=== PATIENT | female | born 1950 | race Caucasian/White ===

== ENCOUNTER 2024-06-18 12:02 | Outpatient (CLI) | payer MEDICARE, SELFPAY ==
--- NOTE | 2024-06-18 12:22 | XR_ITS ---
WS: [id number] Exam: XR chest 2V* [id number] Date/Time of Exam: 06/18/2024 12:34 PM Reason For Exam: DYSPNEA ON EXERTION No previous exams. There is cardiac enlargement with mildly increased pulmonary vascularity. There is pleural effusion v ersus pleural thickening seen along the LEFT heart border. No pneumothorax. The mediastinum is normal in contour. Osseous structures are intact. XR/XR chest 2V* [id number] IMPRESSION: 1. Cardiac enlargement with increased pulmonary vascularity. 2. Pleural thickening versus pleural effusion along the LEFT heart border.
== END 2024-06-18 12:03 | disposition home or self-care (01) ==
PROVIDERS: PCP Family Medicine; Visit Provider Family Medicine
DX: R06.09 Other forms of dyspnea (principal); I51.7 Cardiomegaly; J92.9 Pleural plaque without asbestos; R93.89 Abnormal findings on diagnostic imaging of other specified body structures
CPT/HCPCS: 71046

== ENCOUNTER 2024-06-27 12:50 | Inpatient (IN) | payer MEDICARE, SELFPAY ==
[2024-06-27] VITALS (25 sets, daily range): BP systolic 109–179; BP diastolic 65–141; PULSE 86–103; RESP 17–33; TEMP 36.4–36.9; O2SAT 83–99; BMI 30.9
--- NOTE | 2024-06-27 13:02 | ECG_ITS ---
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
--- NOTE | 2024-06-27 13:03 | XR_ITS ---
WS: [id number] Portable AP upright chest, 06/27/2024 Clinical Data: dyspnea/cough Comparison: Two-view chest, 06/18/2024 Findings: There are bibasilar pulmonary opacities unchanged. There is left pleural thickening unchanged. The heart remains enlarged. No pneumothorax is seen. There are no nodules or masses. The aortic arch and descending thoracic aorta show calcification and tortuosity. Monitor leads are on the chest wall. XR/XR chest 1V portable [id number] Impression: 1. No change in cardiomegaly and bibasilar pulmonary opacities which could repr esent pulmonary edema, atelectasis and/or pneumonia. 2. Atherosclerosis. 3. Probable left pleural thickening.
[2024-06-27 13:15] LABS: Basophils % 0.3 %; Hematocrit 32.9 % (36-47); Lymphocytes # 0.9 10^3/uL (0.8-4.8); Lymphocytes % 14.4 %; Mean Corpuscular HGB Conc 32.2 g/dL (30-55); Mean Corpuscular Volume 99.4 fl (85-98); Mean Platelet Volume 9.2 fL (7.4-10.4); Monocytes # 0.3 10^3/uL (0.2-0.9); Monocytes % 5.8 %; Neutrophils # 4.68 10^3/uL (1.8-7.7); Neutrophils % 79.2 %; Nucleated Red Blood Cells % 0 %; Platelet Count 251 10^3/cmm (157-399); Red Blood Count 3.31 10^6/uL (3.85-5.65); Red Cell Distribution Width 14.5 % (12.1-15.1); White Blood Count 5.91 10^3/uL (3.29-11.43)
--- NOTE | 2024-06-27 13:25 | ED_ITS ---
HPI - SOB/Dyspnea 2 General: Chief Complaint: Shortness of Breath/Dyspnea Stated Complaint: SOB Time Seen by Provider: 06/27/24 12:59 History of Present Illness: HPI Narrative: 73-year-old female presents emergency ro om for onset of shortness of breath of the last 3 weeks. Actually got to the point that she was borrowing her neighbors oxygen because of her shortness of breath. She was seen by her doctor couple weeks ago and given some Lasix but it continues to cause problems. She normally does not wear oxygen she is now requiring 2-1/2 L by nasal cannula. She has been mildly orthopneic and has had exertional dyspnea as well denies chest pain. Associated symptoms: Deny abdominal pain, chest pain or fever(s) Related Data Previous Rx's ?Medication ?Instructions ?Recorded aspirin 81 mg tablet,delayed 81 mg PO DAILY #30 tabs 0 07/05/24 release atorvastatin 40 mg tablet 40 mg PO BEDTIME #30 tabs carvedilol 3.125 mg tablet 3.125 mg PO BID #60 tabs clopidogrel 75 mg tablet 75 mg PO DAILY #30 tabs 06/21 10/12 furosemide 40 mg tablet (Lasix) 40 mg PO QAM #30 tabs 07/05/24 pantoprazole 40 mg tablet,delayed 40 mg PO DAILY #30 t abs 07/05/24 release potassium chloride 10 mEq 10 meq PO DAILY #30 caps capsule,extended release Allergies Allergy/AdvReac Type Severity Reaction Status Date / Time ciprofloxacin (From Cipro) Allergy ALGY-Hives Verified 06/27/24 14:20 coconut Allergy ALGY-Hives Verified 06/27/24 14:20 pregabalin (From Lyrica) Allergy ALGY-Hives Verified 06/27/24 14:20 Review of Systems 2 Const: Denies: fever(s) or chills Card: Denies: chest pain Resp: Reports: dyspnea GI: Denies: abdominal pain : Denies: dysuria, urinary frequency or urinary urgency Musc: Denies: neck pain or back pain Skin/Breast: Denies: rash PFSH ED 2 PFSH: Medical History (Updated 07/05/24 @ 10:47 by Negro Jaeger DO) CKD (chronic kidney disease) No significant past medical history Physical Exam 2 Const: GENERAL APPEARANCE: cooperative ORIENTATION/CONSCIOUSNESS: Yes awake, Yes oriented to person, Yes oriented to place and Yes oriented to time HENMT: COMMON NORMALS: normocephalic, atraumatic and hearing grossly normal bilaterally HEAD & SCALP: normocephalic and atraumatic Resp: AUSCULTATION: crackles Cardio: COMMON NORMALS: regular rate, regular rhythm and No murmurs present (Cardio) RATE: regular rate RHYTHM: regular rhythm GI: COMMON NORMALS: Soft to palpation and No hepatosplenomegaly present A USCULTATION: Yes normoactive bowel sounds PALPATION: Yes Soft to palpation, No Tenderness to palpation present (GI), No Guarding due to palpation present (GI) and Yes No hepatosplenomegaly present Extremity: COMMON NORMALS: normal to inspection, capillary refill normal, no clubbing, cyanosis or edema, no calf tenderness and no pedal edema Neuro: SENSORIUM/ORIENTATION: Yes oriented to person, Yes oriented to place and Yes oriented to time Skin: COMMON NORMALS: no rashes or lesions noted GENERAL SKIN EXAM: no rashes or lesions noted Course 2 Vital Signs: Vital signs: Vital Signs Temperature 97.8 F 07/05/24 08:00 Pulse Rate 85 07/05/24 08:00 Respiratory Rate 19 H 07/05/24 08:00 Blood Pressure 108/62 07/05/24 08:00 Pulse Oximetry 96 07/05/24 07:45 Oxygen Delivery Me thod Nasal Cannula 07/05/24 07:45 Oxygen Flow Rate 2 07/04/24 11:57 MDM - SOB/Dyspnea Medical Decision Making Patient has had several day onset of progressively worsening of shortness of breath with a activity. Clinically she appears to be in decompensated heart failure. Delta troponin of +6.5 at the 2-hour cain markedly elevated BNP. She is not having any chest discomfort at this point discussed with the hospitalist suspect this is primary heart failure CTA of the chest shows cardiomegaly no PE small bilateral pleural effusions. There is pulmonary edema as well which is also noted on the chest x-ray. Orders written for admission. Lab Data 07/05/24 02:49 07/05/24 02:49 Labs/Radiology: Radiology Impressions Chest X-Ray 06/27/24 13:03 Impression: 1. No change in cardiomegaly and bibasilar pulmonary opacities which could represent pulmonary edema, atelectasis and/or pneumonia. 2. Atherosclerosis. 3. Probable left pleural thickening. Chest CTA 06/27/24 13:55 IMPRESSION: 1. No pulmonary embolism. 2. Cardiomegaly. Enlarged LEFT heart. No definite RIGHT heart strain at this time. 3. Cirrhotic liver. 4. Small bilateral pleural effusions. 5. Atherosclerotic plaque throughout the thoracic aorta and suprarenal abdominal aorta. 6. Mild pulmonary edema and anasarca. 7. No pneumonia. 8. Mildly enlarged para-aortic lymph nodes. May be reactive. Venous Duplex 06/28/24 18:49 IMPRESSION: 1. No evidence of deep vein thrombosis. 2. 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 Laboratory Results WBC 5.91 10^3/uL (3.29-11.43) 06/27/24 13:10 RBC 3.31 10^6/uL (3.85-5.65) L 06/27/24 13:10 Hgb 10.60 g/dL (11.27-16.99) L 06/27/24 13:10 Hct 32.9 % (36-47) L 06/27/24 13:10 MCV 99.4 fl (85-98) H 06/27/24 13:10 MCH 32.0 pg (27-33) 06/27/24 13:10 MCHC 32.2 g/dL (30-55) 06/27/24 13:10 RDW 14.5 % (12.1-15.1) 06/27/24 13:10 Plt Count 251 10^3/cmm (157-399) 06/27/24 13:10 MPV 9.2 fL (7.4-10.4) 06/27/24 13:10 Neut % (Auto) 79.2 % 06/27/24 13:10 Lymph % (Auto) 14.4 % 06/27/24 13:10 [place] % (Auto) 5.8 % 06/27/24 13:10 Eos % (Auto) 0.0 % 06/27/24 13:10 Baso % (Auto) 0.3 % 06/27/24 13:10 Neut # (Auto) 4.68 10^3/uL (1.8-7.7) 06/27/24 13:10 Lymph # (Auto) 0.9 10^3/uL (0.8-4.8) 06/27/24 13:10 [place] # (Auto) 0.3 10^3/uL (0.2-0.9) 06/27/24 13:10 Eos # (Auto) 0.0 10^3/uL (0.0-0.8) 06/27/24 13:10 Baso # (Auto) 0.0 10^3/uL (0.0-0.1) 06/27/24 13:10 Nucleated RBC % (auto) 0 % 06/27/24 13:10 Nucleated RBCs # 0.0 /100WBC 06/27/24 13:10 Sodium 139 mmol/L (136-145) 06/27/24 13:10 Potassium 3.4 mmol/L (3.5-5.1) L 06/27/24 13:10 Chloride 102 mmol/L (98-107) 06/27/24 13:10 Carbon Dioxide 21 mmol/L (22-29) L 06/27/24 13:10 Anion Gap 19.4 (5-19) H 06/27/24 13:10 BUN 21 mg/dL (8-23) 06/27/24 13:10 Creatinine 1.4 mg/dL (0.5-0.9) H 06/27/24 13:10 GFR Calculation Not Reportable 06/27/24 13:10 Glucose 141 mg/dL (65-115) H 06/27/24 13:10 Estimat Average Glucose 103 06/27/24 13:10 Hemoglobin A1c 5.2 % (4.0-6.0) 06/27/24 13:10 Calculated Osmolality 293 mOsm/kg (285-295) 06/27/24 13:10 Calcium 9.4 mg/dL (8.5-10.5) 06/27/24 13:10 Total Bilirubin 0.7 mg/dL (0.15-1.2) 06/27/24 13:10 AST 16 U/L (0-32) 06/27/24 13:10 ALT 16 U/L (0-33) 06/27/24 13:10 Alkaline Phosphatase 92 U/L (35-105) 06/27/24 13:10 Troponin T Baseline 69 ng/L (0-10) H 06/27/24 17:34 NT-Pro-B Natriuret Pep 85439 pg/mL (0-125) H 06/27/24 13:10 Total Protein 7.3 g/dL (6.6-8.7) 06/27/24 13:10 Albumin 4.1 g/dL (3.5-5.2) 06/27/24 13:10 Globulin 3.2 g/dL (1.3-4.6) 06/27/24 13:10 Vitamin B12 593 pg/mL (232-1245) 06/27/24 13:10 Procalcitonin 0.08 ng/mL (0-0.5) 06/27/24 13:10 All radiology interpretation(s) finalized by discharge Discharge Plan Discharge Patient Disposition: Admitted As Inpatient Admit Provider: Kenzie Winkler Clinical Impression: Congestive heart failure, Exertional dyspnea Condition: Stable Discharge Diet: Cardiac Discharge Activity: Limit activity as instructed and Oxygen as instructed Coding Level of Care Code ED Service Delivery Supervisor for Tayler Lafleur
[2024-06-27 13:47] LABS: NT Pro B Type Natriuretic Pept 33297 pg/mL (0-125); Procalcitonin 0.08 ng/mL (0-0.5)
--- NOTE | 2024-06-27 13:55 | CT_ITS ---
WS: [id number] CT CHEST ANGIOGRAPHY WITH REFORMATS HISTORY: Pleural effusion shortness of breath hypoxia TECHNIQUE: Contiguous axial images are obtained through the chest during arterial injection of intravenous contrast. Images are reconstructed to evaluate the pulmonary arteries. MIP imaging also reviewed. All CT scans at [facility] use at least one of these dose optimization techniques: automated exposure control; mA and/or kV adjustment per patient size (includes targeted exams where dose is matched to clinical indication); or iterative reconstruction. CONTRAST: Omnipaque 350; 100 mL IV. DLP: 471.06 mGy.cm COMPARISON: None available. Good opacification of the central and proximal pulmonary arteries. No filling defects or emboli. Pulmonary artery is slightly enlarged. There is mild LEFT heart enlargement. No RV strain is evident but there is slight early flattening of the intraventricular septum. Moderate atherosclerotic plaque aorta. Calcification extends into the great vessels. Mild interstitial edema. Small bilateral pleural effusions. No dense consolidation or pneumonia. No hilar adenopathy. Periaortic lymph node measures 1.9 cm. There are a few additional smaller lymph nodes. There is diffuse soft tissue anasarca. Cirrhotic liver. Prior cholecystectomy. No adrenal mass. Mild increase in thoracic kyphosis. CT/CT angio chest PE protcl [id number] IMPRESSION: 1. No pulmonary embolism. 2. Cardiomegaly. Enlarged LEFT heart. No definite RIGHT heart strain at this t jesus. 3. Cirrhotic liver. 4. Small bilateral pleural effusions. 5. Atherosclerotic plaque throughout the thoracic aorta and suprarenal abdomin al aorta. 6. Mild pulmonary edema and anasarca. 7. No pneumonia. 8. Mildly enlarged para-aortic lymph nodes. May be reactive.
[2024-06-27 13:58] LABS: Alanine Aminotransferase 16 U/L (0-33); Albumin Level 4.1 g/dL (3.5-5.2); Alkaline Phosphatase 92 U/L (35-105); Anion Gap 19.4 (5-19); Aspartate Amino Transferase 16 U/L (0-32); Blood Urea Nitrogen 21 mg/dL (8-23); Calcium 9.4 mg/dL (8.5-10.5); Carbon Dioxide 21 mmol/L (22-29); Chloride 102 mmol/L (98-107); Creatinine Clr Calc Pharmacy 36.9942; Globulin 3.2 g/dL (1.3-4.6); Glucose 141 mg/dL (65-115); Osmolality Calculated 293 mOsm/kg (285-295); Potassium 3.4 mmol/L (3.5-5.1); Sodium 139 mmol/L (136-145); Total Bilirubin 0.7 mg/dL (0.15-1.2); Total Protein 7.3 g/dL (6.6-8.7)
[2024-06-27] MEDS: iohexol 350 mg/mL 500 mL Btl (per mL) IV (14:18)
[2024-06-27] MEDS: FUROsemide 10 mg/mL SDV 4mL 40 MG IVP (15:41)
--- NOTE | 2024-06-27 16:48 | ECG_ITS ---
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: : 1950 Requested By: Negro Griffith Order Number: [id number] Reading MD: KEESHA PALMER Measurements Intervals [place] Rate: 97 P: 39 ID: 160 QRS: -8 QRSD: 98 T: 56 QT: 300 QTc: 381 Interpretive Statements SINUS RHYTHM POSSIBLE LEFT ATRIAL ENLARGEMENT [-0.1mV P-WAVE IN V1/V2] POSSIBLE ANTERIOR MYOCARDIAL INFARCTION , PROBABLY OLD [30 ms Q WAVE IN V3/V4, OR R < 0.2 mV IN V4] Compared to ECG 06/27/2024 13:02:22 Myocardial infarct finding now present T-wave abnormality no longer present Electronically Signed On 06-29-2024 21:04:06 MIXED LIVESTOCK FARMER by KEESHA PALMER [email or web address]
--- NOTE | 2024-06-27 16:54 | P.HP_ITS ---
Providers/Chief Complaint 2 Primary Care Provider: Param Dobson MD Chief Complaint: SOB History of Present Illness Kaylee Kay is a 73 year old female with no significant past medical history presents to the ER today because of difficulty in breathing which has been getting worse over last 3 to 4 weeks. Currently patient is feeling short of breath on 5-10 steps. Complains of worsening difficulty in breathing on laying down flat. Denies of having any PND. Denies of having any chest pain, nausea, vomiting, flulike symptoms or sick contacts. Review of Systems 2 General: Reports: 10 or more systems reviewed and unremarkable except in HPI and below Const: Denies: fever(s), chills or body aches Eyes: Denies: change in vision, blurry vision or photophobia ENMT: Reports: hoarseness; Denies: throat pain, enlarged tonsils, odynophagia or nasal congestion Card: Denies: chest pain, palpitations, irregular heart rhythm, edema, swelling of feet/ankles, lightheadedness, pre-syncope, dyspnea on exertion or orthopnea Resp: Denies: dyspnea, productive cough, non-productive cough, wheezing, stridor, pain on inspiration, change in phlegm color, hemoptysis or chest congestion GI: Denies: abdominal pain, nausea, vomiting, hematemesis, coffee ground emesis, dysphagia, heartburn, diarrhea, constipation, GI cramping, change in stool character, hematochezia or melena : Denies: flank pain, difficulty voiding, dysuria, urinary frequency, urinary urgency, urinary hesitancy or hematuria Musc: Denies: neck pain, back pain, extremity pain, joint swelling, joint warmth or deformity Neuro: Denies: headache(s), numbness in extremities, weakness in extremities, sensory changes, difficulty walking, frequent falls, dizziness, vertigo, behavioral changes, Slurred speech present or seizure-like activity Psych: Denies: anxiety, depression, suicidal ideation or homicidal ideation Endo: Denies: polyuria, polydipsia, tired all the time, cold intolerance or hot flashes Kevin/Lymph: Denies: easy bruising or easy bleeding Medications/Allergies Home Medications ?Medication ?Instructions ?Recorded ?Confirmed ?Last Taken ?Type No Known Home Medications 06/27/2412/12 Unknown History Allergies Allergy/AdvReac Type Severity Reaction Status Date / Time ciprofloxacin (From Cipro) Allergy ALGY-Hives Verified 06/27/24 14:20 coconut Allergy ALGY-Hives Verified 06/27/24 14:20 pregabalin (From Lyrica) Allergy ALGY-Hives Verified 06/27/24 14:20 PFSH Acute 2 PFSH: Medical History (Updated 06/27/24 @ 18:44 by Kenzie Winkler MD) No significant past medical history Vitals/I&O/Wt Last Vital Signs Temp 97.6 F 06/27/24 12:54 Pulse 94 06/27/24 16:30 Resp 23 H 06/27/24 16:30 BP 179/141 06/27/24 16:30 Pulse Ox 97 06/27/24 16:30 O2 Del Method Room Air 06/27/24 12:54 Weight last 48 hrs Weight 81.647 kg Physical Exam 2 Narrative: General: No acute distress, AO x 3 on nasal cannula HEENT: PERRLA, pupils bilaterally equal and reactive, pallors not present Chest: Normal vesicular breath sounds, fine crackles present bilaterally in lower zone up to mid chest, equal good air entry bilaterally CVS: S1-S2 regular, no murmurs, no tachycardia, no gallops, no rubs Abdomen: Soft, nontender, no organomegaly, bowel sounds present Neuro: No focal deficits, no facial deformity, AO x3, power 5/5 in all limbs Data 06/27/24 13:10 06/27/24 13:10 A&P Assessment and plan (1) Dyspnea on exertion: (2) Orthopnea: (3) Congestive heart failure: (4) Hypertension: Plan 73-year-old female with no segment past medical history presents with dyspnea on exertion worsening over last 3 weeks found to have elevated proBNP of more than 33,000 with a creatinine of 1.4. Shortness of breath: Most likely in setting of congestive heart failure. No formal past diagnosis. Does have elevated proBNP. CTA negative for pulmonary embolism but consistent with cardiomegaly. IV Lasix 40 mg daily. Strict input output charting, daily weights. Fluid restriction to less than 1500 cc. Check echocardiogram. Depending on echocardiogram results we will plan for further evaluation. Oxygen supplementation keeping saturation over 90%. Check A1c, lipid panel. Check TSH. High blood pressure: No formal history of hypertension. Goal blood pressure less than 140/90 mmHg. Will monitor and start on antihypertensive accordingly. Right lower limb swelling: Will check lower limb DVT. CODE STATUS: Full code. Cardiac diet Protonix for PUD prophylaxis Heparin 5000 Q12 hourly for DVT prophylaxis PDMP PDMP Reviewed: Not Reviewed Attestations 2 Medical Necessity Statement*: Admission for more than 2 midnights for management of shortness of breath in setting of new diagnosis of congestive heart failure. Diagnoses Dyspnea on exertion R06.09 Orthopnea R06.01 Congestive heart failure I50.9 Hypertension I10
[2024-06-27] MEDS: enoxaparin 40 mg/0.4 mL Syringe SUBCUT (17:30)
[2024-06-27 18:04] LABS: Troponin(5th) Baseline 69 ng/L (0-10)
[2024-06-27 20:57] LABS: Vitamin B12 593 pg/mL (232-1245)
[2024-06-27 21:02] LABS: Estmated Average Glucose 103; Hemoglobin A1C 5.2 % (4.0-6.0)
[2024-06-27 21:27] LABS: Bilirubin Urine Negative (Negative); Blood Urine Negative (Negative); Glucose Urine UA Negative (Normal); Ketones Urine Negative (Negative); Leukocyte Esterase Urine Negative (Negative); Nitrate Urine Negative (Negative); Protein Urine Negative (Negative); Specific Gravity, Urine 1.015 (1.005-1.030); Urine Appearance Clear (CLEAR); Urine Color Yellow (Yellow); Urobilinogen Urine 0.2 mg/dL (Negative)
[2024-06-27 21:31] LABS: Add Urine Microscopic? YES; Bacteria Urine None Seen /hpf; RBC Urine 0-2 /hpf (0-2); Squamous Epithelial Cell Urine 0-5 /hpf (0-5); WBC Urine 0-5 /hpf (0-5)
[2024-06-27 21:34] LABS: Amphetamines Screen Urine Negative (Negative); Barbiturates Screen Urine Negative (Negative); Benzodiazepines Screen Urine Negative (Negative); Cocaine Screen Urine Negative (Negative); Opiate Screen Urine Negative (Negative); PCP Screen Urine Negative (Negative); THC Screen Urine Negative (Negative)
[2024-06-27 21:36] LABS: Troponin 5 2HR 75.55 ng/L (0-10); Troponin 5 2HR Delta 6.55 ABS# (0-10)
--- NOTE | 2024-06-27 22:48 | ECG_ITS ---
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: : 1950 Requested By: Negro Griffith Order Number: [id number] Reading MD: KEESHA PALMER Measurements Intervals [place] Rate: 97 P: 75 RI: 174 QRS: -16 QRSD: 98 T: 43 QT: 307 QTc: 391 Interpretive Statements SINUS RHYTHM WITH OCCASIONAL VENTRICULAR PREMATURE COMPLEXES POSSIBLE LEFT ATRIAL ENLARGEMENT [-0.1mV P-WAVE IN V1/V2] POSSIBLE ANTERIOR MYOCARDIAL INFARCTION , OF INDETERMINATE AGE [30 ms Q WAVE IN V3/V4, OR R < 0.2 mV IN V4] Compared to ECG 06/27/2024 16:52:56 Ventricular premature complex(es) now present Myocardial infarct finding still present Electronically Signed On 06-29-2024 21:10:28 BIZTALK ADMINISTRATOR by KEESHA PALMER [id number]
[2024-06-28] VITALS (8 sets, daily range): BP systolic 99–151; BP diastolic 62–83; PULSE 86–101; RESP 14–18; TEMP 36.4–37.2; O2SAT 92–96; BMI 37.5
[2024-06-28 00:15] LABS: Troponin 5 6HR 85.48 ng/L (0-10)
[2024-06-28 00:25] LABS: Troponin 5 6HR Delta 16.48 ng/L (0-12)
[2024-06-28] MEDS: FUROsemide 10 mg/mL SDV 4mL 40 MG IVP (03:14)
[2024-06-28 05:08] LABS: Chol HDL Ratio 2.91 mg/dL (0.0-4.40); Cholesterol 137 mg/dL (0-200); HDL Cholesterol 47 mg/dL (60-100); LDL Cholesterol Calculated 76 mg/dL (50-129); LDL HDL Ratio 1.62 RATIO (0.00-3.22); Triglycerides 70 mg/dL (0-150)
[2024-06-28 05:12] LABS: Alanine Aminotransferase 14 U/L (0-33); Albumin Level 3.9 g/dL (3.5-5.2); Alkaline Phosphatase 84 U/L (35-105); Anion Gap 18.5 (5-19); Aspartate Amino Transferase 14 U/L (0-32); Blood Urea Nitrogen 19 mg/dL (8-23); Calcium 9.2 mg/dL (8.5-10.5); Carbon Dioxide 23 mmol/L (22-29); Chloride 104 mmol/L (98-107); Creatinine Clr Calc Pharmacy 44.1341; Globulin 2.2 g/dL (1.3-4.6); Glucose 88 mg/dL (65-115); Magnesium 1.8 mg/dL (1.7-2.3); Osmolality Calculated 296 mOsm/kg (285-295); Potassium 3.5 mmol/L (3.5-5.1); Sodium 142 mmol/L (136-145); Thyroid Stimulating Hormone 1.13 uIU/mL (0.27-4.20); Total Bilirubin 0.6 mg/dL (0.15-1.2); Total Protein 6.1 g/dL (6.6-8.7)
[2024-06-28] MEDS: pantoprazole DR 40 mg Tablet PO (09:07)
[2024-06-28] MEDS: aspirin 81 mg EC Tablet PO (16:09)
[2024-06-28] MEDS: enoxaparin 100 mg/mL Syringe SUBCUT (16:09)
--- NOTE | 2024-06-28 16:44 | P.PN_ITS ---
Subjective 2 Subjective: Patient states she feels her breathing is better today. Currently on 2 L/min supplemental O2 at the time of this assessment. Saturating 92%. Chest is clear to auscultation. Vitals/I&O/Wt Last Vital Signs Temp 98.0 F 06/28/24 16:00 Pulse 96 06/28/24 16:00 Resp 18 06/28/24 16:00 BP 136/62 06/28/24 16:00 Pulse Ox 92 06/28/24 16:00 O2 Del Method Room Air 06/28/24 16:00 O2 Flow Rate 2 06/28/24 09:02 06/28/24 06/28/24 06/28/24 06:59 14:59 22:59 Intake Total 120 / 120 840 / 840 Output Total 600 / 600 1000 / 1000 Balance -480 / -480 -160 / -160 Weight last 48 hrs Weight 99.291 kg Weight 55.293 kg Weight 81.647 kg Physical Exam 2 Narrative: General: No acute distress, AO x 3 on nasal cannula HEENT: PERRLA, pupils bilaterally equal and reactive, pallors not present Chest: Normal vesicular breath sounds, fine crackles present bilaterally in lower zone up to mid chest, equal good air entry bilaterally CVS: S1-S2 regular, no murmurs, no tachycardia, no gallops, no rubs Abdomen: Soft, nontender, no organomegaly, bowel sounds present Neuro: No focal deficits, no facial deformity, AO x3, power 5/5 in all limbs Data 06/27/24 13:10 06/28/24 03:39 A&P Assessment and plan (1) Dyspnea on exertion: (2) Orthopnea: (3) Congestive heart failure: (4) Hypertension: Plan 73-year-old female with no segment past medical history presents with dyspnea on exertion worsening over last 3 weeks found to have elevated proBNP of more than 33,000 with a creatinine of 1.4. Shortness of breath: Most likely in setting of congestive heart failure. No formal past diagnosis. Does have elevated proBNP. CTA negative for pulmonary embolism but consistent with cardiomegaly. IV Lasix 40 mg daily. Strict input output charting, daily weights. Fluid restriction to less than 1500 cc. Check echocardiogram. Depending on echocardiogram results we will plan for further evaluation. Oxygen supplementation keeping saturation over 90%. Check A1c, lipid panel. Check TSH. High blood pressure: No formal history of hypertension. Goal blood pressure less than 140/90 mmHg. Will monitor and start on antihypertensive accordingly. Right lower limb swelling: Will check lower limb DVT. CODE STATUS: Full code. Cardiac diet Protonix for PUD prophylaxis Heparin 5000 Q12 hourly for DVT prophylaxis June 28, 2024 Patient states she feels her breathing is better today. Currently on 2 L/min supplemental O2 at the time of this assessment. Saturating 92%. Chest is clear to auscultation. She is net -600 cc last 24 hours. Urine output at 1600 cc. Creatinine stable at 1.3. Patient had a +6-hour delta of 16. Mildly elevated troponins. Echocardiogram is awaited. Will start patient on full dose anticoagulation with Lovenox 1 mg/kg every 12 hours while awaiting results of echo. Depending on results of echo will decide regarding further ischemic evaluation with either a stress test versus angiogram. Continue Lasix 40 mg IV every 12 hours. HbA1c not consistent with diabetes mellitus. Patient states she takes a full dose aspirin 325 mg at home. For now we will change this to aspirin 81 mg daily while she is on full dose anticoagulation. PDMP PDMP Reviewed: Not Reviewed Attestations 2 Medical Necessity Statement*: Continued admission for IV diuresis. Pending echocardiogram. Further ischemic workup dependent on results of echo. Coding Level of Care Code Acute Code for Chg Fwd Diagnoses Dyspnea on exertion R06.09 Orthopnea R06.01 Congestive heart failure I50.9 Hypertension I10
--- NOTE | 2024-06-28 16:51 | USCV_ITS ---
Kaylee Kay Age: 73 Gender: F : 1950 Exam Date: 06/28/2024 14:13 Ordering Phys: Kenzie Winkler MD Technologist: Nicolas Terry [place] [facility] [place] CHF BP: 151 / 75 HR: 97 Rhythm: Sinus Technical Quality: Adequate MEASUREMENTS (Male / Female) Normal Values 2D ECHO LV Diastolic Diameter PLAX 4.8 cm 4.2 - 5.9 / 3.9 - 5.3 cm IVS Diastolic Thickness 1.5 cm 0.6 - 1.0 / 0.6 - 0.9 cm IVS Systolic Thickness 1.8 cm LVPW Diastolic Thickness 1.6 cm 0.6 - 1.0 / 0.6 - 0.9 cm LVPW Systolic Thickness 2.1 cm LVOT Diameter 2.0 cm LV Ejection Fraction 2D Teich 17.6 % LV Ejection Fraction MOD 4C 38.1 % LV Ejection Fraction MOD 2C 24.1 % LV Ejection Fraction 2C AL 26.6 % LA Diameter 5.0 cm RA Systolic Volume 4C AL 54.9 ml RA Systolic Volume 4C MOD 58.0 ml LA Sys Volume AL 85.5 cm cubed LA Sys Volume Index AL 39.6 cm cubed/m squared Aorta at Sinotubular Diameter 2.3 cm IVC Diameter 2.8 cm M-MODE LA Ao Ratio MM 2.0 AV Cusp Separation MM 1.3 cm DOPPLER AV Peak Velocity 166.0 cm/s LVOT Peak Velocity 53.0 cm/s AV Area Cont Eq vti 0.8 cm squared AV Area Cont Eq pk 1.0 cm squared MV Peak Velocity 156.0 cm/s MV Area PHT 7.9 cm squared Mitral E to A Ratio 1.4 TV Peak Velocity 295.0 cm/s TR Peak Velocity 319.0 cm/s TR Peak Gradient 40.7 mmHg TR Mean Velocity 250.0 cm/s TR Mean Gradient 27.0 mmHg TR Velocity Time Integral 72.3 cm PV Peak Velocity 83.0 cm/s RV Ejection Time 0.2 s FINDINGS Left Ventricle Moderately increased left ventricular cavity size. Severely decreased left ventricular systolic function. Left ventricular ejection fraction is estimated at 24%. Global left ventricular hypokinesis. Grade II/IV diastolic dysfunction, moderately elevated filling pressures. Right Ventricle The right ventricle is normal in size and function. Right Atrium The right atrium is normal in size. Left Atrium Moderately increased left atrial size. Mitral Valve Moderately thickened mitral valve. No mitral valve stenosis. Moderate to severe mitral valve regurgitation. Aortic Valve Moderate aortic valve calcification. Moderate aortic valve stenosis, mean gradient 5.2 mmHg, NICOLÁS 0.83 cm squared. Possible Psuedo arotic stenosis element persist. Tricuspid Valve Moderate tricuspid valve regurgitation. Pulmonic Valve Mild pulmonary valve regurgitation. Pericardium Normal pericardium without effusion. Aorta Normal ascending aorta dimension. IVC Moderately dilated IVC. CONCLUSIONS Moderately increased left ventricular cavity size. Severely decreased left ventricular systolic function. Left ventricular ejection fraction is estimated at 24%. Global left ventricular hypokinesis. Grade II/IV diastolic dysfunction, moderately elevated filling pressures. Moderately increased left atrial size. Moderately thickened mitral valve. No mitral valve stenosis. Moderate to severe mitral valve regurgitation. Moderate aortic valve calcification. Moderate aortic valve stenosis, mean gradient 5.2 mmHg, NICOLÁS 0.83 cm squared. Possible Psuedo arotic stenosis element persist. Moderate tricuspid valve regurgitation. Right atrial pressure is around 20 mm of mercury. Juan Peck MD (Electronically Signed) Final Date: 28 June 2024 17:03 S
--- NOTE | 2024-06-28 18:49 | USR_ITS ---
PROCEDURE INFORMATION: Exam: US Duplex Lower Extremity Veins, Bilateral Exam date and time: 06/28/2024 12:15 PM Age: 73 years old Clinical indication: Swelling (edema) of limb; Lower extremity, bilateral; Additional info: Right lower limb swelling TECHNIQUE: Imaging protocol: Real-time duplex ultrasound of the bilateral extremities with 2-D cavanaugh scale, color Doppler flow and spectral waveform analysis including responses to compression and other maneuvers (when performed) with image documentation. Complete exam focused on the lower extremity veins. COMPARISON: No relevant prior studies available. FINDINGS: Right deep veins: Unremarkable. The common femoral, femoral, proximal profunda femoral and popliteal veins are patent without thrombus. Normal Doppler waveforms. Normal compressibility and/or augmentation response. Left deep veins: Unremarkable. The common femoral, femoral, proximal profunda femoral and popliteal veins are patent without thrombus. Normal Doppler waveforms. Normal compressibility and/or augmentation response. Superficial veins: Greater saphenous veins at the saphenofemoral junctions are patent bilaterally without thrombus. 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 US/[place] [id number] IMPRESSION: 1. No evidence of deep vein thrombosis. 2. 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
[2024-06-28] MEDS: atorvastatin 40 mg Tablet PO (20:13)
[2024-06-29] VITALS (10 sets, daily range): BP systolic 112–164; BP diastolic 67–92; PULSE 84–102; RESP 16–18; TEMP 36.4–37.2; O2SAT 93–96
[2024-06-29] MEDS: FUROsemide 10 mg/mL SDV 4mL 40 MG IVP ×2 (03:18→18:01)
[2024-06-29] MEDS: enoxaparin 100 mg/mL Syringe SUBCUT ×2 (03:18→16:02)
[2024-06-29 05:54] LABS: Basophils % 0.4 %; Hematocrit 32.7 % (36-47); Lymphocytes # 1.5 10^3/uL (0.8-4.8); Lymphocytes % 28.2 %; Mean Corpuscular HGB Conc 31.8 g/dL (30-55); Mean Corpuscular Hemoglobin 32.6 pg (27-33); Mean Corpuscular Volume 102.5 fl (85-98); Mean Platelet Volume 9.8 fL (7.4-10.4); Monocytes # 0.5 10^3/uL (0.2-0.9); Monocytes % 9.3 %; Neutrophils # 3.37 10^3/uL (1.8-7.7); Neutrophils % 61.7 %; Nucleated Red Blood Cells % 0 %; Platelet Count 230 10^3/cmm (157-399); Red Blood Count 3.19 10^6/uL (3.85-5.65); Red Cell Distribution Width 14.3 % (12.1-15.1); White Blood Count 5.46 10^3/uL (3.29-11.43)
[2024-06-29 06:26] LABS: Alanine Aminotransferase 13 U/L (0-33); Albumin Level 3.7 g/dL (3.5-5.2); Alkaline Phosphatase 82 U/L (35-105); Anion Gap 18.1 (5-19); Aspartate Amino Transferase 14 U/L (0-32); Blood Urea Nitrogen 20 mg/dL (8-23); Calcium 9.1 mg/dL (8.5-10.5); Carbon Dioxide 24 mmol/L (22-29); Chloride 101 mmol/L (98-107); Creatinine Clr Calc Pharmacy 44.1341; Glucose 97 mg/dL (65-115); Osmolality Calculated 293 mOsm/kg (285-295); Potassium 3.1 mmol/L (3.5-5.1); Sodium 140 mmol/L (136-145); Total Bilirubin 0.7 mg/dL (0.15-1.2); Total Protein 6.7 g/dL (6.6-8.7)
[2024-06-29] MEDS: pantoprazole DR 40 mg Tablet PO (10:31)
[2024-06-29] MEDS: aspirin 81 mg EC Tablet PO (10:31)
--- NOTE | 2024-06-29 15:36 | P.CONIM_ITS ---
Providers/Reason For Consult 2 Consulting Physician/Specialty*: Juan Peck MD Reason for Consult*: New onset of heart failure Severe LV dysfunction Moderate aortic valve newly diagnosed Moderate to severe mitral regurgitation Moderate tricuspid valve regurgitation Requesting Physician: Dr. Winkler Attending Physician: Kenzie Winkler MD Primary Care Provider: Param Dobson MD History of Present Illness History of Present Illness Kaylee Kay is a 73 year old female past medical history significant for hypertension neuropathy otherwise no significant history of heart coronary artery renal hepatic or musculoskeletal disorder. Patient presented with worsening of shortness of breath PND orthopnea. She was noted to be in decompensated systolic heart failure. She was started on IV Lasix 40 mg once a day. She is feeling somewhat better but still not able to lay flat on the bed. Echocardiogram was performed which showed severely depressed left ventricular ejection fraction with moderate aortic valve stenosis, moderate to severe mitral and tricuspid regurgitation left ventricle is also dilated. Findings are more consistent with cardiomyopathy. Twelve-lead EKG showed sinus rhythm poor R wave progression in the anterolateral lead cannot rule out possible old anterolateral myocardial infarction. Review of Systems 2 General: Reports: 10 or more systems reviewed and unremarkable except in HPI and below Const: Denies: fever(s), chills or body aches Eyes: Denies: change in vision, blurry vision or photophobia ENMT: Reports: hoarseness; Denies: throat pain, enlarged tonsils, odynophagia or nasal congestion Card: Denies: chest pain, palpitations, irregular heart rhythm, edema, swelling of feet/ankles, lightheadedness, pre-syncope, dyspnea on exertion or orthopnea Resp: Denies: dyspnea, productive cough, non-productive cough, wheezing, stridor, pain on inspiration, change in phlegm color, hemoptysis or chest congestion GI: Denies: abdominal pain, nausea, vomiting, hematemesis, coffee ground emesis, dysphagia, heartburn, diarrhea, constipation, GI cramping, change in stool character, hematochezia or melena : Denies: flank pain, difficulty voiding, dysuria, urinary frequency, urinary urgency, urinary hesitancy or hematuria Musc: Denies: neck pain, back pain, extremity pain, joint swelling, joint warmth or deformity Skin/Breast: Denies: rash Neuro: Denies: headache(s), numbness in extremities, weakness in extremities, sensory changes, difficulty walking, frequent falls, dizziness, vertigo, behavioral changes, Slurred speech present or seizure-like activity Psych: Denies: anxiety, depression, suicidal ideation or homicidal ideation Endo: Denies: polyuria, polydipsia, tired all the time, cold intolerance or hot flashes Kevin/Lymph: Denies: easy bruising or easy bleeding Medications/Allergies Home Medications ?Medication ?Instructions ?Recorded ?Confirmed ?Last Taken ?Type No Known Home Medications 06/27/2412/12 Unknown History Allergies Allergy/AdvReac Type Severity Reaction Status Date / Time ciprofloxacin (From Cipro) Allergy ALGY-Hives Verified 06/27/24 14:20 coconut Allergy ALGY-Hives Verified 06/27/24 14:20 pregabalin (From Lyrica) Allergy ALGY-Hives Verified 06/27/24 14:20 Current Medications Generic Name Dose Route Start Last Admin Trade Name Freq PRN Reason Stop Dose Admin Aspirin 81 mg 06/28/24 15:30 06/29/24 10:31 Aspirin 81 Mg Ec Tablet PO 81 mg DAILY VETO Administration Atorvastatin Calcium 40 mg 06/28/24 21:00 06/28/24 20:13 Atorvastatin 40 Mg Tablet PO 40 mg BEDTIME VETO Administration Enoxaparin Sodium 100 mg 06/28/24 15:15 06/29/24 03:18 Enoxaparin 100 Mg/Ml Syringe 1 mg/kg (100 mg) 100 mg SUBCUT Administration Q12H VETO Furosemide 40 mg 06/28/24 04:00 06/29/24 03:18 Furosemide 10 Mg/Ml Sdv 4ml IVP 40 mg Q24H VETO Administration Pantoprazole Sodium 40 mg 06/28/24 09:00 06/29/24 10:[address] 40 Mg Tablet PO 40 mg DAILY VETO Administration PFSH Acute 2 PFSH: Medical History (Updated 06/29/24 @ 18:10 by Juan Peck MD) CKD (chronic kidney disease) No significant past medical history Vitals/I&O/Wt Last Vital Signs Temp 98.1 F 06/29/24 12:00 Pulse 100 06/29/24 12:00 Resp 17 06/29/24 12:00 BP 152/90 06/29/24 12:00 Pulse Ox 94 06/29/24 12:00 O2 Del Method Nasal Cannula 06/29/24 12:00 O2 Flow Rate 4 06/29/24 07:46 06/29/24 06/29/24 06/29/24 06:59 14:59 22:59 Intake Total 600 / 600 Balance 600 / 600 Weight last 48 hrs Weight 218 lb 14.4 oz Weight 218 lb 14.4 oz Weight 121 lb 14.4 oz Data 06/29/24 05:12 06/29/24 05:12 A&P Assessment and plan (1) New onset of congestive heart failure: (2) Left ventricular systolic dysfunction (LVSD): (3) Aortic valve stenosis: (4) Mitral valve regurgitation: (5) Tricuspid valve regurgitation: (6) CKD (chronic kidney disease): (7) Hypertension: Plan By physical examination and echocardiogram patient has new onset of severe LV dysfunction and estimated ejection fraction less than 30% to be very precise 24%. Patient has moderate aortic valve stenosis moderate to severe mitral valve regurgitation and moderate to severe tricuspid valve regurgitation. Plan: Will diurese with 40 mg of IV Lasix twice daily and add potassium chloride 20 mEq twice daily Will add beta-joanne in the form of carvedilol 3.125 mg twice daily Once euvolemic add Entresto 24 twice daily with close monitoring of renal function LifeVest will be initiated before discharge due to severely depressed left ventricular ejection fraction less than 30% for cardiomyopathy in order to prevent sudden cardiac Once euvolemic and able to lay flat provided renal function remains stable at the baseline which is 1.3-1.4, will plan to proceed with left heart cath to rule out ischemic etiology most likely Sunday or Sunday whenever patient will be ready. I have detailed discussion with the patient I have explained my plan and treatment she is in agreement and would like to proceed with it. PDMP PDMP Reviewed: Not Reviewed Consult Attestations 2 Medical Necessity Statement: Patient require continuation hospitalization for above defined care. Coding Level of Care Code Acute Code for Chg Fwd Diagnoses New onset of congestive heart failure I50.9 Left ventricular systolic dysfunction (LVSD) I51.89 Aortic valve stenosis I35.0 Mitral valve regurgitation I34.0 Tricuspid valve regurgitation I07.1 CKD (chronic kidney disease) N18.9 Hypertension I10
--- NOTE | 2024-06-29 16:07 | P.PN_ITS ---
Subjective 2 Subjective: Patient reports feeling symptomatically better today. Saturating 94% on 2 L/min supplemental O2. Medications: Reviewed: Yes Vitals/I&O/Wt Last Vital Signs Temp 98.1 F 06/29/24 12:00 Pulse 100 06/29/24 12:00 Resp 17 06/29/24 12:00 BP 152/90 06/29/24 12:00 Pulse Ox 94 06/29/24 12:00 O2 Del Method Nasal Cannula 06/29/24 12:00 O2 Flow Rate 4 06/29/24 07:46 06/29/24 06/29/24 06/29/24 06:59 14:59 22:59 Intake Total 600 / 600 Balance 600 / 600 Weight last 48 hrs Weight 99.291 kg Weight 99.291 kg Weight 55.293 kg Physical Exam 2 Narrative: General: No acute distress, AO x3 HEENT: PERRLA, pupils bilaterally equal and reactive, pallors not present Chest: Clear to auscultation bilaterally CVS: S1-S2 regular, no murmurs, no tachycardia, no gallops, no rubs Abdomen: Soft, nontender, no organomegaly, bowel sounds present Neuro: No focal deficits, no facial deformity, AO x3, power 5/5 in all limbs Data 06/29/24 05:12 06/29/24 05:12 Other data: FINDINGS Left Ventricle Moderately increased left ventricular cavity size. Severely decreased left ventricular systolic function. Left ventricular ejection fraction is estimated at 24%. Global left ventricular hypokinesis. Grade II/IV diastolic dysfunction, moderately elevated filling pressures. Right Ventricle The right ventricle is normal in size and function. Right Atrium The right atrium is normal in size. Left Atrium Moderately increased left atrial size. Mitral Valve Moderately thickened mitral valve. No mitral valve stenosis. Moderate to severe mitral valve regurgitation. Aortic Valve Moderate aortic valve calcification. Moderate aortic valve stenosis, mean gradient 5.2 mmHg, NICOLÁS 0.83 cm squared. Possible Psuedo arotic stenosis element persist. Tricuspid Valve Moderate tricuspid valve regurgitation. Pulmonic Valve Mild pulmonary valve regurgitation. Pericardium Normal pericardium without effusion. Aorta Normal ascending aorta dimension. IVC Moderately dilated IVC. CONCLUSIONS Moderately increased left ventricular cavity size. Severely decreased left ventricular systolic function. Left ventricular ejection fraction is estimated at 24%. Global left ventricular hypokinesis. Grade II/IV diastolic dysfunction, moderately elevated filling pressures. Moderately increased left atrial size. Moderately thickened mitral valve. No mitral valve stenosis. Moderate to severe mitral valve regurgitation. Moderate aortic valve calcification. Moderate aortic valve stenosis, mean gradient 5.2 mmHg, NICOLÁS 0.83 cm squared. Possible Psuedo arotic stenosis element persist. Moderate tricuspid valve regurgitation. Right atrial pressure is around 20 mm of mercury. A&P Assessment and plan (1) Dyspnea on exertion: (2) Orthopnea: (3) Congestive heart failure: (4) Hypertension: Plan 73-year-old female with no segment past medical history presents with dyspnea on exertion worsening over last 3 weeks found to have elevated proBNP of more than 33,000 with a creatinine of 1.4. Shortness of breath: Most likely in setting of congestive heart failure. No formal past diagnosis. Does have elevated proBNP. CTA negative for pulmonary embolism but consistent with cardiomegaly. IV Lasix 40 mg daily. Strict input output charting, daily weights. Fluid restriction to less than 1500 cc. Check echocardiogram. Depending on echocardiogram results we will plan for further evaluation. Oxygen supplementation keeping saturation over 90%. Check A1c, lipid panel. Check TSH. High blood pressure: No formal history of hypertension. Goal blood pressure less than 140/90 mmHg. Will monitor and start on antihypertensive accordingly. Right lower limb swelling: Will check lower limb DVT. CODE STATUS: Full code. Cardiac diet Protonix for PUD prophylaxis Heparin 5000 Q12 hourly for DVT prophylaxis June 28, 2024 Patient states she feels her breathing is better today. Currently on 2 L/min supplemental O2 at the time of this assessment. Saturating 92%. Chest is clear to auscultation. She is net -600 cc last 24 hours. Urine output at 1600 cc. Creatinine stable at 1.3. Patient had a +6-hour delta of 16. Mildly elevated troponins. Echocardiogram is awaited. Will start patient on full dose anticoagulation with Lovenox 1 mg/kg every 12 hours while awaiting results of echo. Depending on results of echo will decide regarding further ischemic evaluation with either a stress test versus angiogram. Continue Lasix 40 mg IV every 12 hours. HbA1c not consistent with diabetes mellitus. Patient states she takes a full dose aspirin 325 mg at home. For now we will change this to aspirin 81 mg daily while she is on full dose anticoagulation. June 29, 2024 Remains 94% on 2 -3 L/min nasal cannula. Urine output is not accurately charted. Creatinine is stable at 1.3. Echocardiogram showing severely decreased LVEF of 24%. Global left ventricular hypokinesia. Grade 2 diastolic dysfunction. Moderately elevated filling pressures. Overall features consistent with acute systolic congestive heart failure. With positive delta's as noted above, concern for underlying ischemic etiology. Will consult cardiology for further assessment. May need stress test versus angiogram for further diagnostics. Add metoprolol 12.5 mg p.o. twice daily. Will add DAISY inhibitors once renal function demonstrates stability. Today creatinine is at 1.3. Hypokalemia at 3.1 repleted with oral potassium. Continue Lasix 40 mg IV every 24 hours. Continue Lovenox while awaiting cardiology assessment. Continue aspirin 81 mg p.o. daily. PDMP PDMP Reviewed: Not Reviewed Attestations 2 Medical Necessity Statement*: Continued admission for IV diuresis. Cardiology assessment for newly diagnosed ejection fraction 24%, possibly needs ischemic workup Coding Level of Care Code Acute Code for Chg Fwd High MDM includes number and complexity of problems actively addressed during encounter, amount and/or complexity of data reviewed/ordered and described risk of complication, morbidity or mortality of management as documented Diagnoses Dyspnea on exertion R06.09 Orthopnea R06.01 Congestive heart failure I50.9 Hypertension I10
[2024-06-29] MEDS: potassium chloride ER 20 mEq Tablet 40 MEQ PO (16:44)
[2024-06-29] MEDS: metoprolol tartrate 25 mg Tablet 12.5 MG PO (20:01)
[2024-06-29] MEDS: atorvastatin 40 mg Tablet PO (20:01)
[2024-06-30] VITALS (10 sets, daily range): BP systolic 119–172; BP diastolic 65–96; PULSE 84–104; RESP 18; TEMP 36.3–37.1; O2SAT 90–94
[2024-06-30] MEDS: enoxaparin 100 mg/mL Syringe SUBCUT ×2 (03:10→13:47)
[2024-06-30] MEDS: FUROsemide 10 mg/mL SDV 4mL 40 MG IVP ×2 (04:43→16:56)
[2024-06-30 06:30] LABS: Basophils % 0.5 %; Hematocrit 33.5 % (36-47); Lymphocytes # 1.9 10^3/uL (0.8-4.8); Lymphocytes % 28.9 %; Mean Corpuscular HGB Conc 31.6 g/dL (30-55); Mean Corpuscular Hemoglobin 32.3 pg (27-33); Mean Corpuscular Volume 102.1 fl (85-98); Mean Platelet Volume 9.9 fL (7.4-10.4); Monocytes # 0.5 10^3/uL (0.2-0.9); Monocytes % 7.9 %; Neutrophils # 4.14 10^3/uL (1.8-7.7); Neutrophils % 62.4 %; Nucleated Red Blood Cells % 0 %; Platelet Count 254 10^3/cmm (157-399); Red Blood Count 3.28 10^6/uL (3.85-5.65); Red Cell Distribution Width 14.3 % (12.1-15.1); White Blood Count 6.62 10^3/uL (3.29-11.43)
[2024-06-30 06:52] LABS: Alanine Aminotransferase 14 U/L (0-33); Alkaline Phosphatase 85 U/L (35-105); Anion Gap 19.5 (5-19); Aspartate Amino Transferase 15 U/L (0-32); Blood Urea Nitrogen 23 mg/dL (8-23); Calcium 9.6 mg/dL (8.5-10.5); Carbon Dioxide 24 mmol/L (22-29); Chloride 100 mmol/L (98-107); Creatinine Clr Calc Pharmacy 51.3758; Globulin 3.2 g/dL (1.3-4.6); Glucose 115 mg/dL (65-115); Magnesium 1.6 mg/dL (1.7-2.3); Osmolality Calculated 295 mOsm/kg (285-295); Potassium 3.5 mmol/L (3.5-5.1); Sodium 140 mmol/L (136-145); Total Bilirubin 0.6 mg/dL (0.15-1.2); Total Protein 7.2 g/dL (6.6-8.7)
[2024-06-30] MEDS: potassium chloride ER 20 mEq Tablet PO ×2 (08:43→16:56)
[2024-06-30] MEDS: pantoprazole DR 40 mg Tablet PO (08:43)
[2024-06-30] MEDS: aspirin 81 mg EC Tablet PO (08:43)
[2024-06-30] MEDS: metoprolol tartrate 25 mg Tablet 12.5 MG PO ×2 (08:43→22:00)
--- NOTE | 2024-06-30 09:57 | PC.CHAP ---
Pastoral Care Encounter/Spiritual Assessment Type of Contact [] Declined electronic communications technician visit [] Patient/Family/Request visit [] Outpatient visit [] Follow-up visit [] Physician referral [] Code/Alert [x] Routine visit [] Staff referral [] Actively dying [] Patient sleeping [] Family support [] [] Out of room [] Palliative care [] [] Receiving care in room [] Pre-surgical visit [] Trauma [] Long length of stay [] ICU visit [] Other: Relational/Emotional Strength [] Patient feels connected with others/family/visitors/staff [] Distress [] Loneliness/isolation [] Abandonment Spirituality of Patient [x] Person of Rosa Elena [] Attends Mormonism of their Rosa Elena [x] Believes in Prayer [] Reads Bible or Mandaen materials [] There are Spiritual issues to be addressed Qa Software Tester Interventions [x] Prayer [x] Active listening [] Non-anxious presence [] Spiritual/emotional support [] Crisis/trauma care [] Spiritual counseling [] Bereavement support [] Provided bereavement packet [x] Provided Bible/devotional materials [] Provided toy/stuffed animal, coloring book to patient or family member [] Provided Communion [] Anointing/[place] [] Salvation [x] Completed spiritual assessment [] Other: Impact on Illness or Injury [] Angry [] Fearful [] Anxious [] Often cries [] Exhaustion [] Unable to work [] Unable to attend jain [] Unable to walk/stand [] Unable to read [] Unable to drive [] Unable to eat/drink [] Unable to sleep [] Unable to be with family [] Patient intubated [] Other: Summary Time spent with patient 5 min
--- NOTE | 2024-06-30 09:58 | PC.CHAP ---
Pastoral Care Encounter/Spiritual Assessment Type of Contact [] Declined eclectic doctor visit [] Patient/Family/Request visit [] Outpatient visit [] Follow-up visit [] Physician referral [] Code/Alert [x] Routine visit [] Staff referral [] Actively dying [] Patient sleeping [] Family support [] [] Out of room [] Palliative care [] [] Receiving care in room [] Pre-surgical visit [] Trauma [] Long length of stay [] ICU visit [] Other: Relational/Emotional Strength [] Patient feels connected with others/family/visitors/staff [] Distress [] Loneliness/isolation [] Abandonment Spirituality of Patient [x] Person of Rosa Elena [] Attends Orthodoxy of their Rosa Elena [x] Believes in Prayer [] Reads Bible or Episcopalian materials [] There are Spiritual issues to be addressed Hair Preparer Interventions [x] Prayer [x] Active listening [] Non-anxious presence [] Spiritual/emotional support [] Crisis/trauma care [] Spiritual counseling [] Bereavement support [] Provided bereavement packet [x] Provided Bible/devotional materials [] Provided toy/stuffed animal, coloring book to patient or family member [] Provided Communion [] Anointing/[place] [] Salvation [x] Completed spiritual assessment [] Other: Impact on Illness or Injury [] Angry [] Fearful [] Anxious [] Often cries [] Exhaustion [] Unable to work [] Unable to attend spiritism [] Unable to walk/stand [] Unable to read [] Unable to drive [] Unable to eat/drink [] Unable to sleep [] Unable to be with family [] Patient intubated [] Other: Summary Time spent with patient 5 min
--- NOTE | 2024-06-30 12:45 | P.PN_ITS ---
Subjective 2 Subjective: Seen this morning. Plan for cardiac catheter next 24 to 48 hours. She states she feels better. Currently on 3 L nasal cannula. She is sitting up on the bedside. Vitals/I&O/Wt Last Vital Signs Temp 98.7 F 06/30/24 12:00 Pulse 84 06/30/24 12:00 Resp 18 06/30/24 12:00 BP 160/82 06/30/24 12:00 Pulse Ox 93 06/30/24 12:00 O2 Del Method Nasal Cannula 06/30/24 12:00 O2 Flow Rate 2 06/30/24 08:00 06/29/24 06/30/24 06/30/24 22:59 06:59 14:59 Intake Total 480 / 1080 240 / 1320 240 / 240 Output Total 200 / 200 Balance 480 / 1080 240 / 1320 40 / 40 Weight last 48 hrs Weight 96.57 kg Weight 99.291 kg Physical Exam 2 Narrative: General: No acute distress, AO x3 HEENT: PERRLA, pupils bilaterally equal and reactive, pallors not present Chest: Clear to auscultation bilaterally CVS: S1-S2 regular, no murmurs, no tachycardia, no gallops, no rubs Abdomen: Soft, nontender, no organomegaly, bowel sounds present Neuro: No focal deficits, no facial deformity, AO x3, Data 06/30/24 05:46 06/30/24 05:46 A&P Assessment and plan (1) Dyspnea on exertion: (2) Orthopnea: (3) Congestive heart failure: (4) Hypertension: Plan 73-year-old female with no segment past medical history presents with dyspnea on exertion worsening over last 3 weeks found to have elevated proBNP of more than 33,000 with a creatinine of 1.4. Shortness of breath: Most likely in setting of congestive heart failure. No formal past diagnosis. Does have elevated proBNP. CTA negative for pulmonary embolism but consistent with cardiomegaly. IV Lasix 40 mg daily. Strict input output charting, daily weights. Fluid restriction to less than 1500 cc. Check echocardiogram. Depending on echocardiogram results we will plan for further evaluation. Oxygen supplementation keeping saturation over 90%. Check A1c, lipid panel. Check TSH. High blood pressure: No formal history of hypertension. Goal blood pressure less than 140/90 mmHg. Will monitor and start on antihypertensive accordingly. Right lower limb swelling: Will check lower limb DVT. CODE STATUS: Full code. Cardiac diet Protonix for PUD prophylaxis Heparin 5000 Q12 hourly for DVT prophylaxis June 28, 2024 Patient states she feels her breathing is better today. Currently on 2 L/min supplemental O2 at the time of this assessment. Saturating 92%. Chest is clear to auscultation. She is net -600 cc last 24 hours. Urine output at 1600 cc. Creatinine stable at 1.3. Patient had a +6-hour delta of 16. Mildly elevated troponins. Echocardiogram is awaited. Will start patient on full dose anticoagulation with Lovenox 1 mg/kg every 12 hours while awaiting results of echo. Depending on results of echo will decide regarding further ischemic evaluation with either a stress test versus angiogram. Continue Lasix 40 mg IV every 12 hours. HbA1c not consistent with diabetes mellitus. Patient states she takes a full dose aspirin 325 mg at home. For now we will change this to aspirin 81 mg daily while she is on full dose anticoagulation. June 29, 2024 Remains 94% on 2 -3 L/min nasal cannula. Urine output is not accurately charted. Creatinine is stable at 1.3. Echocardiogram showing severely decreased LVEF of 24%. Global left ventricular hypokinesia. Grade 2 diastolic dysfunction. Moderately elevated filling pressures. Overall features consistent with acute systolic congestive heart failure. With positive delta's as noted above, concern for underlying ischemic etiology. Will consult cardiology for further assessment. May need stress test versus angiogram for further diagnostics. Add metoprolol 12.5 mg p.o. twice daily. Will add DAISY inhibitors once renal function demonstrates stability. Today creatinine is at 1.3. Hypokalemia at 3.1 repleted with oral potassium. Continue Lasix 40 mg IV every 24 hours. Continue Lovenox while awaiting cardiology assessment. Continue aspirin 81 mg p.o. daily.. 06/30/2024 On 3 L nasal cannula saturating 93%. Urine output not charted. EF 24%. Concern for ischemic etiology. Cardiology consulted. Plan for cardiac cath in next 24 to 48 hours. Creatinine 1.1 this morning. Creatinine is improved. Most likely patient had cardiorenal syndrome. Continue Lasix 40 IV daily. PDMP PDMP Reviewed: Not Reviewed Attestations 2 Medical Necessity Statement*: Continued admission for IV diuresis. Cardiology assessment for newly diagnosed ejection fraction 24%, possibly needs ischemic workup Diagnoses Dyspnea on exertion R06.09 Orthopnea R06.01 Congestive heart failure I50.9 Hypertension I10
--- NOTE | 2024-06-30 15:03 | P.PN_ITS ---
<Statement entered by Juan Peck MD - 06/30/24 20:58> Patient was evaluated and cared for in conjunction with an advanced practice practitioner. I personally examined the patient and reviewed the chart and all pertinent data including imaging, telemetry, and laboratory results. I discussed the patient in detail with the advanced practice practitioner. Please see their note for complete H&P testing result and agreed upon plan of care for the patient. Steadily improving has diuresed well overnight GENERAL: Patient is alert, awake and oriented x3. HEART: Regular S1 and S2. No murmur, rub or gallop. LUNGS: Inspiratory crackle on the right side CENTRAL NERVOUS SYSTEM: Grossly nonfocal. EXTREMITIES: Lower extremities with out edema bilaterally. Assessment and plan New onset of heart failure decompensated acute systolic heart failure New onset of severely depressed left ventricular ejection fraction Moderate to severe mitral regurgitation Moderate aortic stenosis Moderate to severe tricuspid regurgitation Continue IV diuresis Will proceed with left heart cath once euvolemic and couple of days Subjective 2 Subjective: Patient doing ok. She is making some improvements, but still has a dry cough with some orthopnea. Medications: Reviewed: Yes Vitals/I&O/Wt Last Vital Signs Temp 98.7 F 06/30/24 12:00 Pulse 87 06/30/24 14:40 Resp 18 06/30/24 12:00 BP 160/82 06/30/24 12:00 Pulse Ox 92 06/30/24 14:40 O2 Del Method Room Air 06/30/24 14:40 O2 Flow Rate 2 06/30/24 08:00 06/30/24 06/30/24 06/30/24 06:59 14:59 22:59 Intake Total 240 / 1320 240 / 240 Output Total 200 / 200 Balance 240 / 1320 40 / 40 Weight last 48 hrs Weight 212 lb 14.4 oz Weight 218 lb 14.4 oz Physical Exam 2 Narrative: General: No apparent distress, healthy appearing, well nourished HENMT: normoceophalic Muskuloskeletal: Full ROM Lymphatic: no lymphedema noted Respiratory: Normal respiratory effort, right lower lobe fine crackles present and left lower lobe clear, no use of accessory muscles Cardio: No JVD, regular rate, regular rhythm, S1 S2 normal, no murmurs, peripheral pulses 2+ radial palpated bilaterally GI: Normal to inspection, nondistended Extremities: Full ROM, normal, normal capillary refill, no cyanosis, 1+ nonpitting edema bilateral lower extremities Neuro: Alert and oriented x4, no focal motor deficits Psych: Affect normal, denies suicidal ideation, mental status grossly normal Skin: varicose veins bilateral lower extremities Data 06/30/24 05:46 06/30/24 05:46 A&P Assessment and plan (1) New onset of congestive heart failure: (2) Left ventricular systolic dysfunction (LVSD): (3) Aortic valve stenosis: (4) Mitral valve regurgitation: (5) Tricuspid valve regurgitation: (6) CKD (chronic kidney disease): (7) Hypertension: Plan Echocardiogram patient has new onset of severe LV dysfunction and estimated ejection fraction less than 30% to be very precise 24%. Patient has moderate aortic valve stenosis moderate to severe mitral valve regurgitation and moderate to severe tricuspid valve regurgitation. Patient has made slight improvement, recommend continue to diurese with 40 mg of IV Lasix twice daily and add potassium chloride 20 mEq twice daily Patient currently taking Metoprolol 12.5 mg BID. Will continue. Once euvolemic will add Entresto 24/ twice daily with close monitoring of renal function LifeVest has been ordered and discussed with patient. This will be initiated before discharge due to severely depressed left ventricular ejection fraction less than 30% for cardiomyopathy in order to prevent sudden cardiac Once euvolemic and able to lay flat provided renal function remains stable at the baseline which is 1.3-1.4, will plan to proceed with left heart cath to rule out ischemic etiology most likely Sunday whenever patient will be ready. PDMP PDMP Reviewed: Not Reviewed Attestations 2 Medical Necessity Statement*: deferred to primary care Coding Level of Care Code Acute Code for Chg Fwd Diagnoses New onset of congestive heart failure I50.9 Left ventricular systolic dysfunction (LVSD) I51.89 Aortic valve stenosis I35.0 Mitral valve regurgitation I34.0 Tricuspid valve regurgitation I07.1 CKD (chronic kidney disease) N18.9 Hypertension I10
--- NOTE | 2024-06-30 15:20 | PC.SOCIAL ---
IMM Updated Updated pt on IMM. No questions voiced. Provided pt a copy. Initialed, dated, & timed a copy & placed in chart.
[2024-06-30] MEDS: atorvastatin 40 mg Tablet PO (22:00)
[2024-07-01] VITALS (10 sets, daily range): BP systolic 114–154; BP diastolic 77–88; PULSE 77–92; RESP 16–18; TEMP 36.4–36.7; O2SAT 92–96
[2024-07-01] MEDS: enoxaparin 100 mg/mL Syringe SUBCUT ×2 (03:59→14:01)
[2024-07-01] MEDS: FUROsemide 10 mg/mL SDV 4mL 40 MG IVP ×3 (04:57→21:36)
[2024-07-01 06:19] LABS: Basophils % 0.3 %; Hematocrit 32.8 % (36-47); Lymphocytes # 1.9 10^3/uL (0.8-4.8); Lymphocytes % 27.8 %; Mean Corpuscular Hemoglobin 32.3 pg (27-33); Mean Corpuscular Volume 100.9 fl (85-98); Mean Platelet Volume 9.9 fL (7.4-10.4); Monocytes # 0.6 10^3/uL (0.2-0.9); Monocytes % 8.9 %; Neutrophils % 62.7 %; Nucleated Red Blood Cells % 0 %; Platelet Count 255 10^3/cmm (157-399); Red Blood Count 3.25 10^6/uL (3.85-5.65); Red Cell Distribution Width 14.3 % (12.1-15.1); White Blood Count 6.86 10^3/uL (3.29-11.43)
[2024-07-01 06:42] LABS: Alanine Aminotransferase 14 U/L (0-33); Albumin Level 3.9 g/dL (3.5-5.2); Alkaline Phosphatase 84 U/L (35-105); Anion Gap 19.5 (5-19); Aspartate Amino Transferase 18 U/L (0-32); Blood Urea Nitrogen 21 mg/dL (8-23); Calcium 9.6 mg/dL (8.5-10.5); Carbon Dioxide 25 mmol/L (22-29); Chloride 98 mmol/L (98-107); Creatinine Clr Calc Pharmacy 46.8672; Globulin 3.3 g/dL (1.3-4.6); Glucose 116 mg/dL (65-115); Magnesium 1.7 mg/dL (1.7-2.3); Osmolality Calculated 292 mOsm/kg (285-295); Potassium 3.5 mmol/L (3.5-5.1); Sodium 139 mmol/L (136-145); Total Bilirubin 0.7 mg/dL (0.15-1.2); Total Protein 7.2 g/dL (6.6-8.7)
[2024-07-01] MEDS: potassium chloride ER 20 mEq Tablet PO ×3 (07:58→21:36)
[2024-07-01] MEDS: metoprolol tartrate 25 mg Tablet 12.5 MG PO ×2 (07:58→21:36)
[2024-07-01] MEDS: pantoprazole DR 40 mg Tablet PO (07:58)
[2024-07-01] MEDS: aspirin 81 mg EC Tablet PO (07:58)
--- NOTE | 2024-07-01 09:34 | P.PN_ITS ---
Documented by User: Moy Ghosh 07/01/24 10:31 Subjective 2 Subjective: Patient was seen this morning. No acute overnight events. She is sitting upright in bed and states that she was not able to sleep well. Overall she reports feeling better and states that her breathing has improved slightly. Vitals/I&O/Wt Last Vital Signs Temp 97.7 F 07/01/24 07:52 Pulse 86 07/01/24 07:52 Resp 17 07/01/24 07:52 BP 153/88 07/01/24 07:52 Pulse Ox 92 07/01/24 07:52 O2 Del Method Nasal Cannula 07/01/24 07:52 O2 Flow Rate 2 07/01/24 06:50 06/30/24 07/01/24 07/01/24 22:59 06:59 14:59 Intake Total 240 / 480 240 / 240 Output Total 1300 / 1500 500 / 2000 900 / 900 Balance -1300 / -1260 -260 / -1520 -660 / -660 Weight last 48 hrs Weight 95.708 kg Weight 96.57 kg Physical Exam 2 Const: COMMON NORMALS: no acute distress and patient oriented x3 Resp: COMMON NORMALS: normal respiratory effort and clear to auscultation bilaterally AUSCULTATION: clear to auscultation bilaterally Cardio: COMMON NORMALS: regular rate, regular rhythm, S1 normal heart sound present and S2 normal heart sound present RATE: regular rate RHYTHM: r egular rhythm HEART SOUNDS: S1 normal heart sound present and S2 normal heart sound present GI: COMMON NORMALS: Normal to inspection, nondistended, normoactive bowel sounds present Extremity: COMMON NORMALS: no pedal edema Neuro: COMMON NORMALS: patient oriented x3 Data 07/01/24 05:32 07/01/24 05:32 A&P Assessment and plan (1) Hypertension: (2) Congestive heart failure: (3) New onset of congestive heart failure: (4) Aortic valve stenosis: (5) Mitral valve regurgitation: (6) Dyspnea on exertion: (7) CKD (chronic kidney disease): Plan 73-year-old female with no segment past medical history presents with dyspnea on exertion worsening over last 3 weeks found to have elevated proBNP of more than 33,000 with a creatinine of 1.4. Shortness of breath: Most likely in setting of congestive heart failure. No formal past diagnosis. Does have elevated proBNP. CTA negative for pulmonary embolism but consistent with cardiomegaly. IV Lasix 40 mg daily. Strict input output charting, daily weights. Fluid restriction to less than 1500 cc. Check echocardiogram. Depending on echocardiogram results we will plan for further evaluation. Oxygen supplementation keeping saturation over 90%. Check A1c, lipid panel. Check TSH. High blood pressure: No formal history of hypertension. Goal blood pressure less than 140/90 mmHg. Will monitor and start on antihypertensive accordingly. Right lower limb swelling: Will check lower limb DVT. CODE STATUS: Full code. Cardiac diet Protonix for PUD prophylaxis Heparin 5000 Q12 hourly for DVT prophylaxis June 28, 2024 Patient states she feels her breathing is better today. Currently on 2 L/min supplemental O2 at the time of this assessment. Saturating 92%. Chest is clear to auscultation. She is net -600 cc last 24 hours. Urine output at 1600 cc. Creatinine stable at 1.3. Patient had a +6-hour delta of 16. Mildly elevated troponins. Echocardiogram is awaited. Will start patient on full dose anticoagulation with Lovenox 1 mg/kg every 12 hours while awaiting results of echo. Depending on results of echo will decide regarding further ischemic evaluation with either a stress test versus angiogram. Continue Lasix 40 mg IV every 12 hours. HbA1c not consistent with diabetes mellitus. Patient states she takes a full dose aspirin 325 mg at home. For now we will change this to aspirin 81 mg daily while she is on full dose anticoagulation. June 29, 2024 Remains 94% on 2 -3 L/min nasal cannula. Urine output is not accurately charted. Creatinine is stable at 1.3. Echocardiogram showing severely decreased LVEF of 24%. Global left ventricular hypokinesia. Grade 2 diastolic dysfunction. Moderately elevated filling pressures. Overall features consistent with acute systolic congestive heart failure. With positive delta's as noted above, concern for underlying ischemic etiology. Will consult cardiology for further assessment. May need stress test versus angiogram for further diagnostics. Add metoprolol 12.5 mg p.o. twice daily. Will add DAISY inhibitors once renal function demonstrates stability. Today creatinine is at 1.3. Hypokalemia at 3.1 repleted with oral potassium. Continue Lasix 40 mg IV every 24 hours. Continue Lovenox while awaiting cardiology assessment. Continue aspirin 81 mg p.o. daily.. 06/30/2024 On 3 L nasal cannula saturating 93%. Urine output not charted. EF 24%. Concern for ischemic etiology. Cardiology consulted. Plan for cardiac cath in next 24 to 48 hours. Creatinine 1.1 this morning. Creatinine is improved. Most likely patient had cardiorenal syndrome. Continue Lasix 40 IV daily. 07/01/2024 On 3L nasal cannula saturating 92%. Creatinine 1.2 this morning from 1.1 yesterday. Potassium trending upward from 3.1 (06/29) to 2.5 (07/01). Continue Lasix 40 IV daily with Potassium Chloride. Will proceed with left heart cath once euvolemic. Cardiology following PDMP PDMP Reviewed: Not Reviewed Coding Level of Care Code 64297 Diagnoses Hypertension I10 Congestive heart failure I50.9 New onset of congestive heart failure I50.9 Aortic valve stenosis I35.0 Mitral valve regurgitation I34.0 Dyspnea on exertion R06.09 CKD (chronic kidney disease) N18.9 Documented by User: Bhumika Donato MD 07/01/24 11:04 Data 07/01/24 05:32 07/01/24 05:32 A&P Assessment and plan (1) Hypertension: (2) Congestive heart failure: (3) New onset of congestive heart failure: (4) Aortic valve stenosis: (5) Mitral valve regurgitation: (6) Dyspnea on exertion: (7) CKD (chronic kidney disease): Plan 73-year-old female with no segment past medical history presents with dyspnea on exertion worsening over last 3 weeks found to have elevated proBNP of more than 33,000 with a creatinine of 1.4. Shortness of breath: Most likely in setting of congestive heart failure. No formal past diagnosis. Does have elevated proBNP. CTA negative for pulmonary embolism but consistent with cardiomegaly. IV Lasix 40 mg daily. Strict input output charting, daily weights. Fluid restriction to less than 1500 cc. Check echocardiogram. Depending on echocardiogram results we will plan for further evaluation. Oxygen supplementation keeping saturation over 90%. Check A1c, lipid panel. Check TSH. High blood pressure: No formal history of hypertension. Goal blood pressure less than 140/90 mmHg. Will monitor and start on antihypertensive accordingly. Right lower limb swelling: Will check lower limb DVT. CODE STATUS: Full code. Cardiac diet Protonix for PUD prophylaxis Heparin 5000 Q12 hourly for DVT prophylaxis June 28, 2024 Patient states she feels her breathing is better today. Currently on 2 L/min supplemental O2 at the time of this assessment. Saturating 92%. Chest is clear to auscultation. She is net -600 cc last 24 hours. Urine output at 1600 cc. Creatinine stable at 1.3. Patient had a +6-hour delta of 16. Mildly elevated troponins. Echocardiogram is awaited. Will start patient on full dose anticoagulation with Lovenox 1 mg/kg every 12 hours while awaiting results of echo. Depending on results of echo will decide regarding further ischemic evaluation with either a stress test versus angiogram. Continue Lasix 40 mg IV every 12 hours. HbA1c not consistent with diabetes mellitus. Patient states she takes a full dose aspirin 325 mg at home. For now we will change this to aspirin 81 mg daily while she is on full dose anticoagulation. June 29, 2024 Remains 94% on 2 -3 L/min nasal cannula. Urine output is not accurately charted. Creatinine is stable at 1.3. Echocardiogram showing severely decreased LVEF of 24%. Global left ventricular hypokinesia. Grade 2 diastolic dysfunction. Moderately elevated filling pressures. Overall features consistent with acute systolic congestive heart failure. With positive delta's as noted above, concern for underlying ischemic etiology. Will consult cardiology for further assessment. May need stress test versus angiogram for further diagnostics. Add metoprolol 12.5 mg p.o. twice daily. Will add DAISY inhibitors once renal function demonstrates stability. Today creatinine is at 1.3. Hypokalemia at 3.1 repleted with oral potassium. Continue Lasix 40 mg IV every 24 hours. Continue Lovenox while awaiting cardiology assessment. Continue aspirin 81 mg p.o. daily.. 06/30/2024 On 3 L nasal cannula saturating 93%. Urine output not charted. EF 24%. Concern for ischemic etiology. Cardiology consulted. Plan for cardiac cath in next 24 to 48 hours. Creatinine 1.1 this morning. Creatinine is improved. Most likely patient had cardiorenal syndrome. Continue Lasix 40 IV daily. 07/01/2024 On 3L nasal cannula saturating 92%. Creatinine 1.2 this morning from 1.1 yesterday. Potassium trending downward from 3.1 (06/29) to 2.5 (07/01). Continue to replete potassium. Continue Lasix 40 IV daily with Potassium Chloride. Will proceed with left heart cath once euvolemic. Cardiology following PDMP PDMP Reviewed: Not Reviewed Attestations 2 Medical Necessity Statement*: Plan for cardiac cath in AM. Diagnoses Hypertension I10 Congestive heart failure I50.9 New onset of congestive heart failure I50.9 Aortic valve stenosis I35.0 Mitral valve regurgitation I34.0 Dyspnea on exertion R06.09 CKD (chronic kidney disease) N18.9
--- NOTE | 2024-07-01 13:52 | P.PN_ITS ---
<Statement entered by Juan Peck MD - 07/01/24 19:53> Patient was evaluated and cared for in conjunction with an advanced practice practitioner. I personally examined the patient and reviewed the chart and all pertinent data including imaging, telemetry, and laboratory results. I discussed the patient in detail with the advanced practice practitioner. Please see their note for complete H&P testing result and agreed upon plan of care for the patient. Continues to feel better GENERAL: Patient is alert, awake and oriented x3. HEART: Regular S1 and S2. No murmur, rub or gallop. LUNGS: Inspiratory crackles on the right side CENTRAL NERVOUS SYSTEM: Grossly nonfocal. EXTREMITIES: Lower extremities with out edema bilaterally. Assessment and plan New onset of heart failure Acute decompensated systolic heart failure Severely depressed left ventricular ejection fraction Cardiomyopathy Increase IV Lasix to 40 mg daily, replenish electrolyte accordingly Once euvolemic proceed with left heart cath Subjective 2 Subjective: Patient making small improvements. Creatinine is stable at 1.2. She has had negative to 1 8 0 mL over 24 hours. She still has some crackles in her right base. Overall patient is feeling better. Vitals/I&O/Wt Last Vital Signs Temp 97.5 F L 07/01/24 11:52 Pulse 91 07/01/24 13:26 Resp 16 07/01/24 11:52 BP 142/81 07/01/24 11:52 Pulse Ox 96 07/01/24 11:52 O2 Del Method Nasal Cannula 07/01/24 11:52 O2 Flow Rate 2 07/01/24 10:00 06/30/24 07/01/24 07/01/24 22:59 06:59 14:59 Intake Total 240 / 480 480 / 480 Output Total 1300 / 1500 500 / 2000 1100 / 1100 Balance -1300 / -1260 -260 / -1520 -620 / -620 Weight last 48 hrs Weight 211 lb Weight 212 lb 14.4 oz Physical Exam 2 Narrative: General: No apparent distress, healthy appearing, well nourished HENMT: normoceophalic Muskuloskeletal: Full ROM Lymphatic: no lymphedema noted Respiratory: Normal respiratory effort, right lower lobe fine crackles present and left lower lobe clear, no use of accessory muscles Cardio: No JVD, regular rate, regular rhythm, S1 S2 normal, no murmurs, peripheral pulses 2+ radial palpated bilaterally GI: Normal to inspection, nondistended Extremities: Full ROM, normal, normal capillary refill, no cyanosis, 1+ nonpitting edema bilateral lower extremities Neuro: Alert and oriented x4, no focal motor deficits Psych: Affect normal, denies suicidal ideation, mental status grossly normal Skin: varicose veins bilateral lower extremities Data 07/01/24 05:32 07/01/24 05:32 A&P Assessment and plan (1) New onset of congestive heart failure: (2) Left ventricular systolic dysfunction (LVSD): (3) Aortic valve stenosis: (4) Mitral valve regurgitation: (5) Tricuspid valve regurgitation: (6) CKD (chronic kidney disease): (7) Hypertension: Plan Patient has made slight improvement but still has crackles in the right base, recommend continue to increase lasix 40 mg TID and potassium chloride to 20 mEq TID. Patient currently taking Metoprolol 12.5 mg BID. Will continue. Once euvolemic will add Entresto 24/26 twice daily with close monitoring of renal function LifeVest has been ordered and discussed with patient. This will be initiated before discharge due to severely depressed left ventricular ejection fraction less than 30% for cardiomyopathy in order to prevent sudden cardiac Once euvolemic and able to lay flat provided renal function remains stable at the baseline which is 1.3-1.4, will plan to proceed with left heart cath to rule out ischemic etiology whenever patient will be ready. We will check on her in the AM and see how she responds. Possibly taking for heart cath tomorrow. PDMP PDMP Reviewed: Not Reviewed Attestations 2 Medical Necessity Statement*: deferred to primary care Coding Level of Care Code Acute Code for Chg Fwd Diagnoses New onset of congestive heart failure I50.9 Left ventricular systolic dysfunction (LVSD) I51.89 Aortic valve stenosis I35.0 Mitral valve regurgitation I34.0 Tricuspid valve regurgitation I07.1 CKD (chronic kidney disease) N18.9 Hypertension I10
[2024-07-01] MEDS: atorvastatin 40 mg Tablet PO (21:36)
[2024-07-02] VITALS (8 sets, daily range): BP systolic 113–125; BP diastolic 68–82; PULSE 73–99; RESP 16–18; TEMP 36.3–36.8; O2SAT 92–95
[2024-07-02] MEDS: enoxaparin 100 mg/mL Syringe SUBCUT ×2 (03:23→15:16)
[2024-07-02 05:37] LABS: Basophils % 0.3 %; Hematocrit 32.2 % (36-47); Lymphocytes # 1.7 10^3/uL (0.8-4.8); Lymphocytes % 29.7 %; Mean Corpuscular Hemoglobin 32.3 pg (27-33); Mean Corpuscular Volume 100.9 fl (85-98); Monocytes # 0.5 10^3/uL (0.2-0.9); Monocytes % 8.6 %; Neutrophils # 3.55 10^3/uL (1.8-7.7); Neutrophils % 61.1 %; Nucleated Red Blood Cells % 0 %; Platelet Count 200 10^3/cmm (157-399); Red Blood Count 3.19 10^6/uL (3.85-5.65); Red Cell Distribution Width 14.1 % (12.1-15.1); White Blood Count 5.82 10^3/uL (3.29-11.43)
[2024-07-02 06:08] LABS: Anion Gap 17.2 (5-19); Blood Urea Nitrogen 26 mg/dL (8-23); Calcium 9.2 mg/dL (8.5-10.5); Carbon Dioxide 27 mmol/L (22-29); Chloride 100 mmol/L (98-107); Creatinine Clr Calc Pharmacy 46.1975; Glucose 102 mg/dL (65-115); Magnesium 1.6 mg/dL (1.7-2.3); Osmolality Calculated 297 mOsm/kg (285-295); Potassium 3.2 mmol/L (3.5-5.1); Sodium 141 mmol/L (136-145)
--- NOTE | 2024-07-02 09:04 | PC.SOCIAL ---
IMM Updated Updated pt on IMM. No questions voiced. Provided pt a copy. Initialed, dated, & timed copy in chart.
[2024-07-02] MEDS: magnesium sulfate premix 2 GM/50 ML PIGGYBACK IV (09:07)
[2024-07-02] MEDS: FUROsemide 10 mg/mL SDV 4mL 40 MG IVP ×3 (09:08→20:53)
[2024-07-02] MEDS: carvedilol 3.125 mg Tablet PO ×2 (09:08→17:14)
[2024-07-02] MEDS: potassium chloride ER 20 mEq Tablet 40 MEQ PO ×2 (09:08→17:14)
[2024-07-02] MEDS: pantoprazole DR 40 mg Tablet PO (09:09)
[2024-07-02] MEDS: aspirin 81 mg EC Tablet PO (09:09)
--- NOTE | 2024-07-02 09:37 | P.PN_ITS ---
<Statement entered by Juan Peck MD - 07/02/24 21:33> Patient was evaluated and cared for in conjunction with an advanced practice practitioner. I personally examined the patient and reviewed the chart and all pertinent data including imaging, telemetry, and laboratory results. I discussed the patient in detail with the advanced practice practitioner. Please see their note for complete H&P testing result and agreed upon plan of care for the patient. Patient appeared to be near euvolemic Denies any complaint, she is able to lay flat on the bed GENERAL: Patient is alert, awake and oriented x3. HEART: Regular S1 and S2. No murmur, rub or gallop. LUNGS: Clear to auscultate bilaterally. CENTRAL NERVOUS SYSTEM: Grossly nonfocal. EXTREMITIES: Lower extremities with out edema bilaterally. Assessment and plan New onset of heart failure acute systolic decompensated now compensated after IV diuresis New onset of severe LV dysfunction left ventricle ejection fraction Cardiomyopathy unspecified Continue IV Lasix 40 mg 3 times daily continue to replenish potassium Plan to proceed with left heart cath in the morning to rule out ischemic etiology Further plan will advise as per progress of the patient After the cath will initiate Entresto Subjective 2 Subjective: Patient seen this morning. She has much improved. She was able to lie flat last night without any difficulty breathing. Blood pressure stable. Oxygen saturation 94% on nasal cannula. She has had -105 0 over 24 hours.Her lung sounds much clear. She appears euvolemic today. Creatinine is stable Vitals/I&O/Wt Last Vital Signs Temp 97.9 F 07/02/24 08:35 Pulse 90 07/02/24 08:35 Resp 17 07/02/24 08:35 BP 123/72 07/02/24 08:35 Pulse Ox 94 07/02/24 08:35 O2 Del Method Nasal Cannula 07/02/24 08:35 O2 Flow Rate 2 07/02/24 04:00 07/01/24 07/02/24 07/02/24 22:59 06:59 14:59 Intake Total 770 / 1250 0 / 1250 Output Total 1000 / 2100 200 / 2300 Balance -230 / -850 -200 / -1050 Weight last 48 hrs Weight 205 lb 6.4 oz Weight 211 lb Physical Exam 2 Narrative: General: No apparent distress, healthy appearing, well nourished HENMT: normoceophalic Muskuloskeletal: Full ROM Lymphatic: no lymphedema noted Respiratory: Normal respiratory effort, right lower lobe slight crackle but minimal present and left lower lobe clear, no use of accessory muscles Cardio: No JVD, regular rate, regular rhythm, S1 S2 normal, no murmurs, peripheral pulses 2+ radial palpated bilaterally GI: Normal to inspection, nondistended Extremities: Full ROM, normal, normal capillary refill, no cyanosis, trace edema bilateral lower extremities Neuro: Alert and oriented x4, no focal motor deficits Psych: Affect normal, denies suicidal ideation, mental status grossly normal Skin: varicose veins bilateral lower extremities Data 07/02/24 05:24 07/02/24 05:24 A&P Assessment and plan (1) New onset of congestive heart failure: (2) Left ventricular systolic dysfunction (LVSD): (3) Aortic valve stenosis: (4) Mitral valve regurgitation: (5) Tricuspid valve regurgitation: (6) CKD (chronic kidney disease): (7) Hypertension: Plan LifeVest has been placed. Patient's creatinine is stable at 1.2. Potassium was low at 3.2 and mag low at 1.6. We will replace with 2 g of magnesium and increase potassium to 40 twice daily from 20 3 times daily. Continue Lasix 40 3 times daily.We may titrate this down tomorrow.At this time patient is euvolemic. We discussed proceeding with a left heart cath today around 1130. Risks and benefits were discussed with the patient by Dr. Peck. Patient fully agreed. She states she was able to lie flat without any shortness of breath last night. PDMP PDMP Reviewed: Not Reviewed Attestations 2 Medical Necessity Statement*: Deferred to primary. Coding Level of Care Code Acute Code for Chg Fwd Diagnoses New onset of congestive heart failure I50.9 Left ventricular systolic dysfunction (LVSD) I51.89 Aortic valve stenosis I35.0 Mitral valve regurgitation I34.0 Tricuspid valve regurgitation I07.1 CKD (chronic kidney disease) N18.9 Hypertension I10
--- NOTE | 2024-07-02 13:29 | P.PN_ITS ---
Subjective 2 Subjective: Seen today. Resting comfortably in bed. Plan for cardiac cath in AM. Vitals/I&O/Wt Last Vital Signs Temp 97.4 F L 07/02/24 12:48 Pulse 76 07/02/24 12:48 Resp 16 07/02/24 12:48 BP 113/71 07/02/24 12:48 Pulse Ox 93 07/02/24 12:48 O2 Del Method Nasal Cannula 07/02/24 12:48 O2 Flow Rate 2 07/02/24 04:00 07/01/24 07/02/24 07/02/24 22:59 06:59 14:59 Intake Total 770 / 1250 0 / 1250 Output Total 1000 / 2100 200 / 2300 Balance -230 / -850 -200 / -1050 Weight last 48 hrs Weight 93.168 kg Weight 95.708 kg Physical Exam 2 Const: COMMON NORMALS: no acute distress and patient oriented x3 Resp: COMMON NORMALS: normal respiratory effort and clear to auscultation bilaterally AUSCULTATION: clear to auscultation bilaterally Cardio: COMMON NORMALS: regular rate, regular rhythm, S1 normal heart sound present and S2 normal heart sound present RATE: regular rate RHYTHM: r egular rhythm HEART SOUNDS: S1 normal heart sound present and S2 normal heart sound present GI: COMMON NORMALS: Normal to inspection, nondistended, normoactive bowel sounds present Extremity: COMMON NORMALS: no pedal edema Neuro: COMMON NORMALS: patient oriented x3 Data 07/02/24 05:24 07/02/24 05:24 A&P Assessment and plan (1) Hypertension: (2) Congestive heart failure: (3) New onset of congestive heart failure: (4) Aortic valve stenosis: (5) Mitral valve regurgitation: (6) Dyspnea on exertion: (7) CKD (chronic kidney disease): Plan 73-year-old female with no segment past medical history presents with dyspnea on exertion worsening over last 3 weeks found to have elevated proBNP of more than 33,000 with a creatinine of 1.4. Shortness of breath: Most likely in setting of congestive heart failure. No formal past diagnosis. Does have elevated proBNP. CTA negative for pulmonary embolism but consistent with cardiomegaly. IV Lasix 40 mg daily. Strict input output charting, daily weights. Fluid restriction to less than 1500 cc. Check echocardiogram. Depending on echocardiogram results we will plan for further evaluation. Oxygen supplementation keeping saturation over 90%. Check A1c, lipid panel. Check TSH. High blood pressure: No formal history of hypertension. Goal blood pressure less than 140/90 mmHg. Will monitor and start on antihypertensive accordingly. Right lower limb swelling: Will check lower limb DVT. CODE STATUS: Full code. Cardiac diet Protonix for PUD prophylaxis Heparin 5000 Q12 hourly for DVT prophylaxis June 28, 2024 Patient states she feels her breathing is better today. Currently on 2 L/min supplemental O2 at the time of this assessment. Saturating 92%. Chest is clear to auscultation. She is net -600 cc last 24 hours. Urine output at 1600 cc. Creatinine stable at 1.3. Patient had a +6-hour delta of 16. Mildly elevated troponins. Echocardiogram is awaited. Will start patient on full dose anticoagulation with Lovenox 1 mg/kg every 12 hours while awaiting results of echo. Depending on results of echo will decide regarding further ischemic evaluation with either a stress test versus angiogram. Continue Lasix 40 mg IV every 12 hours. HbA1c not consistent with diabetes mellitus. Patient states she takes a full dose aspirin 325 mg at home. For now we will change this to aspirin 81 mg daily while she is on full dose anticoagulation. June 29, 2024 Remains 94% on 2 -3 L/min nasal cannula. Urine output is not accurately charted. Creatinine is stable at 1.3. Echocardiogram showing severely decreased LVEF of 24%. Global left ventricular hypokinesia. Grade 2 diastolic dysfunction. Moderately elevated filling pressures. Overall features consistent with acute systolic congestive heart failure. With positive delta's as noted above, concern for underlying ischemic etiology. Will consult cardiology for further assessment. May need stress test versus angiogram for further diagnostics. Add metoprolol 12.5 mg p.o. twice daily. Will add DAISY inhibitors once renal function demonstrates stability. Today creatinine is at 1.3. Hypokalemia at 3.1 repleted with oral potassium. Continue Lasix 40 mg IV every 24 hours. Continue Lovenox while awaiting cardiology assessment. Continue aspirin 81 mg p.o. daily.. 06/30/2024 On 3 L nasal cannula saturating 93%. Urine output not charted. EF 24%. Concern for ischemic etiology. Cardiology consulted. Plan for cardiac cath in next 24 to 48 hours. Creatinine 1.1 this morning. Creatinine is improved. Most likely patient had cardiorenal syndrome. Continue Lasix 40 IV daily. 07/01/2024 On 3L nasal cannula saturating 92%. Creatinine 1.2 this morning from 1.1 yesterday. Potassium trending downward from 3.1 (06/29) to 2.5 (07/01). Continue to replete potassium. Continue Lasix 40 IV daily with Potassium Chloride. Will proceed with left heart cath once euvolemic. Cardiology following 07/02/2024 Plan for left heart cath in AM. Front-wheeled nasal cannula at this time. Feels better. He is euvolemic this morning. N.p.o. at midnight tonight. PDMP PDMP Reviewed: Not Reviewed Attestations 2 Medical Necessity Statement*: Plan for coronary angiogram in a.m. Diagnoses Hypertension I10 Congestive heart failure I50.9 New onset of congestive heart failure I50.9 Aortic valve stenosis I35.0 Mitral valve regurgitation I34.0 Dyspnea on exertion R06.09 CKD (chronic kidney disease) N18.9
[2024-07-02] MEDS: atorvastatin 40 mg Tablet PO (20:52)
[2024-07-02] MEDS: cyclobenzaprine 10 mg Tablet 5 MG PO (22:53)
[2024-07-03] VITALS (63 sets, daily range): BP systolic 104–158; BP diastolic 60–98; PULSE 73–94; RESP 16–37; TEMP 36.4–37.2; O2SAT 92–98; BMI 30.9
[2024-07-03] MEDS: enoxaparin 100 mg/mL Syringe SUBCUT (03:36)
--- NOTE | 2024-07-03 05:31 | XACV_ITS ---
Exam Room: 2 Ht: 163 cm Wt: 93 kg BSA: 2.09 m2 Gender: Female : 1950 Any Known Allergies: Other Exam Priority: Routine Procedure(s): Procedure Description: Diagnostic procedure Procedure Description: PCI procedure Procedure Description: Left Heart Catheterization Procedure Description: Drug Eluting Coronary Stent Procedure Description: PTCA Procedure [facility]; Diagnostic Cath Status: Elective Diagnostic Findings * LAD has luminal irregularity without significant stenosis. * Left circumflex has luminal irregularities without significant stenosis. * Left Main has no disease. * Mid Right Coronary Artery: significant 80% stenosis, ROLF: 3 flow. * Coronary angiography shows right dominance. PCI Status: Elective PCI Indication: New Onset Angina <= 2 months Interventional Findings * Mid Right Coronary Artery: 80% stenosis treated with a AB TREK 2.50X12 RX BALLOON, QUINTEN Huerta SHANELL 3.5X15 RIDGE, and MDYariel SAGASTUME EUPHORA RX [id number] BALLOON. 0% residual stenosis, ROLF: 3 flow. Conclusions 1. There is significant coronary artery disease with one vessel disease. 2. Mid Right Coronary Artery was treated with a Balloon, Drug Eluting Stent, and Balloon. Recommendations * Continue current medical management and risk factor modification. Diagnostic RX Recommendation: PCI w/o planned CABG Pressures Phase:Rest AO : 111 / 63 ( 85 ) @ 12:59:00 PM 142 / 68 ( 93 ) @ 1:02:00 PM 103 / 61 ( 77 ) @ 1:15:00 PM 149 / 69 ( 98 ) @ 1:25:00 PM 151 / 70 ( 99 ) @ 1:25:00 PM LV : 144 / 3 / 34 @ 1:24:00 PM 142 / -1 / 30 @ 1:25:00 PM Valves Phase:DefaultPhase AV : 0.0 @ 1:38:22 PM AV Mean Gradient: 0.0 @ 1:38:22 PM Clinical Evaluation EBL: 5mL-10mL Procedural Details Procedure Consent Obtained. Pre-Procedure Time Out. Identified patient by full name and date of as verbalized by the patient/guarantor. Does the consent match the physician's order: Yes. Accurate & Complete Informed Consent: Yes. Inpatient/Outpatient History & Physical on Chart: Yes. If H&P is completed, is and addenduem needed: No; If yes, is the addendum complete: N/A. Visualize and Verify Site with Patient/Guarantor: N/A. Relevant Radiology Images available: Yes. The risks, benefits, and alternatives of sedation and/or procedure were discussed by physician. The patient agrees to continue. Procedure started. [facility] Clinical Fraility Score: 4: Vulnerable. 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 Chest Pain Symptom Assessment: Typical Angina Symptoms. Cardiovascular Instability: No. PERRLA. 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 Lungs clear x 5 lobes. IV Site on Arrival: 20 gauge in the right anticubital. IV Site on Arrival: 22 gauge in the right hand. IV Fluids: 0.9% NaCl at KVO. 200 mL infused prior to labor relations officer. Pre Procedural Pulses: bilateral radial was 1+. Pre Procedural Pulses: bilateral dorsalis pedis was Doppled. Pre Procedural Pulses: bilateral posterior tibial was Doppled. Oxygen started at 2liters/min via nasal canula. right groin was prepped with chloroprep then draped in the usual sterile fashion. right radial was prepped with chloroprep then draped in the usual sterile fashion. Physician notified. Patient arrived to labor relations officer on a ventilator and will be managed by respiratiory. Baseline sample Acquired. HR: 87 BPM. Patient's family unavailable. Equipment: 6F - Radial. Cardiac Cath Pack. ACIST Manifold Kit Model BT 2000. Heparinized Saline (2 units/mL), 1000 mL bag. Physician arrived. Physician scrubbed in. Immediate Pre-Procedure Time Out. Correct Patient: Yes; Correct Procedure: Yes; Correct Site: Yes; Correct Patient Position: Yes; Correct Supplies: Yes; Dried Flammable Prep: Yes; Blood Products Available: N/A. Lidocaine 1% infiltrated to the right radial. Arterial access obtained. A 5 georgian TIG catheter in over the exchange J wire. Unable to advance TIG catheter. Catheter and wire out. Hand injection of the right radial artery performed. A 5 georgian TIG catheter in over the 0.0.35 x 260 cm stiff angled glidewire. Catheter removed over the glide wire. A 5 georgian JR4 catheter in over the glide wire. Catheter removed over the glide wire. Will abort radial approach and move to femoral. A TR Band was successful obtaining hemostatsis at the Right Radial artery insertion site. Lidocaine 1% infiltrated to the right groin. Arterial access obtained with micropuncture set. Unable to thread wire. Wire and needle out. Dr. Peck holding manual pressure. Lidocaine 1% infiltrated to the left groin. Arterial access obtained with micropuncture set. A 5 georgian JL4 catheter in over the standard J wire. Multiple views taken of left coronary artery. A 5 georgian JR4 catheter in over the exchange J wire. Multiple views taken of right coronary artery. Catheter removed over the exchange J wire. 6 georgian JR 4 guide catheter was inserted over the exchange J wire. Inflation number : 1 A AB TREK 2.50X12 RX BALLOON was prepped and advanced across the Mid RCA , then inflated to 14 ANTONIO for 0:06 seconds. Inflation number: 2 The AB TREK 2.50X12 RX BALLOON was reinflated across the Mid RCA, to 14 ANTONIO for 0:06 seconds. Balloon out. Results checked. Inflation Number : 3 A MDYariel R SHANELL 3.5X15 RIDGE -Lot Number# [id number] was prepped and advanced across the Mid RCA. The stent was deployed at 16 ANTONIO for 0:26 seconds. Exp. 2026-10-24. Inflation number : 4 A MDT NC EUPHORA RX [id number] BALLOON was prepped and advanced across the Mid RCA , then inflated to 10 ANTONIO for 0:16 seconds. Inflation number: 5 The MDT NC EUPHORA RX [id number] BALLOON was reinflated across the Mid RCA, to 12 ANTONIO for 0:19 seconds. Inflation number: 6 The MDT NC EUPHORA RX 4.42X72MM BALLOON was reinflated across the Mid RCA, to 11 ANTONIO for 0:15 seconds. Balloon out. Results checked. Wire out. Guide catheter out over the exchange J wire. A 6 georgian Angled Pig catheter in over the exchange J wire. EDP Sample taken: LV 144/3,34; HR: 80 BPM; SpO2: 97%. Pullback taken: LV 142/-2,30; AO 149/69(98); Mean: 0mmHg, Peak to Peak: 0mmHg, SEP: 19sec/min; HR: 80 BPM; SpO2: 97%. Catheter removed over the exchange J wire. A Left femoral angiogram was performed to determine safe placement of closure device. Dr. Peck scrubbed out. A Suture was successful obtaining hemostatsis at the Left Femoral artery insertion site. Sheath(s) sutured into position with 2-0 silk and sterile 4x4's and Op-site applied over the site. No oozing or signs and symptoms of hematoma noted. Arterial sheath flushed and connected to tranducer and pressure bag with heparinized saline. Post Procedure: Pulses reassessed and unchanged. PERRLA. 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 No VTE prophylaxis required. Medication's Wasted: Lidocaine 1% = 12 mL. Medication's Wasted: Nitro = 49.8 mg. Medication's Wasted: Heparin = 4000 units. Medication's Wasted: Other = Versed 1 mg. Medication's Wasted: Other = Fentanyl 75 mcg. Total IV fluids: 100 mL. Post-op diagnosis: PCI of the Mid RCA s/p one RIDGE. Complications: none. Estimated blood loss: 5mL-10mL. Responsiveness - Normal response to verbal stimuli; alert and oriented, PERRLA. Airway - Unaffected, no intervention required; spontaneous ventilation. Circulation: W/N/L, pulses unchanged. Nausea/Vomiting: No. Procedure completed. Patient transferred by bed to 1st floor. Vital chart was stopped. Access Site Site: Right Radial artery Sheath Size: 5 Fr Hemostasis Method: TR Band Hemostasis Success: Successful Site: Left Femoral artery Sheath Size: 6 Fr Hemostasis Method: Suture Hemostasis Success: Successful Procedure Medications Start: 12:15 PM Stop: 12:15 PM Medication: Versed Amount: 1 mg Route: I.V. Start: 12:15 PM Stop: 12:15 PM Medication: Fentanyl Amount: 25 mcg Route: I.V. Start: 12:26 PM Stop: 12:26 PM Medication: Versed Amount: 0.5 mg Route: I.V. Start: 12:26 PM Stop: 12:26 PM Medication: Nitrogylcerin Amount: 200 mcg Route: I.A. Start: 12:34 PM Stop: 12:34 PM Medication: Versed Amount: 0.5 mg Route: I.V. Start: 1:08 PM Stop: 1:08 PM Medication: Plavix Amount: 600 mg Route: P.O. Start: 1:10 PM Stop: 1:10 PM Medication: Lovenox (Enoxaparin) Amount: mg Route: I.V. Start: 1:11 PM Stop: 1:11 PM Medication: Versed Amount: 1 mg Route: I.V. I, the attending physician, have reviewed and verified all procedure medications. Yes, all medications given per verbal order History/Risk Factors Hypertension: Yes Dyslipidemia: Yes Peripheral Arterial Disease (PAD): No Myocardial Infarction ([place]): No Obesity: Yes Renal Disease: No Tobacco Use: Former Prior Interventions PCI: No CABG: No Valve Surgery: No Report Signatures Finalized by Juan Peck MD on 07/17/2024 10:52 PM
[2024-07-03] MEDS: cyclobenzaprine 10 mg Tablet 5 MG PO ×2 (06:01→23:08)
[2024-07-03 06:43] LABS: Basophils % 0.4 %; Hematocrit 35.1 % (36-47); Lymphocytes # 2.2 10^3/uL (0.8-4.8); Lymphocytes % 32.6 %; Mean Corpuscular HGB Conc 31.9 g/dL (30-55); Mean Corpuscular Hemoglobin 31.9 pg (27-33); Mean Platelet Volume 10.3 fL (7.4-10.4); Monocytes # 0.5 10^3/uL (0.2-0.9); Monocytes % 7.9 %; Neutrophils # 3.98 10^3/uL (1.8-7.7); Nucleated Red Blood Cells % 0 %; Platelet Count 233 10^3/cmm (157-399); Red Blood Count 3.51 10^6/uL (3.85-5.65); White Blood Count 6.75 10^3/uL (3.29-11.43)
[2024-07-03 06:48] LABS: Partial Thromboplastin Time 39.3 SECONDS (23.9-36.7)
[2024-07-03 06:52] LABS: Anion Gap 18.6 (5-19); Blood Urea Nitrogen 23 mg/dL (8-23); Calcium 9.4 mg/dL (8.5-10.5); Carbon Dioxide 27 mmol/L (22-29); Chloride 97 mmol/L (98-107); Creatinine Clr Calc Pharmacy 43.1599; Glucose 100 mg/dL (65-115); Magnesium 1.9 mg/dL (1.7-2.3); Osmolality Calculated 292 mOsm/kg (285-295); Potassium 3.6 mmol/L (3.5-5.1); Sodium 139 mmol/L (136-145)
[2024-07-03] MEDS: potassium chloride ER 20 mEq Tablet 40 MEQ PO ×2 (08:48→17:07)
[2024-07-03] MEDS: FUROsemide 10 mg/mL SDV 4mL 40 MG IVP ×2 (08:52→14:54)
[2024-07-03] MEDS: aspirin 81 mg EC Tablet PO (08:52)
[2024-07-03] MEDS: pantoprazole DR 40 mg Tablet PO (08:53)
[2024-07-03] MEDS: carvedilol 3.125 mg Tablet PO ×2 (08:53→17:07)
--- NOTE | 2024-07-03 09:27 | P.PN_ITS ---
Documented by User: Moy Ghosh 07/03/24 09:31 Subjective 2 Subjective: Patient was seen this morning. No acute overnight events. She is resting comfortably in bed and states that she is feeling much better today. She is waiting for cath this AM, planned for 1100. Vitals/I&O/Wt Last Vital Signs Temp 97.6 F 07/03/24 08:00 Pulse 73 07/03/24 08:00 Resp 16 07/03/24 08:00 BP 117/73 07/03/24 08:00 Pulse Ox 95 07/03/24 08:00 O2 Del Method Nasal Cannula 07/03/24 08:00 O2 Flow Rate 2 07/03/24 07:54 07/02/24 07/03/24 07/03/24 22:59 06:59 14:59 Intake Total 480 / 1010 0 / 1010 Balance 480 / 1010 0 / 1010 Weight last 48 hrs Weight 81.647 kg Weight 91.49 kg Weight 93.168 kg Physical Exam 2 Resp: COMMON NORMALS: normal respiratory effort and clear to auscultation bilaterally AUSCULTATION: clear to auscultation bilaterally Cardio: COMMON NORMALS: regular rate, regular rhythm, S1 normal heart sound present, S2 normal heart sound present and No murmurs present (Cardio) RATE: regular rate RHYTHM: regular rhythm HEART SOUNDS: S1 normal heart sound present and S2 normal heart sound present Extremity: COMMON NORMALS: no pedal edema Data 07/03/24 06:11 07/03/24 06:11 A&P Assessment and plan (1) Hypertension: (2) Congestive heart failure: (3) New onset of congestive heart failure: (4) Left ventricular systolic dysfunction (LVSD): (5) Aortic valve stenosis: (6) Mitral valve regurgitation: (7) Dyspnea on exertion: (8) CKD (chronic kidney disease): Plan 73-year-old female with no segment past medical history presents with dyspnea on exertion worsening over last 3 weeks found to have elevated proBNP of more than 33,000 with a creatinine of 1.4. Shortness of breath: Most likely in setting of congestive heart failure. No formal past diagnosis. Does have elevated proBNP. CTA negative for pulmonary embolism but consistent with cardiomegaly. IV Lasix 40 mg daily. Strict input output charting, daily weights. Fluid restriction to less than 1500 cc. Check echocardiogram. Depending on echocardiogram results we will plan for further evaluation. Oxygen supplementation keeping saturation over 90%. Check A1c, lipid panel. Check TSH. High blood pressure: No formal history of hypertension. Goal blood pressure less than 140/90 mmHg. Will monitor and start on antihypertensive accordingly. Right lower limb swelling: Will check lower limb DVT. CODE STATUS: Full code. Cardiac diet Protonix for PUD prophylaxis Heparin 5000 Q12 hourly for DVT prophylaxis June 28, 2024 Patient states she feels her breathing is better today. Currently on 2 L/min supplemental O2 at the time of this assessment. Saturating 92%. Chest is clear to auscultation. She is net -600 cc last 24 hours. Urine output at 1600 cc. Creatinine stable at 1.3. Patient had a +6-hour delta of 16. Mildly elevated troponins. Echocardiogram is awaited. Will start patient on full dose anticoagulation with Lovenox 1 mg/kg every 12 hours while awaiting results of echo. Depending on results of echo will decide regarding further ischemic evaluation with either a stress test versus angiogram. Continue Lasix 40 mg IV every 12 hours. HbA1c not consistent with diabetes mellitus. Patient states she takes a full dose aspirin 325 mg at home. For now we will change this to aspirin 81 mg daily while she is on full dose anticoagulation. June 29, 2024 Remains 94% on 2 -3 L/min nasal cannula. Urine output is not accurately charted. Creatinine is stable at 1.3. Echocardiogram showing severely decreased LVEF of 24%. Global left ventricular hypokinesia. Grade 2 diastolic dysfunction. Moderately elevated filling pressures. Overall features consistent with acute systolic congestive heart failure. With positive delta's as noted above, concern for underlying ischemic etiology. Will consult cardiology for further assessment. May need stress test versus angiogram for further diagnostics. Add metoprolol 12.5 mg p.o. twice daily. Will add DAISY inhibitors once renal function demonstrates stability. Today creatinine is at 1.3. Hypokalemia at 3.1 repleted with oral potassium. Continue Lasix 40 mg IV every 24 hours. Continue Lovenox while awaiting cardiology assessment. Continue aspirin 81 mg p.o. daily.. 06/30/2024 On 3 L nasal cannula saturating 93%. Urine output not charted. EF 24%. Concern for ischemic etiology. Cardiology consulted. Plan for cardiac cath in next 24 to 48 hours. Creatinine 1.1 this morning. Creatinine is improved. Most likely patient had cardiorenal syndrome. Continue Lasix 40 IV daily. 07/01/2024 On 3L nasal cannula saturating 92%. Creatinine 1.2 this morning from 1.1 yesterday. Potassium trending downward from 3.1 (06/29) to 2.5 (07/01). Continue to replete potassium. Continue Lasix 40 IV daily with Potassium Chloride. Will proceed with left heart cath once euvolemic. Cardiology following 07/02/2024 Plan for left heart cath in AM. Front-wheeled nasal cannula at this time. Feels better. He is euvolemic this morning. N.p.o. at midnight tonight. 07/03/2024 Plan for left cath this AM. Feeling much better. Cardiology following. PDMP PDMP Reviewed: Not Reviewed Coding Level of Care Code 37666 Diagnoses Hypertension I10 Congestive heart failure I50.9 New onset of congestive heart failure I50.9 Left ventricular systolic dysfunction (LVSD) I51.89 Aortic valve stenosis I35.0 Mitral valve regurgitation I34.0 Dyspnea on exertion R06.09 CKD (chronic kidney disease) N18.9 Documented by User: Bhumika Donato MD 07/03/24 11:19 Physical Exam 2 Const: COMMON NORMALS: no acute distress and patient oriented x3 GI: COMMON NORMALS: Normal to inspection, nondistended, normoactive bowel sounds present Neuro: COMMON NORMALS: patient oriented x3 Data 07/03/24 06:11 07/03/24 06:11 A&P Assessment and plan (1) Hypertension: (2) Congestive heart failure: (3) New onset of congestive heart failure: (4) Left ventricular systolic dysfunction (LVSD): (5) Aortic valve stenosis: (6) Mitral valve regurgitation: (7) Dyspnea on exertion: (8) CKD (chronic kidney disease): Plan 73-year-old female with no segment past medical history presents with dyspnea on exertion worsening over last 3 weeks found to have elevated proBNP of more than 33,000 with a creatinine of 1.4. Shortness of breath: Most likely in setting of congestive heart failure. No formal past diagnosis. Does have elevated proBNP. CTA negative for pulmonary embolism but consistent with cardiomegaly. IV Lasix 40 mg daily. Strict input output charting, daily weights. Fluid restriction to less than 1500 cc. Check echocardiogram. Depending on echocardiogram results we will plan for further evaluation. Oxygen supplementation keeping saturation over 90%. Check A1c, lipid panel. Check TSH. High blood pressure: No formal history of hypertension. Goal blood pressure less than 140/90 mmHg. Will monitor and start on antihypertensive accordingly. Right lower limb swelling: Will check lower limb DVT. CODE STATUS: Full code. Cardiac diet Protonix for PUD prophylaxis Heparin 5000 Q12 hourly for DVT prophylaxis June 28, 2024 Patient states she feels her breathing is better today. Currently on 2 L/min supplemental O2 at the time of this assessment. Saturating 92%. Chest is clear to auscultation. She is net -600 cc last 24 hours. Urine output at 1600 cc. Creatinine stable at 1.3. Patient had a +6-hour delta of 16. Mildly elevated troponins. Echocardiogram is awaited. Will start patient on full dose anticoagulation with Lovenox 1 mg/kg every 12 hours while awaiting results of echo. Depending on results of echo will decide regarding further ischemic evaluation with either a stress test versus angiogram. Continue Lasix 40 mg IV every 12 hours. HbA1c not consistent with diabetes mellitus. Patient states she takes a full dose aspirin 325 mg at home. For now we will change this to aspirin 81 mg daily while she is on full dose anticoagulation. June 29, 2024 Remains 94% on 2 -3 L/min nasal cannula. Urine output is not accurately charted. Creatinine is stable at 1.3. Echocardiogram showing severely decreased LVEF of 24%. Global left ventricular hypokinesia. Grade 2 diastolic dysfunction. Moderately elevated filling pressures. Overall features consistent with acute systolic congestive heart failure. With positive delta's as noted above, concern for underlying ischemic etiology. Will consult cardiology for further assessment. May need stress test versus angiogram for further diagnostics. Add metoprolol 12.5 mg p.o. twice daily. Will add DAISY inhibitors once renal function demonstrates stability. Today creatinine is at 1.3. Hypokalemia at 3.1 repleted with oral potassium. Continue Lasix 40 mg IV every 24 hours. Continue Lovenox while awaiting cardiology assessment. Continue aspirin 81 mg p.o. daily.. 06/30/2024 On 3 L nasal cannula saturating 93%. Urine output not charted. EF 24%. Concern for ischemic etiology. Cardiology consulted. Plan for cardiac cath in next 24 to 48 hours. Creatinine 1.1 this morning. Creatinine is improved. Most likely patient had cardiorenal syndrome. Continue Lasix 40 IV daily. 07/01/2024 On 3L nasal cannula saturating 92%. Creatinine 1.2 this morning from 1.1 yesterday. Potassium trending downward from 3.1 (06/29) to 2.5 (07/01). Continue to replete potassium. Continue Lasix 40 IV daily with Potassium Chloride. Will proceed with left heart cath once euvolemic. Cardiology following 07/02/2024 Plan for left heart cath in AM. Front-wheeled nasal cannula at this time. Feels better. He is euvolemic this morning. N.p.o. at midnight tonight. 07/03/2024 Plan for left cath this AM. Feeling much better. Cardiology following. lifevest has been setup PDMP PDMP Reviewed: Not Reviewed Attestations 2 Medical Necessity Statement*: Plan for coronary angiogram today Diagnoses Hypertension I10 Congestive heart failure I50.9 New onset of congestive heart failure I50.9 Left ventricular systolic dysfunction (LVSD) I51.89 Aortic valve stenosis I35.0 Mitral valve regurgitation I34.0 Dyspnea on exertion R06.09 CKD (chronic kidney disease) N18.9
[2024-07-03] MEDS: diphenhydrAMINE 50 mg Capsule PO (09:59)
[2024-07-03] MEDS: sodium chloride 0.9% 1,000 ML 50 ML IV (09:59)
--- NOTE | 2024-07-03 10:22 | PC.NURSE ---
report received from Elsie, assumed care of patient at this time.
--- NOTE | 2024-07-03 12:19 | W.PM.OPSUD ---
Surgery/Procedure H&P Update DATE OF PROCEDURE: July 03, 2024 DATE H&P PERFORMED: 06/29/24 H&P UPDATE INFORMATION: I have reviewed H&P completed within last 30 days, I have examined patient prior to procedure and No changes to prior documentation PREOP DIAGNOSIS: New onset of heart failure and severe LV dysfunction PLANNED PROCEDURE: Operation Date: 07/03/24 10:00 Proposed Procedures p Cardiac Catheterization(Left) - Juan Peck MD PATIENT REASSESSED PRIOR TO SEDATION, WITH NO CHANGE NOTED: Yes PHYSICAL EXAM: alert, oriented x 3, clear to auscultation bilaterally, regular rate & rhythm and operative site marked AIRWAY EVAL/ANESTHESIA PLAN: ASA II, Risks, benefits & alternatives of sedation and/or procedure discussed and Patient agrees to continue as planned
--- NOTE | 2024-07-03 13:00 | P.PN_ITS ---
<Statement entered by Juan Peck MD - 07/03/24 19:20> Patient was evaluated and cared for in conjunction with an advanced practice practitioner. I personally examined the patient and reviewed the chart and all pertinent data including imaging, telemetry, and laboratory results. I discussed the patient in detail with the advanced practice practitioner. Please see their note for complete H&P testing result and agreed upon plan of care for the patient. Subjective 2 Subjective: Saw patient this morning. She was doing well. Was able to sleep throughout the night without shortness of breath. Creatinine stable this morning. Vitals/I&O/Wt Last Vital Signs Temp 97.8 F 07/03/24 11:00 Pulse 76 07/03/24 11:00 Resp 17 07/03/24 11:00 BP 132/78 07/03/24 11:00 Pulse Ox 95 07/03/24 11:00 O2 Del Method Nasal Cannula 07/03/24 11:00 O2 Flow Rate 2 07/03/24 07:54 07/02/24 07/03/24 07/03/24 22:59 06:59 14:59 Intake Total 480 / 1010 0 / 1010 Balance 480 / 1010 0 / 1010 Weight last 48 hrs Weight 180 lb Weight 201 lb 11.2 oz Weight 205 lb 6.4 oz Physical Exam 2 Narrative: General: No apparent distress, healthy appearing, well nourished HENMT: normoceophalic Muskuloskeletal: Full ROM Lymphatic: no lymphedema noted Respiratory: Normal respiratory effort, right lower lobe slight crackle but minimal present and left lower lobe clear, no use of accessory muscles Cardio: No JVD, regular rate, regular rhythm, S1 S2 normal, no murmurs, peripheral pulses 2+ radial palpated bilaterally GI: Normal to inspection, nondistended Extremities: Full ROM, normal, normal capillary refill, no cyanosis, trace edema bilateral lower extremities Neuro: Alert and oriented x4, no focal motor deficits Psych: Affect normal, denies suicidal ideation, mental status grossly normal Skin: varicose veins bilateral lower extremities Data 07/03/24 06:11 07/03/24 06:11 A&P Assessment and plan (1) New onset of congestive heart failure: (2) Left ventricular systolic dysfunction (LVSD): (3) Aortic valve stenosis: (4) Mitral valve regurgitation: (5) Tricuspid valve regurgitation: (6) CKD (chronic kidney disease): (7) Hypertension: Plan LifeVest has been placed. Patient going for heart cath today. PDMP PDMP Reviewed: Not Reviewed Attestations 2 Medical Necessity Statement*: Deferred to primary care Coding Level of Care Code Acute Code for Chg Fwd Diagnoses New onset of congestive heart failure I50.9 Left ventricular systolic dysfunction (LVSD) I51.89 Aortic valve stenosis I35.0 Mitral valve regurgitation I34.0 Tricuspid valve regurgitation I07.1 CKD (chronic kidney disease) N18.9 Hypertension I10
--- NOTE | 2024-07-03 13:37 | PM.PROC ---
Procedure Note: Date of procedure: 07/03/24 Pre-procedure diagnosis: New onset of heart failure Post-procedure diagnosis: same Procedure: Left heart catheterization was performed. Patient has severe peripheral vascular disease because of tortuosity and spasm were not able to cross the radial artery right common femoral artery approach was adopted however wire was not going beyond external iliac, we therefore adapted left groin approach profundofemoral artery was cannulated since patient has chronically occluded left SFA. He was also noted to have high-grade ostial external iliac on the left side. We were able to cross it with a wire. Left angiogram was performed. It showed left main LAD and circumflex without luminal irregularities RCA has mid high-grade 80% calcified stenosis treated with single drug-eluting stent postdilated with noncompliant balloon excellent angiographic result with ROLF-3 was achieved. Left ventricular end-diastolic pressure was 30 mm Gradient across the aortic valve was 8 mmHg Plan Continue aspirin statin beta-joanne add Entresto Patient will be on Plavix with aspirin for at least 1 year for RCA mid stent Peripheral angiogram for lifestyle limiting claudication as an outpatient Due to high LVEDP will not place patient on IV fluid Full note to be dictated Coding Level of Care Code Acute Code for Tayler Lafleur
--- NOTE | 2024-07-03 13:43 | PC.NURSE ---
Patient came to [facility] from [facility] with a right radial TR-band and left femoral sheath that will need to be pulled at 2130.
[2024-07-03] MEDS: enoxaparin 30 mg/0.3 mL Syringe IVP (14:53)
--- NOTE | 2024-07-03 15:47 | PC.NURSE ---
Dr. Peck is called for clarification on patient's lovenox orders. In her MAR there was a dose of 30mg and a dose of 100 mg. Provider wants the 30mg and to discontinue the 100 mg.
--- NOTE | 2024-07-03 19:41 | PC.NURSE ---
Patient right radial TR-band, air is removed slowly 2 ml's at a time. TR-band is removed and a dressing of 2 x 2 and tegaderm is applied. No hematoma is noted. Patient tolerated well. Patient is reeducated not to use her right wrist/hand for the next 24 hours. Patient states understanding.
[2024-07-03] MEDS: fentaNYL 50 mcg/mL INJ 2mL IVP (21:43)
[2024-07-03] MEDS: atorvastatin 40 mg Tablet PO (23:58)
[2024-07-04] VITALS (11 sets, daily range): BP systolic 129–154; BP diastolic 72–87; PULSE 80–96; RESP 16–23; TEMP 36.5–36.9; O2SAT 86–99; BMI 32.5
[2024-07-04] MEDS: HYDROcodone-acetaminophen 5-325 mg Tablet 1 TAB PO (00:09)
[2024-07-04] MEDS: temazepam 15 mg Capsule PO ×2 (00:10→23:37)
--- NOTE | 2024-07-04 00:48 | PC.NURSE ---
Pulled patient sheath at 21:38, could not obtain complete control of bleeding. Dr Peck notified and came in. Homeostasis was obtained at 21:49. Pressure held for 30 minutes. No hematoma formation noted. Dressing applied. Vital signs stable throughout process.
[2024-07-04 03:01] LABS: Basophils % 0.4 %; Hematocrit 34.4 % (36-47); Lymphocytes # 1.9 10^3/uL (0.8-4.8); Lymphocytes % 22.4 %; Mean Corpuscular Hemoglobin 32.4 pg (27-33); Mean Corpuscular Volume 101.2 fl (85-98); Monocytes # 0.8 10^3/uL (0.2-0.9); Monocytes % 9.4 %; Neutrophils # 5.77 10^3/uL (1.8-7.7); Neutrophils % 67.4 %; Nucleated Red Blood Cells % 0 %; Platelet Count 252 10^3/cmm (157-399); Red Cell Distribution Width 13.9 % (12.1-15.1); White Blood Count 8.54 10^3/uL (3.29-11.43)
[2024-07-04 03:29] LABS: Anion Gap 19.2 (5-19); Blood Urea Nitrogen 25 mg/dL (8-23); Calcium 9.8 mg/dL (8.5-10.5); Carbon Dioxide 26 mmol/L (22-29); Chloride 97 mmol/L (98-107); Creatinine Clr Calc Pharmacy 32.3699; Glucose 104 mg/dL (65-115); Magnesium 1.8 mg/dL (1.7-2.3); Osmolality Calculated 291 mOsm/kg (285-295); Potassium 4.2 mmol/L (3.5-5.1); Sodium 138 mmol/L (136-145)
--- NOTE | 2024-07-04 04:39 | PC.NURSE ---
2100 dose of lasix held per Dr Cisco guerra.
--- NOTE | 2024-07-04 09:16 | P.PN_ITS ---
Documented by User: Moy Ghosh 07/04/24 11:16 Subjective 2 Subjective: Patient was seen this morning. Procedure went well. Patient reports feeling well and states that she has good energy. She states that she is able to move around this morning with no concerns. Denies sob, chest pain. Vitals/I&O/Wt Last Vital Signs Temp 97.7 F 07/04/24 07:49 Pulse 82 07/04/24 07:49 Resp 23 H 07/04/24 07:49 BP 134/77 07/04/24 07:49 Pulse Ox 99 07/04/24 07:49 O2 Del Method Nasal Cannula 07/04/24 07:49 O2 Flow Rate 2 07/04/24 04:00 07/03/24 07/04/24 07/04/24 22:59 06:59 14:59 Intake Total 240 / 240 1000 / 1240 240 / 240 Balance 240 / 240 1000 / 1240 240 / 240 Weight last 48 hrs Weight 85.956 kg Weight 81.647 kg Weight 91.49 kg Physical Exam 2 Resp: COMMON NORMALS: normal respiratory effort and clear to auscultation bilaterally AUSCULTATION: clear to auscultation bilaterally Cardio: COMMON NORMALS: regular rate, regular rhythm, S1 normal heart sound present, S2 normal heart sound present, No murmurs present (Cardio) and Peripheral pulses 2+ throughout RATE: regular rate RHYTHM: regular rhythm HEART SOUNDS: S1 normal heart sound present and S2 normal heart sound present PERIPHERAL PULSES: Peripheral pulses 2+ throughout Data 07/04/24 02:36 07/04/24 02:36 A&P Assessment and plan (1) Hypertension: (2) Congestive heart failure: (3) New onset of congestive heart failure: (4) Left ventricular systolic dysfunction (LVSD): (5) Aortic valve stenosis: (6) CKD (chronic kidney disease): (7) KELVIN (acute kidney injury): (8) CAD S/P percutaneous coronary angioplasty: (9) Presence of drug-eluting stent in right coronary artery: Plan 73-year-old female with no segment past medical history presents with dyspnea on exertion worsening over last 3 weeks found to have elevated proBNP of more than 33,000 with a creatinine of 1.4. Shortness of breath: Most likely in setting of congestive heart failure. No formal past diagnosis. Does have elevated proBNP. CTA negative for pulmonary embolism but consistent with cardiomegaly. IV Lasix 40 mg daily. Strict input output charting, daily weights. Fluid restriction to less than 1500 cc. Check echocardiogram. Depending on echocardiogram results we will plan for further evaluation. Oxygen supplementation keeping saturation over 90%. Check A1c, lipid panel. Check TSH. High blood pressure: No formal history of hypertension. Goal blood pressure less than 140/90 mmHg. Will monitor and start on antihypertensive accordingly. Right lower limb swelling: Will check lower limb DVT. CODE STATUS: Full code. Cardiac diet Protonix for PUD prophylaxis Heparin 5000 Q12 hourly for DVT prophylaxis June 28, 2024 Patient states she feels her breathing is better today. Currently on 2 L/min supplemental O2 at the time of this assessment. Saturating 92%. Chest is clear to auscultation. She is net -600 cc last 24 hours. Urine output at 1600 cc. Creatinine stable at 1.3. Patient had a +6-hour delta of 16. Mildly elevated troponins. Echocardiogram is awaited. Will start patient on full dose anticoagulation with Lovenox 1 mg/kg every 12 hours while awaiting results of echo. Depending on results of echo will decide regarding further ischemic evaluation with either a stress test versus angiogram. Continue Lasix 40 mg IV every 12 hours. HbA1c not consistent with diabetes mellitus. Patient states she takes a full dose aspirin 325 mg at home. For now we will change this to aspirin 81 mg daily while she is on full dose anticoagulation. June 29, 2024 Remains 94% on 2 -3 L/min nasal cannula. Urine output is not accurately charted. Creatinine is stable at 1.3. Echocardiogram showing severely decreased LVEF of 24%. Global left ventricular hypokinesia. Grade 2 diastolic dysfunction. Moderately elevated filling pressures. Overall features consistent with acute systolic congestive heart failure. With positive delta's as noted above, concern for underlying ischemic etiology. Will consult cardiology for further assessment. May need stress test versus angiogram for further diagnostics. Add metoprolol 12.5 mg p.o. twice daily. Will add DAISY inhibitors once renal function demonstrates stability. Today creatinine is at 1.3. Hypokalemia at 3.1 repleted with oral potassium. Continue Lasix 40 mg IV every 24 hours. Continue Lovenox while awaiting cardiology assessment. Continue aspirin 81 mg p.o. daily.. 06/30/2024 On 3 L nasal cannula saturating 93%. Urine output not charted. EF 24%. Concern for ischemic etiology. Cardiology consulted. Plan for cardiac cath in next 24 to 48 hours. Creatinine 1.1 this morning. Creatinine is improved. Most likely patient had cardiorenal syndrome. Continue Lasix 40 IV daily. 07/01/2024 On 3L nasal cannula saturating 92%. Creatinine 1.2 this morning from 1.1 yesterday. Potassium trending downward from 3.1 (06/29) to 2.5 (07/01). Continue to replete potassium. Continue Lasix 40 IV daily with Potassium Chloride. Will proceed with left heart cath once euvolemic. Cardiology following 07/02/2024 Plan for left heart cath in AM. Front-wheeled nasal cannula at this time. Feels better. He is euvolemic this morning. N.p.o. at midnight tonight. 07/03/2024 Plan for left cath this AM. Feeling much better. Cardiology following. 07/04/2024 Cath procedure yesterday. Patient is feeling well this AM. Cr elevated 1.6 today from 1.2 yesterday (07/03) Cardiology following. Recommended as follows. - Continue aspirin statin beta-joanne add Entresto - Patient will be on Plavix with aspirin for at least 1 year for RCA mid stent - Peripheral angiogram for lifestyle limiting claudication as an outpatient - Due to high LVEDP will not place patient on IV fluid PDMP PDMP Reviewed: Not Reviewed Coding Level of Care Code 56653 Diagnoses Hypertension I10 Congestive heart failure I50.9 New onset of congestive heart failure I50.9 Left ventricular systolic dysfunction (LVSD) I51.89 Aortic valve stenosis I35.0 CKD (chronic kidney disease) N18.9 KELVIN (acute kidney injury) N17.9 CAD S/P percutaneous coronary angioplasty I25.10; Z98.61 Presence of drug-eluting stent in right coronary artery Z95.5 Documented by User: Bhumika Donato MD 07/04/24 12:16 Subjective 2 Subjective: Patient was seen this morning. Procedure went well. Patient reports feeling well and states that she has good energy. She states that she is able to move around this morning with no concerns. Denies sob, chest pain. some bleeding from groin site overnight once sheath was pulled, currently no bleeding Physical Exam 2 Narrative: no acute distress Data 07/04/24 02:36 07/04/24 02:36 A&P Assessment and plan (1) Hypertension: (2) Congestive heart failure: (3) New onset of congestive heart failure: (4) Left ventricular systolic dysfunction (LVSD): (5) Aortic valve stenosis: (6) CKD (chronic kidney disease): (7) KELVIN (acute kidney injury): (8) CAD S/P percutaneous coronary angioplasty: (9) Presence of drug-eluting stent in right coronary artery: Plan 73-year-old female with no segment past medical history presents with dyspnea on exertion worsening over last 3 weeks found to have elevated proBNP of more than 33,000 with a creatinine of 1.4. Shortness of breath: Most likely in setting of congestive heart failure. No formal past diagnosis. Does have elevated proBNP. CTA negative for pulmonary embolism but consistent with cardiomegaly. IV Lasix 40 mg daily. Strict input output charting, daily weights. Fluid restriction to less than 1500 cc. Check echocardiogram. Depending on echocardiogram results we will plan for further evaluation. Oxygen supplementation keeping saturation over 90%. Check A1c, lipid panel. Check TSH. High blood pressure: No formal history of hypertension. Goal blood pressure less than 140/90 mmHg. Will monitor and start on antihypertensive accordingly. Right lower limb swelling: Will check lower limb DVT. CODE STATUS: Full code. Cardiac diet Protonix for PUD prophylaxis Heparin 5000 Q12 hourly for DVT prophylaxis June 28, 2024 Patient states she feels her breathing is better today. Currently on 2 L/min supplemental O2 at the time of this assessment. Saturating 92%. Chest is clear to auscultation. She is net -600 cc last 24 hours. Urine output at 1600 cc. Creatinine stable at 1.3. Patient had a +6-hour delta of 16. Mildly elevated troponins. Echocardiogram is awaited. Will start patient on full dose anticoagulation with Lovenox 1 mg/kg every 12 hours while awaiting results of echo. Depending on results of echo will decide regarding further ischemic evaluation with either a stress test versus angiogram. Continue Lasix 40 mg IV every 12 hours. HbA1c not consistent with diabetes mellitus. Patient states she takes a full dose aspirin 325 mg at home. For now we will change this to aspirin 81 mg daily while she is on full dose anticoagulation. June 29, 2024 Remains 94% on 2 -3 L/min nasal cannula. Urine output is not accurately charted. Creatinine is stable at 1.3. Echocardiogram showing severely decreased LVEF of 24%. Global left ventricular hypokinesia. Grade 2 diastolic dysfunction. Moderately elevated filling pressures. Overall features consistent with acute systolic congestive heart failure. With positive delta's as noted above, concern for underlying ischemic etiology. Will consult cardiology for further assessment. May need stress test versus angiogram for further diagnostics. Add metoprolol 12.5 mg p.o. twice daily. Will add DAISY inhibitors once renal function demonstrates stability. Today creatinine is at 1.3. Hypokalemia at 3.1 repleted with oral potassium. Continue Lasix 40 mg IV every 24 hours. Continue Lovenox while awaiting cardiology assessment. Continue aspirin 81 mg p.o. daily.. 06/30/2024 On 3 L nasal cannula saturating 93%. Urine output not charted. EF 24%. Concern for ischemic etiology. Cardiology consulted. Plan for cardiac cath in next 24 to 48 hours. Creatinine 1.1 this morning. Creatinine is improved. Most likely patient had cardiorenal syndrome. Continue Lasix 40 IV daily. 07/01/2024 On 3L nasal cannula saturating 92%. Creatinine 1.2 this morning from 1.1 yesterday. Potassium trending downward from 3.1 (06/29) to 2.5 (07/01). Continue to replete potassium. Continue Lasix 40 IV daily with Potassium Chloride. Will proceed with left heart cath once euvolemic. Cardiology following 07/02/2024 Plan for left heart cath in AM. Front-wheeled nasal cannula at this time. Feels better. He is euvolemic this morning. N.p.o. at midnight tonight. 07/03/2024 Plan for left cath this AM. Feeling much better. Cardiology following. 07/04/2024 Cath procedure yesterday. Patient is feeling well this AM. Cr elevated 1.6 today from 1.2 yesterday (07/03). stop diuretics, add gentle IV fluid hydration Cardiology following. Recommended as follows. - Continue aspirin statin beta-joanne, may add entresto once kidney function improves. - Patient will be on Plavix with aspirin for at least 1 year for RCA mid stent - Peripheral angiogram for lifestyle limiting claudication as an outpatient - continue to hospitalize for KELVIN - discussed at length with cardiology PDMP PDMP Reviewed: Not Reviewed Attestations 2 Medical Necessity Statement*: KELVIN, Diagnoses Hypertension I10 Congestive heart failure I50.9 New onset of congestive heart failure I50.9 Left ventricular systolic dysfunction (LVSD) I51.89 Aortic valve stenosis I35.0 CKD (chronic kidney disease) N18.9 KELVIN (acute kidney injury) N17.9 CAD S/P percutaneous coronary angioplasty I25.10; Z98.61 Presence of drug-eluting stent in right coronary artery Z95.5
[2024-07-04] MEDS: clopidogrel 75 mg Tablet PO (09:50)
[2024-07-04] MEDS: carvedilol 3.125 mg Tablet PO ×2 (09:50→17:40)
[2024-07-04] MEDS: aspirin 81 mg EC Tablet PO (09:50)
[2024-07-04] MEDS: pantoprazole DR 40 mg Tablet PO (09:50)
--- NOTE | 2024-07-04 10:54 | PC.SOCIAL ---
IMM Update Pg. 2 of IMM updated and reviewed with patient, who verbalized understanding. Copy provided.
--- NOTE | 2024-07-04 12:09 | P.PN_ITS ---
<Statement entered by Juan Peck MD - 07/14/24 00:52> Patient was evaluated and cared for in conjunction with an advanced practice practitioner. I personally examined the patient and reviewed the chart and all pertinent data including imaging, telemetry, and laboratory results. I discussed the patient in detail with the advanced practice practitioner. Please see their note for complete H&P testing result and agreed upon plan of care for the patient Subjective 2 Subjective: Patient doing well overall. She still has some slight crackles but overall appears euvolemic. Status post stent to the RCA. Blood pressure and vitals are stable. Her creatinine did increase to 1.6 from 1.2. Vitals/I&O/Wt Last Vital Signs Temp 98.2 F 07/04/24 11:55 Pulse 83 07/04/24 11:55 Resp 16 07/04/24 11:55 BP 129/72 07/04/24 11:55 Pulse Ox 86 L 07/04/24 11:57 O2 Del Method Nasal Cannula 07/04/24 11:55 O2 Flow Rate 2 07/04/24 11:57 07/03/24 07/04/24 07/04/24 22:59 06:59 14:59 Intake Total 240 / 240 1000 / 1240 240 / 240 Balance 240 / 240 1000 / 1240 240 / 240 Weight last 48 hrs Weight 189 lb 8 oz Weight 180 lb Weight 201 lb 11.2 oz Physical Exam 2 Narrative: General: No apparent distress, healthy appearing, well nourished HENMT: normoceophalic Muskuloskeletal: Full ROM Lymphatic: no lymphedema noted Respiratory: Normal respiratory effort, right lower lobe slight crackle but minimal present and left lower lobe clear, no use of accessory muscles Cardio: No JVD, regular rate, regular rhythm, S1 S2 normal, no murmurs, peripheral pulses 2+ radial palpated bilaterally GI: Normal to inspection, nondistended Extremities: Full ROM, normal, normal capillary refill, no cyanosis, trace edema bilateral lower extremities Neuro: Alert and oriented x4, no focal motor deficits Psych: Affect normal, denies suicidal ideation, mental status grossly normal Skin: varicose veins bilateral lower extremities Data 07/04/24 02:36 07/04/24 02:36 A&P Assessment and plan (1) New onset of congestive heart failure: (2) Left ventricular systolic dysfunction (LVSD): (3) Aortic valve stenosis: (4) Mitral valve regurgitation: (5) Tricuspid valve regurgitation: (6) CKD (chronic kidney disease): (7) Hypertension: Plan Patient has LifeVest. RCA stent has been placed. Continue aspirin and Plavix and atorvastatin. Lasix is being held at this time due to bump in the creatinine. Potentially may go home tomorrow if labs stabilized PDMP PDMP Reviewed: Not Reviewed Attestations 2 Medical Necessity Statement*: Defer to primary care Coding Level of Care Code Acute Code for Chg Fwd Diagnoses New onset of congestive heart failure I50.9 Left ventricular systolic dysfunction (LVSD) I51.89 Aortic valve stenosis I35.0 Mitral valve regurgitation I34.0 Tricuspid valve regurgitation I07.1 CKD (chronic kidney disease) N18.9 Hypertension I10
[2024-07-04] MEDS: cyclobenzaprine 10 mg Tablet 5 MG PO ×2 (13:15→23:38)
[2024-07-04] MEDS: atorvastatin 40 mg Tablet PO (21:14)
[2024-07-05] VITALS (7 sets, daily range): BP systolic 108–136; BP diastolic 61–82; PULSE 72–85; RESP 18–24; TEMP 36.6–36.9; O2SAT 92–99
[2024-07-05 04:08] LABS: Basophils % 0.4 %; Lymphocytes # 2.5 10^3/uL (0.8-4.8); Lymphocytes % 30.3 %; Mean Platelet Volume 10.5 fL (7.4-10.4); Monocytes # 0.6 10^3/uL (0.2-0.9); Monocytes % 7.4 %; Neutrophils # 5.15 10^3/uL (1.8-7.7); Neutrophils % 61.7 %; Nucleated Red Blood Cells % 0 %; Platelet Count 247 10^3/cmm (157-399); Red Cell Distribution Width 13.5 % (12.1-15.1); White Blood Count 8.35 10^3/uL (3.29-11.43)
[2024-07-05 04:23] LABS: Alanine Aminotransferase 19 U/L (0-33); Albumin Level 3.8 g/dL (3.5-5.2); Alkaline Phosphatase 78 U/L (35-105); Anion Gap 17.7 (5-19); Aspartate Amino Transferase 24 U/L (0-32); Blood Urea Nitrogen 23 mg/dL (8-23); Calcium 9.7 mg/dL (8.5-10.5); Carbon Dioxide 26 mmol/L (22-29); Chloride 97 mmol/L (98-107); Creatinine Clr Calc Pharmacy 40.8886; Globulin 3.3 g/dL (1.3-4.6); Glucose 115 mg/dL (65-115); Osmolality Calculated 289 mOsm/kg (285-295); Potassium 3.7 mmol/L (3.5-5.1); Sodium 137 mmol/L (136-145); Total Bilirubin 0.6 mg/dL (0.15-1.2); Total Protein 7.1 g/dL (6.6-8.7)
[2024-07-05] MEDS: aspirin 81 mg EC Tablet PO (08:50)
[2024-07-05] MEDS: pantoprazole DR 40 mg Tablet PO (08:50)
[2024-07-05] MEDS: clopidogrel 75 mg Tablet PO (08:50)
[2024-07-05] MEDS: carvedilol 3.125 mg Tablet PO (08:50)
--- NOTE | 2024-07-05 10:04 | P.DS_ITS ---
Discharge Providers Date of Admission: 06/27/24 17:53 Date of Discharge: July 05, 2024 Attending Provider at Admission: Kenzie Winkler MD Attending Provider at Discharge: Bhumika Donato MD Primary Care Provider: Param Dobson MD Diagnoses at Discharge Discharge Diagnosis (1) Hypertension: Status: Acute (2) Congestive heart failure: Status: Acute (3) New onset of congestive heart failure: Status: Acute (4) Left ventricular systolic dysfunction (LVSD): Status: Acute (5) Aortic valve stenosis: Status: Acute (6) CKD (chronic kidney disease): Status: Chronic (7) KELVIN (acute kidney injury): Status: Acute (8) CAD S/P percutaneous coronary angioplasty: Status: Acute (9) Presence of drug-eluting stent in right coronary artery: Status: Acute Reason for Visit Reason for Visit: SOB Hospital Course Hospital Course Patient was admitted to the hospital with shortness of breath secondary to new onset heart failure with EF of 24%. She underwent IV diuresis and eventually coronary angiogram with PCI to 1 vessel. LifeVest was set up at the time of discharge. He also developed an KELVIN and was given IV fluids. Creatinine is now close to baseline. She will be discharged home in stable condition at this time. Cardiology in agreement. She is to follow-up with cardiology outpatient going forward. He was placed on aspirin atorvastatin Coreg, Plavix, Lasix, potassium, pantoprazole. Had a discussion with her regarding the importance of dual antiplatelet therapy secondary to drug-eluting stent. Patient was also advised to come up to the hospital should she experience any heartburn, chest pain, shortness of breath, nausea diaphoresis. I personally went over all of this with the patient. She did experience mild bleeding after sheath was removed the day of coronary angiogram however later on did not experience any further bleeding. She was examined by cardiology as well. Physical Exam Narrative: no acute distress Resp: COMMON NORMALS: normal respiratory effort and clear to auscultation bilaterally AUSCULTATION: clear to auscultation bilaterally Cardio: COMMON NORMALS: regular rate, regular rhythm, S1 normal heart sound present, S2 normal heart sound present, No murmurs present (Cardio) and Peripheral pulses 2+ throughout RATE: regular rate RHYTHM: regular rhythm HEART SOUNDS: S1 normal heart sound present and S2 normal heart sound present PERIPHERAL PULSES: Peripheral pulses 2+ throughout Discharge Data Studies Completed and Pending Completed Studies During Hospitalization Category Date Time Status CT angio chest PE protcl [id number] Stat Cat Scan 06/27/24 13:55 Completed XR chest 1V portable [id number] Stat Exams 06/27/24 13:03 [place] [id number] Routine Ultrasound 06/28/24 18:49 Completed CV. echo complete* [id number] Routine Ultrasound 06/28/24 16:51 Completed Pending at discharge Category Date Time Status CERTIFIED ACTIVITIES DIRECTOR request for service Routine Exams 07/03/24 05:31 Taken Radiology Impressions Chest X-Ray 06/27/24 13:03 Impression: 1. No change in cardiomegaly and bibasilar pulmonary opacities which could represent pulmonary edema, atelectasis and/or pneumonia. 2. Atherosclerosis. 3. Probable left pleural thickening. Chest CTA 06/27/24 13:55 IMPRESSION: 1. No pulmonary embolism. 2. Cardiomegaly. Enlarged LEFT heart. No definite RIGHT heart strain at this time. 3. Cirrhotic liver. 4. Small bilateral pleural effusions. 5. Atherosclerotic plaque throughout the thoracic aorta and suprarenal abdominal aorta. 6. Mild pulmonary edema and anasarca. 7. No pneumonia. 8. Mildly enlarged para-aortic lymph nodes. May be reactive. Venous Duplex 06/28/24 18:49 IMPRESSION: 1. No evidence of deep vein thrombosis. 2. 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 Laboratory Results WBC 8.35 10^3/uL (3.29-11.43) 07/05/24 02:49 RBC 3.50 10^6/uL (3.85-5.65) L 07/05/24 02:49 Hgb 11.20 g/dL (11.27-16.99) L 07/05/24 02:49 Hct 35.0 % (36-47) L 07/05/24 02:49 MCV 100.0 fl (85-98) H 07/05/24 02:49 MCH 32.0 pg (27-33) 07/05/24 02:49 MCHC 32.0 g/dL (30-55) 07/05/24 02:49 RDW 13.5 % (12.1-15.1) 07/05/24 02:49 Plt Count 247 10^3/cmm (157-399) 07/05/24 02:49 MPV 10.5 fL (7.4-10.4) H 07/05/24 02:49 Neut % (Auto) 61.7 % 07/05/24 02:49 Lymph % (Auto) 30.3 % 07/05/24 02:49 [place] % (Auto) 7.4 % 07/05/24 02:49 Eos % (Auto) 0.0 % 07/05/24 02:49 Baso % (Auto) 0.4 % 07/05/24 02:49 Neut # (Auto) 5.15 10^3/uL (1.8-7.7) 07/05/24 02:49 Lymph # (Auto) 2.5 10^3/uL (0.8-4.8) 07/05/24 02:49 [place] # (Auto) 0.6 10^3/uL (0.2-0.9) 07/05/24 02:49 Eos # (Auto) 0.0 10^3/uL (0.0-0.8) 07/05/24 02:49 Baso # (Auto) 0.0 10^3/uL (0.0-0.1) 07/05/24 02:49 Nucleated RBC % (auto) 0 % 07/05/24 02:49 Nucleated RBCs # 0.0 /100WBC 07/05/24 02:49 APTT 39.3 SECONDS (23.9-36.7) H 07/03/24 06:11 Sodium 137 mmol/L (136-145) 07/05/24 02:49 Potassium 3.7 mmol/L (3.5-5.1) 07/05/24 02:49 Chloride 97 mmol/L (98-107) L 07/05/24 02:49 Carbon Dioxide 26 mmol/L (22-29) 07/05/24 02:49 Anion Gap 17.7 (5-19) 07/05/24 02:49 BUN 23 mg/dL (8-23) 07/05/24 02:49 Creatinine 1.3 mg/dL (0.5-0.9) H 07/05/24 02:49 GFR Calculation Not Reportable 07/05/24 02:49 Glucose 115 mg/dL (65-115) 07/05/24 02:49 Estimat Average Glucose 103 06/27/24 13:10 Hemoglobin A1c 5.2 % (4.0-6.0) 06/27/24 13:10 Calculated Osmolality 289 mOsm/kg (285-295) 07/05/24 02:49 Calcium 9.7 mg/dL (8.5-10.5) 07/05/24 02:49 Magnesium 2.0 mg/dL (1.7-2.3) 07/05/24 02:49 Total Bilirubin 0.6 mg/dL (0.15-1.2) 07/05/24 02:49 AST 24 U/L (0-32) 07/05/24 02:49 ALT 19 U/L (0-33) 07/05/24 02:49 Alkaline Phosphatase 78 U/L (35-105) 07/05/24 02:49 Troponin T Baseline 69 ng/L (0-10) H 06/27/24 17:34 Troponin T 120 Minute 75.55 ng/L (0-10) H 06/27/24 20:23 Delta Troponin T 6.55 ABS# (0-10) 06/27/24 20:23 Troponin T Hi Sens 6Hr 85.48 ng/L (0-10) H 06/27/24 23:52 Troponin T Hi Sens 6Hr Delta 16.48 ng/L (0-12) H* 06/27/24 23:52 NT-Pro-B Natriuret Pep 09356 pg/mL (0-125) H 06/27/24 13:10 Total Protein 7.1 g/dL (6.6-8.7) 07/05/24 02:49 Albumin 3.8 g/dL (3.5-5.2) 07/05/24 02:49 Globulin 3.3 g/dL (1.3-4.6) 07/05/24 02:49 Triglycerides 70 mg/dL (0-150) 06/28/24 03:39 Cholesterol 137 mg/dL (0-200) 06/28/24 03:39 LDL Cholesterol, Calc 76 mg/dL (50-129) 06/28/24 03:39 HDL Cholesterol 47 mg/dL (60-100) L 06/28/24 03:39 LDL/HDL Ratio 1.62 RATIO (0.00-3.22) 06/28/24 03:39 Cholesterol/HDL Ratio 2.91 mg/dL (0.0-4.40) 06/28/24 03:39 Vitamin B12 593 pg/mL (232-1245) 06/27/24 13:10 Procalcitonin 0.08 ng/mL (0-0.5) 06/27/24 13:10 TSH 1.13 uIU/mL (0.27-4.20) 06/28/24 03:39 Urine Color Yellow (Yellow) 06/27/24 20:40 Urine Appearance Clear (CLEAR) 06/27/24 20:40 Urine pH 5.0 (5-7) 06/27/24 20:40 Ur Specific [place] 1.015 (1.005-1.030) 06/27/24 20:40 Urine Protein Negative (Negative) 06/27/24 20:40 Urine Glucose (UA) Negative (Normal) 06/27/24 20:40 Urine Ketones Negative (Negative) 06/27/24 20:40 Urine Blood Negative (Negative) 06/27/24 20:40 Urine Nitrate Negative (Negative) 06/27/24 20:40 Urine Bilirubin Negative (Negative) 06/27/24 20:40 Urine Urobilinogen 0.2 mg/dL (Negative) 06/27/24 20:40 Ur Leukocyte Esterase Negative (Negative) 06/27/24 20:40 Urine RBC 0-2 /hpf (0-2) 06/27/24 20:40 Urine WBC 0-5 /hpf (0-5) 06/27/24 20:40 Ur Squamous Epith Cells 0-5 /hpf (0-5) 06/27/24 20:40 Amorphous Sediment Not Reportable 06/27/24 20:40 Urine Bacteria None seen /hpf (NONE) 06/27/24 20:40 Hyaline Casts 0.40 /lpf 06/27/24 20:40 Urine Opiates Screen Negative ng/mL (Negative) 06/27/24 20:40 Ur Barbiturates Screen Negative ng/mL (Negative) 06/27/24 20:40 Ur Phencyclidine Scrn Negative ng/mL (Negative) 06/27/24 20:40 Ur Amphetamines Screen Negative ng/mL (Negative) 06/27/24 20:40 U Benzodiazepines Scrn Negative ng/mL (Negative) 06/27/24 20:40 Urine Cocaine Screen Negative ng/mL (Negative) 06/27/24 20:40 U Marijuana (THC) Screen Negative ng/mL (Negative) 06/27/24 20:40 Vitals Last Vital Signs Temp 97.8 F 07/05/24 08:00 Pulse 85 07/05/24 08:00 Resp 19 H 07/05/24 08:00 BP 108/62 07/05/24 08:00 Pulse Ox 96 07/05/24 07:45 O2 Del Method Nasal Cannula 07/05/24 07:45 O2 Flow Rate 2 07/04/24 11:57 Discharge Plan Discharge Patient Disposition: Home Condition: Stable Prescriptions: New atorvastatin 40 mg Tablet 40 mg PO BEDTIME Qty: 30 0RF clopidogrel 75 mg Tablet 75 mg PO DAILY Qty: 30 0RF aspirin 81 mg Tablet,Delayed Release (Dr/Ec) 81 mg PO DAILY Qty: 30 0RF carvedilol 3.125 mg Tablet 3.125 mg PO BID Qty: 60 0RF pantoprazole 40 mg Tablet,Delayed Release (Dr/Ec) 40 mg PO DAILY Qty: 30 0RF furosemide [Lasix] 40 mg tablet 40 mg PO QAM Qty: 30 0RF potassium chloride 10 mEq capsule, extended release 10 meq PO DAILY Qty: 30 0RF Discharge Orders: Discharge Order (Routine); Ordered 07/05/24 Ordered By: Bhumika Donato Other Ambulatory Orders: DME: Oxygen (Order) Location: None Selected Ordered By: Bhumika Donato Basic Metabolic Panel (Routine) Timeframe: 1 Week Facility: [facility] - Location: Lab - Main Lab Ordered By: Bhumika Donato Complete Blood Count w/Auto (Routine) Timeframe: 1 Week Location: Determined by Patient Ordered By: Bhumika Donato Referrals: Berkley Fu NP [Nurse Practitioner] - 1 week (We have notified your physician's clinic of the need for a follow-up appointment to be scheduled. If you have not heard from them within the next 2 business days, please call them directly. ) Param Dobson MD [Primary Care Provider] - 1-3 days (We have notified your physician's clinic of the need for a follow-up appointment to be scheduled. If you have not heard from them within the next 2 business days, please call them directly. ) Juan Peck MD [Physician] - 1 month (We have notified your physician's clinic of the need for a follow-up appointment to be scheduled. If you have not heard from them within the next 2 business days, please call them directly. ) Discharge Diet: Cardiac Discharge Activity: Limit activity as instructed and Oxygen as instructed Patient Instructions: Furosemide (By mouth), Potassium Chloride (By mouth), Aspirin (By mouth), Atorvastatin (By mouth), Carvedilol (By mouth), Pantoprazole (By mouth), Coronary Artery Disease (DC), Coronary Angioplasty (DC), Acute Kidney Injury (DC), Chronic Kidney Disease (DC), Opioid Safety Discharge Attestations Time Spent in Discharge Care*: greater than 30 min Quality Metrics Clinical Quality Measures [ No reported AMI, CVA or VTE this stay] Coding Level of Care Code 57177 Total time (in minutes) for Discharge: 35 Diagnoses Hypertension I10 Congestive heart failure I50.9 New onset of congestive heart failure I50.9 Left ventricular systolic dysfunction (LVSD) I51.89 Aortic valve stenosis I35.0 CKD (chronic kidney disease) N18.9 KELVIN (acute kidney injury) N17.9 CAD S/P percutaneous coronary angioplasty I25.10; Z98.61 Presence of drug-eluting stent in right coronary artery Z95.5
--- NOTE | 2024-07-05 13:45 | PC.NURSE ---
Discharge Note Patient discharged to home via POV accompanied by family. Discharge instructions reviewed with patient and/or employee representative. Mobile pharmacy medications and/or prescriptions provided. Belongings/home medications returned.
== END 2024-07-05 12:30 | disposition home or self-care (01) | DRG 321 ==
LOC: ER 14:00 → MEDSURG 17:53 → CSU 07-03 13:51
PROVIDERS: Internal Medicine Cardiovascular Disease; Nurse Practitioner Family; Admitting Provider Student in an Organized Health Care Education/Training Program; Emergency Provider Family Medicine; PCP Family Medicine; Visit Provider Internal Medicine
PROC: 027034Z Dilation of Coronary Artery, One Artery with Drug-eluting Intraluminal Device, Percutaneous Approach (ICD-10-PCS; principal; 2024-07-03 10:00)
PROC: 027034Z Dilation of Coronary Artery, One Artery with Drug-eluting Intraluminal Device, Percutaneous Approach (ICD-10-PCS; 2024-07-03 10:00)
DX: I13.0 Hypertensive heart and chronic kidney disease with heart failure and stage 1 through stage 4 chronic kidney disease, or unspecified chronic kidney disease (principal); I50.23 Acute on chronic systolic (congestive) heart failure; N17.9 Acute kidney failure, unspecified; N18.9 Chronic kidney disease, unspecified; I35.0 Nonrheumatic aortic (valve) stenosis; I25.10 Atherosclerotic heart disease of native coronary artery without angina pectoris; I34.0 Nonrheumatic mitral (valve) insufficiency; I07.1 Rheumatic tricuspid insufficiency; E87.6 Hypokalemia; I73.9 Peripheral vascular disease, unspecified
CPT/HCPCS: 36415; 71045; 71275; 80048; 80053; 80061; 80306; 81001; 82607; 83036; 83735; 83880; 84145; 84443; 84484; 85025; 85730; 93005; 93306; 93458; 93970; 94760; 96372; 96374; 96376; 99152; 99153; 99285; C1725; C1769; C1874; C1887; C1894; C9600; J1644; J1650; J1940; J2250; J3010; J3475; J3490; J7030; Q0163; Q9967

== ENCOUNTER → 2024-07-23 15:49 | Outpatient (BNVA) | payer MEDICARE, SELFPAY | PROVIDERS: PCP Family Medicine; Visit Provider Nurse Practitioner Family | DX: I25.10 Atherosclerotic heart disease of native coronary artery without angina pectoris (principal); I50.9 Heart failure, unspecified; R06.09 Other forms of dyspnea; I08.0 Rheumatic disorders of both mitral and aortic valves; I73.9 Peripheral vascular disease, unspecified; Z95.5 Presence of coronary angioplasty implant and graft; G62.9 Polyneuropathy, unspecified | CPT/HCPCS: 99214 ==

== ENCOUNTER 2024-08-14 13:16 | Outpatient (CLI) | payer MEDICARE, SELFPAY ==
--- NOTE | 2024-08-14 13:25 | XR_ITS ---
WS: [id number] Exam: XR chest 2V* [id number] Date/Time of Exam: 08/14/2024 1:33 PM Reason For Exam: DYSPNEA ON EXERTION Exam: XR chest 2V* [id number] Date/Time of Exam: 08/14/2024 1:33 PM Reason For Exam: DYSPNEA ON EXERTION Comparison 06/27/2024. Again noted is cardiac enlargement with increased pulmonary vascularity and interstitial opacities. This may represent some degree of mild chronic CHF. The lungs are fully expanded. There may be trace LEFT pleural effusion. No pneumothorax. Bony structures are intact. The mediastinum is normal in contour. XR/XR chest 2V* [id number] IMPRESSION: 1. Cardiac enlargement with increased pulmonary vascularity and interstitial op acities that likely represent some degree of mild chronic CHF. Pneumonia felt t o be less likely.
== END 2024-08-14 13:17 | disposition home or self-care (01) ==
LOC: RAD 13:17
PROVIDERS: PCP Family Medicine; Visit Provider Nurse Practitioner Family
DX: R06.09 Other forms of dyspnea (principal); I51.7 Cardiomegaly; R93.89 Abnormal findings on diagnostic imaging of other specified body structures
CPT/HCPCS: 71046

== ENCOUNTER 2024-08-25 16:32 | Inpatient (IN) | payer MEDICARE, SELFPAY ==
[2024-08-25] VITALS (10 sets, daily range): BP systolic 118–148; BP diastolic 85–102; PULSE 78–130; RESP 18–25; TEMP 37.3; O2SAT 84–97; BMI 34.3
--- NOTE | 2024-08-25 16:54 | XRR_ITS ---
PROCEDURE INFORMATION: Exam: XR Right Hip Exam date and time: 08/25/2024 5:06 PM Age: 73 years old Clinical indication: Injury or trauma; Fall; Blunt trauma (contusions or hematomas); Right; Hip; Injury date: 08/24/24 TECHNIQUE: Imaging protocol: Radiologic exam of the right hip. Views: 1 view hip with pelvis when performed. COMPARISON: No relevant prior studies available. FINDINGS: Bones/joints: No evidence of fracture or subluxation of the right hip. Pelvic ring is grossly intact. Sacrum and coccyx are partially obscured by bowel gas/stool. Displaced greater trochanteric fracture on the left, age-indeterminate. Soft tissues: Soft tissue edema of the right pelvis/thigh. Dense vascular calcifications. XR/XR hip RT 2-3V wo/w pel* [id number] IMPRESSION: 1. No evidence of fracture or subluxation of the right hip. If there is ongoing clinical suspicion for traumatic injury, consider correlation with CT. 2. Age-indeterminate displaced greater trochanteric fracture on the left.
--- NOTE | 2024-08-25 17:15 | XRR_ITS ---
PROCEDURE INFORMATION: Exam: XR Chest Exam date and time: 08/25/2024 5:18 PM Age: 73 years old Clinical indication: Cough and dyspnea; Additional info: Dyspnea/cough TECHNIQUE: Imaging protocol: Radiologic exam of the chest. Views: 1 view. COMPARISON: CR XR chest 2V* [id number] 08/14/2024 1:37 PM FINDINGS: Lungs: No focal consolidation. Pleural spaces: No evidence of pneumothorax. No convincing evidence of pleural effusion though a small left-sided effusion would be difficult to exclude. Heart/Mediastinum: Moderate cardiomegaly. There is prominence of the pulmonary trunk contour, which can be seen with pulmonary hypertension. Bones/joints: No evidence of acute osseous abnormality. XR/XR chest 1V portable [id number] IMPRESSION: 1. No acute cardiopulmonary abnormality. 2. Cardiomegaly.
--- NOTE | 2024-08-25 17:16 | ECG_ITS ---
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 Measurements Intervals [place] Rate: 104 P: 67 NH: 182 QRS: 66 QRSD: 101 T: 42 QT: 354 QTc: 466 Interpretive Statements SINUS TACHYCARDIA WITH OCCASIONAL VENTRICULAR PREMATURE COMPLEXES INDETERMINATE AXIS MODERATE T-WAVE ABNORMALITY, CONSIDER LATERAL ISCHEMIA [-0.1+ mV T-WAVE IN I/aVL/V5/V6] Compared to ECG 06/28/2024 00:04:32 Indeterminate axis now present T-wave abnormality now present Possible ischemia now present Sinus rhythm no longer present Myocardial infarct finding no longer present Electronically Signed On 08-25-2024 22:23:31 CDT by Efrain Johnston M.D. [email or web address]
--- NOTE | 2024-08-25 17:16 | USR_ITS ---
PROCEDURE INFORMATION: Exam: US Duplex Right Lower Extremity Veins, Limited Exam date and time: 08/25/2024 5:29 PM Age: 73 years old Clinical indication: Pain; Leg, lower; Right; Additional info: Leg pain and swelling TECHNIQUE: Imaging protocol: Real-time duplex ultrasound of the right extremity with 2-D cavanaugh scale, color Doppler flow and spectral waveform analysis including responses to compression and other maneuvers (when performed) with image documentation. Limited exam was focused on the right lower extremity veins. COMPARISON: No relevant prior studies available. FINDINGS: Right deep veins: The common femoral, femoral, proximal profunda femoral and popliteal veins are patent without evidence of thrombus and demonstrate normal waveforms. Superficial veins: Saphenofemoral junction is patent without thrombus. No evidence of thrombophlebitis. Soft tissues: No evidence of fluid collection. US/[place] [id number] IMPRESSION: 1. No sonographic evidence of deep venous thrombosis in the right lower extremity.
--- NOTE | 2024-08-25 17:23 | ED_ITS ---
Documented by User: Negro Jaeger DO 08/26/24 16:24 HPI - Fall 2 General: Chief Complaint: Fall Stated Complaint: fall - right hip pain Time Seen by Provider: 08/25/24 16:54 History of Present Illness: 73-year-old female who presents to the e mergency room complaining of right hip pain after a fall. She fell last night was laying on the floor till she was found late this afternoon by family members and brought to the ER by EMS. She has some swelling to her right leg. She is complaining of discomfort in her hip and pelvis she was not able to stand. She denies any other injury she denies loss consciousness she has some dried eschar around her lower lip but states that is from a cold sore. She denied hitting her face when she fell. Fall was a ground-level mechanical fall when she stumbled. Associated symptoms-after fall: Denies abdominal pain, chest pain or neck pain Related Data Home Medications ?Medication ?Instructions ?Recorded ?Confirmed amitriptyline 100 mg tablet 100 mg PO BEDTIME 08/26/24 08/26/24 Previous Rx's ?Medication ?Instructions ?Recorded aspirin 81 mg tablet,delayed 81 mg PO DAILY #30 tabs 0 07/05/24 release pantoprazole 40 mg tablet,delayed 40 mg PO DAILY #30 t abs 07/05/24 release atorvastatin 40 mg tablet 40 mg PO BEDTIME #90 tabs carvedilol 3.125 mg tablet 3.125 mg PO BID #180 tabs 0 07/23/24 clopidogrel 75 mg tablet 75 mg PO DAILY #90 tabs 0310/12 furosemide 40 mg tablet (Lasix) 40 mg PO QAM #90 tabs 07/23/24 potassium chloride 10 mEq 10 meq PO DAILY #90 caps 10/12 capsule,extended release Allergies Allergy/AdvReac Type Severity Reaction Status Date / Time ciprofloxacin (From Cipro) Allergy ALGY-Hives Verified 07/23/24 15:55 coconut Allergy ALGY-Hives Verified 07/23/24 15:55 pregabalin (From Lyrica) Allergy ALGY-Hives Verified 07/23/24 15:55 Review of Systems 2 Const: Denies: fever(s) or chills Card: Denies: chest pain Resp: Denies: dyspnea GI: Denies: abdominal pain : Denies: dysuria, urinary frequency or urinary urgency Musc: Reports: extremity swelling and joint pain; Denies: neck pain or back pain Skin/Breast: Denies: rash PFSH ED 2 PFSH: Medical History CKD (chronic kidney disease) No significant past medical history Social History Smoking and tobacco/nicotine status: former use of tobacco/nicotine Physical Exam 2 Const: GENERAL APPEARANCE: cooperative ORIENTATION/CONSCIOUSNESS: Yes awake, Yes oriented to person, Yes oriented to place and Yes oriented to time HENMT: COMMON NORMALS: normocephalic, atraumatic and hearing grossly normal bilaterally HEAD & SCALP: normocephalic and atraumatic Resp: COMMON NORMALS: normal respiratory effort, No retractions, No use of accessory muscles and clear to auscultation bilaterally AUSCULTATION: clear to auscultation bilaterally Cardio: COMMON NORMALS: regular rate, regular rhythm and No murmurs present (Cardio) RATE: regular rate RHYTHM: regular rhythm GI: COMMON NORMALS: Soft to palpation and No hepatosplenomegaly present A USCULTATION: Yes normoactive bowel sounds PALPATION: Yes Soft to palpation, No Tenderness to palpation present (GI), No Guarding due to palpation present (GI) and Yes No hepatosplenomegaly present Extremity: OTHER: Mild right leg swelling. Pain with any attempted internal/external rotation through the hip no deformity of the knee no external rotation from the hip no abnormality at the foot. No cyanosis. Neuro: SENSORIUM/ORIENTATION: Yes oriented to person, Yes oriented to place and Yes oriented to time Skin: COMMON NORMALS: no rashes or lesions noted GENERAL SKIN EXAM: no rashes or lesions noted Course 2 Vital Signs: Vital signs: Vital Signs Temperature 98.7 F 08/26/24 15:38 Pulse Rate 83 08/26/24 15:38 Respiratory Rate 16 08/26/24 15:38 Blood Pressure 133/72 08/26/24 15:38 Pulse Oximetry 90 08/26/24 15:38 Oxygen Delivery Me thod Nasal Cannula 08/26/24 15:38 Oxygen Flow Rate 5 08/26/24 14:36 Fraction of Inspir ed Oxygen 40 08/26/24 11:10 MDM - Fall Medical Decision Making Care signed out to Dr. Mansfield at change of shift. See final notes for diagnosis and disposition. Lab work was reviewed as well as hip and pelvis x-ray, chest x-ray, venous duplex, pelvis CT, drink patient states she required more more oxygen the longer she was here. Up until she required 6 L of oxygen per nasal cannula to keep her saturation about 88%. Patient said that her pain was uncontrolled. Pain is given 4 mg morphine 4 mg Zofran, the room patient was discussed with Dr. Crawford who agreed to place patient in [facility] for further evaluation treatment. Medical Records I reviewed the patient's medical records. Lab Data I reviewed the patient's lab results. 08/26/24 03:40 08/26/24 03:40 Radiology Impressions Hip/Pelvis X-Ray 08/25/24 16:54 IMPRESSION: 1. No evidence of fracture or subluxation of the right hip. If there is ongoing clinical suspicion for traumatic injury, consider correlation with CT. 2. Age-indeterminate displaced greater trochanteric fracture on the left. Chest X-Ray 08/25/24 17:15 IMPRESSION: 1. No acute cardiopulmonary abnormality. 2. Cardiomegaly. Venous Duplex 08/25/24 17:16 IMPRESSION: 1. No sonographic evidence of deep venous thrombosis in the right lower extremity. Pelvis CT 08/25/24 17:45 IMPRESSION: 1. No evidence of acute fracture or malalignment. Head CT 08/26/24 06:51 IMPRESSION: 1. No evidence of intracranial hemorrhage or mass effect. 2. Mild small vessel changes. Mild parenchymal volume loss. 3. Vascular calcification. 4. No acute intracranial findings. Ankle X-Ray 08/26/24 09:46 IMPRESSION: No fracture. Laboratory Results WBC 12.92 10^3/uL (3.29-11.43) H 08/25/24 17:57 RBC 3.46 10^6/uL (3.85-5.65) L 08/25/24 17:57 Hgb 10.40 g/dL (11.27-16.99) L 08/25/24 17:57 Hct 34.1 % (36-47) L 08/25/24 17:57 MCV 98.6 fl (85-98) H 08/25/24 17:57 MCH 30.1 pg (27-33) 08/25/24 17:57 MCHC 30.5 g/dL (30-55) 08/25/24 17:57 RDW 17.2 % (12.1-15.1) H 08/25/24 17:57 Plt Count 157 10^3/cmm (157-399) 08/25/24 17:57 MPV 9.9 fL (7.4-10.4) 08/25/24 17:57 Neut % (Auto) 89.4 % 08/25/24 17:57 Lymph % (Auto) 5.0 % 08/25/24 17:57 [place] % (Auto) 5.0 % 08/25/24 17:57 Eos % (Auto) 0.0 % 08/25/24 17:57 Baso % (Auto) 0.2 % 08/25/24 17:57 Neut # (Auto) 11.56 10^3/uL (1.8-7.7) H 08/25/24 17:57 Lymph # (Auto) 0.6 10^3/uL (0.8-4.8) L 08/25/24 17:57 [place] # (Auto) 0.6 10^3/uL (0.2-0.9) 08/25/24 17:57 Eos # (Auto) 0.0 10^3/uL (0.0-0.8) 08/25/24 17:57 Baso # (Auto) 0.0 10^3/uL (0.0-0.1) 08/25/24 17:57 Nucleated RBC % (auto) 0 % 08/25/24 17:57 Nucleated RBCs # 0.0 /100WBC 08/25/24 17:57 Sodium 137 mmol/L (136-145) 08/25/24 17:57 Potassium 4.0 mmol/L (3.5-5.1) 08/25/24 17:57 Chloride 100 mmol/L (98-107) 08/25/24 17:57 Carbon Dioxide 23 mmol/L (22-29) 08/25/24 17:57 Anion Gap 18.0 (5-19) 08/25/24 17:57 BUN 21 mg/dL (8-23) 08/25/24 17:57 Creatinine 1.5 mg/dL (0.5-0.9) H 08/25/24 17:57 GFR Calculation Not Reportable 08/25/24 17:57 Glucose 91 mg/dL (65-115) 08/25/24 17:57 Calculated Osmolality 287 mOsm/kg (285-295) 08/25/24 17:57 Calcium 9.3 mg/dL (8.5-10.5) 08/25/24 17:57 Total Bilirubin 1.4 mg/dL (0.15-1.2) H 08/25/24 17:57 AST 35 U/L (0-32) H 08/25/24 17:57 ALT 26 U/L (0-33) 08/25/24 17:57 Alkaline Phosphatase 110 U/L (35-105) H 08/25/24 17:57 Creatine Kinase 106 U/L (26-192) 08/25/24 17:57 Troponin T Baseline 62 ng/L (0-10) H 08/25/24 17:57 Troponin T 120 Minute 67.66 ng/L (0-10) H 08/25/24 20:27 Delta Troponin T 5.66 ABS# (0-10) 08/25/24 20:27 Total Protein 6.9 g/dL (6.6-8.7) 08/25/24 17:57 Albumin 3.9 g/dL (3.5-5.2) 08/25/24 17:57 Globulin 3.0 g/dL (1.3-4.6) 08/25/24 17:57 Urine Color Yellow (Yellow) 08/25/24 21:18 Urine Appearance Clear (CLEAR) 08/25/24 21:18 Urine pH 5 (5-7) 08/25/24 21:18 Ur Specific [place] 1.020 (1.005-1.030) 08/25/24 21:18 Urine Protein 1+ (Negative) A 08/25/24 21:18 Urine Glucose (UA) Norm (Normal) 08/25/24 21:18 Urine Ketones Negative (Negative) 08/25/24 21:18 Urine Blood Neg (Negative) 08/25/24 21:18 Urine Nitrate Negative (Negative) 08/25/24 21:18 Urine Bilirubin 1+ (Negative) H 08/25/24 21:18 Urine Urobilinogen 1 mg/dL (Negative) H 08/25/24 21:18 Ur Leukocyte Esterase Trace (Negative) A 08/25/24 21:18 Urine RBC 0-4 /hpf (0-2) H 08/25/24 21:18 Urine WBC 0-5 /hpf (0-5) 08/25/24 21:18 Ur Squamous Epith Cells 0-5 /hpf (0-5) 08/25/24 21:18 Amorphous Sediment Not Reportable 08/25/24 21:18 Urine Bacteria 2+ /hpf (NONE) H 08/25/24 21:18 Hyaline Casts 40.54 /lpf 08/25/24 21:18 Discharge Plan Discharge Patient Disposition: Admitted As Inpatient Admit Provider: Juan Crawford Clinical Impression: Acute and chronic respiratory failure with hypoxia, Neuropathy Fall Qualifiers: Encounter type: initial encounter Qualified Code(s): W19.XXXA - Unspecified fall, initial encounter Condition: Stable Coding Level of Care Code ED First Assist for Chg Fwd Documented by User: Oscar Mansfield DO 08/26/24 02:16 HPI - Fall 2 General: Chief Complaint: Fall Stated Complaint: fall - right hip pain Time Seen by Provider: 08/25/24 16:54 Related Data Home Medications ?Medication ?Instructions ?Recorded ?Confirmed amitriptyline 100 mg tablet 100 mg PO BEDTIME 08/26/24 08/26/24 Previous Rx's ?Medication ?Instructions ?Recorded aspirin 81 mg tablet,delayed 81 mg PO DAILY #30 tabs 0 07/05/24 release pantoprazole 40 mg tablet,delayed 40 mg PO DAILY #30 t abs 07/05/24 release atorvastatin 40 mg tablet 40 mg PO BEDTIME #90 tabs carvedilol 3.125 mg tablet 3.125 mg PO BID #180 tabs 0 07/23/24 clopidogrel 75 mg tablet 75 mg PO DAILY #90 tabs 10/12 furosemide 40 mg tablet (Lasix) 40 mg PO QAM #90 tabs 07/23/24 potassium chloride 10 mEq 10 meq PO DAILY #90 caps 10/12 capsule,extended release Allergies Allergy/AdvReac Type Severity Reaction Status Date / Time ciprofloxacin (From Cipro) Allergy ALGY-Hives Verified 07/23/24 15:55 coconut Allergy ALGY-Hives Verified 07/23/24 15:55 pregabalin (From Lyrica) Allergy ALGY-Hives Verified 07/23/24 15:55 PFSH ED 2 PFSH: Medical History CKD (chronic kidney disease) No significant past medical history Social History Smoking and tobacco/nicotine status: former use of tobacco/nicotine Course 2 Vital Signs: Vital signs: Vital Signs Temperature 98.7 F 08/26/24 15:38 Pulse Rate 83 08/26/24 15:38 Respiratory Rate 16 08/26/24 15:38 Blood Pressure 133/72 08/26/24 15:38 Pulse Oximetry 90 08/26/24 15:38 Oxygen Delivery Me thod Nasal Cannula 08/26/24 15:38 Oxygen Flow Rate 5 08/26/24 14:36 Fraction of Inspir ed Oxygen 40 08/26/24 11:10 MDM - Fall Medical Decision Making Care signed out to Dr. Mansfield at change of shift. See final notes for diagnosis and disposition. Lab work was reviewed as well as hip and pelvis x-ray, chest x-ray, venous duplex, pelvis CT, drink patient states she required more more oxygen the longer she was here. Up until she required 6 L of oxygen per nasal cannula to keep her saturation about 88%. Patient said that her pain was uncontrolled. Pain is given 4 mg morphine 4 mg Zofran, the room patient was discussed with Dr. Crawford who agreed to place patient in [facility] for further evaluation treatment. Lab Data 08/26/24 03:40 08/26/24 03:40 Radiology Impressions Hip/Pelvis X-Ray 08/25/24 16:54 IMPRESSION: 1. No evidence of fracture or subluxation of the right hip. If there is ongoing clinical suspicion for traumatic injury, consider correlation with CT. 2. Age-indeterminate displaced greater trochanteric fracture on the left. Chest X-Ray 08/25/24 17:15 IMPRESSION: 1. No acute cardiopulmonary abnormality. 2. Cardiomegaly. Venous Duplex 08/25/24 17:16 IMPRESSION: 1. No sonographic evidence of deep venous thrombosis in the right lower extremity. Pelvis CT 08/25/24 17:45 IMPRESSION: 1. No evidence of acute fracture or malalignment. Head CT 08/26/24 06:51 IMPRESSION: 1. No evidence of intracranial hemorrhage or mass effect. 2. Mild small vessel changes. Mild parenchymal volume loss. 3. Vascular calcification. 4. No acute intracranial findings. Ankle X-Ray 08/26/24 09:46 IMPRESSION: No fracture. Laboratory Results WBC 12.92 10^3/uL (3.29-11.43) H 08/25/24 17:57 RBC 3.46 10^6/uL (3.85-5.65) L 08/25/24 17:57 Hgb 10.40 g/dL (11.27-16.99) L 08/25/24 17:57 Hct 34.1 % (36-47) L 08/25/24 17:57 MCV 98.6 fl (85-98) H 08/25/24 17:57 MCH 30.1 pg (27-33) 08/25/24 17:57 MCHC 30.5 g/dL (30-55) 08/25/24 17:57 RDW 17.2 % (12.1-15.1) H 08/25/24 17:57 Plt Count 157 10^3/cmm (157-399) 08/25/24 17:57 MPV 9.9 fL (7.4-10.4) 08/25/24 17:57 Neut % (Auto) 89.4 % 08/25/24 17:57 Lymph % (Auto) 5.0 % 08/25/24 17:57 [place] % (Auto) 5.0 % 08/25/24 17:57 Eos % (Auto) 0.0 % 08/25/24 17:57 Baso % (Auto) 0.2 % 08/25/24 17:57 Neut # (Auto) 11.56 10^3/uL (1.8-7.7) H 08/25/24 17:57 Lymph # (Auto) 0.6 10^3/uL (0.8-4.8) L 08/25/24 17:57 [place] # (Auto) 0.6 10^3/uL (0.2-0.9) 08/25/24 17:57 Eos # (Auto) 0.0 10^3/uL (0.0-0.8) 08/25/24 17:57 Baso # (Auto) 0.0 10^3/uL (0.0-0.1) 08/25/24 17:57 Nucleated RBC % (auto) 0 % 08/25/24 17:57 Nucleated RBCs # 0.0 /100WBC 08/25/24 17:57 Sodium 137 mmol/L (136-145) 08/25/24 17:57 Potassium 4.0 mmol/L (3.5-5.1) 08/25/24 17:57 Chloride 100 mmol/L (98-107) 08/25/24 17:57 Carbon Dioxide 23 mmol/L (22-29) 08/25/24 17:57 Anion Gap 18.0 (5-19) 08/25/24 17:57 BUN 21 mg/dL (8-23) 08/25/24 17:57 Creatinine 1.5 mg/dL (0.5-0.9) H 08/25/24 17:57 GFR Calculation Not Reportable 08/25/24 17:57 Glucose 91 mg/dL (65-115) 08/25/24 17:57 Calculated Osmolality 287 mOsm/kg (285-295) 08/25/24 17:57 Calcium 9.3 mg/dL (8.5-10.5) 08/25/24 17:57 Total Bilirubin 1.4 mg/dL (0.15-1.2) H 08/25/24 17:57 AST 35 U/L (0-32) H 08/25/24 17:57 ALT 26 U/L (0-33) 08/25/24 17:57 Alkaline Phosphatase 110 U/L (35-105) H 08/25/24 17:57 Creatine Kinase 106 U/L (26-192) 08/25/24 17:57 Troponin T Baseline 62 ng/L (0-10) H 08/25/24 17:57 Troponin T 120 Minute 67.66 ng/L (0-10) H 08/25/24 20:27 Delta Troponin T 5.66 ABS# (0-10) 08/25/24 20:27 Total Protein 6.9 g/dL (6.6-8.7) 08/25/24 17:57 Albumin 3.9 g/dL (3.5-5.2) 08/25/24 17:57 Globulin 3.0 g/dL (1.3-4.6) 08/25/24 17:57 Urine Color Yellow (Yellow) 08/25/24 21:18 Urine Appearance Clear (CLEAR) 08/25/24 21:18 Urine pH 5 (5-7) 08/25/24 21:18 Ur Specific [place] 1.020 (1.005-1.030) 08/25/24 21:18 Urine Protein 1+ (Negative) A 08/25/24 21:18 Urine Glucose (UA) Norm (Normal) 08/25/24 21:18 Urine Ketones Negative (Negative) 08/25/24 21:18 Urine Blood Neg (Negative) 08/25/24 21:18 Urine Nitrate Negative (Negative) 08/25/24 21:18 Urine Bilirubin 1+ (Negative) H 08/25/24 21:18 Urine Urobilinogen 1 mg/dL (Negative) H 08/25/24 21:18 Ur Leukocyte Esterase Trace (Negative) A 08/25/24 21:18 Urine RBC 0-4 /hpf (0-2) H 08/25/24 21:18 Urine WBC 0-5 /hpf (0-5) 08/25/24 21:18 Ur Squamous Epith Cells 0-5 /hpf (0-5) 08/25/24 21:18 Amorphous Sediment Not Reportable 08/25/24 21:18 Urine Bacteria 2+ /hpf (NONE) H 08/25/24 21:18 Hyaline Casts 40.54 /lpf 08/25/24 21:18 All radiology interpretation(s) finalized by discharge Discharge Plan Discharge Patient Disposition: Admitted As Inpatient Admit Provider: Juan Crawford Clinical Impression: Acute and chronic respiratory failure with hypoxia, Neuropathy Fall Qualifiers: Encounter type: initial encounter Qualified Code(s): W19.XXXA - Unspecified fall, initial encounter Condition: Stable Coding Level of Care Code ED First Assist for Tayler Lafleur
--- NOTE | 2024-08-25 17:45 | CTR_ITS ---
PROCEDURE INFORMATION: Exam: CT Pelvis Without Contrast, Skeleton Exam date and time: 08/25/2024 6:35 PM Age: 73 years old Clinical indication: Hip pain; Right hip; Additional info: Trauma R hip pain/pubic rami FX TECHNIQUE: Imaging protocol: Computed tomography of the pelvis without contrast. Exam focused on the skeleton. Radiation optimization: All CT scans at this facility use at least one of these dose optimization techniques: automated exposure control; mA and/or kV adjustment per patient size (includes targeted exams where dose is matched to clinical indication); or iterative reconstruction. COMPARISON: CR (PELVIS, ) 08/25/2024 5:06 PM RADIATION DOSE METRICS: Total DLP (mGy-cm): 628.3 FINDINGS: Bones/joints: Pelvic ring is intact without evidence of fracture or malalignment. No evidence of joint effusion, fracture or subluxation of the right hip. Chronic displaced greater trochanteric fracture of the left hip. No evidence of acute fracture or subluxation of the left hip. Soft tissues: Prominent diffuse superficial soft tissue edema. There are few mildly prominent inguinal nodes bilaterally, which may be reactive. Extensive aorto bi-iliac atherosclerosis is partially visualized with common iliac artery stents. Small intrapelvic free fluid. CT/CT pelvis wo con [id number] IMPRESSION: 1. No evidence of acute fracture or malalignment.
[2024-08-25 18:08] LABS: Basophils % 0.2 %; Hematocrit 34.1 % (36-47); Lymphocytes # 0.6 10^3/uL (0.8-4.8); Mean Corpuscular HGB Conc 30.5 g/dL (30-55); Mean Corpuscular Hemoglobin 30.1 pg (27-33); Mean Corpuscular Volume 98.6 fl (85-98); Mean Platelet Volume 9.9 fL (7.4-10.4); Monocytes # 0.6 10^3/uL (0.2-0.9); Neutrophils # 11.56 10^3/uL (1.8-7.7); Neutrophils % 89.4 %; Nucleated Red Blood Cells % 0 %; Platelet Count 157 10^3/cmm (157-399); Red Blood Count 3.46 10^6/uL (3.85-5.65); Red Cell Distribution Width 17.2 % (12.1-15.1); White Blood Count 12.92 10^3/uL (3.29-11.43)
[2024-08-25 18:29] LABS: Troponin(5th) Baseline 62 ng/L (0-10)
[2024-08-25 18:46] LABS: Alanine Aminotransferase 26 U/L (0-33); Albumin Level 3.9 g/dL (3.5-5.2); Alkaline Phosphatase 110 U/L (35-105); Aspartate Amino Transferase 35 U/L (0-32); Blood Urea Nitrogen 21 mg/dL (8-23); Calcium 9.3 mg/dL (8.5-10.5); Carbon Dioxide 23 mmol/L (22-29); Chloride 100 mmol/L (98-107); Creatine Phosphokinase 106 U/L (26-192); Creatinine Clr Calc Pharmacy 36.4413; Glucose 91 mg/dL (65-115); Osmolality Calculated 287 mOsm/kg (285-295); Sodium 137 mmol/L (136-145); Total Bilirubin 1.4 mg/dL (0.15-1.2); Total Protein 6.9 g/dL (6.6-8.7)
--- NOTE | 2024-08-25 19:28 | ECG_ITS ---
[facility] Test Date: 2024-08-25 Pat Name: Kaylee Kay Department: Room: Gender: Female Social Economist: : 1950 Requested By: Negro Griffith Order Number: [id number] Ju[place] MD: Efrain Johnston M.D. Measurements Intervals [place] Rate: 110 P: 84 IA: 173 QRS: -8 QRSD: 101 T: 89 QT: 336 QTc: 456 Interpretive Statements SINUS TACHYCARDIA LOW QRS VOLTAGE IN PRECORDIAL LEADS [QRS DEFLECTION < 1.0 mV IN CHEST LEADS] INCOMPLETE RIGHT BUNDLE BRANCH BLOCK [90+ ms QRS DURATION, TERMINAL R IN V1/V2, 40+ ms S IN I/aVL/V4/V5/V6] POSSIBLE ANTERIOR MYOCARDIAL INFARCTION , PROBABLY OLD [30 ms Q WAVE IN V3/V4, OR R < 0.2 mV IN V4] ABNORMAL RHYTHM ECG Compared to ECG 08/25/2024 17:51:24 Low QRS voltage now present Incomplete right bundle-branch block now present T-wave abnormality no longer present Possible ischemia no longer present Electronically Signed On 08-25-2024 22:26:17 CDT by Efrain Johnston M.D. [email or web address]
[2024-08-25 20:53] LABS: Troponin 5 2HR 67.66 ng/L (0-10); Troponin 5 2HR Delta 5.66 ABS# (0-10)
[2024-08-25] MEDS: ondansetron 2 mg/ML SDV 2 mL 4 MG IVP (21:21)
[2024-08-25] MEDS: morphine 4 mg/mL SDV 1 mL IVP (21:21)
[2024-08-25 21:32] LABS: Hyaline Casts Urine 40.54 /lpf; Squamous Epithelial Cell Urine 0-5 /hpf (0-5); WBC Urine 0-5 /hpf (0-5)
[2024-08-25] MEDS: ipratropium-albuterol 3 mL Neb INHALATION (21:40)
[2024-08-25 21:49] LABS: Urine Color Yellow (Yellow)
[2024-08-25 21:50] LABS: Add Urine Microscopic? YES; Bilirubin Urine 1+ (Negative); Blood Urine Neg (Negative); Glucose Urine UA Norm (Normal); Ketones Urine Negative (Negative); Leukocyte Esterase Urine Trace (Negative); Nitrate Urine Negative (Negative); Protein Urine 1+ (Negative); RBC Urine 0-4 /hpf (0-2); Urine Appearance Clear (CLEAR); Urobilinogen Urine 1 mg/dL (Negative); pH Urine 5 (5-7)
[2024-08-25 21:51] LABS: Bacteria Urine 2+ /hpf
--- NOTE | 2024-08-25 23:26 | P.HP_ITS ---
Providers/Chief Complaint 2 Admitting Physician: Juan Crawford MD Primary Care Provider: Param Dobson MD Chief Complaint: fall - right hip pain History of Present Illness Kaylee Kay is a 73 year old female with cardiac liver cirrhosis, pleural effusion, anasarca, systolic CHF with EF 24% status post recent discharge from the hospital with LifeVest, management of medications, lives with her brother, uses 2 L of oxygen, physical deconditioning, sometimes a walker, presenting for evaluation of fall. Brother is at the bedside providing information. Patient was very somnolent I requested stat ABG and BiPAP for the patient. Discussed goals of care. Brother never discussed goals of care with her mother stating that for now they would like to keep her full code until the change CODE STATUS. As per the family, patient fell last night and stayed on the floor, when brother and [id number]-bm-abf woke up and checked on her she was found on the floor, she had no energy and strength to get up on her own, she did not improve significantly all day, she was brought in for further evaluation Workup in the ER consistent with CHF exacerbation, respiratory distress, hypoventilation causing hypoxia with underlying CHF I requested stat ABG and put patient on BiPAP Discussed goals of care As per the brother she does not wear LifeVest at nighttime but in the daytime he tries to keep it on EKG without any positive changes, first 2 troponin remains 160s, then there is significant delta troponin 6-hour Workup consistent with KELVIN, chronic anemia, leukocytosis, Patient has not voided in urine Agrawal catheter with concentrated colored urine Clinical presentation of CHF Review of Systems 2 General: Reports: ROS unobtainable due to medical condition and ROS unobtainable due to mental status Const: Reports: fever(s) and chills Medications/Allergies Home Medications ?Medication ?Instructions ?Recorded ?Confirmed ?Last Taken ?Type aspirin 81 mg tablet,delayed 81 mg PO DAILY #30 tabs 0 07/05/24 07/23/24 Unknown Rx release pantoprazole 40 mg tablet,delayed 40 mg PO DAILY #30 t abs 07/05/24 07/23/24 Unknown Rx release atorvastatin 40 mg tablet 40 mg PO BEDTIME #90 tabs 07/23/24 Unknown Rx carvedilol 3.125 mg tablet 3.125 mg PO BID #180 tabs 0 07/23/24 07/23/24 Unknown Rx clopidogrel 75 mg tablet 75 mg PO DAILY #90 tabs 03/0 10/1207/23/24 Unknown Rx furosemide 40 mg tablet (Lasix) 40 mg PO QAM #90 tabs 07/23/24 07/23/24 Unknown Rx potassium chloride 10 mEq 10 meq PO DAILY #90 caps 10/1207/23/24 Unknown Rx capsule,extended release Allergies Allergy/AdvReac Type Severity Reaction Status Date / Time ciprofloxacin (From Cipro) Allergy ALGY-Hives Verified 07/23/24 15:55 coconut Allergy ALGY-Hives Verified 07/23/24 15:55 pregabalin (From Lyrica) Allergy ALGY-Hives Verified 07/23/24 15:55 PFSH Acute 2 PFSH: Medical History CKD (chronic kidney disease) No significant past medical history Social History Smoking and tobacco/nicotine status: former use of tobacco/nicotine Vitals/I&O/Wt Last Vital Signs Temp 99.1 F 08/25/24 16:32 Pulse 50 L 08/25/24 23:10 Resp 18 08/25/24 21:40 BP 122/102 08/25/24 19:30 Pulse Ox 95 08/25/24 23:10 O2 Del Method Nasal Cannula 08/25/24 21:40 O2 Flow Rate 6 08/25/24 21:40 Weight last 48 hrs Weight 90.718 kg Physical Exam 2 Narrative: Patient is drowsy Not able to keep her head straight Able to answer simple question Otherwise short attention span Family at the bedside S1, S2 Anasarca Distended abdomen 3+ edema of legs Cellulitis of right leg noted Distended abdomen Patient has been transition to BiPAP on 6 L nasal cannula Agrawal catheter with concentrated urine Data 08/25/24 17:57 08/25/24 17:57 A&P Assessment and plan (1) Congestive heart failure: (2) Left ventricular systolic dysfunction (LVSD): (3) Aortic valve stenosis: (4) Mitral valve regurgitation: (5) CAD S/P percutaneous coronary angioplasty: (6) Presence of drug-eluting stent in right coronary artery: (7) Claudication of both lower extremities: (8) Fall: Qualifiers: Encounter type: initial encounter Qualified Code(s): W19.XXXA - Unspecified fall, initial encounter (9) Neuropathy: (10) Acute and chronic respiratory failure with hypoxia: (11) Acute kidney injury superimposed on chronic kidney disease: Plan Acute reduced EF CHF exacerbation Recent angioplasty 07/03 I will continue therapeutic Lovenox along with aspirin Plavix 6-hour troponin that noted Clinical signs of anasarca Start IV diuresis. Patient was not wearing LifeVest otherwise compliant with her medications Fell at home Pelvis CT showing possibility of malunion left hip old fracture Extreme fatigue and lethargy Physical deconditioning Patient not able to follow commands completely Currently afebrile Not able to keep her head straight Requested ABG and BiPAP Lower extremity swelling with cellulitis Will use p.o. doxycycline once she is more awake alert, for now I will use ceftriaxone Acute on chronic kidney disease: Cardiorenal expected at this point Monitor with IV diuresis Goals of care discussed with her brother: Patient is full code for now Blood thinner at goals of care discussion with sister Admit to ICU Continue BiPAP Start dual antibiotic therapy along Lovenox PDMP PDMP Reviewed: Not Reviewed Attestations 2 Medical Necessity Statement*: Guarded prognosis, more than 2 midnights anticipated Diagnoses Congestive heart failure I50.9 Left ventricular systolic dysfunction (LVSD) I51.89 Aortic valve stenosis I35.0 Mitral valve regurgitation I34.0 CAD S/P percutaneous coronary angioplasty I25.10; Z98.61 Presence of drug-eluting stent in right coronary artery Z95.5 Claudication of both lower extremities I73.9 Fall W19.XXXA Encounter type: initial encounter Neuropathy G62.9 Acute and chronic respiratory failure with hypoxia J96.21 Acute kidney injury superimposed on chronic kidney disease N17.9; N18.9
--- NOTE | 2024-08-25 23:33 | ECG_ITS ---
[facility] Date: 2024-08-25 Pat Name: Kaylee Kay Department: Room: [facility] Gender: Female Dinkey Skinner: : 1950 Requested By: Negro Griffith Order Number: [id number] [place] MD: Jenni Ferguson M.D. Measurements Intervals [place] Rate: 87 P: 80 DE: 175 QRS: 54 QRSD: 104 T: 107 QT: 390 QTc: 470 Interpretive Statements SINUS RHYTHM NONSPECIFIC T-WAVE ABNORMALITY Compared to ECG 08/25/2024 19:28:57 T-wave abnormality now present Sinus tachycardia no longer present Incomplete right bundle-branch block no longer present Myocardial infarct finding no longer present Electronically Signed On 08-30-2024 13:35:14 CDT by Jenni Ferguson M.D. [email or web address]
[2024-08-26] VITALS (119 sets, daily range): BP systolic 117–163; BP diastolic 68–104; PULSE 67–91; RESP 14–27; TEMP 36.1–37.1; O2SAT 58–100
--- NOTE | 2024-08-26 00:03 | PC.NURSE ---
Contacted Dr. Crawford in reference to patient's life vest in belongings. Received orders to get the life vest placed on patient, add 81mg aspirin PO, add 75mg plavix PO.
[2024-08-26 00:14] LABS: Troponin 5 6HR 90.77 ng/L (0-10)
[2024-08-26 00:15] LABS: Creatine Phosphokinase 141 U/L (26-192)
[2024-08-26] MEDS: enoxaparin 100 mg/mL Syringe 90 MG SUBCUT ×2 (00:15→22:18)
[2024-08-26] MEDS: FUROsemide 10 mg/mL SDV 10mL 60 MG IVP ×3 (00:15→22:18)
[2024-08-26] MEDS: cefTRIAXone 1,000 mg SDV 1000 MG IVP (00:16)
[2024-08-26 00:23] LABS: Procalcitonin 9.49 ng/mL (0-0.5)
[2024-08-26 00:29] LABS: Troponin 5 6HR Delta 28.77 ng/L (0-12)
[2024-08-26 00:54] LABS: Estmated Average Glucose 123; Hemoglobin A1C 5.9 % (4.0-6.0)
[2024-08-26 03:56] LABS: Basophils % 0.3 %; Hematocrit 33.3 % (36-47); Lymphocytes # 0.5 10^3/uL (0.8-4.8); Lymphocytes % 6.2 %; Mean Corpuscular HGB Conc 29.4 g/dL (30-55); Mean Corpuscular Hemoglobin 29.4 pg (27-33); Mean Platelet Volume 10.2 fL (7.4-10.4); Monocytes # 0.5 10^3/uL (0.2-0.9); Monocytes % 5.7 %; Neutrophils # 6.83 10^3/uL (1.8-7.7); Nucleated Red Blood Cells % 0.3 %; Platelet Count 137 10^3/cmm (157-399); Red Blood Count 3.33 10^6/uL (3.85-5.65); White Blood Count 7.85 10^3/uL (3.29-11.43)
[2024-08-26 04:06] LABS: ABG PCO2 39.6 mmHg (35-45); ABG PH Result 7.39 (7.35-7.45); Base Excess ABG -1.2 mmol/L (-2.0-2.0); HCO3 ABG 23.7 mmol/L (22-26); Oxygen Saturation ABG 85.6; PO2 ABG 53.5 mmHg (80.0-100.0); PO2 FiO2 Ratio Arterial Blood 107
[2024-08-26 04:07] LABS: BIPAP 20/8; Blood Gas Allen Test POS; Blood Gas Drawn By JDB; Blood Gas Operator Identificat BISJE; Potassium Level - ABG 3.6 mmol/L (3.5-5.0)
[2024-08-26 04:08] LABS: Blood Gas CCRB Time 31.1; Blood Gas Sample Site LEFT RADIAL; Blood Gas Sample Type ARTERIAL; Oxygen Device BIPAP
[2024-08-26 04:09] LABS: Carboxyhemoglobin 1.6 %THgb (0.4-20.1); HGB O2 Sat 83.9 % (95-100); Ionized Calcium Level - ABG 1.2 mmol/L (1.1-1.4); Methemoglobin 0.6 % (0.4-1.5); Total Hemoglobin 10.2 g/dL (12-16)
[2024-08-26 04:19] LABS: Blood Urea Nitrogen 23 mg/dL (8-23); C Reactive Protein 182.7 mg/L (0.0-4.9); Carbon Dioxide 21 mmol/L (22-29); Chloride 100 mmol/L (98-107); Creatinine Clr Calc Pharmacy 34.0206; Glucose 77 mg/dL (65-115); Magnesium 1.8 mg/dL (1.7-2.3); Osmolality Calculated 286 mOsm/kg (285-295); Phosphorus 4.4 mg/dL (2.5-4.5); Sodium 137 mmol/L (136-145)
[2024-08-26 04:22] LABS: Slide Review Slide Review Perform
[2024-08-26 04:58] LABS: ABG PCO2 38.6 mmHg (35-45); ABG PH Result 7.38 (7.35-7.45); Arterial Blood Gas Hematocrit 35.6 % (37-47); Blood Gas Operator Identificat JDB; Blood Gas Sample Site Brachial, left; Blood Gas Sample Type Arterial; HCO3 ABG 22.8 mmol/L (22-26); Oxygen Device BIPAP; PO2 FiO2 Ratio Arterial Blood 204
--- NOTE | 2024-08-26 06:51 | CT_ITS ---
WS: [id number] CT HEAD TECHNIQUE: Noncontrast CT of the head obtained from the skullbase to the vertex. CLINICAL INFORMATION: CVA r/o fall at home COMPARISON: None. DLP: 1072.[address] scans at [facility] use at least one of these dose optimization techniques: automated exposure control; mA and/or kV adjustment per patient size (includes targeted exams where dose is matched to clinical indication); or iterative reconstruction. FINDINGS: No evidence of intracranial hemorrhage or mass effect. Ventricular system and basal cisterns are patent. Mild small vessel changes with mild parenchymal volume loss. No extra-axial fluid collections. No evidence of mass or mass effect. Vascular calcification. Polyploid mucosal thickening RIGHT maxillary sinus. Mastoid air cells are well aerated. Normal posterior nasopharynx. CT/CT head wo con* [id number] IMPRESSION: 1. No evidence of intracranial hemorrhage or mass effect. 2. Mild small vessel changes. Mild parenchymal volume loss. 3. Vascular calcification. 4. No acute intracranial findings.
[2024-08-26 07:30] LABS: C Reactive Protein 190.9 mg/L (0.0-4.9)
[2024-08-26 07:38] LABS: Procalcitonin 21.37 ng/mL (0-0.5)
[2024-08-26] MEDS: clopidogrel 75 mg Tablet PO (08:51)
[2024-08-26] MEDS: cefepime 2,000 mg SDV 2000 MG IVP (08:51)
[2024-08-26] MEDS: sennosides-docusate Tablet 1 TAB PO (08:51)
[2024-08-26] MEDS: aspirin 81 mg EC Tablet PO (08:51)
[2024-08-26] MEDS: pantoprazole 40 mg SDV IVP (08:52)
[2024-08-26] MEDS: doxycycline 100 mg Tablet PO ×2 (08:52→17:15)
--- NOTE | 2024-08-26 09:46 | XRR_ITS ---
PROCEDURE INFORMATION: Exam: XR Right Ankle Exam date and time: 08/26/2024 9:55 AM Age: 73 years old Clinical indication: Injury or trauma; Fall; Blunt trauma; Ankle; Right; Additional info: Fall, ankle pain TECHNIQUE: Imaging protocol: Radiologic exam of the right ankle. Views: 1 or 2 views. COMPARISON: [place] [id number] 08/25/2024 5:29 PM FINDINGS: Bones/joints: There is no fracture or joint dislocation. Soft tissues: Normal. XR/XR ankle RT 2V [id number] IMPRESSION: No fracture.
--- NOTE | 2024-08-26 09:46 | PC.NURSE ---
Patient complaining of right ankle pain post fall before admission. Contacted Dr. Hanson, received orders for xray right ankle to rule out injury per PT concerns and recommendations
[2024-08-26 10:43] LABS: Arterial Blood Gas Hematocrit 31.1 % (37-47)
--- NOTE | 2024-08-26 12:34 | P.PN_ITS ---
Subjective 2 Subjective: Patient reports generalized malaise and fatigue. She is on BiPAP this morning. Discussed plan of care and she is in agreement. Medications: Reviewed: Yes Vitals/I&O/Wt Last Vital Signs Temp 96.9 F L 08/26/24 08:45 Pulse 78 08/26/24 12:30 Resp 15 08/26/24 12:30 BP 145/72 08/26/24 12:30 Pulse Ox 94 08/26/24 12:30 O2 Del Method BiPAP 08/26/24 08:42 O2 Flow Rate 40 08/26/24 08:42 FiO2 40 08/26/24 11:10 Weight last 48 hrs Weight 111.5 kg Weight 111.5 kg Weight 90.718 kg Physical Exam 2 Narrative: General: Patient is awake and alert. Head: Normocephalic. Atraumatic. EOM intact. Neck: No JVD. Cardiovascular: RRR. No gallops. No murmurs. Lungs: Faint crackle, no use of accessory muscles, or wheezes. On BiPAP. Skin: No jaundice. No rashes. Abdomen: Normal bowel sounds, abdomen soft and nontender. Genito Urinary: Genital exam not performed since complaints not related. Rectal: Rectal exam not performed since no symptoms indicated blood loss. Extremities: No cyanosis or clubbing. Marked erythema and swelling of right lower extremity extending from foot to just below knee. Musculoskeletal: No swollen or erythematous joints. Neurological: Moves all 4 extremities. No myoclonus. Data 08/26/24 03:40 08/26/24 03:40 Micro: Microbiology 08/26/24 07:28 Blood Culture - Preliminary Blood SPECIMEN COLLECTED 08/26/24 07:23 Blood Culture - Preliminary Blood SPECIMEN COLLECTED A&P Assessment and plan (1) Congestive heart failure: (2) Left ventricular systolic dysfunction (LVSD): (3) Aortic valve stenosis: (4) Mitral valve regurgitation: (5) CAD S/P percutaneous coronary angioplasty: (6) Presence of drug-eluting stent in right coronary artery: (7) Claudication of both lower extremities: (8) Fall: Qualifiers: Encounter type: initial encounter Qualified Code(s): W19.XXXA - Unspecified fall, initial encounter (9) Neuropathy: (10) Acute and chronic respiratory failure with hypoxia: (11) Acute kidney injury superimposed on chronic kidney disease: Plan Acute on chronic heart failure with reduced ejection fraction exacerbation Ischemic cardiomyopathy - Continue DAPT - Continue therapeutic Lovenox for now - Continue IV diuresis - Continuous telemetry monitoring - BiPAP as needed Cellulitis of right lower extremity - Procalcitonin markedly elevated - Follow cultures - Broaden antibiotics to cefepime - Continue doxycycline Debility and physical deconditioning Mechanical fall - Pelvic CT reviewed, no fracture - Therapy requested Acute on chronic kidney disease - Suspected cardiorenal physiology - Strict I's and O's - Diuresis - Repeat labs tomorrow DVT prophylaxis: Lovenox CODE STATUS: Full code PDMP PDMP Reviewed: Not Reviewed Attestations 2 Medical Necessity Statement*: Patient requires ongoing hospitalization for IV antibiotics, IV diuresis, BiPAP, and supportive care. Coding Level of Care Code Acute Code for g Fwd Diagnoses Congestive heart failure I50.9 Left ventricular systolic dysfunction (LVSD) I51.89 Aortic valve stenosis I35.0 Mitral valve regurgitation I34.0 CAD S/P percutaneous coronary angioplasty I25.10; Z98.61 Presence of drug-eluting stent in right coronary artery Z95.5 Claudication of both lower extremities I73.9 Fall W19.XXXA Encounter type: initial encounter Neuropathy G62.9 Acute and chronic respiratory failure with hypoxia J96.21 Acute kidney injury superimposed on chronic kidney disease N17.9; N18.9
--- NOTE | 2024-08-26 14:17 | PC.NURSE ---
Patient received [facility] orders. Patient transferred to [facility] at 1417. Family bedside and went up with patient. All patient belongings sent with [facility] staff.
--- NOTE | 2024-08-26 14:36 | PC.NURSE ---
Received pt to room 277-2 from ICU.
[2024-08-26] MEDS: carvedilol 3.125 mg Tablet PO (17:16)
[2024-08-26] MEDS: cefepime 1,000 mg SDV 1000 MG IVP ×2 (17:16→23:48)
[2024-08-27] VITALS (11 sets, daily range): BP systolic 100–129; BP diastolic 61–80; PULSE 66–129; RESP 16–20; TEMP 36.3–37.1; O2SAT 87–96; BMI 45.0
[2024-08-27] MEDS: acetaminophen 500 mg Tablet PO ×2 (01:06→22:43)
--- NOTE | 2024-08-27 04:19 | XRR_ITS ---
PROCEDURE INFORMATION: Exam: XR Right Knee Exam date and time: 08/27/2024 4:55 AM Age: 73 years old Clinical indication: Edema and swelling or effusion of joint; Location not specified; Knee; Additional info: Pain and edema TECHNIQUE: Imaging protocol: Radiologic exam of the right knee. Views: 3 views. COMPARISON: [place] [id number] 08/25/2024 5:29 PM FINDINGS: Bones/joints: No fracture or dislocation is noted. There is joint space narrowing with osteophyte formation most pronounced involving the medial compartment of the knee and to a lesser degree the patellofemoral compartment. Bones are diffusely demineralized. There is a small joint effusion. Soft tissues: There is diffuse edema involving the subcutaneous tissues. No soft tissue air/gas is identified. XR/XR knee RT 3V* [id number] IMPRESSION: 1. Moderate to severe osteoarthritis. 2. Bony demineralization. 3. Nonspecific edema involving the subcutaneous tissues.
[2024-08-27 04:57] LABS: Basophils % 0.2 %; Hematocrit 28.9 % (36-47); Lymphocytes # 0.5 10^3/uL (0.8-4.8); Lymphocytes % 7.9 %; Mean Corpuscular HGB Conc 30.8 g/dL (30-55); Mean Corpuscular Volume 97.3 fl (85-98); Mean Platelet Volume 10.2 fL (7.4-10.4); Monocytes # 0.5 10^3/uL (0.2-0.9); Monocytes % 7.6 %; Neutrophils # 5.33 10^3/uL (1.8-7.7); Neutrophils % 83.8 %; Nucleated Red Blood Cells % 0.5 %; Platelet Count 126 10^3/cmm (157-399); Red Blood Count 2.97 10^6/uL (3.85-5.65); Red Cell Distribution Width 16.6 % (12.1-15.1); White Blood Count 6.35 10^3/uL (3.29-11.43)
[2024-08-27 05:19] LABS: Anion Gap 18.1 (5-19); Blood Urea Nitrogen 37 mg/dL (8-23); Calcium 8.5 mg/dL (8.5-10.5); Carbon Dioxide 20 mmol/L (22-29); Chloride 98 mmol/L (98-107); Creatinine Clr Calc Pharmacy 30.6185; Glucose 125 mg/dL (65-115); Osmolality Calculated 284 mOsm/kg (285-295); Potassium 4.1 mmol/L (3.5-5.1); Sodium 132 mmol/L (136-145)
[2024-08-27 05:41] LABS: Slide Review Slide Review Perform
[2024-08-27] MEDS: pantoprazole DR 40 mg Tablet PO (09:26)
[2024-08-27] MEDS: sennosides-docusate Tablet 1 TAB PO (09:26)
[2024-08-27] MEDS: aspirin 81 mg EC Tablet PO (09:26)
[2024-08-27] MEDS: carvedilol 3.125 mg Tablet PO ×2 (09:26→17:30)
[2024-08-27] MEDS: doxycycline 100 mg Tablet PO ×2 (09:26→17:30)
[2024-08-27] MEDS: cefepime 1,000 mg SDV 1000 MG IVP ×2 (09:26→20:55)
[2024-08-27] MEDS: clopidogrel 75 mg Tablet PO (09:26)
--- NOTE | 2024-08-27 10:16 | P.PN_ITS ---
Subjective 2 Subjective: Patient reports her breathing status is improved. He is not sure about her lower extremity cellulitis symptoms. She is known to be very weak and debilitated. Recommended postacute rehabilitation. Discussed with patient. Discussed plan of care. Medications: Reviewed: Yes Vitals/I&O/Wt Last Vital Signs Temp 97.4 F L 08/27/24 08:00 Pulse 66 08/27/24 08:00 Resp 20 H 08/27/24 08:00 BP 129/80 08/27/24 08:00 Pulse Ox 96 08/27/24 08:00 O2 Del Method BiPAP 08/27/24 08:00 O2 Flow Rate 5 08/27/24 07:12 FiO2 50 08/27/24 07:40 08/26/24 08/27/24 08/27/24 22:59 06:59 14:59 Intake Total 50 / 50 Output Total 950 / 950 100 / 1050 Balance -950 / -950 -50 / -1000 Weight last 48 hrs Weight 119.068 kg Weight 111.5 kg Weight 111.5 kg Weight 90.718 kg Physical Exam 2 Narrative: General: Patient is awake and alert. Head: Normocephalic. Atraumatic. EOM intact. Neck: No JVD. Cardiovascular: RRR. No gallops. No murmurs. Lungs: Improved air movement, no use of accessory muscles, or wheezes. On nasal canula. Skin: No jaundice. No rashes. Abdomen: Normal bowel sounds, abdomen soft and nontender. Extremities: No cyanosis or clubbing. Significant, but improving, erythema and swelling of right lower extremity. Musculoskeletal: No swollen or erythematous joints. Neurological: Moves all 4 extremities. No myoclonus. Data 08/27/24 04:39 08/27/24 04:39 Micro: Microbiology 08/26/24 07:28 Blood Culture - Preliminary Blood NEGATIVE TO DATE 08/26/24 07:23 Blood Culture - Preliminary Blood NEGATIVE TO DATE A&P Assessment and plan (1) Congestive heart failure: (2) Left ventricular systolic dysfunction (LVSD): (3) Aortic valve stenosis: (4) Mitral valve regurgitation: (5) CAD S/P percutaneous coronary angioplasty: (6) Presence of drug-eluting stent in right coronary artery: (7) Claudication of both lower extremities: (8) Fall: Qualifiers: Encounter type: initial encounter Qualified Code(s): W19.XXXA - Unspecified fall, initial encounter (9) Neuropathy: (10) Acute and chronic respiratory failure with hypoxia: (11) Acute kidney injury superimposed on chronic kidney disease: Plan Cellulitis of right lower extremity - Slightly improved - Continue broad spectrum antibiotics with cefepime and doxycycline - Continue serial exams Acute on chronic heart failure with reduced ejection fraction exacerbation - Labs w/ azotemia, hold further IV diursis for today; rotate to oral Lasix - Continuous telemetry monitoring - BiPAP as needed Debility and physical deconditioning Mechanical fall - Continue therapy, would benefit from post-acute rehab Ischemic cardiomyopathy Coronary artery disease - Continue DAPT, statin, BB Acute on chronic kidney disease - Strict I's and O's - Diuresis as above Hypertension - Continue Coreg GERD - PPI DVT prophylaxis: Lovenox CODE STATUS: Full code PDMP PDMP Reviewed: Not Reviewed Attestations 2 Medical Necessity Statement*: Patient requires ongoing hospitalization for IV antibiotics, IV diuresis, BiPAP, and supportive care. Coding Level of Care Code Acute Code for Chg Fwd Diagnoses Congestive heart failure I50.9 Left ventricular systolic dysfunction (LVSD) I51.89 Aortic valve stenosis I35.0 Mitral valve regurgitation I34.0 CAD S/P percutaneous coronary angioplasty I25.10; Z98.61 Presence of drug-eluting stent in right coronary artery Z95.5 Claudication of both lower extremities I73.9 Fall W19.XXXA Encounter type: initial encounter Neuropathy G62.9 Acute and chronic respiratory failure with hypoxia J96.21 Acute kidney injury superimposed on chronic kidney disease N17.9; N18.9
[2024-08-27 15:05] LABS: D Dimer 4.03 ug/mLFEU (0-0.59)
[2024-08-27] MEDS: FUROsemide 40 mg Tablet PO (15:25)
[2024-08-27] MEDS: enoxaparin 40 mg/0.4 mL Syringe SUBCUT (20:18)
[2024-08-27] MEDS: atorvastatin 40 mg Tablet PO (20:19)
[2024-08-28] VITALS (12 sets, daily range): BP systolic 103–133; BP diastolic 66–84; PULSE 61–74; RESP 17–20; TEMP 36–36.6; O2SAT 90–97
[2024-08-28 05:41] LABS: Basophils % 0.3 %; Lymphocytes # 0.8 10^3/uL (0.8-4.8); Lymphocytes % 9.7 %; Mean Corpuscular Hemoglobin 30.2 pg (27-33); Mean Corpuscular Volume 97.5 fl (85-98); Mean Platelet Volume 10.3 fL (7.4-10.4); Monocytes # 0.8 10^3/uL (0.2-0.9); Monocytes % 10.6 %; Neutrophils % 78.8 %; Nucleated Red Blood Cells # 0.1 /100WBC; Nucleated Red Blood Cells % 0.9 %; Platelet Count 136 10^3/cmm (157-399); Red Blood Count 3.18 10^6/uL (3.85-5.65); Red Cell Distribution Width 16.8 % (12.1-15.1); White Blood Count 7.86 10^3/uL (3.29-11.43)
[2024-08-28 05:56] LABS: Albumin Level 3.1 g/dL (3.5-5.2); Anion Gap 18.1 (5-19); Blood Urea Nitrogen 46 mg/dL (8-23); Calcium 8.7 mg/dL (8.5-10.5); Carbon Dioxide 20 mmol/L (22-29); Chloride 97 mmol/L (98-107); Creatinine Clr Calc Pharmacy 30.3007; Glucose 103 mg/dL (65-115); Magnesium 1.9 mg/dL (1.7-2.3); Phosphorus 4.3 mg/dL (2.5-4.5); Potassium 4.1 mmol/L (3.5-5.1); Sodium 131 mmol/L (136-145)
--- NOTE | 2024-08-28 08:15 | XR_ITS ---
WS: [id number] Exam: XR chest 1V portable [id number] Date/Time of Exam: 08/28/2024 8:41 AM Reason For Exam: vent and perfusion test Comparison 08/25/2024. The heart is enlarged but unchanged in size. Chronic interstitial changes noted bilaterally. Scattered calcified granulomas. No pneumothorax or pleural effusion. Bony structures are intact. The mediastinum is normal in contour. XR/XR chest 1V portable [id number] IMPRESSION: 1. Cardiac enlargement unchanged. Chronic pulmonary changes.
--- NOTE | 2024-08-28 09:29 | CT_ITS ---
WS: [id number] CT CHEST TECHNIQUE: Noncontrast CT of the chest with coronal and sagittal reformatted images. CLINICAL INFORMATION: Evaluate pneumonia, respiratory failure COMPARISON: None. DLP: 509.[address] scans at [facility] use at least one of these dose optimization techniques: automated exposure control; mA and/or kV adjustment per patient size (includes targeted exams where dose is matched to clinical indication); or iterative reconstruction. FINDINGS: Marked cardiomegaly with LEFT ventricular enlargement. Cardiomegaly likely accounts for the majority of the photopenic defect on the VQ scan. Normal aeration LEFT upper lobe. Small bilateral pleural effusions. Patchy atelectasis in the lung bases. A few patchy infiltrates in the LEFT upper lobe and lingula. No focal pneumonia. Partially visualized cirrhotic liver. Splenomegaly. Small esophageal hernia. Diffuse body wall anasarca. Aortic calcification. Coronary calcification. Thoracic kyphosis. CT/CT chest wo con [id number] IMPRESSION: 1. Marked cardiomegaly with LEFT ventricular enlargement accounts for the chapo rity of the photopenic defect on the VQ scan. 2. Small bilateral pleural effusions. Small amount of loculated pleural fluid and pleural thickening along the LEFT fissure. 3. No focal pneumonia. 4. Cirrhotic liver with splenomegaly. Diffuse body wall anasarca.
[2024-08-28] MEDS: sennosides-docusate Tablet 1 TAB PO (09:33)
[2024-08-28] MEDS: clopidogrel 75 mg Tablet PO (09:34)
[2024-08-28] MEDS: doxycycline 100 mg Tablet PO ×2 (09:34→17:24)
[2024-08-28] MEDS: pantoprazole DR 40 mg Tablet PO (09:34)
[2024-08-28] MEDS: aspirin 81 mg EC Tablet PO (09:34)
[2024-08-28] MEDS: carvedilol 3.125 mg Tablet PO ×2 (09:34→17:24)
[2024-08-28] MEDS: cefepime 1,000 mg SDV 1000 MG IVP ×2 (09:35→20:47)
[2024-08-28] MEDS: FUROsemide 10 mg/mL SDV 10mL 80 MG IVP (09:35)
[2024-08-28] MEDS: enoxaparin 120 mg/0.8 mL Syringe SUBCUT ×2 (09:36→20:47)
--- NOTE | 2024-08-28 10:17 | XR_ITS ---
WS: [id number] Exam: XR hip RT 2-3V wo/w pel* [id number] Date/Time of Exam: 08/28/2024 10:35 AM Reason For Exam: Severe hip pain, eval for fracture Comparison 08/25/2024. No fracture noted. Mild degenerative change of the joint compartment. Diffuse edema noted in the adjacent soft tissues. XR/XR hip RT 2-3V wo/w pel* [id number] IMPRESSION: 1. Degenerative change-no acute fracture. 2. Diffuse soft tissue edema.
--- NOTE | 2024-08-28 10:44 | P.PN_ITS ---
Subjective 2 Subjective: Patient up to bedside chair. She reports severe right hip pain. Reports continued lower extremity swelling. Still on 10 L supplemental oxygen support. Reports appetites okay. Denies other new complaints. Discussed plan of care. Medications: Reviewed: Yes Vitals/I&O/Wt Last Vital Signs Temp 97.8 F 08/28/24 04:00 Pulse 64 08/28/24 08:00 Resp 17 08/28/24 08:00 BP 126/75 08/28/24 08:00 Pulse Ox 92 08/28/24 08:00 O2 Del Method Nasal Cannula 08/28/24 08:00 O2 Flow Rate 10 08/28/24 04:00 FiO2 45 08/27/24 15:42 08/27/24 08/28/24 08/28/24 22:59 06:59 14:59 Intake Total 0 / 0 Output Total 950 / 950 100 / 1050 Balance -950 / -950 -100 / -1050 Weight last 48 hrs Weight 119.567 kg Weight 119.068 kg Physical Exam 2 Narrative: General: Patient is awake. In chair. Very pleasant. Head: Normocephalic. Atraumatic. EOM intact. Neck: No JVD. Cardiovascular: RRR. No gallops. No murmurs. Lungs: Improved air movement, no use of accessory muscles, or wheezes. On 10 L support Skin: No jaundice. No rashes. Abdomen: Normal bowel sounds, abdomen soft and nontender. Extremities: No cyanosis or clubbing. Erythema and swelling of right lower extremity. Small wound with slight weepage. Musculoskeletal: No swollen or erythematous joints. Neurological: Moves all 4 extremities. No myoclonus. Data 08/28/24 04:55 08/28/24 04:55 Micro: Microbiology 08/26/24 07:28 Blood Culture - Preliminary Blood NEGATIVE TO DATE 08/26/24 07:23 Blood Culture - Preliminary Blood NEGATIVE TO DATE A&P Assessment and plan (1) Congestive heart failure: (2) Left ventricular systolic dysfunction (LVSD): (3) Aortic valve stenosis: (4) Mitral valve regurgitation: (5) CAD S/P percutaneous coronary angioplasty: (6) Presence of drug-eluting stent in right coronary artery: (7) Claudication of both lower extremities: (8) Fall: Qualifiers: Encounter type: initial encounter Qualified Code(s): W19.XXXA - Unspecified fall, initial encounter (9) Neuropathy: (10) Acute and chronic respiratory failure with hypoxia: (11) Acute kidney injury superimposed on chronic kidney disease: Plan Cellulitis of right lower extremity - Slightly improved - Continue broad spectrum antibiotics with cefepime and doxycycline - Continue serial exams Acute on chronic heart failure with reduced ejection fraction exacerbation - Restarting IV diuresis given persistent hypoxia - Continuous telemetry monitoring - BiPAP as needed Acute on chronic respiratory failure - She remains on 10 L supplemental oxygen support - VQ scan today Debility and physical deconditioning Mechanical fall -Significant right hip pain following this fall, will check plain films for fracture - Continue therapy, would benefit from post-acute rehab; off pending Ischemic cardiomyopathy Coronary artery disease - Continue DAPT, statin, BB Acute on chronic kidney disease - Strict I's and O's - Diuresis as above - Monitor renal function closely Hypertension - Continue Coreg GERD - PPI DVT prophylaxis: Lovenox CODE STATUS: Full code PDMP PDMP Reviewed: Not Reviewed Attestations 2 Medical Necessity Statement*: Patient requires ongoing hospitalization for IV antibiotics, IV diuresis, respiratory support, BiPAP, further imaging and supportive care. Coding Level of Care Code Acute Code for Chg Fwd Diagnoses Congestive heart failure I50.9 Left ventricular systolic dysfunction (LVSD) I51.89 Aortic valve stenosis I35.0 Mitral valve regurgitation I34.0 CAD S/P percutaneous coronary angioplasty I25.10; Z98.61 Presence of drug-eluting stent in right coronary artery Z95.5 Claudication of both lower extremities I73.9 Fall W19.XXXA Encounter type: initial encounter Neuropathy G62.9 Acute and chronic respiratory failure with hypoxia J96.21 Acute kidney injury superimposed on chronic kidney disease N17.9; N18.9
[2024-08-28] MEDS: methylPREDNISolone sod succ 40 mg/mL INJ IVP ×2 (11:13→18:10)
[2024-08-28] MEDS: acetaminophen 500 mg Tablet PO (11:17)
[2024-08-28] MEDS: ipratropium-albuterol 3 mL Neb INHALATION ×2 (13:35→20:45)
--- NOTE | 2024-08-28 15:51 | NM_ITS ---
WS: [id number] NUCLEAR MEDICINE LUNG VENTILATION AND PERFUSION CLINICAL INFORMATION: Hypoxia, Evaluate for pulmonary embolism TECHNIQUE: Ventilation/perfusion lung scan with 31.4 mCi technetium 99m DTPA 5.5 mCi Tc 99m MAA. FINDINGS: Cardiomegaly. Matched perfusion ventilation defect LEFT lower lobe likely due to LEFT lower lobe consolidation with pneumonia. This could be further evaluated with chest CT. No mismatched perfusion ventilation defects to indicate high probability pulmonary embolus. Patchy radiotracer deposition on the ventilatory images with deposition along the central bronchi likely due to emphysema. NM/NM pul vent and perfus* [id number] IMPRESSION: 1. Low probability for pulmonary embolus. 2. Large matched defect in the LEFT lower lobe likely due to pneumonia with con solidation. Recommend further evaluation with chest CT.
[2024-08-28] MEDS: atorvastatin 40 mg Tablet PO (20:47)
[2024-08-29] VITALS (14 sets, daily range): BP systolic 110–136; BP diastolic 48–79; PULSE 62–87; RESP 17–20; TEMP 36.4; O2SAT 90–97
[2024-08-29] MEDS: acetaminophen 500 mg Tablet PO ×2 (01:14→09:19)
[2024-08-29] MEDS: ipratropium-albuterol 3 mL Neb INHALATION ×3 (02:36→19:35)
[2024-08-29] MEDS: methylPREDNISolone sod succ 40 mg/mL INJ IVP ×3 (03:56→18:02)
[2024-08-29 05:29] LABS: Basophils % 0.2 %; Lymphocytes # 0.4 10^3/uL (0.8-4.8); Lymphocytes % 6.1 %; Mean Corpuscular Hemoglobin 30.2 pg (27-33); Mean Corpuscular Volume 97.5 fl (85-98); Monocytes # 0.3 10^3/uL (0.2-0.9); Monocytes % 5.2 %; Neutrophils % 87.9 %; Nucleated Red Blood Cells % 0.5 %; Platelet Count 133 10^3/cmm (157-399); Red Blood Count 3.18 10^6/uL (3.85-5.65); Red Cell Distribution Width 16.5 % (12.1-15.1); White Blood Count 6.59 10^3/uL (3.29-11.43)
[2024-08-29 05:49] LABS: Alanine Aminotransferase 396 U/L (0-33); Albumin Level 3.2 g/dL (3.5-5.2); Alkaline Phosphatase 142 U/L (35-105); Anion Gap 17.1 (5-19); Aspartate Amino Transferase 279 U/L (0-32); Blood Urea Nitrogen 50 mg/dL (8-23); Calcium 8.7 mg/dL (8.5-10.5); Carbon Dioxide 21 mmol/L (22-29); Chloride 95 mmol/L (98-107); Creatinine Clr Calc Pharmacy 33.6035; Globulin 3.7 g/dL (1.3-4.6); Glucose 155 mg/dL (65-115); Magnesium 1.8 mg/dL (1.7-2.3); Osmolality Calculated 284 mOsm/kg (285-295); Potassium 4.1 mmol/L (3.5-5.1); Sodium 129 mmol/L (136-145); Total Bilirubin 0.8 mg/dL (0.15-1.2); Total Protein 6.9 g/dL (6.6-8.7)
--- NOTE | 2024-08-29 08:28 | P.PN_ITS ---
Subjective 2 Subjective: Patient reports persistent right hip discomfort. Discussed x-ray results. She does note that she is fallen 4 times recently. Proximal requirements have significantly improved. Cellulitis although still severe showing signs of improvement. Discussed plan of care and she is in agreement. Medications: Reviewed: Yes Vitals/I&O/Wt Last Vital Signs Temp 97.5 F L 08/29/24 07:52 Pulse 68 08/29/24 07:52 Resp 18 08/29/24 07:52 BP 136/48 08/29/24 07:52 Pulse Ox 93 08/29/24 07:52 O2 Del Method Nasal Cannula 08/29/24 07:52 O2 Flow Rate 4 08/29/24 02:39 FiO2 45 08/27/24 15:42 08/28/24 08/29/24 08/29/24 22:59 06:59 14:59 Intake Total 240 / 240 960 / 1200 Output Total 950 / 950 1450 / 2400 Balance -710 / -710 -490 / -1200 Weight last 48 hrs Weight 119.748 kg Weight 119.567 kg Physical Exam 2 Narrative: General: Patient is awake. Alert. Conversational. Head: Normocephalic. Atraumatic. EOM intact. Neck: No JVD. Cardiovascular: RRR. No gallops. No murmurs. Lungs: Adequate air movement. No use of accessory muscles, or wheezes. On 4 L support Skin: No jaundice. No rashes. Abdomen: Normal bowel sounds, abdomen soft and nontender. Extremities: No cyanosis or clubbing. Persistent erythema and swelling of right lower extremity. Small wound with slight weepage. Musculoskeletal: No swollen or erythematous joints. Neurological: Moves all 4 extremities. No myoclonus. Data 08/29/24 04:59 08/29/24 04:59 A&P Assessment and plan (1) Congestive heart failure: (2) Left ventricular systolic dysfunction (LVSD): (3) Aortic valve stenosis: (4) Mitral valve regurgitation: (5) CAD S/P percutaneous coronary angioplasty: (6) Presence of drug-eluting stent in right coronary artery: (7) Claudication of both lower extremities: (8) Fall: Qualifiers: Encounter type: initial encounter Qualified Code(s): W19.XXXA - Unspecified fall, initial encounter (9) Neuropathy: (10) Acute and chronic respiratory failure with hypoxia: (11) Acute kidney injury superimposed on chronic kidney disease: Plan Cellulitis of right lower extremity - Continues to improve - Continue broad spectrum antibiotics with cefepime and doxycycline - Continue serial exams Acute on chronic heart failure with reduced ejection fraction exacerbation - Continue IV Lasix - Continuous telemetry monitoring - BiPAP as needed Acute on chronic respiratory failure - She remains on 4 L supplemental oxygen support - VQ scan negative for evidence of pulmonary embolism - CT scan with negative for pneumonia Debility and physical deconditioning Mechanical fall - Plain films of right hip negative for fracture - Continue therapy, would benefit from post-acute rehab; authorization pending Ischemic cardiomyopathy Coronary artery disease - Continue DAPT, statin, BB Acute on chronic kidney disease - Strict I's and O's - Diuresis as above - Monitor renal function closely Hypertension - Continue Coreg GERD - PPI DVT prophylaxis: Lovenox CODE STATUS: Full code PDMP PDMP Reviewed: Not Reviewed Attestations 2 Medical Necessity Statement*: Patient requires ongoing hospitalization for IV antibiotics, IV diuresis, respiratory support, BiPAP, and supportive care. Coding Level of Care Code Acute Code for Chg Fwd Diagnoses Congestive heart failure I50.9 Left ventricular systolic dysfunction (LVSD) I51.89 Aortic valve stenosis I35.0 Mitral valve regurgitation I34.0 CAD S/P percutaneous coronary angioplasty I25.10; Z98.61 Presence of drug-eluting stent in right coronary artery Z95.5 Claudication of both lower extremities I73.9 Fall W19.XXXA Encounter type: initial encounter Neuropathy G62.9 Acute and chronic respiratory failure with hypoxia J96.21 Acute kidney injury superimposed on chronic kidney disease N17.9; N18.9
[2024-08-29] MEDS: clopidogrel 75 mg Tablet PO (09:19)
[2024-08-29] MEDS: doxycycline 100 mg Tablet PO ×2 (09:19→18:02)
[2024-08-29] MEDS: aspirin 81 mg EC Tablet PO (09:20)
[2024-08-29] MEDS: enoxaparin 120 mg/0.8 mL Syringe SUBCUT ×2 (09:20→20:56)
[2024-08-29] MEDS: FUROsemide 10 mg/mL SDV 10mL 80 MG IVP (09:20)
[2024-08-29] MEDS: carvedilol 3.125 mg Tablet PO ×2 (09:20→18:02)
[2024-08-29] MEDS: pantoprazole DR 40 mg Tablet PO (09:20)
[2024-08-29] MEDS: cefepime 1,000 mg SDV 1000 MG IVP ×2 (09:20→20:56)
[2024-08-29] MEDS: sennosides-docusate Tablet 1 TAB PO (09:20)
--- NOTE | 2024-08-29 09:53 | PC.SOCIAL ---
IMM UPDATED IMM dated and initialed, copy given to patient and copy put in chart.
[2024-08-30] VITALS (13 sets, daily range): BP systolic 90–149; BP diastolic 55–86; PULSE 71–96; RESP 16–19; TEMP 36.3–36.8; O2SAT 89–98
[2024-08-30] MEDS: acetaminophen 500 mg Tablet PO (01:20)
[2024-08-30] MEDS: methylPREDNISolone sod succ 40 mg/mL INJ IVP ×2 (02:33→09:42)
[2024-08-30] MEDS: HYDROcodone-acetaminophen 5-325 mg Tablet 1 TAB PO (02:49)
[2024-08-30] MEDS: ipratropium-albuterol 3 mL Neb INHALATION ×4 (03:40→20:06)
[2024-08-30 04:54] LABS: Alanine Aminotransferase 299 U/L (0-33); Alkaline Phosphatase 124 U/L (35-105); Anion Gap 17.9 (5-19); Aspartate Amino Transferase 135 U/L (0-32); Blood Urea Nitrogen 48 mg/dL (8-23); Calcium 8.3 mg/dL (8.5-10.5); Carbon Dioxide 22 mmol/L (22-29); Chloride 94 mmol/L (98-107); Creatinine Clr Calc Pharmacy 42.7176; Glucose 134 mg/dL (65-115); Magnesium 1.8 mg/dL (1.7-2.3); Osmolality Calculated 285 mOsm/kg (285-295); Phosphorus 3.2 mg/dL (2.5-4.5); Potassium 3.9 mmol/L (3.5-5.1); Sodium 130 mmol/L (136-145); Total Bilirubin 0.7 mg/dL (0.15-1.2)
--- NOTE | 2024-08-30 08:38 | PC.NURSE ---
This nurse contacted [facility] and spoke with Tracy. She stated according to her nurse supervisor [facility], they were unable to take a new patient today. This nurse asked even though notes were faxed yesterday and auth has went through, Tracy stated they still could not accept a new patient. Dr. Hanson notified.
[2024-08-30] MEDS: cefepime 1,000 mg SDV 1000 MG IVP (09:41)
[2024-08-30] MEDS: pantoprazole DR 40 mg Tablet PO (09:41)
[2024-08-30] MEDS: aspirin 81 mg EC Tablet PO (09:41)
[2024-08-30] MEDS: clopidogrel 75 mg Tablet PO (09:41)
[2024-08-30] MEDS: doxycycline 100 mg Tablet PO ×2 (09:41→16:54)
[2024-08-30] MEDS: enoxaparin 120 mg/0.8 mL Syringe SUBCUT (09:41)
[2024-08-30] MEDS: sennosides-docusate Tablet 1 TAB PO (09:41)
[2024-08-30] MEDS: carvedilol 3.125 mg Tablet PO ×2 (09:41→16:54)
--- NOTE | 2024-08-30 09:47 | P.DS_ITS ---
Discharge Providers Date of Admission: 08/25/24 22:45 Date of Discharge: August 30, 2024 Attending Provider at Admission: Juan Crawford MD Attending Provider at Discharge: Eduard Hanson MD Primary Care Provider: Param Dobson MD Diagnoses at Discharge Discharge Diagnosis (1) Congestive heart failure: Status: Acute (2) Left ventricular systolic dysfunction (LVSD): Status: Acute (3) Aortic valve stenosis: Status: Acute (4) Mitral valve regurgitation: Status: Acute (5) CAD S/P percutaneous coronary angioplasty: Status: Acute (6) Presence of drug-eluting stent in right coronary artery: Status: Acute (7) Claudication of both lower extremities: Status: Acute (8) Fall: Status: Acute Qualifiers: Encounter type: initial encounter Qualified Code(s): W19.XXXA - Unspecified fall, initial encounter (9) Neuropathy: Status: Acute (10) Acute and chronic respiratory failure with hypoxia: Status: Acute (11) Acute kidney injury superimposed on chronic kidney disease: Status: Acute Reason for Visit Reason for Visit: fall - right hip pain Hospital Course Hospital Course Kaylee Kay is a very pleasant 70-year-old female with a past medical history significant for congestive heart failure with reduced ejection fraction, liver cirrhosis, coronary artery disease, ischemic cardiomyopathy, anasarca, and multiple other comorbidities who presented with generalized weakness and recurrent falls, found to have acute on chronic heart failure with reduced ejection fraction exacerbation with acute on chronic hypoxic respiratory failure and severe cellulitis of the right lower extremity. Her congestive heart failure was treated with IV diuresis with improvement in symptomatology. Her right lower extremity remains edematous which will continue due to her her infection. Her home Lasix dose has been adjusted. Would recommend repeating electrolytes and labs in approximately 5 to 7 days after discharge. Patient was found to have acute on chronic hypoxic respiratory failure which improved with treatment. Pulmonary embolism was considered however unlikely given VQ scan results. She was treated with diuresis, antibiotics, steroids and breathing treatments. Respiratory status significantly improved. Her severe cellulitis of the right lower extremity was treated with cefepime and doxycycline. At discharge, she is rotated to cefdinir and doxycycline for an extended course of antibiotics. Patient was found to have severe debility and physical deconditioning in the setting of multiple medical conditions as well as recurrent falls. Plain films were negative for fracture. She worked well with therapy services. She is being discharged to postacute care for short-term rehabilitation to work on strength. Patient discharged to SNF in stable condition. Physical Exam Narrative: General: Patient is awake. Alert. Conversational. Head: Normocephalic. Atraumatic. EOM intact. Neck: No JVD. Cardiovascular: RRR. No gallops. No murmurs. Lungs: Adequate air movement. No use of accessory muscles, or wheezes. On 4 L support Skin: No jaundice. No rashes. Abdomen: Normal bowel sounds, abdomen soft and nontender. Extremities: No cyanosis or clubbing. Persistent erythema and swelling of right lower extremity. Small wound with slight weepage. Musculoskeletal: No swollen or erythematous joints. Neurological: Moves all 4 extremities. No myoclonus. Discharge Data Studies Completed and Pending Completed Studies During Hospitalization Category Date Time Status CT chest wo con [id number] Routine Cat Scan 08/28/24 09:[address] head wo con* [id number] Routine Cat Scan 08/26/24 06:[address] pelvis wo con [id number] Stat Cat Scan 08/25/24 17:45 Completed XR ankle RT 2V [id number] Routine Exams 08/26/24 09:46 Completed XR chest 1V portable [id number] Routine Exams 08/28/24 08:15 Completed XR chest 1V portable [id number] Stat Exams 08/25/24 17:15 Completed XR hip RT 2-3V wo/w pel* [id number] Routine Exams 08/28/24 10:17 Completed XR hip RT 2-3V wo/w pel* [id number] Stat Exams 08/25/24 16:54 Completed XR knee RT 3V* [id number] Routine Exams 08/27/24 04:19 Completed NM pul vent and perfus* [id number] Routine Nuc Med 08/28/24 15:51 Completed US venous duplex lower extremity RT [CV venous duplex Ultrasound 08/25/24 17:[place] [id number]] Stat Pending at discharge Category Date Time Status Blood Culture Stat Lab 08/26/24 07:28 Results Radiology Impressions Venous Duplex 08/25/24 17:16 IMPRESSION: 1. No sonographic evidence of deep venous thrombosis in the right lower extremity. Pelvis CT 08/25/24 17:45 IMPRESSION: 1. No evidence of acute fracture or malalignment. Head CT 08/26/24 06:51 IMPRESSION: 1. No evidence of intracranial hemorrhage or mass effect. 2. Mild small vessel changes. Mild parenchymal volume loss. 3. Vascular calcification. 4. No acute intracranial findings. Ankle X-Ray 08/26/24 09:46 IMPRESSION: No fracture. Knee X-Ray 08/27/24 04:19 IMPRESSION: 1. Moderate to severe osteoarthritis. 2. Bony demineralization. 3. Nonspecific edema involving the subcutaneous tissues. Chest X-Ray 08/28/24 08:15 IMPRESSION: 1. Cardiac enlargement unchanged. Chronic pulmonary changes. Chest CT 08/28/24 09:29 IMPRESSION: 1. Marked cardiomegaly with LEFT ventricular enlargement accounts for the majority of the photopenic defect on the VQ scan. 2. Small bilateral pleural effusions. Small amount of loculated pleural fluid and pleural thickening along the LEFT fissure. 3. No focal pneumonia. 4. Cirrhotic liver with splenomegaly. Diffuse body wall anasarca. Hip/Pelvis X-Ray 08/28/24 10:17 IMPRESSION: 1. Degenerative change-no acute fracture. 2. Diffuse soft tissue edema. Pulmonary Perfusion Imaging 08/28/24 15:51 IMPRESSION: 1. Low probability for pulmonary embolus. 2. Large matched defect in the LEFT lower lobe likely due to pneumonia with consolidation. Recommend further evaluation with chest CT. Laboratory Results WBC 6.59 10^3/uL (3.29-11.43) 08/29/24 04:59 RBC 3.18 10^6/uL (3.85-5.65) L 08/29/24 04:59 Hgb 9.60 g/dL (11.27-16.99) L 08/29/24 04:59 Hct 31.0 % (36-47) L 08/29/24 04:59 MCV 97.5 fl (85-98) 08/29/24 04:59 MCH 30.2 pg (27-33) 08/29/24 04:59 MCHC 31.0 g/dL (30-55) 08/29/24 04:59 RDW 16.5 % (12.1-15.1) H 08/29/24 04:59 Plt Count 133 10^3/cmm (157-399) L 08/29/24 04:59 MPV 11.0 fL (7.4-10.4) H 08/29/24 04:59 Neut % (Auto) 87.9 % 08/29/24 04:59 Lymph % (Auto) 6.1 % 08/29/24 04:59 [place] % (Auto) 5.2 % 08/29/24 04:59 Eos % (Auto) 0.0 % 08/29/24 04:59 Baso % (Auto) 0.2 % 08/29/24 04:59 Neut # (Auto) 5.80 10^3/uL (1.8-7.7) 08/29/24 04:59 Lymph # (Auto) 0.4 10^3/uL (0.8-4.8) L 08/29/24 04:59 [place] # (Auto) 0.3 10^3/uL (0.2-0.9) 08/29/24 04:59 Eos # (Auto) 0.0 10^3/uL (0.0-0.8) 08/29/24 04:59 Baso # (Auto) 0.0 10^3/uL (0.0-0.1) 08/29/24 04:59 Nucleated RBC % (auto) 0.5 % 08/29/24 04:59 Nucleated RBCs # 0.0 /100WBC 08/29/24 04:59 D-Dimer 4.03 ug/mLFEU (0-0.59) H 08/27/24 14:30 Specimen Type Arterial 08/26/24 04:40 Sample Site Brachial, left 08/26/24 04:40 ABG pH 7.38 (7.35-7.45) 08/26/24 04:40 ABG pCO2 38.6 mmHg (35-45) 08/26/24 04:40 ABG pO2 102.0 mmHg (80.0-100.0) H 08/26/24 04:40 ABG PO2/FiO2 Ratio 204 08/26/24 04:40 ABG HCO3 22.8 mmol/L (22-26) 08/26/24 04:40 ABG O2 Saturation 85.6 08/25/24 22:50 ABG Base Excess -2.0 mmol/L (-2.0-2.0) 08/26/24 04:40 Wm Test N/a 08/26/24 04:40 A-a O2 Gradient 247.0 mmHg (5-10) H 08/25/24 22:50 Hematocrit 35.6 % (37-47) L 08/26/24 04:40 Hgb O2 Saturation 83.9 % (95-100) L 08/25/24 22:50 Carboxyhemoglobin 1.6 %THgb (0.4-20.1) 08/25/24 22:50 Methemoglobin 0.6 % (0.4-1.5) 08/25/24 22:50 Total Hemoglobin 10.2 g/dL (12-16) L 08/25/24 22:50 Sodium 136.0 mmol/L (131-143) 08/25/24 22:50 Potassium 3.6 mmol/L (3.5-5.0) 08/25/24 22:50 Glucose 82.0 mg/dL (70-115) 08/25/24 22:50 Ionized Calcium 1.2 mmol/L (1.1-1.4) 08/25/24 22:50 O2 Delivery Device Bipap 08/26/24 04:40 FiO2 50.0 % 08/26/24 04:40 Mode BiPAP 07/0108/25/24 22:50 Specimen Drawn By Jdb 08/25/24 22:50 Monkey Breeder ID [id number] 08/26/24 04:40 Blood Gas Notified Time 31.1 08/25/24 22:50 Sodium 130 mmol/L (136-145) L 08/30/24 04:06 Potassium 3.9 mmol/L (3.5-5.1) 08/30/24 04:06 Chloride 94 mmol/L (98-107) L 08/30/24 04:06 Carbon Dioxide 22 mmol/L (22-29) 08/30/24 04:06 Anion Gap 17.9 (5-19) 08/30/24 04:06 BUN 48 mg/dL (8-23) H 08/30/24 04:06 Creatinine 1.5 mg/dL (0.5-0.9) H 08/30/24 04:06 GFR Calculation Not Reportable 08/30/24 04:06 Glucose 134 mg/dL (65-115) H 08/30/24 04:06 Estimat Average Glucose 123 08/25/24 23:45 Hemoglobin A1c 5.9 % (4.0-6.0) 08/25/24 23:45 Calculated Osmolality 285 mOsm/kg (285-295) 08/30/24 04:06 Calcium 8.3 mg/dL (8.5-10.5) L 08/30/24 04:06 Phosphorus 3.2 mg/dL (2.5-4.5) 08/30/24 04:06 Magnesium 1.8 mg/dL (1.7-2.3) 08/30/24 04:06 Total Bilirubin 0.7 mg/dL (0.15-1.2) 08/30/24 04:06 AST 135 U/L (0-32) H 08/30/24 04:06 ALT 299 U/L (0-33) H 08/30/24 04:06 Alkaline Phosphatase 124 U/L (35-105) H 08/30/24 04:06 Creatine Kinase 141 U/L (26-192) 08/25/24 23:45 Troponin T Baseline 62 ng/L (0-10) H 08/25/24 17:57 Troponin T 120 Minute 67.66 ng/L (0-10) H 08/25/24 20:27 Delta Troponin T 5.66 ABS# (0-10) 08/25/24 20:27 Troponin T Hi Sens 6Hr 90.77 ng/L (0-10) H 08/25/24 23:45 Troponin T Hi Sens 6Hr Delta 28.77 ng/L (0-12) H* 08/25/24 23:45 C-Reactive Protein 182.7 mg/L (0.0-4.9) H 08/26/24 03:40 C-Reactive Protein 190.9 mg/L (0.0-4.9) H 08/26/24 03:40 Total Protein 7.0 g/dL (6.6-8.7) 08/30/24 04:06 Albumin 3.0 g/dL (3.5-5.2) L 08/30/24 04:06 Globulin 4.0 g/dL (1.3-4.6) 08/30/24 04:06 Procalcitonin 21.37 ng/mL (0-0.5) H 08/26/24 03:40 Urine Color Yellow (Yellow) 08/25/24 21:18 Urine Appearance Clear (CLEAR) 08/25/24 21:18 Urine pH 5 (5-7) 08/25/24 21:18 Ur Specific [place] 1.020 (1.005-1.030) 08/25/24 21:18 Urine Protein 1+ (Negative) A 08/25/24 21:18 Urine Glucose (UA) Norm (Normal) 08/25/24 21:18 Urine Ketones Negative (Negative) 08/25/24 21:18 Urine Blood Neg (Negative) 08/25/24 21:18 Urine Nitrate Negative (Negative) 08/25/24 21:18 Urine Bilirubin 1+ (Negative) H 08/25/24 21:18 Urine Urobilinogen 1 mg/dL (Negative) H 08/25/24 21:18 Ur Leukocyte Esterase Trace (Negative) A 08/25/24 21:18 Urine RBC 0-4 /hpf (0-2) H 08/25/24 21:18 Urine WBC 0-5 /hpf (0-5) 08/25/24 21:18 Ur Squamous Epith Cells 0-5 /hpf (0-5) 08/25/24 21:18 Amorphous Sediment Not Reportable 08/25/24 21:18 Urine Bacteria 2+ /hpf (NONE) H 08/25/24 21:18 Hyaline Casts 40.54 /lpf 08/25/24 21:18 Vitals Last Vital Signs Temp 97.4 F L 08/30/24 04:00 Pulse 89 08/30/24 08:00 Resp 18 08/30/24 08:00 BP 90/69 08/30/24 07:28 Pulse Ox 96 08/30/24 08:00 O2 Del Method Nasal Cannula 08/30/24 08:00 O2 Flow Rate 4 08/30/24 08:00 FiO2 45 08/27/24 15:42 Discharge Plan Discharge Patient Disposition: Xfer SNF Condition: Stable Prescriptions: New ipratropium-albuterol 0.5 mg-3 mg(2.5 mg base)/3 mL Solution For Nebulization 3 ml inhalation Q6H.RESP 30 Days Qty: 540 0RF sennosides-docusate sodium [Stool Softener-Laxative] 8.6-50 mg Tablet 1 tab PO DAILY Qty: 30 0RF doxycycline monohydrate 100 mg Tablet 100 mg PO BID 10 Days Qty: 20 0RF hydrocodone-acetaminophen 5-325 mg Tablet 1 tab PO Q4H PRN (Reason: Moderate Pain) 7 Days Qty: 20 0RF cefdinir 300 mg capsule 300 mg PO BID 10 Days Qty: 20 0RF prednisone 50 mg tablet 50 mg PO DAILY 5 Days Qty: 5 0RF Continued clopidogrel 75 mg tablet 75 mg PO DAILY Qty: 90 3RF potassium chloride 10 mEq capsule, extended release 10 meq PO DAILY Qty: 90 0RF carvedilol 3.125 mg tablet 3.125 mg PO BID Qty: 180 0RF aspirin 81 mg Tablet,Delayed Release (Dr/Ec) 81 mg PO DAILY Qty: 30 0RF pantoprazole 40 mg Tablet,Delayed Release (Dr/Ec) 40 mg PO DAILY Qty: 30 0RF amitriptyline 100 mg tablet 100 mg PO BEDTIME Changed furosemide [Lasix] 40 mg tablet 40 mg PO BIDAC 30 Days Qty: 60 0RF No Action atorvastatin 40 mg tablet 40 mg PO BEDTIME Qty: 90 0RF Discharge Orders: Discharge Order (Routine); Ordered 08/30/24 Ordered By: Eduard Hanson Referrals: Param Dobson MD [Primary Care Provider] - Discharge Diet: Cardiac and Low Salt Discharge Activity: Resume usual activity and Increase activity as tolerated Patient Instructions: Doxycycline (By mouth), Hydrocodone/Acetaminophen (By mouth), Prednisone (By mouth), Cefdinir (By mouth), Acute Kidney Injury (GEN) Activity Restrictions/Additional Instructions: LOW SODIUM DIET, MILDLY THICK LIQUIDS Plan of Treatment: 1. Take medications as prescribed. 2. Start rehabilitation with therapy. 3. Continue wound care to small wound on right lower extremity. 4. Recommend repeat labs in approximately 1 week. 5. Establish with provider at facility within 7 days. Discharge Attestations Time Spent in Discharge Care*: greater than 30 min Quality Metrics Clinical Quality Measures [ No reported AMI, CVA or VTE this stay] Coding Level of Care Code Acute Code for [facility] Fwd Diagnoses Congestive heart failure I50.9 Left ventricular systolic dysfunction (LVSD) I51.89 Aortic valve stenosis I35.0 Mitral valve regurgitation I34.0 CAD S/P percutaneous coronary angioplasty I25.10; Z98.61 Presence of drug-eluting stent in right coronary artery Z95.5 Claudication of both lower extremities I73.9 Fall W19.XXXA Encounter type: initial encounter Neuropathy G62.9 Acute and chronic respiratory failure with hypoxia J96.21 Acute kidney injury superimposed on chronic kidney disease N17.9; N18.9
--- NOTE | 2024-08-30 17:30 | PC.NURSE ---
[facility] waiting [facility] for transport
--- NOTE | 2024-08-30 23:25 | PC.NURSE ---
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 Nurse helped EMS transfer the patient from their chair to the [facility]. Patient left the facility at 2322. Nurse will notify the custodial.
== END 2024-08-30 23:25 | disposition skilled nursing facility (03) | DRG 291 ==
LOC: ER 22:33 → ICU 22:46 → MEDSURG 08-26 14:19
PROVIDERS: Family Medicine; Admitting Provider Internal Medicine; Emergency Provider Emergency Medicine; PCP Family Medicine; Visit Provider Internal Medicine
DX: I13.0 Hypertensive heart and chronic kidney disease with heart failure and stage 1 through stage 4 chronic kidney disease, or unspecified chronic kidney disease (principal); I50.23 Acute on chronic systolic (congestive) heart failure; J96.21 Acute and chronic respiratory failure with hypoxia; N17.9 Acute kidney failure, unspecified; L03.115 Cellulitis of right lower limb; N18.9 Chronic kidney disease, unspecified; I08.0 Rheumatic disorders of both mitral and aortic valves; I25.10 Atherosclerotic heart disease of native coronary artery without angina pectoris; Z95.5 Presence of coronary angioplasty implant and graft; I73.9 Peripheral vascular disease, unspecified; W01.0XXA Fall on same level from slipping, tripping and stumbling without subsequent striking against object, initial encounter; G62.9 Polyneuropathy, unspecified; Z79.02 Long term (current) use of antithrombotics/antiplatelets; Z79.82 Long term (current) use of aspirin; M25.551 Pain in right hip; Z87.891 Personal history of nicotine dependence; Z99.81 Dependence on supplemental oxygen; D63.1 Anemia in chronic kidney disease; I25.5 Ischemic cardiomyopathy
CPT/HCPCS: 36415; 36600; 70450; 71045; 71250; 72192; 73502; 73562; 73600; 78014; 80048; 80051; 80053; 80069; 81001; 82330; 82550; 82803; 82805; 83036; 83735; 84100; 84145; 84484; 85025; 85378; 86140; 87040; 92523; 92526; 92610; 93005; 93971; 94640; 94660; 94664; 94760; 96372; 96374; 96375; 96376; 97110; 97116; 97162; 97530; 99291; A9540; A9567; J0692; J0696; J1650; J1938; J2270; J2405; J2470; J2919; J9999

== ENCOUNTER 2024-08-31 14:14 | Emergency (ER) | payer MEDICARE, SELFPAY ==
[2024-08-31] VITALS (30 sets, daily range): BP systolic 74–92; BP diastolic 53–71; PULSE 67–81; RESP 13–24; TEMP 36.5; O2SAT 85–100
--- NOTE | 2024-08-31 14:22 | XRR_ITS ---
PROCEDURE INFORMATION: Exam: XR Chest Exam date and time: 08/31/2024 2:56 PM Age: 73 years old Clinical indication: Other: Weakness; Prior surgery; Surgery date: 6+ months; Surgery type: Coronary stent TECHNIQUE: Imaging protocol: Radiologic exam of the chest. Views: 1 view. COMPARISON: CT chest [facility] [id number] 08/28/2024 10:24 AM FINDINGS: Lungs: Mild to moderate left basilar atelectasis and/or infiltrate and/or effusion. Pleural spaces: Unremarkable. No pleural effusion. No pneumothorax. Heart/Mediastinum: Mild globular cardiomegaly consistent with 4-chamber enlargment and/or pericardial effusion. Vasculature: Calcification of the thoracic aorta and/or great vessels consistent with atherosclerotic vessel disease. Bones/joints: Unremarkable. XR/XR chest 1V portable [id number] IMPRESSION: 1. Mild globular cardiomegaly consistent with 4-chamber enlargment and/or pericardial effusion. 2. Mild to moderate left basilar atelectasis and/or infiltrate and/or effusion.
--- NOTE | 2024-08-31 14:23 | ECG_ITS ---
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 Measurements Intervals [place] Rate: 79 P: 40 WA: 162 QRS: 16 QRSD: 95 T: 70 QT: 395 QTc: 453 Interpretive Statements SINUS RHYTHM POSSIBLE LEFT ATRIAL ENLARGEMENT [-0.1mV P-WAVE IN V1/V2] Compared to ECG 08/25/2024 23:33:52 T-wave abnormality no longer present Electronically Signed On 08-31-2024 21:11:59 CDT by Jenni Ferguson M.D. [email or web address]
--- NOTE | 2024-08-31 14:27 | PC.PHAR ---
patient just seen yesterday, from residential. meds still the same along with new meds from yesterdays discharge
[2024-08-31] MEDS: sodium chloride 0.9% 1,000 ML 999 ML IV (14:46)
[2024-08-31 14:48] LABS: Basophils % 0.1 %; Lymphocytes # 1.4 10^3/uL (0.8-4.8); Lymphocytes % 10.4 %; Mean Corpuscular HGB Conc 29.6 g/dL (30-55); Mean Corpuscular Hemoglobin 29.6 pg (27-33); Mean Platelet Volume 10.8 fL (7.4-10.4); Monocytes # 1.6 10^3/uL (0.2-0.9); Monocytes % 12.1 %; Neutrophils # 10.08 10^3/uL (1.8-7.7); Neutrophils % 76.2 %; Nucleated Red Blood Cells # 0.5 /100WBC; Nucleated Red Blood Cells % 3.7 %; Platelet Count 165 10^3/cmm (157-399); Red Blood Count 1.89 10^6/uL (3.85-5.65); Red Cell Distribution Width 16.7 % (12.1-15.1); White Blood Count 13.23 10^3/uL (3.29-11.43)
[2024-08-31 14:53] LABS: ABG PCO2 33.5 mmHg (35-45); ABG PH Result 7.42 (7.35-7.45); Alveolar-Arterial Oxygen Gradi 17.8 mmHg (5-10); Arterial Blood Gas Hematocrit 16.9 % (37-47); Base Excess ABG -2.7 mmol/L (-2.0-2.0); Blood Gas Allen Test Pos; Blood Gas Operator Identificat glc; Blood Gas Sample Site Radial, left; Blood Gas Sample Type Arterial; Carboxyhemoglobin 1.5 %THgb (0.4-20.1); HCO3 ABG 21.6 mmol/L (22-26); HGB O2 Sat 93.3 % (95-100); Ionized Calcium Level - ABG 1.1 mmol/L (1.1-1.4); Methemoglobin 1.3 % (0.4-1.5); Oxygen Device NC; PO2 ABG 74.3 mmHg (80.0-100.0); PO2 FiO2 Ratio Arterial Blood 206; Total Hemoglobin 5.5 g/dL (12-16)
--- NOTE | 2024-08-31 14:56 | ED_ITS ---
HPI - Altered Mental Status 2 General: Chief Complaint: Altered Mental Status Stated Complaint: sob; ams Time Seen by Provider: 08/31/24 14:14 History of Present Illness: 73-year-old female with a history of con gestive heart failure, cirrhosis, coronary artery disease, ischemic cardiomyopathy, anasarca who presents emergency room with decreased mentation. She was discharged from the hospital yesterday to a alf. Today she was found to be just responsive and hypotensive. She is anticoagulated on Plavix. Related Data Home Medications ?Medication ?Instructions ?Recorded ?Confirmed amitriptyline 100 mg tablet 100 mg PO BEDTIME 08/26/24 08/31/24 Previous Rx's ?Medication ?Instructions ?Recorded aspirin 81 mg tablet,delayed 81 mg PO DAILY #30 tabs 0 07/05/24 release pantoprazole 40 mg tablet,delayed 40 mg PO DAILY #30 t abs 07/05/24 release atorvastatin 40 mg tablet 40 mg PO BEDTIME #90 tabs carvedilol 3.125 mg tablet 3.125 mg PO BID #180 tabs 0 07/23/24 clopidogrel 75 mg tablet 75 mg PO DAILY #90 tabs 0310/12 potassium chloride 10 mEq 10 meq PO DAILY #90 caps 10/12 capsule,extended release cefdinir 300 mg capsule 300 mg PO BID 10 days #20 ca ps 08/30/24 doxycycline monohydrate 100 mg 100 mg PO BID 10 days # 20 tabs 08/30/24 tablet furosemide 40 mg tablet (Lasix) 40 mg PO BIDAC 30 days #60 tabs 08/30/24 hydrocodone 5 mg-acetaminophen 325 1 tab PO Q4H PRN Mo derate Pain 7 08/30/24 mg tablet days #20 tabs ipratropium 0.5 mg-albuterol 3 mg 3 ml inhalation Q6H. RESP 30 days 08/30/24 (2.5 mg base)/3 mL nebulization #540 mL soln prednisone 50 mg tablet 50 mg PO DAILY 5 days #5 tab s 08/30/24 sennosides 8.6 mg-docusate sodium 1 tab PO DAILY #30 t abs 08/30/24 50 mg tablet (Stool Softener-Laxative) Allergies Allergy/AdvReac Type Severity Reaction Status Date / Time ciprofloxacin (From Cipro) Allergy ALGY-Hives Verified 07/23/24 15:55 coconut Allergy ALGY-Hives Verified 07/23/24 15:55 pregabalin (From Lyrica) Allergy ALGY-Hives Verified 07/23/24 15:55 Review of Systems 2 Narrative: Constitutional symptoms: Negative except as documented in HPI. Skin symptoms: Negative except as documented in HPI. Eye symptoms: Negative except as documented in HPI. ENMT symptoms: Negative except as documented in HPI. Respiratory symptoms: Negative except as documented in HPI. Cardiovascular symptoms: Negative except as documented in HPI. Gastrointestinal symptoms: Negative except as documented in HPI. Genitourinary symptoms: Negative except as documented in HPI. Musculoskeletal symptoms: Negative except as documented in HPI. Neurologic symptoms: Negative except as documented in HPI. Psychiatric symptoms: Negative except as documented in HPI. Endocrine symptoms: Negative except as documented in HPI. PFSH ED 2 PFSH: Medical History CKD (chronic kidney disease) No significant past medical history Social History Smoking and tobacco/nicotine status: former use of tobacco/nicotine Physical Exam 2 Narrative: General: responds minimally to painful stimuli. She does at times groan. Skin: Warm, dry Head: Normocephalic, atraumatic. Neck: Supple, trachea midline. Eye: Extraocular movements are intact. Ears, nose, mouth and throat: Dry oral mucosa. Cardiovascular: Regular rate and rhythm, Normal peripheral perfusion. Respiratory: Lungs are clear to auscultation, respirations are non-labored, breath sounds are equal, Symmetrical chest wall expansion. Gastrointestinal: Right side of the abdomen is fairly hard and she groans whenever you palpate. Musculoskeletal: no deformity. Neurological: Not Alert and oriented, No obvious focal neurological deficit observed. Psychiatric: unable to assess. Course 2 Vital Signs: Vital signs: Vital Signs Temperature 97.7 F 08/31/24 14:47 Pulse Rate 76 08/31/24 14:57 Respiratory Rate 20 H 08/31/24 14:15 Blood Pressure 74/53 08/31/24 14:57 Pulse Oximetry 95 08/31/24 14:57 Oxygen Delivery Me thod Nasal Cannula 08/31/24 14:57 Oxygen Flow Rate 4 08/31/24 14:57 MDM - Altered Mental Status Medical Decision Making Medical decision making: Differential diagnosis for patient presenting with generalized weakness including but not limited to and based on the above HPI, review of systems and physical exam: Sepsis. Dehydration. Renal failure. Electrolyte abnormalities. Anemia. Congestive heart failure. Hypotension. Coronary syndrome. Hepatitis. Cirrhosis. Infections such as pneumonia, urinary tract infection, [place] illness, Cellulitis, Viral infections including influenza and Covid-19. Workup: labwork and lab/exam driven imaging ordered to evaluate, rule in and rule out above pathologies. DNR CODE STATUS: Patient has documentation in her paperwork and I spoke with her family and they confirmed that she is absolutely a DNR CODE STATUS but she is not comfort measures at this time. EKG: Time 1424. Rate 79. Normal sinus rhythm, No ST-T changes, no ectopy, normal TN & QRS intervals, This was reviewed and interpreted by myself the ER physician at 1430. Chest x-ray: Cardiomegaly. No acute process. No infiltrate. No pneumothorax. This was reviewed and interpreted by myself the emergency room physician. I also reviewed the radiology report. CT of the chest abdomen pelvis without contrast: Cardiomegaly. Pleural effusions. Coronary disease. Mild anasarca consistent with right heart failure. 21 x 18 x 11 cm mass that extends into the right upper abdomen. This was read as an ovarian mass, however this was not present on a film that I compared to from 5 days ago. And clinically she has acute blood loss with no dark tarry stools or acute elevation in her BUN. She has acute tenderness in that area and a history of trauma. I believe this is a large hematoma. Consultation: I spoke with general surgery here. This is a nonsurgical event and blood resuscitation and possible embolectomy are the only viable options for treatment. I spoke initially with family and they do states she is DNR CODE STATUS. But they are not prepared and are not sure if she would not want to be treated at all. She has not made herself comfort care status and she is not at a point where she can. Given that there is a possibility of continued treatment and that embolectomy might be a possible treatment they opt for transfer to a tertiary care center with trauma. Consultation: I spoke again with the radiologist and they do agree that this is likely an intra-abdominal hematoma. Lab Review: Laboratory results were reviewed and interpreted by myself the emergency room physician. Mild leukocytosis. Acute drop in hemoglobin from 9.6-5.6. Mean and creatinine are stable at 48 1.5. I reviewed the patient's medical record. Reexamination: Patient is a bit more interactive but still fairly somnolent and groggy. No focal motor deficits. She is quite tender in her right side of her abdomen and has a palpable mass. Consultation: I spoke to ER doctor at [facility] in [place]. She has excepted the patient to the emergency room ER to ER given that this is a trauma and the patient is critical. Assessment and plan: Acute intra-abdominal hematoma Abdominal trauma Acute blood loss anemia Congestive heart failure Cirrhosis Metabolic encephalopathy ?Total of 3 units PRBCs given in the emergency room. We have no platelets at this time. TXA was given. ?Meropenem and Zyvox were given with concern for sepsis. However I think her hypotension etc. are strictly due to this trauma. No signs of infection. -I discussed the patient with the accepting physician on-call. - Discussed findings and plan with patient. Answered any questions. - All laboratory values were reviewed and interpreted personally by myself, the ER physician - All imaging was reviewed and interpreted personally by myself, the ER physician. - Evaluation and treatment of this problem were appropriate in the emergency setting Critical care -I spent a total of >35 minutes of critical care time managing the patient, independent of any other practitioner. -The time involved in the performance of separately reportable procedures was not counted towards critical care time. Lab Data 08/31/24 14:30 08/31/24 14:30 Radiology Impressions Chest X-Ray 08/31/24 14:22 IMPRESSION: 1. Mild globular cardiomegaly consistent with 4-chamber enlargment and/or pericardial effusion. 2. Mild to moderate left basilar atelectasis and/or infiltrate and/or effusion. Chest/Abdomen/Pelvis CT 08/31/24 15:26 IMPRESSION: 1. Mild cardiomegaly. 2. Mild bilateral pleural fluid collections. 3. Severe calcified coronary artery disease. IMPRESSION: 1. Mild anasarca consistent with right heart failure versus hypoproteinemia versus renal failure. 2. 20.7 x 18.0 x 11.0 cm heterogeneous mass arising from the right adnexal area extending into the right upper abdomen most consistent with large ovarian neoplasm versus other neoplasm. 3. Cirrhosis with [id number] four-quadrant ascites. ADDENDUM: 08/31/24 4835 Impression: 2. Interval appearance of 20.7 x 18.0 x 11.0 cm heterogeneous mass in the right abdomen most consistent with large extraperitoneal hematoma. CTA abdomen and pelvis may be helpful rule out active bleeding at this time. Impression. Laboratory Results WBC 13.23 10^3/uL (3.29-11.43) H 08/31/24 14:30 RBC 1.89 10^6/uL (3.85-5.65) L 08/31/24 14: Hgb 5.60 g/dL (11.27-16.99) L* 08/31/24 14: Hct 18.9 % (36-47) L* 08/31/24 14: MCV 100.0 fl (85-98) H 08/31/24 14:30 MCH 29.6 pg (27-33) 08/31/24 14:30 MCHC 29.6 g/dL (30-55) L 08/31/24 14: RDW 16.7 % (12.1-15.1) H 08/31/24 14: Plt Count 165 10^3/cmm (157-399) 08/31/24 14:30 MPV 10.8 fL (7.4-10.4) H 08/31/24 14:30 Neut % (Auto) 76.2 % 08/31/24 14:30 Lymph % (Auto) 10.4 % 08/31/24 14:30 [place] % (Auto) 12.1 % 08/31/24 14:30 Eos % (Auto) 0.0 % 08/31/24 14: Baso % (Auto) 0.1 % 08/31/24 14:30 Neut # (Auto) 10.08 10^3/uL (1.8-7.7) H 08/31/24 14:30 Lymph # (Auto) 1.4 10^3/uL (0.8-4.8) 08/31/24 14:30 [place] # (Auto) 1.6 10^3/uL (0.2-0.9) H 08/31/24 14:30 Eos # (Auto) 0.0 10^3/uL (0.0-0.8) 08/31/24 14:30 Baso # (Auto) 0.0 10^3/uL (0.0-0.1) 08/31/24 14:30 Nucleated RBC % (auto) 3.7 % 08/31/24 14:30 Nucleated RBCs # 0.5 /100WBC 08/31/24 14:30 PT 17.30 SECONDS (12.1-14.9) H 08/31/24 14:40 INR 1.33 (0.8-1.2) H 08/31/24 14:40 APTT 38.3 SECONDS (23.9-36.7) H 08/31/24 14:40 Specimen Type Arterial 08/31/24 14:44 Sample Site Radial, left 08/31/24 14:44 ABG pH 7.42 (7.35-7.45) 08/31/24 14:44 ABG pCO2 33.5 mmHg (35-45) L 08/31/24 14:44 ABG pO2 74.3 mmHg (80.0-100.0) L 08/31/24 14:44 ABG PO2/FiO2 Ratio 206 08/31/24 14:44 ABG HCO3 21.6 mmol/L (22-26) L 08/31/24 14:44 ABG O2 Saturation 96.0 08/31/24 14:44 ABG Base Excess -2.7 mmol/L (-2.0-2.0) L 08/31/24 14:44 Wm Test Pos 08/31/24 14:44 A-a O2 Gradient 17.8 mmHg (5-10) H 08/31/24 14:44 Hematocrit 16.9 % (37-47) L 08/31/24 14:44 Hgb O2 Saturation 93.3 % (95-100) L 08/31/24 14:44 Carboxyhemoglobin 1.5 %THgb (0.4-20.1) 08/31/24 14:44 Methemoglobin 1.3 % (0.4-1.5) 08/31/24 14:44 Total Hemoglobin 5.5 g/dL (12-16) L 08/31/24 14:44 Sodium 131.0 mmol/L (131-143) 08/31/24 14:44 Potassium 4.0 mmol/L (3.5-5.0) 08/31/24 14:44 Glucose 147.0 mg/dL (70-115) H 08/31/24 14:44 Ionized Calcium 1.1 mmol/L (1.1-1.4) 08/31/24 14:44 O2 Delivery Device Nc 08/31/24 14:44 O2 Liters/Min 4.0 % 08/31/24 14:44 FiO2 36.0 % 08/31/24 14:44 German Professor ID glc 08/31/24 14:44 Sodium 129 mmol/L (136-145) L 08/31/24 14:30 Potassium 4.4 mmol/L (3.5-5.1) 08/31/24 14:30 Chloride 96 mmol/L (98-107) L 08/31/24 14:30 Carbon Dioxide 20 mmol/L (22-29) L 08/31/24 14:30 Anion Gap 17.4 (5-19) 08/31/24 14:30 BUN 48 mg/dL (8-23) H 08/31/24 14:30 Creatinine 1.5 mg/dL (0.5-0.9) H 08/31/24 14:30 GFR Calculation Not Reportable 08/31/24 14:30 Glucose 148 mg/dL (65-115) H 08/31/24 14:30 Calculated Osmolality 283 mOsm/kg (285-295) L 08/31/24 14:30 Lactic Acid 4.8 mmol/L (0.5-2.2) H* 08/31/24 14:30 Calcium 7.9 mg/dL (8.5-10.5) L 08/31/24 14:30 Total Bilirubin 0.7 mg/dL (0.15-1.2) 08/31/24 14:30 AST 49 U/L (0-32) H 08/31/24 14:30 ALT 139 U/L (0-33) H 08/31/24 14:30 Alkaline Phosphatase 78 U/L (35-105) 08/31/24 14:30 Troponin T Baseline 63 ng/L (0-10) H 08/31/24 14:30 NT-Pro-B Natriuret Pep 52276 pg/mL (0-125) H 08/31/24 14:30 Total Protein 4.7 g/dL (6.6-8.7) L 08/31/24 14:30 Albumin 2.2 g/dL (3.5-5.2) L 08/31/24 14:30 Globulin 2.5 g/dL (1.3-4.6) 08/31/24 14:30 Urine Color Yellow (Yellow) 08/31/24 14:55 Urine Appearance Clear (CLEAR) 08/31/24 14:55 Urine pH 5 (5-7) 08/31/24 14:55 Ur Specific [place] 1.015 (1.005-1.030) 08/31/24 14:55 Urine Protein Trace (Negative) H 08/31/24 14:55 Urine Glucose (UA) Norm (Normal) 08/31/24 14:55 Urine Ketones Negative (Negative) 08/31/24 14:55 Urine Blood Trace (Negative) A 08/31/24 14:55 Urine Nitrate Negative (Negative) 08/31/24 14:55 Urine Bilirubin Neg (Negative) 08/31/24 14:55 Urine Urobilinogen Neg mg/dL (Negative) 08/31/24 14:55 Ur Leukocyte Esterase Negative (Negative) 08/31/24 14:55 Urine RBC 0-2 /hpf (0-2) 08/31/24 14:55 Urine WBC 0-5 /hpf (0-5) 08/31/24 14:55 Ur Squamous Epith Cells 0-5 /hpf (0-5) 08/31/24 14:55 Amorphous Sediment Not Reportable 08/31/24 14:55 Urine Bacteria None seen /hpf (NONE) 08/31/24 14:55 Hyaline Casts 4.95 /lpf 08/31/24 14:55 Urine Mucus 1+ /hpf 08/31/24 14:55 Blood Type A Positive 08/31/24 15:06 Rho(D) Type Rh positive 08/31/24 15:06 Antibody Screen Negative 08/31/24 15:06 Crossmatch See Detail 08/31/24 15:06 All radiology interpretation(s) finalized by discharge Discharge Plan Discharge Patient Disposition: Xfer Short-Term Hosp Clinical Impression: Acute blood loss anemia, Intraabdominal hemorrhage, Congestive heart failure, Abdominal trauma, Chronic anticoagulation, Hypotension, Metabolic encephalopathy, Cirrhosis, Do not resuscitate status Condition: Stable Referrals: Param Dobson MD [Primary Care Provider] - Patient Instructions: Altered Mental Status (ED) Print Language: Nepalese Coding Level of Care Code ED Parquetry Layer for Tayler Lafleur
[2024-08-31 15:01] LABS: Hematocrit 18.9 % (36-47)
[2024-08-31 15:07] LABS: Troponin(5th) Baseline 63 ng/L (0-10)
[2024-08-31 15:09] LABS: INR 1.33 (0.8-1.2)
[2024-08-31 15:10] LABS: Partial Thromboplastin Time 38.3 SECONDS (23.9-36.7)
[2024-08-31 15:15] LABS: Alanine Aminotransferase 139 U/L (0-33); Albumin Level 2.2 g/dL (3.5-5.2); Alkaline Phosphatase 78 U/L (35-105); Anion Gap 17.4 (5-19); Aspartate Amino Transferase 49 U/L (0-32); Blood Urea Nitrogen 48 mg/dL (8-23); Calcium 7.9 mg/dL (8.5-10.5); Carbon Dioxide 20 mmol/L (22-29); Chloride 96 mmol/L (98-107); Globulin 2.5 g/dL (1.3-4.6); Glucose 148 mg/dL (65-115); NT Pro B Type Natriuretic Pept 21461 pg/mL (0-125); Osmolality Calculated 283 mOsm/kg (285-295); Potassium 4.4 mmol/L (3.5-5.1); Sodium 129 mmol/L (136-145); Total Bilirubin 0.7 mg/dL (0.15-1.2); Total Protein 4.7 g/dL (6.6-8.7)
[2024-08-31 15:20] LABS: Lactic Sepsis W/Reflex 4.8 mmol/L (0.5-2.2)
[2024-08-31 15:20] LABS: Bacteria Urine None Seen /hpf; Hyaline Casts Urine 4.95 /lpf; RBC Urine 0-2 /hpf (0-2); Squamous Epithelial Cell Urine 0-5 /hpf (0-5); WBC Urine 0-5 /hpf (0-5)
[2024-08-31 15:22] LABS: Bilirubin Urine Neg (Negative); Blood Urine Trace (Negative); Glucose Urine UA Norm (Normal); Ketones Urine Negative (Negative); Leukocyte Esterase Urine Negative (Negative); Nitrate Urine Negative (Negative); Protein Urine Trace (Negative); Specific Gravity, Urine 1.015 (1.005-1.030); Urine Appearance Clear (CLEAR); Urine Color Yellow (Yellow); Urobilinogen Urine Neg (Negative); pH Urine 5 (5-7)
--- NOTE | 2024-08-31 15:26 | CTR_ITS ---
PROCEDURE INFORMATION: Exam: CT Chest Without Contrast; Diagnostic Exam date and time: 08/31/2024 3:41 PM Age: 73 years old Clinical indication: Other: Sepsis TECHNIQUE: Imaging protocol: Diagnostic computed tomography of the chest without contrast. Radiation optimization: All CT scans at this facility use at least one of these dose optimization techniques: automated exposure control; mA and/or kV adjustment per patient size (includes targeted exams where dose is matched to clinical indication); or iterative reconstruction. COMPARISON: CT chest wo con [id number] 08/28/2024 10:24 AM RADIATION DOSE METRICS: Total DLP (mGy-cm): 1330.39 FINDINGS: Lungs: See Lymph nodes finding. Pleural spaces: Mild bilateral pleural fluid collections. Heart: Mild cardiomegaly. Coronary arteries: Severe calcified coronary artery disease. Lymph nodes: Calcified bilateral hilar nodes and/or mediastinal nodes and/or lung granulomas consistent with old granulomatous disease. Vasculature: Calcification of the thoracic aorta and/or great vessels consistent with atherosclerotic vessel disease. Bones/joints: Dextroscoliosis. Soft tissues: Examination is limited by artifact from one or both arms by the patient's side. PROCEDURE INFORMATION: Exam: CT Abdomen And Pelvis Without Contrast Exam date and time: 08/31/2024 3:41 PM Age: 73 years old Clinical indication: Other: Sepsis TECHNIQUE: Imaging protocol: Computed tomography of the abdomen and pelvis without contrast. Radiation optimization: All CT scans at this facility use at least one of these dose optimization techniques: automated exposure control; mA and/or kV adjustment per patient size (includes targeted exams where dose is matched to clinical indication); or iterative reconstruction. COMPARISON: CT pelvis wo con [id number] 08/25/2024 6:35 PM RADIATION DOSE METRICS: Total DLP (mGy-cm): 1330.39 FINDINGS: Heart: Mild anasarca consistent with right heart failure versus hypoproteinemia versus renal failure. Liver: Hepatic cirrhosis morphology with nodular contour and/or caudate lobe enlargement and/or left lobe enlargement. Gallbladder and biliary ducts: Stable cholecystectomy. Pancreas: Normal. No ductal dilation. Spleen: Calcified splenic granulomas. Adrenal glands: Normal. No mass. Kidneys and ureters: Moderate to severe left upper pole renal atrophy. Stomach and bowel: Unremarkable. No obstruction. No mucosal thickening. Appendix: No evidence of appendicitis. Intraperitoneal space: Mild to moderate four-quadrant ascites. Vasculature: Calcification of the abdominal aorta and/or iliac arteries consistent with atherosclerotic vessel disease. One or more calcified pelvic phleboliths. One or more calcified pelvic phleboliths. Lymph nodes: Unremarkable. No enlarged lymph nodes. Urinary bladder: Unremarkable as visualized. Reproductive: 20.7 x 18.0 x 11.0 cm heterogeneous mass arising from the right adnexal area extending into the right upper abdomen most consistent with large ovarian neoplasm versus other neoplasm. Bones/joints: Levoscoliosis. Soft tissues: Examination is limited by artifact from one or both arms by the patient's side. Other findings: Postoperative changes in the region of the pelvis. CT/[place] [id number] IMPRESSION: 1. Mild cardiomegaly. 2. Mild bilateral pleural fluid collections. 3. Severe calcified coronary artery disease. IMPRESSION: 1. Mild anasarca consistent with right heart failure versus hypoproteinemia versus renal failure. 2. 20.7 x 18.0 x 11.0 cm heterogeneous mass arising from the right adnexal area extending into the right upper abdomen most consistent with large ovarian neoplasm versus other neoplasm. 3. Cirrhosis with [id number] four-quadrant ascites.
[2024-08-31 15:31] LABS: Mucus Urine 1+ /hpf; UA Slide Review UA Slide Review Perf
[2024-08-31 15:58] LABS: Reflex Lactate Order REFLEX LACTIC ORDERD
--- NOTE | 2024-08-31 16:23 | ECG_ITS ---
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 Measurements Intervals [place] Rate: 69 P: 60 CT: 163 QRS: 18 QRSD: 102 T: 85 QT: 433 QTc: 465 Interpretive Statements SINUS RHYTHM POSSIBLE LEFT ATRIAL ENLARGEMENT [-0.1mV P-WAVE IN V1/V2] NONSPECIFIC T-WAVE ABNORMALITY Compared to ECG 08/31/2024 14:24:32 T-wave abnormality now present Electronically Signed On 08-31-2024 21:19:04 CDT by Jenni Ferguson M.D. [email or web address]
[2024-08-31] MEDS: tranexamic acid 1,000 MG/100 ML PREMIX 600 MG IV (17:04)
== END 2024-08-31 17:45 | disposition short-term general hospital (02) ==
PROVIDERS: Emergency Provider Emergency Medicine; PCP Family Medicine
DX: D62 Acute posthemorrhagic anemia (principal); S36.899A Unspecified injury of other intra-abdominal organs, initial encounter; S36.892A Contusion of other intra-abdominal organs, initial encounter; I50.9 Heart failure, unspecified; N18.9 Chronic kidney disease, unspecified; Z79.01 Long term (current) use of anticoagulants; G93.41 Metabolic encephalopathy; K74.60 Unspecified cirrhosis of liver; I25.10 Atherosclerotic heart disease of native coronary artery without angina pectoris; X58.XXXA Exposure to other specified factors, initial encounter
CPT/HCPCS: 36415; 36600; 51702; 71045; 71250; 74176; 80051; 80053; 81001; 82330; 82805; 83605; 83880; 84484; 85025; 85610; 85730; 86850; 86900; 86920; 93005; 96360; 96361; 99285; 99291; 99292; J7030; J9999; P9016

== ENCOUNTER 2024-09-06 16:49 | Inpatient (IN) | payer MEDICARE, SELFPAY ==
[2024-09-06] VITALS (20 sets, daily range): BP systolic 140–166; BP diastolic 73–118; PULSE 83–96; RESP 18–37; TEMP 36.7; O2SAT 92–100; BMI 31.7
--- NOTE | 2024-09-06 17:12 | XRR_ITS ---
PROCEDURE INFORMATION: Exam: XR Chest Exam date and time: 09/06/2024 5:23 PM Age: 73 years old Clinical indication: Shortness of breath; Prior surgery; Surgery date: 6+ months; Surgery type: Coronary stent; PT recently d/c from [facility] [place]. PT C/O feeling SOB. PT has fractured ribs from recent fall. PT has abdominal binder on. EMS states PT has no lung sounds on left side. PT reports 4l nc at baseline. Staff admin duo neb and albuterol tx before EMS arrival. TECHNIQUE: Imaging protocol: Radiologic exam of the chest. Views: 1 view. COMPARISON: [place] [id number] 08/31/2024 3:41 PM FINDINGS: Lungs: Both lungs demonstrate diffuse interstitial coarsening which is felt to be chronic. No lung mass or infiltrate. Pleural spaces: Unremarkable. No pleural effusion. No pneumothorax. Heart/Mediastinum: Prominent cardiomegaly is noted. Bones/joints: Unremarkable. XR/XR chest 1V portable [id number] IMPRESSION: Stable chest
[2024-09-06 17:24] LABS: Arterial Blood Gas Hematocrit 26.4 % (37-47); Base Excess ABG 2.9 mmol/L (-2.0-2.0); Blood Gas Operator Identificat AMH; Blood Gas Sample Site Brachial, left; Blood Gas Sample Type Arterial; HCO3 ABG 26.2 mmol/L (22-26); Oxygen Device NC; PO2 ABG 53.4 mmHg (80.0-100.0); PO2 FiO2 Ratio Arterial Blood 148
[2024-09-06 17:28] LABS: Basophils % 0.2 %; Hematocrit 27.7 % (36-47); Lymphocytes # 0.8 10^3/uL (0.8-4.8); Lymphocytes % 6.2 %; Mean Corpuscular Hemoglobin 30.3 pg (27-33); Mean Corpuscular Volume 97.5 fl (85-98); Mean Platelet Volume 11.4 fL (7.4-10.4); Monocytes # 1.2 10^3/uL (0.2-0.9); Monocytes % 8.9 %; Neutrophils # 10.98 10^3/uL (1.8-7.7); Neutrophils % 83.8 %; Nucleated Red Blood Cells # 0.1 /100WBC; Nucleated Red Blood Cells % 0.5 %; Platelet Count 157 10^3/cmm (157-399); Red Blood Count 2.84 10^6/uL (3.85-5.65); Red Cell Distribution Width 20.1 % (12.1-15.1)
--- NOTE | 2024-09-06 17:35 | ED_ITS ---
HPI - SOB/Dyspnea 2 General: Chief Complaint: Shortness of Breath/Dyspnea Stated Complaint: shortness of breath Time Seen by Provider: 09/06/24 16:52 History of Present Illness: HPI Narrative: 73-year-old female presents to the ER [facility] complaint of progressive shortness of breath and difficulty breathing patient presents from extended-care facility by EMS due to hypoxia and dyspnea. Patient was recently released from [facility] yesterday when she was seen here originally about a week ago she was doing diagnosed with concerns of hemorrhage in her abdomen status post trauma patient was on Plavix. With a questionable ovarian mass. Patient was found to have a small to moderate pleural effusion on the left patient was subsequently discharged back to the skilled nursing she presents with increased dyspnea and shortness of breath with hypoxia she was provided neb treatments and steroids prior to arrival. Patient appears to be a very poor historian. In which limited history is provided from the F. Associated symptoms: Deny abdominal pain, chest pain, extremity pain, fever(s), nausea, palpitations or vomiting Related Data Home Medications ?Medication ?Instructions ?Recorded ?Confirmed amitriptyline 100 mg tablet 100 mg PO BEDTIME 08/26/24 08/31/24 Previous Rx's ?Medication ?Instructions ?Recorded aspirin 81 mg tablet,delayed 81 mg PO DAILY #30 tabs 0 07/05/24 release pantoprazole 40 mg tablet,delayed 40 mg PO DAILY #30 t abs 07/05/24 release atorvastatin 40 mg tablet 40 mg PO BEDTIME #90 tabs carvedilol 3.125 mg tablet 3.125 mg PO BID #180 tabs 0 07/23/24 clopidogrel 75 mg tablet 75 mg PO DAILY #90 tabs 0310/12 potassium chloride 10 mEq 10 meq PO DAILY #90 caps 10/12 capsule,extended release cefdinir 300 mg capsule 300 mg PO BID 10 days #20 ca ps 08/30/24 doxycycline monohydrate 100 mg 100 mg PO BID 10 days # 20 tabs 08/30/24 tablet furosemide 40 mg tablet (Lasix) 40 mg PO BIDAC 30 days #60 tabs 08/30/24 ipratropium 0.5 mg-albuterol 3 mg 3 ml inhalation Q6H. RESP 30 days 08/30/24 (2.5 mg base)/3 mL nebulization #540 mL soln sennosides 8.6 mg-docusate sodium 1 tab PO DAILY #30 t abs 08/30/24 50 mg tablet (Stool Softener-Laxative) Allergies Allergy/AdvReac Type Severity Reaction Status Date / Time ciprofloxacin (From Cipro) Allergy ALGY-Hives Verified 07/23/24 15:55 coconut Allergy ALGY-Hives Verified 07/23/24 15:55 pregabalin (From Lyrica) Allergy ALGY-Hives Verified 07/23/24 15:55 Review of Systems 2 General: Reports: 10 or more systems reviewed and unremarkable except in HPI and below Const: Reports: fatigue and malaise; Denies: fever(s) or chills Eyes: Denies: change in vision or blurry vision Card: Denies: chest pain or palpitations Resp: Reports: dyspnea and productive cough GI: Denies: abdominal pain, nausea or vomiting : Denies: flank pain Musc: Denies: extremity pain or extremity swelling Skin/Breast: Denies: rash or pruritus Neuro: Denies: headache(s) Psych: Denies: anxiety or depression Kevin/Lymph: Denies: easy bleeding All/Imm: Denies: urticaria, throat swelling or facial swelling PFSH ED 2 PFSH: Medical History Acute kidney injury superimposed on chronic kidney disease Fall CKD (chronic kidney disease) No significant past medical history Social History Smoking and tobacco/nicotine status: former use of tobacco/nicotine Physical Exam 2 Const: COMMON NORMALS: patient oriented x3 and healthy appearing; apparent distress (Mild to moderate respiratory distress hypoxia on exam with O2 sats in the 8) HENMT: COMMON NORMALS: normocephalic and atraumatic HEAD & SCALP: n ormocephalic and atraumatic Eye: COMMON NORMALS: Equal, round and reactive pupils present and EOMs intact bilaterally PUPIL: Yes Equal, round and reactive pupils present Neck/C-Spine: COMMON NORMALS: full ROM, supple and no JVD Lymph: LYMPHATIC: no lymphadenopathy noted Chest: COMMONS NORMALS: normal inspection of the chest and normal palpation of entire chest wall Resp: COMMON NORMALS: negative for normal respiratory effort (Respiratory splinting with tachypnea apparent diminished breath sounds bila) and negative for clear to auscultation bilaterally (Diminished breath sounds appreciated bilaterally no obvious wheezing crackl) EFFORT & INSPECTION: Yes able to speak in complete sentences and Yes symmetric chest movement AUSCULTATION: n ot clear to auscultation bilaterally (Diminished breath sounds appreciated bilaterally no obvious wheezing crackl) Cardio: COMMON NORMALS: no JVD, regular rate and regular rhythm RATE: r egular rate RHYTHM: regular rhythm GI: COMMON NORMALS: Normal to inspection, nondistended, normoactive bowel sounds present, Soft to palpation and non-tender INSPECTION: Yes normal to inspection PALPATION: Yes Soft to palpation : COMMON NORMALS: Yes no CVA tenderness BLADDER/KIDNEY EXAM: Yes no CVA tenderness Back/Pelvis: COMMON NORMALS: no CVA tenderness Extremity: COMMON NORMALS: normal to inspection and full ROM Neuro: COMMON NORMALS: patient oriented x3, CN's II-XII intact bilaterally, moves all extremities and no focal motor deficits Psych: COMMON NORMALS: mental status grossly normal, Normal thought process present, cooperative and normal affect THOUGHT PROCESS: Normal thought process present Skin: COMMON NORMALS: no rashes or lesions noted GENERAL SKIN EXAM: no rashes or lesions noted Course 2 Vital Signs: Vital signs: Vital Signs Temperature 98.0 F 09/06/24 17:02 Pulse Rate 95 09/06/24 21:30 Respiratory Rate 36 H 09/06/24 21:30 Blood Pressure 166/89 09/06/24 21:30 Pulse Oximetry 97 09/06/24 21:30 Oxygen Delivery Me thod Nasal Cannula 09/06/24 20:22 Oxygen Flow Rate 4 09/06/24 20:22 MDM - SOB/Dyspnea Medical Decision Making Due to patient's symptoms and condition to get medical records from [facility] as there is several conflicting stories including rib fractures and pelvic fractures patient) at present with a binder noted to the chest upon looking over Dr. Adams's notes as well as imaging I do not see any obvious rib fractures or any obvious trauma noted patient was found to have an ovarian mass with heterogeneous bleeding fluid suggestive of blood noted in the abdomen of the patient's brother did arrive to the ER that provided us additional information about the patient apparently the patient was not found to have any obvious intrathoracic injury which patient allegedly had to fall 2 days before coming to the ER and watched there was some bleeding noted to the right side of the abdomen in which the patient was given several units of blood however due to the patient's advanced age as well as low ejection fraction it was noted that the patient would not be a surgical candidate due to the high risk of mortality associated patient was given a blood reversal product while at [facility] when she was observed in which also required a couple more units of blood. Per the family patient has not had any recent fall or trauma to the awareness at the skilled nursing they are unaware why the patient's binder is on the chest currently. Will continue to follow. Underlying concerns through the patient's hypoxia as the ABG is suggestive of a mismatch as the pH is 7.495 [id number] PO2 53.4 on on his concerns of potential pulmonary embolism especially with remote cancer history I will continue to follow. Patient was found to be quite stable but appears to be fluid overloaded with heart failure with moderate-sized bilateral pleural effusions patient has required 4 L nasal cannula maintain saturations in the low to mid 90s I did discuss patient's case with Dr. Upton recommends CT abdomen pelvis with IV contrast and watch if it reveals stability of the patient's intra-abdominal bleed that we can admit the patient to the CCU for heart failure with no additional intervention at this time patient's hemoglobin is improved from before with no obvious signs suggestive of bleeding I will continue to follow this patient will be signed out to my colleague Dr. Solis at 2200 in anticipation of admission pending CT abdomen pelvis results. Lab Data 09/06/24 17:10 09/06/24 17:10 Labs/Radiology: Radiology Impressions Chest X-Ray 09/06/24 17:12 IMPRESSION: Stable chest Chest CTA 09/06/24 18:37 IMPRESSION: 1. No acute pulmonary embolism. 2. Moderate bilateral pleural effusions with loculation seen along the left fissure and extending through to the left lung apex. 3. Patchy multifocal ground-glass opacities are nonspecific but may represent infectious or inflammatory etiology. 4. Coronary artery calcifications. 5. Multiple prominent mediastinal lymph nodes may be reactive in etiology. 6. Cardiomegaly. COMMENTS: The presence of pulmonary emphysema on CT is an independent risk factor for lung cancer. In the absence of a history or active diagnosis of lung cancer, it is recommended that this patient with emphysema be evaluated for enrollment in a low dose CT lung cancer screening program. Laboratory Results WBC 13.10 10^3/uL (3.29-11.43) H 09/06/24 17:10 RBC 2.84 10^6/uL (3.85-5.65) L 09/06/24 17:10 Hgb 8.60 g/dL (11.27-16.99) L 09/06/24 17:10 Hct 27.7 % (36-47) L 09/06/24 17:10 MCV 97.5 fl (85-98) 09/06/24 17:10 MCH 30.3 pg (27-33) 09/06/24 17:10 MCHC 31.0 g/dL (30-55) 09/06/24 17:10 RDW 20.1 % (12.1-15.1) H 09/06/24 17:10 Plt Count 157 10^3/cmm (157-399) 09/06/24 17:10 MPV 11.4 fL (7.4-10.4) H 09/06/24 17:10 Neut % (Auto) 83.8 % 09/06/24 17:10 Lymph % (Auto) 6.2 % 09/06/24 17:10 [place] % (Auto) 8.9 % 09/06/24 17:10 Eos % (Auto) 0.0 % 09/06/24 17:10 Baso % (Auto) 0.2 % 09/06/24 17:10 Neut # (Auto) 10.98 10^3/uL (1.8-7.7) H 09/06/24 17:10 Lymph # (Auto) 0.8 10^3/uL (0.8-4.8) 09/06/24 17:10 [place] # (Auto) 1.2 10^3/uL (0.2-0.9) H 09/06/24 17:10 Eos # (Auto) 0.0 10^3/uL (0.0-0.8) 09/06/24 17:10 Baso # (Auto) 0.0 10^3/uL (0.0-0.1) 09/06/24 17:10 Nucleated RBC % (auto) 0.5 % 09/06/24 17:10 Nucleated RBCs # 0.1 /100WBC 09/06/24 17:10 ESR 32 mm/hr (0-15) H 09/06/24 17:10 Specimen Type Arterial 09/06/24 17:12 Sample Site Brachial, left 09/06/24 17:12 ABG pH 7.50 (7.35-7.45) H 09/06/24 17:12 ABG pCO2 34.0 mmHg (35-45) L 09/06/24 17:12 ABG pO2 53.4 mmHg (80.0-100.0) L 09/06/24 17:12 ABG PO2/FiO2 Ratio 148 09/06/24 17:12 ABG HCO3 26.2 mmol/L (22-26) H 09/06/24 17:12 ABG Base Excess 2.9 mmol/L (-2.0-2.0) H 09/06/24 17:12 Wm Test N/a 09/06/24 17:12 Hematocrit 26.4 % (37-47) L 09/06/24 17:12 O2 Delivery Device Nc 09/06/24 17:12 O2 Liters/Min 4.0 % 09/06/24 17:12 FiO2 36.0 % 09/06/24 17:12 Cert Occupational Therapy Asst ID [facility] 09/06/24 17:12 Sodium 135 mmol/L (136-145) L 09/06/24 17:10 Potassium 4.9 mmol/L (3.5-5.1) 09/06/24 17:10 Chloride 97 mmol/L (98-107) L 09/06/24 17:10 Carbon Dioxide 21 mmol/L (22-29) L 09/06/24 17:10 Anion Gap 21.9 (5-19) H 09/06/24 17:10 BUN 23 mg/dL (8-23) 09/06/24 17:10 Creatinine 0.7 mg/dL (0.5-0.9) 09/06/24 17:10 GFR Calculation Not Reportable 09/06/24 17:10 Glucose 108 mg/dL (65-115) 09/06/24 17:10 Calculated Osmolality 284 mOsm/kg (285-295) L 09/06/24 17:10 Lactic Acid 2.2 mmol/L (0.5-2.2) 09/06/24 17:10 Lactic Acid (Sepsis) 2.1 mmol/L (0.5-2.2) 09/06/24 19:35 Calcium 8.5 mg/dL (8.5-10.5) 09/06/24 17:10 Total Bilirubin 2.6 mg/dL (0.15-1.2) H 09/06/24 17:10 AST 37 U/L (0-32) H 09/06/24 17:10 ALT 54 U/L (0-33) H 09/06/24 17:10 Alkaline Phosphatase 100 U/L (35-105) 09/06/24 17:10 Troponin T Baseline 75 ng/L (0-10) H 09/06/24 17:10 Troponin T 120 Minute 78.85 ng/L (0-10) H 09/06/24 18:41 Delta Troponin T 3.85 ABS# (0-10) 09/06/24 18:41 C-Reactive Protein 219.3 mg/L (0.0-4.9) H 09/06/24 17:10 NT-Pro-B Natriuret Pep 51027 pg/mL (0-125) H 09/06/24 17:10 Total Protein 6.5 g/dL (6.6-8.7) L 09/06/24 17:10 Albumin 3.3 g/dL (3.5-5.2) L 09/06/24 17:10 Globulin 3.2 g/dL (1.3-4.6) 09/06/24 17:10 Procalcitonin 0.54 ng/mL (0-0.5) H 09/06/24 17:10 Adenovirus (PCR) Not detected (NOT DETECT) 09/06/24 17:48 C. pneumoniae DNA (PCR) Not detected (NOT DETECT) 09/06/24 17:48 Coronavirus 229E (PCR) Not detected (NOT DETECT) 09/06/24 17:48 Human Metapneumovir PCR Not detected (NOT DETECT) 09/06/24 17:48 Influenza A (H1) PCR Not detected (NOT DETECT) 09/06/24 17:48 Influ A (H1/09) PCR Not detected (NOT DETECT) 09/06/24 17:48 Influenza A (H3) PCR Not detected (NOT DETECT) 09/06/24 17:48 Influenza Type A (PCR) Not detected (NOT DETECT) 09/06/24 17:48 Influenza Type B (PCR) Not detected (NOT DETECT) 09/06/24 17:48 M. pneumoniae (PCR) Not detected (NOT DETECT) 09/06/24 17:48 Parainfluenza 1 (PCR) Not detected (NOT DETECT) 09/06/24 17:48 Parainfluenza 2 (PCR) Not detected (NOT DETECT) 09/06/24 17:48 Parainfluenza 3 (PCR) Not detected (NOT DETECT) 09/06/24 17:48 Parainfluenza 4 (PCR) Not detected (NOT DETECT) 09/06/24 17:48 RSV Type A (PCR) Not detected (NOT DETECT) 09/06/24 17:48 RSV Type B (PCR) Not detected (NOT DETECT) 09/06/24 17:48 Entero/Rhino (PCR) Not detected (NOT DETECT) 09/06/24 17:48 SARS-CoV-2 (PCR) Not detected (NOT DETECT) 09/06/24 17:48 All radiology interpretation(s) finalized by discharge Discharge Plan Discharge Patient Disposition: Admitted As Inpatient Admit Provider: Asher Mathis Clinical Impression: Acute exacerbation of CHF (congestive heart failure), Elevated troponin, Bilateral pleural effusion Condition: Stable Coding Level of Care Code ED Customer Support Engineer for Tayler Lafleur
--- NOTE | 2024-09-06 17:43 | ECG_ITS ---
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 Measurements Intervals [place] Rate: 97 P: 142 MS: 163 QRS: -14 QRSD: 99 T: 150 QT: 361 QTc: 459 Interpretive Statements SINUS RHYTHM WITH OCCASIONAL VENTRICULAR PREMATURE COMPLEXES POSSIBLE ANTERIOR MYOCARDIAL INFARCTION , PROBABLY OLD [30 ms Q WAVE IN V3/V4, OR R < 0.2 mV IN V4] Compared to ECG 08/31/2024 16:23:37 Ventricular premature complex(es) now present Electronically Signed On 09-07-2024 09:58:54 CDT by Tonio Jean-Baptiste M.D. [email or web address] [id number]
[2024-09-06 17:48] LABS: Lactic Sepsis W/Reflex 2.2 mmol/L (0.5-2.2); Troponin(5th) Baseline 75 ng/L (0-10)
[2024-09-06 17:50] LABS: Reflex Lactate Order REFLEX LACTIC ORDERD
[2024-09-06 17:56] LABS: Alanine Aminotransferase 54 U/L (0-33); Albumin Level 3.3 g/dL (3.5-5.2); Alkaline Phosphatase 100 U/L (35-105); Anion Gap 21.9 (5-19); Blood Urea Nitrogen 23 mg/dL (8-23); Calcium 8.5 mg/dL (8.5-10.5); Carbon Dioxide 21 mmol/L (22-29); Chloride 97 mmol/L (98-107); Creatinine Clr Calc Pharmacy 65.6369; Globulin 3.2 g/dL (1.3-4.6); Glucose 108 mg/dL (65-115); Osmolality Calculated 284 mOsm/kg (285-295); Potassium 4.9 mmol/L (3.5-5.1); Sodium 135 mmol/L (136-145); Total Bilirubin 2.6 mg/dL (0.15-1.2); Total Protein 6.5 g/dL (6.6-8.7)
[2024-09-06 17:57] LABS: Aspartate Amino Transferase 37 U/L (0-32)
[2024-09-06 18:17] LABS: NT Pro B Type Natriuretic Pept 62190 pg/mL (0-125)
--- NOTE | 2024-09-06 18:37 | CTR_ITS ---
PROCEDURE INFORMATION: Exam: CTA Chest With Contrast Exam date and time: 09/06/2024 6:49 PM Age: 73 years old Clinical indication: Dyspnea and shortness of breath; Dyspnea with SOB and hypoxia. Patient anticoagulated from recent outside hospitalization due to internal abdominal hemorrhage from a trauma. TECHNIQUE: Imaging protocol: Computed tomographic angiography of the chest with contrast. Exam focused on the arteries. 3D rendering (Not supervised by radiologist): MIP and/or 3D reconstructed images were created by the technologist. Radiation optimization: All CT scans at this facility use at least one of these dose optimization techniques: automated exposure control; mA and/or kV adjustment per patient size (includes targeted exams where dose is matched to clinical indication); or iterative reconstruction. Contrast material: OMNI 350; Contrast volume: 80 ml; Contrast route: INTRAVENOUS (IV); COMPARISON: CT angio chest PE protcl [id number] 06/27/2024 2:07 PM RADIATION DOSE METRICS: Total DLP (mGy-cm): 505.73 FINDINGS: Pulmonary arteries: The main pulmonary artery is dilated measuring up to 3.5 cm. Nonspecific but can be seen in the setting of pulmonary arterial hypertension. No pulmonary emboli. Aorta: Atherosclerosis of the aortic arch and descending thoracic aorta. Aortic valvular calcifications. No aortic aneurysm. No aortic dissection. Lungs: Emphysema noted predominantly at the lung apices bilaterally. Scattered patchy focal ground-glass opacities in the periphery. Multifocal bronchial wall thickening. Pleural spaces: Moderate right pleural effusion with overlying compressive atelectasis. Moderate left pleural effusion with loculation extending along the left fissure and up to the left lung apex. Heart: Mild cardiomegaly. Trace pericardial effusion. Left ventriculomegaly. Coronary arteries: Moderate coronary artery calcifications. Stent likely seen within the right coronary artery. Lymph nodes: Multiple scattered prominent mediastinal lymph nodes largest of which is in 11 mm AP window lymph node. Liver: Multiple scattered calcified granulomas in the liver and spleen. Cirrhotic morphology of the liver. Gallbladder and biliary ducts: Status post cholecystectomy. Intraperitoneal space: Upper abdominal ascites is visualized. Bones/joints: Mild multilevel degenerative changes of the thoracic spine. Soft tissues: Moderate soft tissue anasarca. CT/CT angio chest PE protcl [id number] IMPRESSION: 1. No acute pulmonary embolism. 2. Moderate bilateral pleural effusions with loculation seen along the left fissure and extending through to the left lung apex. 3. Patchy multifocal ground-glass opacities are nonspecific but may represent infectious or inflammatory etiology. 4. Coronary artery calcifications. 5. Multiple prominent mediastinal lymph nodes may be reactive in etiology. 6. Cardiomegaly. COMMENTS: The presence of pulmonary emphysema on CT is an independent risk factor for lung cancer. In the absence of a history or active diagnosis of lung cancer, it is recommended that this patient with emphysema be evaluated for enrollment in a low dose CT lung cancer screening program.
[2024-09-06] MEDS: iohexol 350 mg/mL 500 mL Btl (per mL) IV ×2 (18:57→22:33)
[2024-09-06 19:06] LABS: Troponin 5 2HR 78.85 ng/L (0-10); Troponin 5 2HR Delta 3.85 ABS# (0-10)
[2024-09-06 19:43] LABS: Adenovirus Not Detected (NOT DETECT); Chlamydia Pneumoniae Not Detected (NOT DETECT); Coronavirus 229E,HKU1,NL63,OC4 Not Detected (NOT DETECT); Human Metapneumovirus Not Detected (NOT DETECT); Human Rhinovirus/Enterovirus Not Detected (NOT DETECT); Influenza A Not Detected (NOT DETECT); Influenza A H1 Not Detected (NOT DETECT); Influenza A H1-2009 Not Detected (NOT DETECT); Influenza A H3 Not Detected (NOT DETECT); Influenza B Not Detected (NOT DETECT); Mycoplasma Pneumoniae Not Detected (NOT DETECT); Parainfluenza Virus Type 1 Not Detected (NOT DETECT); Parainfluenza Virus Type 2 Not Detected (NOT DETECT); Parainfluenza Virus Type 3 Not Detected (NOT DETECT); Parainfluenza Virus Type 4 Not Detected (NOT DETECT); Respiratory Syncytial Virus A Not Detected (NOT DETECT); Respiratory Syncytial Virus B Not Detected (NOT DETECT); SARS-COV-2 Not Detected (NOT DETECT)
[2024-09-06 19:59] LABS: Lactic Acid level (Lactate) 2.1 mmol/L (0.5-2.2)
[2024-09-06] MEDS: FUROsemide 10 mg/mL SDV 10mL 60 MG IVP (20:17)
--- NOTE | 2024-09-06 20:51 | CTR_ITS ---
PROCEDURE INFORMATION: Exam: CT Abdomen And Pelvis With Contrast Exam date and time: 09/06/2024 10:28 PM Age: 73 years old Clinical indication: Other: Recent abd trauma with hemorrhage; Prior surgery; Surgery date: 6+ months; Surgery type: Hysterectomy; Patient sustained an abdominal trauma on 08/31/2024 resulting in RT sided intraabdominal hemorrhage/hematoma. ; Additional info: Recent abdominal trauma/ hemmorhage with re eval TECHNIQUE: Imaging protocol: Computed tomography of the abdomen and pelvis with contrast. Radiation optimization: All CT scans at this facility use at least one of these dose optimization techniques: automated exposure control; mA and/or kV adjustment per patient size (includes targeted exams where dose is matched to clinical indication); or iterative reconstruction. Contrast material: OMNI 350; Contrast volume: 100 ml; Contrast route: INTRAVENOUS (IV); COMPARISON: [place] [id number] 08/31/2024 3:41 PM RADIATION DOSE METRICS: Total DLP (mGy-cm): 1175.29 FINDINGS: Pleural spaces: Mild bilateral pleural effusions. Liver: The liver is cirrhotic. Gallbladder and biliary ducts: The gallbladder is surgically absent. Pancreas: Normal. No ductal dilation. Spleen: Normal. No splenomegaly. Adrenal glands: Normal. No mass. Kidneys and ureters: The upper and mid left kidney are atrophic with scarring. Stomach and bowel: Fecal stasis. No inflammatory change identified involving the GI tract. There is a large amount of stool within the ascending colon and transverse colon. Appendix: No evidence of appendicitis. Intraperitoneal space: There is a known large hematoma in the right abdomen tracking along the right paracolic gutter measuring 8.2 x 17.8 x 20.1 cm. There is a mild to moderate amount of hemoperitoneum within the abdomen and pelvis, likely stable. Vasculature: Extensive calcific plaque involves the abdominal aorta and iliac arteries. Lymph nodes: Unremarkable. No enlarged lymph nodes. Urinary bladder: Unremarkable as visualized. Reproductive: Unremarkable as visualized. Bones/joints: Unremarkable. No acute fracture. Soft tissues: Diffuse anasarca. Overall, this hematoma is likely stable to slightly decreased in size since reference study. CT/CT abdomen pelvis w con* [id number] IMPRESSION: 1. Known right lateral abdominal hematoma slightly decreased in size when compared to reference study. There is a [id number] amount of hemoperitoneum within the abdomen and pelvis that is likely stable. 2. Hepatic cirrhosis. 3. Severe atherosclerosis. 4. Diffuse anasarca. 5. Mild bilateral pleural effusions. 6. Moderate fecal stasis.
--- NOTE | 2024-09-06 21:01 | PM.HP ---
Providers/Chief Complaint Primary Care Provider: Param Dobson MD Chief Complaint: shortness of breath History of Present Illness Kaylee Kay is a 73 year old female with a past medical history of acute on chronic respiratory failure, debility and physical deconditioning, ischemic cardiomyopathy, CAD, CKD, hypertension, GERD, recent hospitalization at [facility] for intra-abdominal bleed, found to have a 28 x 18 x 11 cm heterogeneous mass concerning for intra-abdominal hematoma, at [facility] patient tells me that all she received was blood, but no other surgical intervention, conservatively managed. [facility], she has developed increased shortness of breath, bilateral lower extremity edema, anasarca, reports a cough, no fevers, no chills, no nausea, no vomiting. Does report abdominal pain, no bloody or black stools reported. Denies any lightheadedness, dizziness she has been bedbound at the half-way, Review of Systems Const: Reports: fatigue and malaise Card: Denies: chest pain Resp: Reports: dyspnea GI: Reports: abdominal pain : Denies: flank pain Neuro: Denies: headache(s) Medications/Allergies Home Medications ?Medication ?Instructions ?Recorded ?Confirmed ?Last Taken ?Type aspirin 81 mg tablet,delayed 81 mg PO DAILY #30 tabs 07/05/24 08/31/24 08/25/24 Rx release pantoprazole 40 mg tablet,delayed 40 mg PO DAILY #30 tabs 07/05/24 08/31/24 08/25/24 Rx release atorvastatin 40 mg tablet 40 mg PO BEDTIME #90 tabs 07/23/24 08/31/24 08/24/24 Rx carvedilol 3.125 mg tablet 3.125 mg PO BID #180 tabs 07/23/24 08/31/24 08/25/24 Rx clopidogrel 75 mg tablet 75 mg PO DAILY #90 tabs 07/23/24 08/31/24 08/25/24 Rx potassium chloride 10 mEq 10 meq PO DAILY #90 caps 07/23/24 08/31/24 08/25/24 Rx capsule,extended release amitriptyline 100 mg tablet 100 mg PO BEDTIME 08/26/24 08/31/24 08/24/24 History cefdinir 300 mg capsule 300 mg PO BID 10 days #20 caps 08/30/24 08/31/24 Unknown Rx doxycycline monohydrate 100 mg 100 mg PO BID 10 days #20 tabs 08/30/24 08/31/24 Unknown Rx tablet furosemide 40 mg tablet (Lasix) 40 mg PO BIDAC 30 days #60 tabs 08/30/24 08/31/24 08/25/24 Rx ipratropium 0.5 mg-albuterol 3 mg 3 ml inhalation Q6H.RESP 30 days 08/30/24 08/31/24 Unknown Rx (2.5 mg base)/3 mL nebulization #540 mL soln sennosides 8.6 mg-docusate sodium 1 tab PO DAILY #30 tabs 08/30/24 08/31/24 Unknown Rx 50 mg tablet (Stool Softener-Laxative) Allergies Allergy/AdvReac Type Severity Reaction Status Date / Time ciprofloxacin (From Cipro) Allergy ALGY-Hives Verified 07/23/24 15:55 coconut Allergy ALGY-Hives Verified 07/23/24 15:55 pregabalin (From Lyrica) Allergy ALGY-Hives Verified 07/23/24 15:55 PFSH Acute PFSH: Medical History Acute kidney injury superimposed on chronic kidney disease Fall CKD (chronic kidney disease) No significant past medical history Social History Smoking and tobacco/nicotine status: former use of tobacco/nicotine Vitals/I&O/Wt Last Vital Signs Temp 98.0 F 09/06/24 17:02 Pulse 93 09/06/24 20:22 Resp 31 H 09/06/24 20:22 BP 146/104 09/06/24 20:22 Pulse Ox 94 09/06/24 20:22 O2 Del Method Nasal Cannula 09/06/24 20:22 O2 Flow Rate 4 09/06/24 20:22 Weight last 48 hrs Weight 83.915 kg Physical Exam Const: COMMON NORMALS: no acute distress and patient oriented x3 GENERAL APPEARANCE: ill appearing HENMT: COMMON NORMALS: normocephalic HEAD & SCALP: normocephalic Eye: COMMON NORMALS: Equal, round and reactive pupils present and EOMs intact bilaterally Neck/C-Spine: COMMON NORMALS: no JVD Resp: COMMON NORMALS: normal respiratory effort, No retractions and No use of accessory muscles OTHER: Crackles in all lung ahmadi Cardio: COMMON NORMALS: regular rate, regular rhythm, S1 normal heart sound present and S2 normal heart sound present RATE: regular rate RHYTHM: regular rhythm HEART SOUNDS: S1 normal heart sound present and S2 normal heart sound present GI: OTHER: Abdomen soft, distended, no guarding, no rebound, rigidity, does have diffuse tenderness, generalized anasarca has multiple areas of abdominal hematoma Neuro: COMMON NORMALS: patient oriented x3 Psych: COMMON NORMALS: mental status grossly normal Skin: NARRATIVE SKIN EXAM: Multiple superficial DTI's - Over bilateral heels, stage I bilaterally - Left groin, has a DTI Sepsis: Is patient septic: No Focused sepsis exam performed: Yes Focused sepsis exam: DP PT pulses palpable, cap refill less than 2 seconds, no mottling Date exam was performed: 09/06/24 Time exam was performed: 20:00 Data 09/06/24 17:10 09/06/24 17:10 A&P Assessment and plan (1) Acute exacerbation of CHF (congestive heart failure): Qualifiers: Heart failure type: systolic Qualified Code(s): I50.23 - Acute on chronic systolic (congestive) heart failure (2) Pneumonia: (3) Acute anemia: (4) Acute hypoxic respiratory failure: (5) Intra-abdominal hematoma: Plan Acute hypoxic respiratory failure - Secondary to systolic and diastolic CHF exacerbation - Fluid overload, anasarca -Component of pneumonia given CT chest findings, concern for healthcare associated pneumonia CT/CT angio chest PE protcl [id number] IMPRESSION: 1. No acute pulmonary embolism. 2. Moderate bilateral pleural effusions with loculation seen along the left fissure and extending through to the left lung apex. 3. Patchy multifocal ground-glass opacities are nonspecific but may represent infectious or inflammatory etiology. 4. Coronary artery calcifications. 5. Multiple prominent mediastinal lymph nodes may be reactive in etiology. 6. Cardiomegaly. Plan - Monitor in ICU - Lasix 40 IV twice daily - Monitor creatinine, monitor urine output - Place Agrawal catheter - Monitor respiratory status closely - Start vancomycin - Zosyn - Sputum cultures - Blood cultures - CRP, Pro-Andrei - Patient is a DNR, but is agreeable to elective intubation if required - SCDs for DVT prophylaxis, Lovenox relatively contraindicated given recent history of intra-abdominal hematoma Intra-abdominal hematoma - According to patient she was conservatively managed at [facility], no embolectomy required, no surgical intervention, no drainage, received blood transfusions - Will repeat CT scan abdomen pelvis Hyperbilirubinemia, transaminitis - Monitor Acute anemia - Hemoglobin improved 8.6 - Monitor hemoglobin closely CODE STATUS PDMP PDMP Reviewed: Not Reviewed Attestations Medical Necessity Statement*: Patient requires hospitalization, inpatient, greater than 2 midnights for acute hypoxic respiratory failure secondary to fluid overload, CHF, concern for healthcare associated pneumonia Diagnoses Acute exacerbation of CHF (congestive heart failure) I50.23 Heart failure type: systolic Pneumonia J18.9 Acute anemia D64.9 Acute hypoxic respiratory failure J96.01 Intra-abdominal hematoma
[2024-09-06 21:23] LABS: Erythrocyte Sedimentation Rate 32 mm/hr (0-15)
[2024-09-06 21:37] LABS: C Reactive Protein 219.3 mg/L (0.0-4.9)
[2024-09-06 21:45] LABS: Procalcitonin 0.54 ng/mL (0-0.5)
[2024-09-06 23:54] LABS: Bilirubin Urine Negative (Negative); Blood Urine Negative (Negative); Glucose Urine UA Negative (Normal); Ketones Urine Negative (Negative); Leukocyte Esterase Urine Negative (Negative); Nitrate Urine Negative (Negative); Protein Urine Negative (Negative); Specific Gravity, Urine 1.024 (1.005-1.030); Urine Appearance Clear (CLEAR); Urine Color Yellow (Yellow); pH Urine 5.5 (5-7)
[2024-09-06 23:56] LABS: Add Urine Microscopic? YES; Bacteria Urine None Seen /hpf; Hyaline Casts Urine 2.46 /lpf; RBC Urine 0-2 /hpf (0-2); Squamous Epithelial Cell Urine 0-5 /hpf (0-5); Universal Test for UA Present (0); WBC Urine 0-5 /hpf (0-5)
[2024-09-06 23:59] LABS: Thyroid Stimulating Hormone 8.52 uIU/mL (0.27-4.20)
[2024-09-07] VITALS (83 sets, daily range): BP systolic 109–154; BP diastolic 25–94; PULSE 63–90; RESP 14–29; TEMP 35.9–36.8; O2SAT 89–100
[2024-09-07] MEDS: pantoprazole 40 mg SDV IVP ×2 (00:02→23:24)
[2024-09-07] MEDS: morphine 4 mg/mL SDV 1 mL 2 MG IVP (00:05)
[2024-09-07 00:08] LABS: Add Urine Culture? Yes
[2024-09-07] MEDS: piperacillin-tazobactam 3.375 GM in sodium chloride 0.9% (plus) 50 ML IV ×3 (01:06→17:10)
[2024-09-07] MEDS: vancomycin 1,750 MG/350 ML PIGGYBACK 175 MG IV (01:06)
[2024-09-07] MEDS: FUROsemide 10 mg/mL SDV 4mL 40 MG IVP ×2 (03:39→15:34)
[2024-09-07 04:45] LABS: Basophils % 0.2 %; Lymphocytes # 0.9 10^3/uL (0.8-4.8); Lymphocytes % 8.4 %; Mean Corpuscular HGB Conc 31.1 g/dL (30-55); Mean Corpuscular Hemoglobin 30.8 pg (27-33); Mean Corpuscular Volume 98.9 fl (85-98); Mean Platelet Volume 10.9 fL (7.4-10.4); Monocytes # 1.1 10^3/uL (0.2-0.9); Neutrophils # 8.27 10^3/uL (1.8-7.7); Neutrophils % 79.5 %; Nucleated Red Blood Cells % 0.3 %; Platelet Count 185 10^3/cmm (157-399); Red Blood Count 2.73 10^6/uL (3.85-5.65); Red Cell Distribution Width 20.6 % (12.1-15.1); White Blood Count 10.39 10^3/uL (3.29-11.43)
[2024-09-07 05:07] LABS: Alanine Aminotransferase 48 U/L (0-33); Albumin Level 3.3 g/dL (3.5-5.2); Alkaline Phosphatase 93 U/L (35-105); Anion Gap 18.2 (5-19); Aspartate Amino Transferase 33 U/L (0-32); Blood Urea Nitrogen 23 mg/dL (8-23); Calcium 8.5 mg/dL (8.5-10.5); Carbon Dioxide 25 mmol/L (22-29); Chloride 97 mmol/L (98-107); Creatinine Clr Calc Pharmacy 79.3147; Glucose 87 mg/dL (65-115); Magnesium 1.8 mg/dL (1.7-2.3); Osmolality Calculated 285 mOsm/kg (285-295); Potassium 4.2 mmol/L (3.5-5.1); Sodium 136 mmol/L (136-145); Total Bilirubin 2.6 mg/dL (0.15-1.2); Total Protein 6.3 g/dL (6.6-8.7)
[2024-09-07 05:31] LABS: NT Pro B Type Natriuretic Pept 57053 pg/mL (0-125)
--- NOTE | 2024-09-07 07:40 | PC.PHAR ---
Pt is now at [facility]. Pt has several medications that are not on her [facility] list but her nurse states she hasn't been there long enough to be evaluated by their provider. I did not remove them from her chart, just placed them on hold. They are: Aspirin 81mg daily, Atorvastatin 40mg at hs, Cefdinir 300mg bid, Doxycycline Monohydrate 100mg bid, and Clopidogrel 75mg daily.
[2024-09-07] MEDS: ipratropium-albuterol 3 mL Neb INHALATION ×4 (07:45→19:52)
[2024-09-07] MEDS: carvedilol 3.125 mg Tablet PO ×2 (09:52→17:10)
--- NOTE | 2024-09-07 10:27 | P.PN_ITS ---
Subjective 2 Subjective: Overnight labs and H&P reviewed. Patient is a 73-year-old lady who first presented to medical attention in June 2024. She had presented to our hospital with chief complaints of increasing dyspnea and lower extremity swelling. She was found to have ischemic cardiomyopathy with an ejection fraction of only 24%. She was diagnosed with acute systolic heart failure as there was no prior history of the same. She underwent coronary angiogram and received a stent into the right RCA at that time. Thereafter medications were optimized, LifeVest was arranged and patient was discharged to home. She was on dual antiplatelet therapy as appropriate with aspirin and Plavix. She is typically on 4 L/min supplemental O2. On August 25, 2024 she was admitted here for acute on chronic hypoxic respiratory failure and treated for acute on chronic systolic heart failure exacerbation and right lower extremity cellulitis. Then she discharged to [facility] on August 30, 2024. On August 31, 2024 she presented back into the emergency room with right sided abdominal bleeding. Her hemoglobin was noted to be only at 5.6. CT of the abdomen and pelvis showed a large volume hemoperitoneum measuring 20.7 x 18 x 11 cm consistent with a large extraperitoneal hematoma. She was hypotensive with blood pressure of only 60 systolic. She was transferred via air ambulance urgently to [facility] in view of ongoing bleeding. She received Tranax, 3 unit packed red blood cell, 2 units FFP prior to transfer and on way to the facility. CT of the abdomen and pelvis also noted hepatic cirrhosis, which has previously been presumed to be a result of CHF. There was a question if the bleeding may be ovarian in origin as heterogeneous mass was noted originating from the right adnexa into the upper abdomen concerning for an ovarian neoplasm. Review of her discharge summary from [facility], it appears Case was discussed with Dr. Goddard from gynecology there and there was no confirmation of whether there was an ovarian mass or not. Eventually patient did not undergo any intervention as she was not considered to be a good and did not date to undergo major surgery given her major heart failure. She did not undergo any IR embolization as IR felt the location of bleed was not accessible via IR. Per review of notes from [facility], her aspirin and Plavix were discontinued in view of the large bleed. She was off DAPT between 08/31-09/05 and Discharge summary from September 05 notes to continue holding these medications for at least 1 more week. However per review of her H&P at [facility], it appears they were under the impression that stents were placed 12 months ago and not 2 months ago as is the actual case. She was discharged back to [facility] and I have confirmed with the nurse that aspirin and Plavix were on hold when she arrived back at the facility. She was sent back from [facility] overnight with worsening shortness of breath. CTA of the chest was negative for PE. Noted predominant emphysema. Bilateral pleural effusions with loculation along the left fissure and extending through to the left apex. This was present on CAT scans from early on in August as well. There are patchy multifocal groundglass opacities which may be nonspecific. Multiple prominent mediastinal lymph nodes. Per review of CT from August 31, 2024, calcified bilateral nodes were noted on the CT as well consistent with old granulomatous disease. She is currently admitted with presumptive diagnosis of systolic CHF exacerbation and worsening shortness of breath. She has chronic lower extremity swelling with stasis dermatitis bilaterally. Medications: Reviewed: Yes Vitals/I&O/Wt Last Vital Signs Temp 96.6 F L 09/07/24 07:30 Pulse 67 09/07/24 09:00 Resp 20 H 09/07/24 09:00 BP 147/66 09/07/24 09:00 Pulse Ox 100 09/07/24 09:00 O2 Del Method BiPAP 09/07/24 09:00 O2 Flow Rate 35 09/06/24 23:34 FiO2 30 09/07/24 07:49 09/06/24 09/07/24 09/07/24 22:59 06:59 14:59 Intake Total 400 / 400 Balance 400 / 400 Weight last 48 hrs Weight 118.388 kg Weight 118.5 kg Weight 83.915 kg Physical Exam 2 Narrative: General: No acute distress, AO x3, off bipap at this time. HEENT: PERRLA, pupils bilaterally equal and reactive, pallors not present Chest: Normal vesicular breath sounds, no added sounds, equal good air entry bilaterally CVS: S1-S2 regular, no murmurs, no tachycardia, no gallops, no rubs Abdomen: Soft, nontender, no organomegaly, bowel sounds present Neuro: No focal deficits, no facial deformity, AO x3, power 5/5 in all limbs Extremities:anasarca + Urinary Catheter Management: Agrawal Latex: Cath Placed During This Visit: yes Reason for Continuing Indwelling Catheter: Accurate Measurement of Urinary Output in Critically Ill Patients Urinary Catheter Date of Insertion: 09/06/24 Urinary Catheter Time of Insertion: 23:30 Data 09/07/24 04:08 09/07/24 04:08 Micro: Microbiology 09/06/24 23:47 Blood Culture - Preliminary Blood SPECIMEN COLLECTED 09/06/24 17:10 Blood Culture - Preliminary Blood SPECIMEN COLLECTED A&P Assessment and plan (1) Acute exacerbation of CHF (congestive heart failure): Qualifiers: Heart failure type: systolic Qualified Code(s): I50.23 - Acute on chronic systolic (congestive) heart failure (2) Pneumonia: (3) Acute anemia: (4) Acute hypoxic respiratory failure: (5) Intra-abdominal hematoma: Plan Acute hypoxic respiratory failure - Secondary to systolic and diastolic CHF exacerbation - Fluid overload, anasarca -Component of pneumonia given CT chest findings, concern for healthcare associated pneumonia CT/CT angio chest PE protcl [id number] IMPRESSION: 1. No acute pulmonary embolism. 2. Moderate bilateral pleural effusions with loculation seen along the left fissure and extending through to the left lung apex. 3. Patchy multifocal ground-glass opacities are nonspecific but may represent infectious or inflammatory etiology. 4. Coronary artery calcifications. 5. Multiple prominent mediastinal lymph nodes may be reactive in etiology. 6. Cardiomegaly. Plan - Monitor in ICU - Lasix 40 IV twice daily - Monitor creatinine, monitor urine output - Place Agrawal catheter - Monitor respiratory status closely - Start vancomycin - Zosyn - Sputum cultures - Blood cultures - CRP, Pro-Andrei - Patient is a DNR, but is agreeable to elective intubation if required - SCDs for DVT prophylaxis, Lovenox relatively contraindicated given recent history of intra-abdominal hematoma Intra-abdominal hematoma - According to patient she was conservatively managed at [facility], no embolectomy required, no surgical intervention, no drainage, received blood transfusions - Will repeat CT scan abdomen pelvis Hyperbilirubinemia, transaminitis - Monitor Acute anemia - Hemoglobin improved 8.6 - Monitor hemoglobin closely CODE STATUS September 07, 2024: Recent HPI as noted above. Discussed with patient the diffuclt situation that she is currently facing. On one hand, she underwent PCI 2 months ago with placement of stent to the RCA. Therefore it is important to continue antiplatelet therapy as her stent is at high risk of stensis off A/c. cardiology service was consulted and recommends starting Plavix 75mg po daily. ASA to remain on hold. On the other hand, with resumption of antiplatelet agents, she remains at high risk of worsening bleeding/worsening hematoma and any bleeding may potentially be fatal for her. She understands that neither is a good situation however after weighing all risks and benefits, she has decided to resume Plavix at this time with close Hb monitoring. Should she develop recurrent or worsening bleeding at that time which cannot be managed with transfusions alone, she will like to transition to comfort care measures only. Additionally she reiteriates her decision to not have CPR or be on a ventilator. She would not want any life prolonging measures. Her brother Mckay, son alondra are at bedside. Patient appoints her older brother Mckay to be her surrogate decison maker should she be in a place of being unable to make decisions. She is currently awake alert and oriented x 4. COnversation witnessed by lola's RN in ICU. Resume Plavix 75mg daily H&H check q12h continue Abx for now due to suspicion for cellulitis, however favor RLE erythema to be changes of stasis dermatitis, will likely d/c abx if infectious evaluation remains negative at 48 hrs continue diuresis with iv lasix 40mg q12h Bipap at night time and prn during day PDMP PDMP Reviewed: Not Reviewed Attestations 2 Medical Necessity Statement*: continued admission for iv diuresis, resume antiplatelet, closely monitor H&H Coding Level of Care Code Acute Code for [facility] Diagnoses Acute exacerbation of CHF (congestive heart failure) I50.23 Heart failure type: systolic Pneumonia J18.9 Acute anemia D64.9 Acute hypoxic respiratory failure J96.01 Intra-abdominal hematoma
[2024-09-07] MEDS: VANCOMYCIN ADD-Vantage 1,000 MG in 0.9% NaCl ADD-Vantage 250 ML 250 MG IV (13:51)
--- NOTE | 2024-09-07 14:19 | PM.CONSULT ---
Providers/Reason For Consult Consulting Physician/Specialty*: Internal medicine/hospitalist Reason for Consult*: Management of patient/recent angioplasty with RIDGE 2 months ago and abdominal bleed few weeks ago Requesting Physician: Dr. Winkler Attending Physician: Kenzie Winkler MD Primary Care Provider: Param Dobson MD History of Present Illness History of Present Illness Kaylee Kay is a 73 year old female with lot of comorbidities, currently [facility] resident now admitted with ongoing medical issues related to heart failure, recent abdominal bleed, volume overloaded, and worsening shortness of air. I reviewed in detail her current admission and admissions in the recent past. Patient underwent single-vessel angioplasty for ACS in June this year. However earlier this month she developed intra-abdominal bleed with likely underlying intra-abdominal /pelvic mass for which she was managed at [facility] in [place]. There was no active bleeding and it was plan to manage her conservatively. However she continued to deteriorate with overall decline of her general health. Currently no active angina. She does have a heart failure symptoms including shortness of air and overall increased volume status. The dual antiplatelets were discontinued 7 days ago after the finding of intra-abdominal bleed. However the workup did not reveal any active ongoing intra-abdominal bleed. Most likely she has some bleeding within the intra-abdominal mass of unclear etiology. Overall she is feeling very weak, tired and fatigued. Basically she is bedbound now. Review of Systems Narrative: Detailed 10 point systemic review unremarkable except for as mentioned above in the history of present illness. Medications/Allergies Home Medications ?Medication ?Instructions ?Recorded ?Confirmed ?Last Taken ?Type aspirin 81 mg tablet,delayed 81 mg PO DAILY #30 tabs 07/05/24 09/07/24 08/25/24 Rx release pantoprazole 40 mg tablet,delayed 40 mg PO DAILY #30 tabs 07/05/24 09/07/24 08/25/24 Rx release atorvastatin 40 mg tablet 40 mg PO BEDTIME #90 tabs 07/23/24 09/07/24 08/24/24 Rx carvedilol 3.125 mg tablet 3.125 mg PO BID #180 tabs 07/23/24 09/07/24 08/25/24 Rx clopidogrel 75 mg tablet 75 mg PO DAILY #90 tabs 07/23/24 09/07/24 08/25/24 Rx potassium chloride 10 mEq 10 meq PO DAILY #90 caps 07/23/24 09/07/24 08/25/24 Rx capsule,extended release amitriptyline 100 mg tablet 100 mg PO BEDTIME 08/26/24 09/07/24 08/24/24 History cefdinir 300 mg capsule 300 mg PO BID 10 days #20 caps 08/30/24 09/07/24 Unknown Rx doxycycline monohydrate 100 mg 100 mg PO BID 10 days #20 tabs 08/30/24 09/07/24 Unknown Rx tablet furosemide 40 mg tablet (Lasix) 40 mg PO BIDAC 30 days #60 tabs 08/30/24 09/07/24 08/25/24 Rx ipratropium 0.5 mg-albuterol 3 mg 3 ml inhalation Q6H.RESP 30 days 08/30/24 09/07/24 Unknown Rx (2.5 mg base)/3 mL nebulization #540 mL soln sennosides 8.6 mg-docusate sodium 1 tab PO DAILY #30 tabs 08/30/24 09/07/24 Unknown Rx 50 mg tablet (Stool Softener-Laxative) Allergies Allergy/AdvReac Type Severity Reaction Status Date / Time ciprofloxacin (From Cipro) Allergy ALGY-Hives Verified 07/23/24 15:55 coconut Allergy ALGY-Hives Verified 07/23/24 15:55 pregabalin (From Lyrica) Allergy ALGY-Hives Verified 07/23/24 15:55 Current Medications Generic Name Dose Route Start Last Admin Trade Name Freq PRN Reason Stop Dose Admin Albuterol/Ipratropium 3 ml 09/07/24 08:00 09/07/24 11:43 Ipratropium-Albuterol 3 Ml Neb INHALATION 3 ml QID.RESPIRATORY VETO Administration Carvedilol 3.125 mg 09/07/24 09:00 09/07/24 09:52 Carvedilol 3.125 Mg Tablet PO 3.125 mg BID VETO Administration Furosemide 40 mg 09/07/24 04:00 09/07/24 03:39 Furosemide 10 Mg/Ml Sdv 4ml IVP 40 mg Q12H VETO Administration Piperacillin Sod/Tazobactam 50 mls @ 12.5 mls/hr 09/07/24 02:00 09/07/24 13:58 Sod 3.375 gm/ Sodium Chloride IV Infused Q8H VETO Infusion Vancomycin HCl 1,000 mg/ 250 mls @ 250 mls/hr 09/07/24 13:00 09/07/24 13:51 Sodium Chloride IV 250 mls/hr Q12H VETO Administration Morphine Sulfate 2 mg 09/06/24 23:27 09/07/24 00:05 Morphine 4 Mg/Ml Sdv 1 Ml IVP 2 mg Q4H PRN Administration SEVERE PAIN Pantoprazole Sodium 40 mg 09/06/24 23:27 09/07/24 00:02 Pantoprazole 40 Mg Sdv IVP 40 mg Q24H VETO Administration PFSH Acute PFSH: Medical History Acute kidney injury superimposed on chronic kidney disease Fall CKD (chronic kidney disease) No significant past medical history Social History Smoking and tobacco/nicotine status: former use of tobacco/nicotine Vitals/I&O/Wt Last Vital Signs Temp 96.6 F L 09/07/24 07:30 Pulse 70 09/07/24 14:06 Resp 21 H 09/07/24 12:00 BP 139/75 09/07/24 12:00 Pulse Ox 94 09/07/24 12:00 O2 Del Method Nasal Cannula 09/07/24 12:00 O2 Flow Rate 4 09/07/24 12:00 FiO2 30 09/07/24 11:45 09/06/24 09/07/24 09/07/24 22:59 06:59 14:59 Intake Total 400 / 400 50 / 50 Balance 400 / 400 50 / 50 Weight last 48 hrs Weight 261 lb Weight 261 lb 3.964 oz Weight 185 lb Physical Exam Narrative: Const: OTHER: Patient laying comfortably in the bed. She does not appear to be in any respiratory distress. HENMT: OTHER: normocephalic HEAD & SCALP: Eye: OTHER: Equal, round and reactive pupils present and EOMs intact bilaterally Resp: OTHER: normal respiratory effort, No retractions and No use of accessory muscles Cardio: OTHER: regular rate, regular rhythm, S1 normal heart sound present and S2 normal heart sound present RATE: regular rate RHYTHM: regular rhythm HEART SOUNDS: S1 normal heart sound present and S2 normal heart sound present GI: OTHER: Abdomen soft, distended, no guarding, no rebound, rigidity, does have diffuse tenderness, generalized anasarca has multiple areas of abdominal Extremity: OTHER: Multiple superficial DTI's Neuro: OTHER: Grossly intact Skin: OTHER: Skin warm and dry Urinary Catheter Management: Agrawal Latex: Cath Placed During This Visit: yes Reason for Continuing Indwelling Catheter: Accurate Measurement of Urinary Output in Critically Ill Patients Urinary Catheter Date of Insertion: 09/06/24 Urinary Catheter Time of Insertion: 23:30 Data 09/07/24 04:08 09/07/24 04:08 Micro: Microbiology 09/06/24 23:47 Blood Culture - Preliminary Blood SPECIMEN COLLECTED 09/06/24 17:10 Blood Culture - Preliminary Blood SPECIMEN COLLECTED A&P Assessment and plan (1) Intra-abdominal hematoma: (2) Acute exacerbation of CHF (congestive heart failure): Qualifiers: Heart failure type: systolic Qualified Code(s): I50.23 - Acute on chronic systolic (congestive) heart failure (3) CAD (coronary artery disease): Plan 73-year-old female patient with multiple comorbidities now with a CHF exacerbation and management of her recent intra-abdominal bleed. Clinically patient is stable from cardiovascular point of view. Hemodynamically she is stable. However there is a moderate volume overload. Clinically no active angina. The recent intra-abdominal bleed, ? intra-abdominal mass, was managed conservatively At this point it appears there is no ongoing active intra-abdominal bleed her hemoglobin is stable. The DAPT were held more than 1 week ago due to intracranial bleed. However patient does have angioplasty with RIDGE in June this year. After reviewing the immediate past history management and current status I feel restarting of antiplatelets with a single agent, clopidogrel 75 mg once a day, would be quite reasonable. We cannot ignore the fact she had angioplasty with RIDGE at 2 months ago and she is still at the high risk of in-stent thrombosis without antiplatelets. We will observe her closely, clinically as well as daily hemoglobin assessment, to make sure there is no further bleeding. To continue her rest of medication including diuretics. PDMP PDMP Reviewed: Not Reviewed Coding Level of Care Code Critical Care >/= 30 minutes Diagnoses Intra-abdominal hematoma Acute exacerbation of CHF (congestive heart failure) I50.23 Heart failure type: systolic CAD (coronary artery disease) I25.10 Time Spent (min) 35
--- NOTE | 2024-09-07 14:47 | PC.NURSE ---
Dr. Winkler and this nurse present for goals of care discussed with patient, patients brother,Mckay and her son, Tawanda. Patient stated her brother Mckay is to make medical decisions for her if she is unable to.
--- NOTE | 2024-09-07 15:24 | PHA.VACGOAL ---
Vancomycin Goal - Goal Vancomycin Goal:: 15-20 mg/L Vancomycin Indication:: Pneumonia - Therapy Current therapy:: Pip/Tazo Day of therpy:: Day [1]of [] . Actual body weight (kg): 118.388 kg - Data Labs: WBC 10.39 10^3/uL (3.29-11.43) 09/07/24 04:08 RBC 2.73 10^6/uL (3.85-5.65) L 09/07/24 04:08 Hgb 8.40 g/dL (11.27-16.99) L 09/07/24 04:08 Hct 27.0 % (36-47) L 09/07/24 04:08 MCV 98.9 fl (85-98) H 09/07/24 04:08 MCH 30.8 pg (27-33) 09/07/24 04:08 MCHC 31.1 g/dL (30-55) 09/07/24 04:08 RDW 20.6 % (12.1-15.1) H 09/07/24 04:08 Sodium 136 mmol/L (136-145) 09/07/24 04:08 Potassium 4.2 mmol/L (3.5-5.1) 09/07/24 04:08 Chloride 97 mmol/L (98-107) L 09/07/24 04:08 Carbon Dioxide 25 mmol/L (22-29) 09/07/24 04:08 Anion Gap 18.2 (5-19) 09/07/24 04:08 BUN 23 mg/dL (8-23) 09/07/24 04:08 Creatinine 0.8 mg/dL (0.5-0.9) 09/07/24 04:08 GFR Calculation Not Reportable 09/07/24 04:08 Treatment plan:: new consult Regimen:: New start vancomycin for Pneumonia. Load dose of 1750 mg given last night @0100. Started on maintenance dose of 1000 mg q12h.
[2024-09-07] MEDS: clopidogrel 75 mg Tablet PO (21:07)
[2024-09-08] VITALS (32 sets, daily range): BP systolic 95–164; BP diastolic 42–99; PULSE 57–89; RESP 17–33; TEMP 36.6; O2SAT 4–95
[2024-09-08 05:18] LABS: Basophils % 0.2 %; Hematocrit 27.6 % (36-47); Lymphocytes # 0.8 10^3/uL (0.8-4.8); Lymphocytes % 6.6 %; Mean Corpuscular HGB Conc 30.4 g/dL (30-55); Mean Corpuscular Hemoglobin 30.4 pg (27-33); Mean Platelet Volume 10.5 fL (7.4-10.4); Monocytes # 1.2 10^3/uL (0.2-0.9); Monocytes % 9.4 %; Neutrophils # 10.55 10^3/uL (1.8-7.7); Nucleated Red Blood Cells % 0.3 %; Platelet Count 197 10^3/cmm (157-399); Red Blood Count 2.76 10^6/uL (3.85-5.65); White Blood Count 12.71 10^3/uL (3.29-11.43)
[2024-09-08] MEDS: FUROsemide 10 mg/mL SDV 4mL 40 MG IVP ×2 (05:26→16:58)
[2024-09-08] MEDS: VANCOMYCIN ADD-Vantage 1,000 MG in 0.9% NaCl ADD-Vantage 250 ML 250 MG IV ×2 (05:26→17:07)
[2024-09-08] MEDS: piperacillin-tazobactam 3.375 GM in sodium chloride 0.9% (plus) 50 ML IV ×3 (05:29→22:03)
[2024-09-08 05:42] LABS: Alanine Aminotransferase 43 U/L (0-33); Albumin Level 2.8 g/dL (3.5-5.2); Alkaline Phosphatase 91 U/L (35-105); Anion Gap 15.6 (5-19); Aspartate Amino Transferase 28 U/L (0-32); Blood Urea Nitrogen 26 mg/dL (8-23); Calcium 8.5 mg/dL (8.5-10.5); Carbon Dioxide 24 mmol/L (22-29); Chloride 98 mmol/L (98-107); Creatinine Clr Calc Pharmacy 71.0293; Globulin 3.6 g/dL (1.3-4.6); Glucose 118 mg/dL (65-115); Osmolality Calculated 284 mOsm/kg (285-295); Potassium 3.6 mmol/L (3.5-5.1); Sodium 134 mmol/L (136-145); Total Bilirubin 2.1 mg/dL (0.15-1.2); Total Protein 6.4 g/dL (6.6-8.7)
[2024-09-08] MEDS: acetaminophen 325 mg Tablet 650 MG PO (08:05)
[2024-09-08] MEDS: clopidogrel 75 mg Tablet PO (08:05)
[2024-09-08] MEDS: carvedilol 3.125 mg Tablet PO ×2 (08:06→17:07)
[2024-09-08] MEDS: ipratropium-albuterol 3 mL Neb INHALATION ×4 (08:15→19:37)
--- NOTE | 2024-09-08 08:23 | P.PN_ITS ---
Subjective 2 Subjective: Cardiology coverage Patient with history of coronary disease, status post recent PCI of the right coronary artery in June of this year. He is admitted to hospital with increasing shortness of breath and bilateral leg swelling. Patient was found to have intra-abdominal bleed, status post multiple blood transfusion, currently seems to be stable. The hemoglobin also seems to be remaining stable. Patient has no chest pain or chest tightness. She has swelling of both lower extremities. Abdomen is bloated. No fever or chills. No cough. Has been compliant with medications. Medications: Medication Review Details: Current Medications Acetaminophen (Acetaminophen 325 Mg Tablet) 650 mg PO Q6H PRN PRN Reason: Mild/Mod Pain Or Temp >/= 101 Last Admin: 09/08/24 08:05 Dose: 650 mg Albuterol/Ipratropium (Ipratropium-Albuterol 3 Ml Neb) 3 ml INHALATION QID.RESPIRATORY VETO Last Admin: 09/08/24 08:15 Dose: 3 ml Carvedilol (Carvedilol 3.125 Mg Tablet) 3.125 mg PO BID VETO Last Admin: 09/08/24 08:06 Dose: 3.125 mg Clopidogrel Bisulfate (Clopidogrel 75 Mg Tablet) 75 mg PO DAILY VETO Last Admin: 09/08/24 08:05 Dose: 75 mg Furosemide (Furosemide 10 Mg/Ml Sdv 4ml) 40 mg IVP Q12H VETO Last Admin: 09/08/24 05:26 Dose: 40 mg Vancomycin HCl 1,000 mg/ (Sodium Chloride) 250 mls @ 250 mls/hr IV Q12H VETO Last Admin: 09/08/24 05:26 Dose: 250 mls/hr Piperacillin Sod/Tazobactam (Sod 3.375 gm/ Sodium Chloride) 50 mls @ 12.5 mls/hr IV Q8H VETO Last Admin: 09/08/24 05:29 Dose: 12.5 mls/hr Morphine Sulfate (Morphine 4 Mg/Ml Sdv 1 Ml) 2 mg IVP Q4H PRN PRN Reason: SEVERE PAIN Last Admin: 09/07/24 00:05 Dose: 2 mg Ondansetron HCl (Ondansetron 2 Mg/Ml Sdv 2 Ml) 4 mg IVP Q8H PRN PRN Reason: vomiting, or N/V if npo Pantoprazole Sodium (Pantoprazole 40 Mg Sdv) 40 mg IVP Q24H [facility] Last Admin: 09/07/24 23:24 Dose: 40 mg Vitals/I&O/Wt Last Vital Signs Temp 97.9 F 09/07/24 16:00 Pulse 87 09/08/24 08:15 Resp 18 09/08/24 08:15 BP 158/79 09/08/24 06:00 Pulse Ox 93 09/08/24 08:15 O2 Del Method Nasal Cannula 09/08/24 08:15 O2 Flow Rate 4 09/08/24 08:15 FiO2 30 09/08/24 03:38 09/07/24 09/08/24 09/08/24 22:59 06:59 14:59 Intake Total 290 / 590 Output Total 1500 / 1500 Balance -1210 / -910 Weight last 48 hrs Weight 264 lb 8.875 oz Weight 261 lb Weight 261 lb 3.964 oz Weight 185 lb Physical Exam 2 Narrative: GENERAL: The patient is alert and oriented times three. Not in any acute distress. HEENT: No significant pallor, icterus or lymphadenopathy.Oral cavity: There are no mucous membrane lesions. NECK: Trachea appears to be central. No masses noted. No JVD or thyromegaly appreciated. RESPIRATORY: Chest is symmetrical. No intercostals muscle retraction or any accessory muscle activation. There is no chest wall tenderness. Breath sounds are heard bilaterally. No rales or rhonchi heard. No evidence of any consolidation. BREASTS: Deferred. HEART: The heart sounds are normal. No S3 or S4. No significant murmurs. No pericardial rub ABDOMEN: Slightly distended. Some tenderness in the right lower quadrant. : Deferred. RECTAL: Deferred. LYMPHATIC: No lymphadenopathy noted in the neck or groin. EXTREMITIES: 2+ edema both lower extremities. No cyanosis MUSCULOSKELETAL: No acute joint deformities or swelling SKIN: There are no significant scars or skin rash noted. NEUROPSYCHIATRIC: The patient is alert and oriented x3. Appears to be in a good mood. No tremors or rigidity noted. Urinary Catheter Management: Agrawal Latex: Cath Placed During This Visit: yes Reason for Continuing Indwelling Catheter: Accurate Measurement of Urinary Output in Critically Ill Patients Urinary Catheter Date of Insertion: 09/06/24 Urinary Catheter Time of Insertion: 23:30 Data 09/08/24 04:44 09/08/24 04:44 Other Labs: Laboratory Last Values WBC 12.71 10^3/uL (3.29-11.43) H 09/08/24 04:44 RBC 2.76 10^6/uL (3.85-5.65) L 09/08/24 04:44 Hgb 8.40 g/dL (11.27-16.99) L 09/08/24 04:44 Hct 27.6 % (36-47) L 09/08/24 04:44 MCV 100.0 fl (85-98) H 09/08/24 04:44 MCH 30.4 pg (27-33) 09/08/24 04:44 MCHC 30.4 g/dL (30-55) 09/08/24 04:44 RDW 21.0 % (12.1-15.1) H 09/08/24 04:44 Plt Count 197 10^3/cmm (157-399) 09/08/24 04:44 MPV 10.5 fL (7.4-10.4) H 09/08/24 04:44 Neut % (Auto) 83.0 % 09/08/24 04:44 Lymph % (Auto) 6.6 % 09/08/24 04:44 Shannon % (Auto) 9.4 % 09/08/24 04:44 Eos % (Auto) 0.0 % 09/08/24 04:44 Baso % (Auto) 0.2 % 09/08/24 04:44 Neut # (Auto) 10.55 10^3/uL (1.8-7.7) H 09/08/24 04:44 Lymph # (Auto) 0.8 10^3/uL (0.8-4.8) 09/08/24 04:44 Shannon # (Auto) 1.2 10^3/uL (0.2-0.9) H 09/08/24 04:44 Eos # (Auto) 0.0 10^3/uL (0.0-0.8) 09/08/24 04:44 Baso # (Auto) 0.0 10^3/uL (0.0-0.1) 09/08/24 04:44 Nucleated RBC % (auto) 0.3 % 09/08/24 04:44 Nucleated RBCs # 0.0 /100WBC 09/08/24 04:44 ESR 32 mm/hr (0-15) H 09/06/24 17:10 Specimen Type Arterial 09/06/24 17:12 Sample Site Brachial, left 09/06/24 17:12 ABG pH 7.50 (7.35-7.45) H 09/06/24 17:12 ABG pCO2 34.0 mmHg (35-45) L 09/06/24 17:12 ABG pO2 53.4 mmHg (80.0-100.0) L 09/06/24 17:12 ABG PO2/FiO2 Ratio 148 09/06/24 17:12 ABG HCO3 26.2 mmol/L (22-26) H 09/06/24 17:12 ABG Base Excess 2.9 mmol/L (-2.0-2.0) H 09/06/24 17:12 Wm Test N/a 09/06/24 17:12 Hematocrit 26.4 % (37-47) L 09/06/24 17:12 O2 Delivery Device Nc 09/06/24 17:12 O2 Liters/Min 4.0 % 09/06/24 17:12 FiO2 36.0 % 09/06/24 17:12 Information Management Specialist ID [id number] 09/06/24 17:12 Sodium 134 mmol/L (136-145) L 09/08/24 04:44 Potassium 3.6 mmol/L (3.5-5.1) 09/08/24 04:44 Chloride 98 mmol/L (98-107) 09/08/24 04:44 Carbon Dioxide 24 mmol/L (22-29) 09/08/24 04:44 Anion Gap 15.6 (5-19) 09/08/24 04:44 BUN 26 mg/dL (8-23) H 09/08/24 04:44 Creatinine 0.9 mg/dL (0.5-0.9) 09/08/24 04:44 GFR Calculation Not Reportable 09/08/24 04:44 Glucose 118 mg/dL (65-115) H 09/08/24 04:44 Calculated Osmolality 284 mOsm/kg (285-295) L 09/08/24 04:44 Lactic Acid 2.2 mmol/L (0.5-2.2) 09/06/24 17:10 Lactic Acid (Sepsis) 2.1 mmol/L (0.5-2.2) 09/06/24 19:35 Calcium 8.5 mg/dL (8.5-10.5) 09/08/24 04:44 Magnesium 1.8 mg/dL (1.7-2.3) 09/07/24 04:08 Total Bilirubin 2.1 mg/dL (0.15-1.2) H 09/08/24 04:44 AST 28 U/L (0-32) 09/08/24 04:44 ALT 43 U/L (0-33) H 09/08/24 04:44 Alkaline Phosphatase 91 U/L (35-105) 09/08/24 04:44 Troponin T Baseline 75 ng/L (0-10) H 09/06/24 17:10 Troponin T 120 Minute 78.85 ng/L (0-10) H 09/06/24 18:41 Delta Troponin T 3.85 ABS# (0-10) 09/06/24 18:41 C-Reactive Protein 219.3 mg/L (0.0-4.9) H 09/06/24 17:10 NT-Pro-B Natriuret Pep 46074 pg/mL (0-125) H 09/07/24 04:08 Total Protein 6.4 g/dL (6.6-8.7) L 09/08/24 04:44 Albumin 2.8 g/dL (3.5-5.2) L 09/08/24 04:44 Globulin 3.6 g/dL (1.3-4.6) 09/08/24 04:44 Procalcitonin 0.54 ng/mL (0-0.5) H 09/06/24 17:10 TSH 8.52 uIU/mL (0.27-4.20) H 09/06/24 17:10 Urine Color Yellow (Yellow) 09/06/24 23:50 Urine Appearance Clear (CLEAR) 09/06/24 23:50 Urine pH 5.5 (5-7) 09/06/24 23:50 Ur Specific Witten 1.024 (1.005-1.030) 09/06/24 23:50 Urine Protein Negative (Negative) 09/06/24 23:50 Urine Glucose (UA) Negative (Normal) 09/06/24 23:50 Urine Ketones Negative (Negative) 09/06/24 23:50 Urine Blood Negative (Negative) 09/06/24 23:50 Urine Nitrate Negative (Negative) 09/06/24 23:50 Urine Bilirubin Negative (Negative) 09/06/24 23:50 Urine Urobilinogen 1.0 mg/dL (Negative) 09/06/24 23:50 Ur Leukocyte Esterase Negative (Negative) 09/06/24 23:50 Urine RBC 0-2 /hpf (0-2) 09/06/24 23:50 Urine WBC 0-5 /hpf (0-5) 09/06/24 23:50 Ur Squamous Epith Cells 0-5 /hpf (0-5) 09/06/24 23:50 Amorphous Sediment Not Reportable 09/06/24 23:50 Urine Bacteria None seen /hpf (NONE) 09/06/24 23:50 Hyaline Casts 2.46 /lpf 09/06/24 23:50 Urine Yeast 1+ /hpf H 09/06/24 23:50 Adenovirus (PCR) Not detected (NOT DETECT) 09/06/24 17:48 C. pneumoniae DNA (PCR) Not detected (NOT DETECT) 09/06/24 17:48 Coronavirus 229E (PCR) Not detected (NOT DETECT) 09/06/24 17:48 Human Metapneumovir PCR Not detected (NOT DETECT) 09/06/24 17:48 Influenza A (H1) PCR Not detected (NOT DETECT) 09/06/24 17:48 Influ A (H1/09) PCR Not detected (NOT DETECT) 09/06/24 17:48 Influenza A (H3) PCR Not detected (NOT DETECT) 09/06/24 17:48 Influenza Type A (PCR) Not detected (NOT DETECT) 09/06/24 17:48 Influenza Type B (PCR) Not detected (NOT DETECT) 09/06/24 17:48 M. pneumoniae (PCR) Not detected (NOT DETECT) 09/06/24 17:48 Parainfluenza 1 (PCR) Not detected (NOT DETECT) 09/06/24 17:48 Parainfluenza 2 (PCR) Not detected (NOT DETECT) 09/06/24 17:48 Parainfluenza 3 (PCR) Not detected (NOT DETECT) 09/06/24 17:48 Parainfluenza 4 (PCR) Not detected (NOT DETECT) 09/06/24 17:48 RSV Type A (PCR) Not detected (NOT DETECT) 09/06/24 17:48 RSV Type B (PCR) Not detected (NOT DETECT) 09/06/24 17:48 Entero/Rhino (PCR) Not detected (NOT DETECT) 09/06/24 17:48 SARS-CoV-2 (PCR) Not detected (NOT DETECT) 09/06/24 17:48 Micro: Microbiology 09/06/24 23:47 Blood Culture - Preliminary Blood NEGATIVE TO DATE 09/06/24 17:10 Blood Culture - Preliminary Blood NEGATIVE TO DATE Other data: Cardiac catheterization on 06/27/2024 revealed * LAD has luminal irregularity without significant stenosis. * Left circumflex has luminal irregularities without significant stenosis. * Left Main has no disease. * Mid Right Coronary Artery: significant 80% stenosis, ROLF: 3 flow. * Coronary angiography shows right dominance. A&P Assessment and plan (1) Congestive heart failure: Patient is known to have severe LV systolic dysfunction. LV ejection fraction was 24% by echocardiogram in June. We made a repeat limited 2D echocardiogram to reevaluate LV ejection fraction. Qualifiers: Heart failure type: other Qualified Code(s): I50.9 - Heart failure, unspecified (2) Hypertension: Currently normotensive. May continue on the current medications Qualifiers: Hypertension type: primary hypertension Qualified Code(s): I10 - Essential (primary) hypertension (3) Left ventricular systolic dysfunction (LVSD): I may start the patient on Entresto if the blood pressure tolerates. (4) Aortic valve stenosis: The patient seems to have severe low gradient aortic valve stenosis. Qualifiers: Cardiac valve disease etiology: nonrheumatic Qualified Code(s): I35.0 - Nonrheumatic aortic (valve) stenosis (5) Intra-abdominal hematoma: No evidence of any active bleed at this time. This need to be closely monitored. (6) Atherosclerosis of coronary artery of kashia heart without angina pectoris: Patient's status post PCI of the right coronary artery in June of this year. Currently seems to be stable. May continue on the current medications. Possible GI bleed, it was decided just to keep her on Plavix alone without any aspirin. Qualifiers: Coronary Disease-Associated Artery/Lesion type: kashia artery Qualified Code(s): I25.10 - Atherosclerotic heart disease of kashia coronary artery without angina pectoris (7) Edema, peripheral: Patient may be carefully treated with IV diuretics. Plan Limited 2D echo today Entresto 1 tablet p.o. twice daily Spironolactone 25 mg p.o. daily Continue other medications as needed Based on the clinical progress and the results of the above, further recommendations will be made. PDMP PDMP Reviewed: Not Reviewed Attestations 2 Medical Necessity Statement*: Patient requires continued hospital stay for close monitoring and further management Coding Level of Care Code 56757 Diagnoses Other congestive heart failure I50.9 Heart failure type: other Primary hypertension I10 Hypertension type: primary hypertension Left ventricular systolic dysfunction (LVSD) I51.89 Nonrheumatic aortic valve stenosis I35.0 Cardiac valve disease etiology: nonrheumatic Intra-abdominal hematoma Atherosclerosis of kashia coronary artery of kashia heart without angina pectoris I25.10 Coronary Disease-Associated Artery/Lesion type: kashia artery Edema, peripheral R60.0
--- NOTE | 2024-09-08 08:34 | XR_ITS ---
WS: [id number] Exam: XR chest 1V portable [id number] Date/Time of Exam: 09/08/2024 9:02 AM Reason For Exam: Post PICC insertion Comparison 09/06/2024. A right-sided PICC line has been placed and appears to be in near the region of the cavoatrial junction. The heart is enlarged. There is pulmonary vascular congestion which most likely indicates some degree of CHF. No pneumothorax. Moderate LEFT pleural effusion. Probable small RIGHT basal pleural effusion. The mediastinum is normal in contour. Bony structures are unremarkable as visualized. XR/XR chest 1V portable [id number] IMPRESSION: 1. Right-sided PICC line ending at the expected region of the cavoatrial juncti on in satisfactory position. 2. Cardiac enlargement and findings that would suggest CHF.
--- NOTE | 2024-09-08 09:34 | USCV_ITS ---
Kaylee Kay Age: 73 Gender: F : 1950 Exam Date: 09/08/2024 09:58 Ordering Phys: Jenni Ferguson MD ([email or web address]) Technologist: URI Exam Location: [facility] – [place] Indication: CHF BP: 143 / 68 HR: Rhythm: Sinus Technical Quality: Adequate MEASUREMENTS (Male / Female) Normal Values 2D ECHO LV Diastolic Diameter PLAX 6.1 cm 4.2 - 5.9 / 3.9 - 5.3 cm IVS Diastolic Thickness 1.4 cm 0.6 - 1.0 / 0.6 - 0.9 cm IVS Systolic Thickness 1.1 cm LVPW Diastolic Thickness 1.0 cm 0.6 - 1.0 / 0.6 - 0.9 cm LVPW Systolic Thickness 1.9 cm LVOT Diameter 1.7 cm LV Ejection Fraction 2D Teich 42.3 % LV Ejection Fraction MOD 4C 40.9 % LV Ejection Fraction MOD 2C 34.7 % LV Ejection Fraction 2C AL 34.6 % LA Diameter 4.6 cm RA Systolic Volume 4C AL 79.0 ml RA Systolic Volume 4C MOD 75.8 ml LA Sys Volume AL 117.8 cm cubed LA Sys Volume Index AL 49.2 cm cubed/m squared Aorta at Sinotubular Diameter 2.3 cm M-MODE LA Ao Ratio MM 1.7 AV Cusp Separation MM 1.4 cm FINDINGS Left Ventricle Dilated left ventricle with diffuse hypokinesia, arauz of the septum and the LV apex. LV ejection fraction of 30 to 35%. Mildly dilated left ventricle. Right Ventricle Mildly increased right ventricular size. Slightly diminished ejection fraction Right Atrium Mildly increased right atrial size. Left Atrium Mildly increased left atrial size. Mitral Valve No gross morphologic abnormalities Aortic Valve Thickened aortic valve. Tricuspid Valve No gross abnormalities are noted Pulmonic Valve No gross abnormalities are noted Pericardium Trivial pericardial effusion. Aorta Normal aortic annulus size. IVC Inferior vena cava not visualized. CONCLUSIONS Dilated left ventricle with diffuse hypokinesia, arauz of the septum and the LV apex. LV ejection fraction of 30 to 35%. Mildly dilated left ventricle. Mildly increased right ventricular size. Slightly diminished ejection fraction. Mild biatrial enlargement. Trivial pericardial effusion. Compared to the study from 06/28/2024, there is some improvement in the LV ejection fraction from 24% to 30 - 35% Dr Jenni Ferguson MD [facility] (Electronically Signed) Final Date: 09 September 2024 08:11 S
--- NOTE | 2024-09-08 09:55 | PICC.NOTE ---
Double lumen PICC placed to right basilic vein. Referred to vascular access nurse for PICC placement due to poor access and multiple antibiotics including Vancomycin. Risks and benefits discussed and informed consent obtained from pt. Right arm assessed with right baslic vein measuring 3.1 mm, straight, and apparent best choice for placement. Using sterile technique and MST, right basilic vein accessed x 1 stick. Mid-arm circumference measured 10 cm from right AC 43 cm. Trimmed cath 47 cm with 0 cm external length noted. CXR shows tip in cavoatrial junction, in good position for use per radiologist. Line secured with stat-lock. Insertion site covered with Biopatch and TSM. Report given to bedside nurse, ELISA Arora.
--- NOTE | 2024-09-08 14:03 | PC.SOCIAL ---
IMM Updated Updated pt on IMM. No questions voiced. Provided pt a copy. Initialed, dated, & timed a copy & placed in chart.
--- NOTE | 2024-09-08 14:09 | P.PN_ITS ---
Subjective 2 Subjective: No new complaints overnight. Did not have significant bleeding. Still has some pain in her chest and back areas but it is better than it had been. Breathing is improved. Not much appetite. No nausea or vomiting. Cumulative I&O 09/06/24 16:49 thru 09/08/24 18:00 Intake Total 1650 Output Total 2350 Balance -700 Vitals/I&O/Wt Last Vital Signs Temp 97.9 F 09/07/24 16:00 Pulse 81 09/08/24 11:16 Resp 20 H 09/08/24 11:07 BP 143/68 09/08/24 09:00 Pulse Ox 93 09/08/24 11:07 O2 Del Method Nasal Cannula 09/08/24 11:07 O2 Flow Rate 4 09/08/24 11:07 FiO2 30 09/08/24 03:38 09/07/24 09/08/24 09/08/24 22:59 06:59 14:59 Intake Total 290 / 590 120 / 120 Output Total 1500 / 1500 Balance -1210 / -910 120 / 120 Weight last 48 hrs Weight 120 kg Weight 118.388 kg Weight 118.5 kg Weight 83.915 kg Physical Exam 2 Narrative: Looks chronically ill. Alert and able to answer questions, follow commands. Lungs with bilateral rales. No wheezes noted. Cardiovascular exam reveals distant heart sounds but regular rhythm. Abdomen is soft. Agrawal catheter is noted. Extremities with edema and chronic stasis changes. Urinary Catheter Management: Agrawal Latex: Cath Placed During This Visit: yes Reason for Continuing Indwelling Catheter: Accurate Measurement of Urinary Output in Critically Ill Patients Urinary Catheter Date of Insertion: 09/06/24 Urinary Catheter Time of Insertion: 23:30 Data 09/08/24 04:44 09/08/24 04:44 Micro: Microbiology 09/06/24 23:50 Urine Culture - Preliminary Urine,Clean Catch 09/06/24 23:47 Blood Culture - Preliminary Blood NEGATIVE TO DATE 09/06/24 17:10 Blood Culture - Preliminary Blood NEGATIVE TO DATE A&P Assessment and plan (1) Acute exacerbation of CHF (congestive heart failure): Primary diagnosis at presentation contributing to acute hypoxic respiratory failure from fluid overload and anasarca. On IV Lasix. Ejection fraction 24% on echocardiogram within the last couple of months. Qualifiers: Heart failure type: combined systolic and diastolic Qualified Code(s): I50.43 - Acute on chronic combined systolic (congestive) and diastolic (congestive) heart failure (2) Pneumonia: Suspected diagnosis at the time of admission, on empiric coverage for healthcare associated infection. Qualifiers: Pneumonia type: due to unspecified organism Laterality: left Lung location: upper lobe of lung Qualified Code(s): J18.9 - Pneumonia, unspecified organism (3) Acute hypoxic respiratory failure: Related to above (4) CAD S/P percutaneous coronary angioplasty: RCA stent placement in June 2024. Had been discharged on aspirin and Plavix but these were ultimately stopped at the time of significant hemoperitoneum earlier this month. Has been restarted on Plavix. Tolerating thus far. (5) Acute anemia: Acute blood loss anemia from prior event with hemoglobin stable this hospital stay. Recent significant bleeding. (6) Intra-abdominal hematoma: Recently, transferred to [facility], received blood transfusions, at risk of re-bleed but must maintain antiplatelet therapy with recent stent. Dr Winkler discussed with patient and family. Reviewed again on 09/08 and patient understands, no new questions. (7) Aortic valve stenosis: Aware, NICOLÁS 0.83 cm2, mean gradient 5.2 mmHg Qualifiers: Cardiac valve disease etiology: nonrheumatic Qualified Code(s): I35.0 - Nonrheumatic aortic (valve) stenosis (8) CKD (chronic kidney disease): Stage 2, stable Qualifiers: Chronic kidney disease stage: stage 2 (GFR 60-89) Qualified Code(s): N 18.2 - Chronic kidney disease, stage 2 (mild) (9) Neuropathy: Elevated TSH without a history of hypothyroidism, will need recheck of labs in outpt setting. (10) PICC (peripherally inserted central catheter) in place: placed 09/08 Plan Elevated bilirubin and transaminiase, monitoring Elevated TSH without a history of hypothyroidism On IV diuresis currently Resume home potassium On Plavix at home dosing Off of home aspirin therapy currently due to recent bleeding and informed decision making On carvedilol at home dosing Entresto has been initiated along with spironolactone Will resume home statin therapy On PPI VTE prophylaxis: SCDs, recent significant bleeding so no pharmacological prophylaxis GI Prophylaxis: PPI Antibiotics: On Zosyn and vancomycin for health care associated pneumonia coverage and cellulitis coverage. Acute infectious etiology seems less likely but continues to have leukocytosis with left shift. Had been on cefdinir and doxycycline in the outpatient setting. Pending studies: Blood and urine cultures from admission, morning labs which will include electrolytes, CMP, free T3 and free T4 and a repeat CRP for comparison to prior value Telemetry: Ordered secondary to recent cardiac history Agrawal: In place due to IV diuresis Line(s): PICC line placed 09/08 Disposition plan: Disposition will depend on clinical course. Had previously been discharged to [facility] but would like to look at [place] or [facility] as options Code Status: Allow natural September 07, 2024: Recent HPI as noted above. Discussed with patient the diffuclt situation that she is currently facing. On one hand, she underwent PCI 2 months ago with placement of stent to the RCA. Therefore it is important to continue antiplatelet therapy as her stent is at high risk of stensis off A/c. cardiology service was consulted and recommends starting Plavix 75mg po daily. ASA to remain on hold. On the other hand, with resumption of antiplatelet agents, she remains at high risk of worsening bleeding/worsening hematoma and any bleeding may potentially be fatal for her. She understands that neither is a good situation however after weighing all risks and benefits, she has decided to resume Plavix at this time with close Hb monitoring. Should she develop recurrent or worsening bleeding at that time which cannot be managed with transfusions alone, she will like to transition to comfort care measures only. Additionally she reiteriates her decision to not have CPR or be on a ventilator. She would not want any life prolonging measures. Her brother Mckay, son alondra are at bedside. Patient appoints her older brother Mckay to be her surrogate decison maker should she be in a place of being unable to make decisions. She is currently awake alert and oriented x 4. COnversation witnessed by lola's RN in ICU. Resume Plavix 75mg daily H&H check q12h continue Abx for now due to suspicion for cellulitis, however favor RLE erythema to be changes of stasis dermatitis, will likely d/c abx if infectious evaluation remains negative at 48 hrs continue diuresis with iv lasix 40mg q12h Bipap at night time and prn during day 09/08/24 Hemoglobin has remained stable. No gross bleeding noted. Not feeling great but breathing is better than when she came in and not having as much pain. Understands the conversation that was had with her yesterday and the poor prognosis, difficult management currently. Remains on antibiotics that were started for empiric coverage of pneumonia plus or minus cellulitis. Does have leukocytosis with left shift. Had also been on antibiotics in the outpatient setting so is at increased risk for C. difficile colitis. Will add probiotics. Remains on oxygen with BiPAP if needed. Will repeat laboratory studies tomorrow and continue close monitoring in the ICU setting. PDMP PDMP Reviewed: Not Reviewed Attestations 2 Medical Necessity Statement*: Requires ongoing inpatient stay due to need for IV diuresis, serial laboratory studies and close monitoring. Has had multiple potentially life-threatening episodes over the last couple of months and is at high risk of rapid clinical decline up to and including possibility of . Remains on IV antibiotics as well. Diagnoses Acute on chronic combined systolic and diastolic congestive heart failure I50.43 Heart failure type: combined systolic and diastolic Pneumonia of left upper lobe due to infectious organism J18.9 Pneumonia type: due to unspecified organism Laterality: left Lung location: upper lobe of lung Acute hypoxic respiratory failure J96.01 CAD S/P percutaneous coronary angioplasty I25.10; Z98.61 Acute anemia D64.9 Intra-abdominal hematoma Nonrheumatic aortic valve stenosis I35.0 Cardiac valve disease etiology: nonrheumatic Stage 2 chronic kidney disease N18.2 Chronic kidney disease stage: stage 2 (GFR 60-89) Neuropathy G62.9 PICC (peripherally inserted central catheter) in place Z45.2
[2024-09-08] MEDS: spironolactone 25 mg Tablet PO (14:59)
[2024-09-08 16:29] LABS: Basophils % 0.1 %; Hematocrit 26.9 % (36-47); Lymphocytes # 0.9 10^3/uL (0.8-4.8); Lymphocytes % 6.5 %; Mean Corpuscular HGB Conc 30.9 g/dL (30-55); Mean Corpuscular Hemoglobin 30.4 pg (27-33); Mean Corpuscular Volume 98.5 fl (85-98); Mean Platelet Volume 10.5 fL (7.4-10.4); Monocytes # 1.3 10^3/uL (0.2-0.9); Monocytes % 9.5 %; Neutrophils # 11.13 10^3/uL (1.8-7.7); Neutrophils % 83.2 %; Nucleated Red Blood Cells % 0.3 %; Platelet Count 192 10^3/cmm (157-399); Red Blood Count 2.73 10^6/uL (3.85-5.65); Red Cell Distribution Width 21.4 % (12.1-15.1); White Blood Count 13.38 10^3/uL (3.29-11.43)
[2024-09-08] MEDS: sacubitril/valsartan 24-26 mg Tablet 1 EACH PO (17:07)
[2024-09-08] MEDS: lanolin oint 7 gm 1 APPLIC TOPICAL (18:43)
[2024-09-08] MEDS: atorvastatin 40 mg Tablet PO (22:02)
[2024-09-08] MEDS: pantoprazole 40 mg SDV IVP (23:30)
[2024-09-09] VITALS (29 sets, daily range): BP systolic 108–129; BP diastolic 39–73; PULSE 58–88; RESP 18–30; TEMP 36.6–37; O2SAT 87–99; BMI 45.3
[2024-09-09 03:31] LABS: ABG PCO2 40.4 mmHg (35-45); ABG PH Result 7.47 (7.35-7.45); Arterial Blood Gas Hematocrit 25.1 % (37-47); Base Excess ABG 5.3 mmol/L (-2.0-2.0); Blood Gas Allen Test Pos; Blood Gas Operator Identificat ED; Blood Gas Sample Site Radial, left; Blood Gas Sample Type Arterial; HCO3 ABG 29.4 mmol/L (22-26); Oxygen Device BIPAP; PO2 ABG 58.8 mmHg (80.0-100.0); PO2 FiO2 Ratio Arterial Blood 196
[2024-09-09] MEDS: FUROsemide 10 mg/mL SDV 4mL 40 MG IVP ×2 (05:15→17:25)
[2024-09-09] MEDS: piperacillin-tazobactam 3.375 GM in sodium chloride 0.9% (plus) 50 ML IV ×3 (05:16→22:25)
[2024-09-09 05:58] LABS: Basophils % 0.2 %; Hematocrit 26.1 % (36-47); Lymphocytes # 0.7 10^3/uL (0.8-4.8); Lymphocytes % 6.1 %; Mean Corpuscular HGB Conc 29.9 g/dL (30-55); Mean Corpuscular Hemoglobin 30.1 pg (27-33); Mean Corpuscular Volume 100.8 fl (85-98); Mean Platelet Volume 10.5 fL (7.4-10.4); Monocytes # 0.8 10^3/uL (0.2-0.9); Monocytes % 7.6 %; Neutrophils # 9.46 10^3/uL (1.8-7.7); Neutrophils % 85.4 %; Nucleated Red Blood Cells % 0.3 %; Platelet Count 163 10^3/cmm (157-399); Red Blood Count 2.59 10^6/uL (3.85-5.65); Red Cell Distribution Width 21.9 % (12.1-15.1); White Blood Count 11.08 10^3/uL (3.29-11.43)
[2024-09-09 06:14] LABS: INR 1.19 (0.8-1.2)
[2024-09-09 06:26] LABS: Vancomycin Trough 24.4 ug/mL (10-15)
[2024-09-09 06:28] LABS: Free T4 Free Thyroxine 1.02 ng/dL (0.82-1.77); T3 Free 1.4 PG/ML (2.0-4.4)
[2024-09-09 06:29] LABS: Alanine Aminotransferase 33 U/L (0-33); Albumin Level 2.4 g/dL (3.5-5.2); Alkaline Phosphatase 77 U/L (35-105); Anion Gap 14.3 (5-19); Aspartate Amino Transferase 29 U/L (0-32); Blood Urea Nitrogen 28 mg/dL (8-23); Calcium 7.8 mg/dL (8.5-10.5); Carbon Dioxide 27 mmol/L (22-29); Chloride 99 mmol/L (98-107); Creatinine Clr Calc Pharmacy 58.1149; Globulin 2.7 g/dL (1.3-4.6); Glucose 95 mg/dL (65-115); Magnesium 1.6 mg/dL (1.7-2.3); Osmolality Calculated 289 mOsm/kg (285-295); Phosphorus 2.9 mg/dL (2.5-4.5); Potassium 3.3 mmol/L (3.5-5.1); Sodium 137 mmol/L (136-145); Total Bilirubin 1.9 mg/dL (0.15-1.2); Total Protein 5.1 g/dL (6.6-8.7)
[2024-09-09] MEDS: ipratropium-albuterol 3 mL Neb INHALATION ×4 (08:02→19:31)
[2024-09-09] MEDS: potassium chloride ER 20 mEq Tablet PO (09:05)
[2024-09-09] MEDS: lactobacillus 1 Tablet 1 TAB PO ×2 (09:05→17:25)
[2024-09-09] MEDS: clopidogrel 75 mg Tablet PO (09:05)
[2024-09-09] MEDS: spironolactone 25 mg Tablet PO (09:05)
[2024-09-09] MEDS: carvedilol 3.125 mg Tablet PO ×2 (09:08→17:25)
[2024-09-09] MEDS: VANCOMYCIN ADD-Vantage 1,000 MG in 0.9% NaCl ADD-Vantage 250 ML 250 MG IV (13:07)
--- NOTE | 2024-09-09 13:22 | P.PN_ITS ---
Subjective 2 Subjective: seen today laying in bed denies pain, or shortness of breath family at bedside hb 7.8 this am Vitals/I&O/Wt Last Vital Signs Temp 97.8 F 09/09/24 08:00 Pulse 68 09/09/24 12:09 Resp 23 H 09/09/24 12:09 BP 108/50 09/09/24 12:09 Pulse Ox 98 09/09/24 12:09 O2 Del Method BiPAP 09/09/24 11:52 O2 Flow Rate 5 09/08/24 19:37 FiO2 30 09/09/24 11:52 09/08/24 09/09/24 09/09/24 22:59 06:59 14:59 Intake Total 170 / 460 300 / 760 50 / 50 Output Total 850 / 850 400 / 1250 Balance -680 / -390 -100 / -490 50 / 50 Weight last 48 hrs Weight 120 kg Weight 120 kg Physical Exam 2 Narrative: General: No acute distress, AO x3,on bipap at this time HEENT: PERRLA, pupils bilaterally equal and reactive, pallors not present Chest: Normal vesicular breath sounds, no added sounds, equal good air entry bilaterally CVS: S1-S2 regular, no murmurs, no tachycardia, no gallops, no rubs Abdomen: Soft, nontender, no organomegaly, bowel sounds present Neuro: No focal deficits, no facial deformity, AO x3, Extremities:anasarca + Urinary Catheter Management: Agrawal Latex: Cath Placed During This Visit: yes Reason for Continuing Indwelling Catheter: Accurate Measurement of Urinary Output in Critically Ill Patients Urinary Catheter Date of Insertion: 09/06/24 Urinary Catheter Time of Insertion: 23:30 Data 09/09/24 05:27 09/09/24 05:27 Micro: Microbiology 09/06/24 23:50 Urine Culture - Final Urine,Clean Catch A&P Assessment and plan (1) Acute exacerbation of CHF (congestive heart failure): Primary diagnosis at presentation contributing to acute hypoxic respiratory failure from fluid overload and anasarca. On IV Lasix. Ejection fraction 24% on echocardiogram within the last couple of months. Qualifiers: Heart failure type: combined systolic and diastolic Qualified Code(s): I50.43 - Acute on chronic combined systolic (congestive) and diastolic (congestive) heart failure (2) Pneumonia: Suspected diagnosis at the time of admission, on empiric coverage for healthcare associated infection. Qualifiers: Pneumonia type: due to unspecified organism Laterality: left Lung location: upper lobe of lung Qualified Code(s): J18.9 - Pneumonia, unspecified organism (3) Acute hypoxic respiratory failure: Related to above (4) CAD S/P percutaneous coronary angioplasty: RCA stent placement in June 2024. Had been discharged on aspirin and Plavix but these were ultimately stopped at the time of significant hemoperitoneum earlier this month. Has been restarted on Plavix. Tolerating thus far. (5) Acute anemia: Acute blood loss anemia from prior event with hemoglobin stable this hospital stay. Recent significant bleeding. (6) Intra-abdominal hematoma: Recently, transferred to [facility], received blood transfusions, at risk of re-bleed but must maintain antiplatelet therapy with recent stent. Dr Winkler discussed with patient and family. Reviewed again on 09/08 and patient understands, no new questions. (7) Aortic valve stenosis: Aware, NICOLÁS 0.83 cm2, mean gradient 5.2 mmHg Qualifiers: Cardiac valve disease etiology: nonrheumatic Qualified Code(s): I35.0 - Nonrheumatic aortic (valve) stenosis (8) CKD (chronic kidney disease): Stage 2, stable Qualifiers: Chronic kidney disease stage: stage 2 (GFR 60-89) Qualified Code(s): N 18.2 - Chronic kidney disease, stage 2 (mild) (9) Neuropathy: Elevated TSH without a history of hypothyroidism, will need recheck of labs in outpt setting. (10) PICC (peripherally inserted central catheter) in place: placed 09/08 Plan Elevated bilirubin and transaminiase, monitoring Elevated TSH without a history of hypothyroidism On IV diuresis currently Resume home potassium On Plavix at home dosing Off of home aspirin therapy currently due to recent bleeding and informed decision making On carvedilol at home dosing Entresto has been initiated along with spironolactone Will resume home statin therapy On PPI VTE prophylaxis: SCDs, recent significant bleeding so no pharmacological prophylaxis GI Prophylaxis: PPI Antibiotics: On Zosyn and vancomycin for health care associated pneumonia coverage and cellulitis coverage. Acute infectious etiology seems less likely but continues to have leukocytosis with left shift. Had been on cefdinir and doxycycline in the outpatient setting. Pending studies: Blood and urine cultures from admission, morning labs which will include electrolytes, CMP, free T3 and free T4 and a repeat CRP for comparison to prior value Telemetry: Ordered secondary to recent cardiac history Agrawal: In place due to IV diuresis Line(s): PICC line placed 09/08 Disposition plan: Disposition will depend on clinical course. Had previously been discharged to [facility] but would like to look at [place] or [facility] as options Code Status: Allow natural September 07, 2024: Recent HPI as noted above. Discussed with patient the diffuclt situation that she is currently facing. On one hand, she underwent PCI 2 months ago with placement of stent to the RCA. Therefore it is important to continue antiplatelet therapy as her stent is at high risk of stensis off A/c. cardiology service was consulted and recommends starting Plavix 75mg po daily. ASA to remain on hold. On the other hand, with resumption of antiplatelet agents, she remains at high risk of worsening bleeding/worsening hematoma and any bleeding may potentially be fatal for her. She understands that neither is a good situation however after weighing all risks and benefits, she has decided to resume Plavix at this time with close Hb monitoring. Should she develop recurrent or worsening bleeding at that time which cannot be managed with transfusions alone, she will like to transition to comfort care measures only. Additionally she reiteriates her decision to not have CPR or be on a ventilator. She would not want any life prolonging measures. Her brother Mckay, son alondra are at bedside. Patient appoints her older brother Mckay to be her surrogate decison maker should she be in a place of being unable to make decisions. She is currently awake alert and oriented x 4. COnversation witnessed by lola's RN in ICU. Resume Plavix 75mg daily H&H check q12h continue Abx for now due to suspicion for cellulitis, however favor RLE erythema to be changes of stasis dermatitis, will likely d/c abx if infectious evaluation remains negative at 48 hrs continue diuresis with iv lasix 40mg q12h Bipap at night time and prn during day 09/08/24 Hemoglobin has remained stable. No gross bleeding noted. Not feeling great but breathing is better than when she came in and not having as much pain. Understands the conversation that was had with her yesterday and the poor prognosis, difficult management currently. Remains on antibiotics that were started for empiric coverage of pneumonia plus or minus cellulitis. Does have leukocytosis with left shift. Had also been on antibiotics in the outpatient setting so is at increased risk for C. difficile colitis. Will add probiotics. Remains on oxygen with BiPAP if needed. Will repeat laboratory studies tomorrow and continue close monitoring in the ICU setting. 09/09/2024 hb dropped to 7.8, will check cbc at 6 pm, if significant downward trend, may consider repeat imaging discussed with family regarding bleeding risk with plavix and the need for it since recent stents continue to monitor hb family would like to go [facility] a [facility], discussed with case management no gross bleeding noted continue empiric abx coverage continue close icu monitoring PDMP PDMP Reviewed: Not Reviewed Attestations 2 Medical Necessity Statement*: Requires ongoing inpatient stay due to need for IV diuresis, serial laboratory studies and close monitoring. Has had multiple potentially life-threatening episodes over the last couple of months and is at high risk of rapid clinical decline up to and including possibility of . Remains on IV antibiotics as well. Diagnoses Acute on chronic combined systolic and diastolic congestive heart failure I50.43 Heart failure type: combined systolic and diastolic Pneumonia of left upper lobe due to infectious organism J18.9 Pneumonia type: due to unspecified organism Laterality: left Lung location: upper lobe of lung Acute hypoxic respiratory failure J96.01 CAD S/P percutaneous coronary angioplasty I25.10; Z98.61 Acute anemia D64.9 Intra-abdominal hematoma Nonrheumatic aortic valve stenosis I35.0 Cardiac valve disease etiology: nonrheumatic Stage 2 chronic kidney disease N18.2 Chronic kidney disease stage: stage 2 (GFR 60-89) Neuropathy G62.9 PICC (peripherally inserted central catheter) in place Z45.2
[2024-09-09 16:21] LABS: Basophils % 0.3 %; Hematocrit 30.8 % (36-47); Mean Corpuscular HGB Conc 29.2 g/dL (30-55); Mean Corpuscular Hemoglobin 29.9 pg (27-33); Mean Corpuscular Volume 102.3 fl (85-98); Mean Platelet Volume 10.8 fL (7.4-10.4); Monocytes # 1.2 10^3/uL (0.2-0.9); Monocytes % 7.5 %; Neutrophils # 13.47 10^3/uL (1.8-7.7); Neutrophils % 85.6 %; Nucleated Red Blood Cells % 0.2 %; Platelet Count 190 10^3/cmm (157-399); Red Blood Count 3.01 10^6/uL (3.85-5.65); Red Cell Distribution Width 22.2 % (12.1-15.1); White Blood Count 15.74 10^3/uL (3.29-11.43)
[2024-09-09 18:17] LABS: Basophils % 0.2 %; Hematocrit 30.5 % (36-47); Lymphocytes % 6.4 %; Mean Corpuscular HGB Conc 29.2 g/dL (30-55); Mean Corpuscular Hemoglobin 29.8 pg (27-33); Mean Platelet Volume 10.1 fL (7.4-10.4); Monocytes # 1.1 10^3/uL (0.2-0.9); Monocytes % 6.9 %; Neutrophils # 13.76 10^3/uL (1.8-7.7); Neutrophils % 85.8 %; Nucleated Red Blood Cells % 0.2 %; Platelet Count 187 10^3/cmm (157-399); Red Blood Count 2.99 10^6/uL (3.85-5.65); Red Cell Distribution Width 22.6 % (12.1-15.1); White Blood Count 16.04 10^3/uL (3.29-11.43)
--- NOTE | 2024-09-09 18:39 | P.PN_ITS ---
Subjective 2 Subjective: Patient has no chest pain or shortness of breath. Medications: Medication Review Details: Current Medications Acetaminophen (Acetaminophen 325 Mg Tablet) 650 mg PO Q6H PRN PRN Reason: Mild/Mod Pain Or Temp >/= 101 Last Admin: 09/08/24 08:05 Dose: 650 mg Albuterol/Ipratropium (Ipratropium-Albuterol 3 Ml Neb) 3 ml INHALATION QID.RESPIRATORY VETO Last Admin: 09/09/24 14:59 Dose: 3 ml Atorvastatin Calcium (Atorvastatin 40 Mg Tablet) 40 mg PO BEDTIME VETO Last Admin: 09/08/24 22:02 Dose: 40 mg Carvedilol (Carvedilol 3.125 Mg Tablet) 3.125 mg PO BID [facility] Last Admin: 09/09/24 17:25 Dose: 3.125 mg Clopidogrel Bisulfate (Clopidogrel 75 Mg Tablet) 75 mg PO DAILY [facility] Last Admin: 09/09/24 09:05 Dose: 75 mg Furosemide (Furosemide 10 Mg/Ml Sdv 4ml) 40 mg IVP Q12H [facility] Last Admin: 09/09/24 17:25 Dose: 40 mg Piperacillin Sod/Tazobactam (Sod 3.375 gm/ Sodium Chloride) 50 mls @ 12.5 mls/hr IV Q8H [facility] Last Infusion: 09/09/24 17:26 Dose: Infused Vancomycin HCl 1,000 mg/ (Sodium Chloride) 250 mls @ 250 mls/hr IV Q18H [facility] Last Infusion: 09/09/24 14:25 Dose: Infused Lactobacillus Acidophilus (Lactobacillus 1 Tablet) 1 tab PO BID [facility] Last Admin: 09/09/24 17:25 Dose: 1 tab Lanolin (Lanolin Oint 7 Gm) 1 applic TOPICAL PRN PRN PRN Reason: DRYNESS Last Admin: 09/08/24 18:43 Dose: 1 applic Morphine Sulfate (Morphine 4 Mg/Ml Sdv 1 Ml) 2 mg IVP Q4H PRN PRN Reason: SEVERE PAIN Last Admin: 09/07/24 00:05 Dose: 2 mg Ondansetron HCl (Ondansetron 2 Mg/Ml Sdv 2 Ml) 4 mg IVP Q8H PRN PRN Reason: vomiting, or N/V if npo Pantoprazole Sodium (Pantoprazole 40 Mg Sdv) 40 mg IVP Q24H [facility] Last Admin: 09/08/24 23:30 Dose: 40 mg Potassium Chloride (Potassium Chloride Er 20 Meq Tablet) 20 meq PO DAILY [facility] Last Admin: 09/09/24 09:05 Dose: 20 meq Sacubitril/Valsartan (Sacubitril/Valsartan 24-26 Mg Tablet) 1 each PO BID [facility] Last Admin: 09/09/24 17:25 Dose: Not Given Spironolactone (Spironolactone 25 Mg Tablet) 25 mg PO DAILY [facility] Last Admin: 09/09/24 09:05 Dose: 25 mg Vitals/I&O/Wt Last Vital Signs Temp 98.6 F 09/09/24 16:00 Pulse 88 09/09/24 16:00 Resp 18 09/09/24 16:00 BP 129/69 09/09/24 16:00 Pulse Ox 95 09/09/24 16:00 O2 Del Method Nasal Cannula 09/09/24 16:00 O2 Flow Rate 5 09/09/24 16:00 FiO2 30 09/09/24 11:52 09/09/24 09/09/24 09/09/24 06:59 14:59 22:59 Intake Total 300 / 760 300 / 300 50 / 350 Output Total 400 / 1250 Balance -100 / -490 300 / 300 50 / 350 Weight last 48 hrs Weight 264 lb 8.875 oz Weight 264 lb 8.875 oz Physical Exam 2 Narrative: GENERAL: The patient is alert and oriented times three. Not in any acute distress. HEENT: No significant pallor, icterus or lymphadenopathy.Oral cavity: There are no mucous membrane lesions. NECK: Trachea appears to be central. No masses noted. No JVD or thyromegaly appreciated. RESPIRATORY: Chest is symmetrical. No intercostals muscle retraction or any accessory muscle activation. There is no chest wall tenderness. Breath sounds are heard bilaterally. No rales or rhonchi heard. No evidence of any consolidation. BREASTS: Deferred. HEART: The heart sounds are normal. No S3 or S4. No significant murmurs. No pericardial rub ABDOMEN: Slightly distended. Some tenderness in the right lower quadrant. : Deferred. RECTAL: Deferred. LYMPHATIC: No lymphadenopathy noted in the neck or groin. EXTREMITIES: 2+ edema both lower extremities. No cyanosis MUSCULOSKELETAL: No acute joint deformities or swelling SKIN: There are no significant scars or skin rash noted. NEUROPSYCHIATRIC: The patient is alert and oriented x3. Appears to be in a good mood. No tremors or rigidity noted. Urinary Catheter Management: Agrawal Latex: Cath Placed During This Visit: yes Reason for Continuing Indwelling Catheter: Accurate Measurement of Urinary Output in Critically Ill Patients Urinary Catheter Date of Insertion: 09/06/24 Urinary Catheter Time of Insertion: 23:30 Data 09/09/24 17:50 09/09/24 05:27 Other Labs: Laboratory Last Values WBC 16.04 10^3/uL (3.29-11.43) H 09/09/24 17:50 RBC 2.99 10^6/uL (3.85-5.65) L 09/09/24 17:50 Hgb 8.90 g/dL (11.27-16.99) L 09/09/24 17:50 Hct 30.5 % (36-47) L 09/09/24 17:50 MCV 102.0 fl (85-98) H 09/09/24 17:50 MCH 29.8 pg (27-33) 09/09/24 17:50 MCHC 29.2 g/dL (30-55) L 09/09/24 17:50 RDW 22.6 % (12.1-15.1) H 09/09/24 17:50 Plt Count 187 10^3/cmm (157-399) 09/09/24 17:50 MPV 10.1 fL (7.4-10.4) 09/09/24 17:50 Neut % (Auto) 85.8 % 09/09/24 17:50 Lymph % (Auto) 6.4 % 09/09/24 17:50 Moody % (Auto) 6.9 % 09/09/24 17:50 Eos % (Auto) 0.0 % 09/09/24 17:50 Baso % (Auto) 0.2 % 09/09/24 17:50 Neut # (Auto) 13.76 10^3/uL (1.8-7.7) H 09/09/24 17:50 Lymph # (Auto) 1.0 10^3/uL (0.8-4.8) 09/09/24 17:50 Moody # (Auto) 1.1 10^3/uL (0.2-0.9) H 09/09/24 17:50 Eos # (Auto) 0.0 10^3/uL (0.0-0.8) 09/09/24 17:50 Baso # (Auto) 0.0 10^3/uL (0.0-0.1) 09/09/24 17:50 Nucleated RBC % (auto) 0.2 % 09/09/24 17:50 Nucleated RBCs # 0.0 /100WBC 09/09/24 17:50 ESR 32 mm/hr (0-15) H 09/06/24 17:10 PT 15.90 SECONDS (12.1-14.9) H 09/09/24 05:27 INR 1.19 (0.8-1.2) 09/09/24 05:27 Specimen Type Arterial 09/09/24 03:20 Sample Site Radial, left 09/09/24 03:20 ABG pH 7.47 (7.35-7.45) H 09/09/24 03:20 ABG pCO2 40.4 mmHg (35-45) 09/09/24 03:20 ABG pO2 58.8 mmHg (80.0-100.0) L 09/09/24 03:20 ABG PO2/FiO2 Ratio 196 09/09/24 03:20 ABG HCO3 29.4 mmol/L (22-26) H 09/09/24 03:20 ABG Base Excess 5.3 mmol/L (-2.0-2.0) H 09/09/24 03:20 Wm Test Pos 09/09/24 03:20 Hematocrit 25.1 % (37-47) L 09/09/24 03:20 O2 Delivery Device Bipap 09/09/24 03:20 O2 Liters/Min 4.0 % 09/06/24 17:12 FiO2 30.0 % 09/09/24 03:20 President + Publisher ID Ed 09/09/24 03:20 Sodium 137 mmol/L (136-145) 09/09/24 05:27 Potassium 3.3 mmol/L (3.5-5.1) L 09/09/24 05:27 Chloride 99 mmol/L (98-107) 09/09/24 05:27 Carbon Dioxide 27 mmol/L (22-29) 09/09/24 05:27 Anion Gap 14.3 (5-19) 09/09/24 05:27 BUN 28 mg/dL (8-23) H 09/09/24 05:27 Creatinine 1.1 mg/dL (0.5-0.9) H 09/09/24 05:27 GFR Calculation Not Reportable 09/09/24 05:27 Glucose 95 mg/dL (65-115) 09/09/24 05:27 Calculated Osmolality 289 mOsm/kg (285-295) 09/09/24 05:27 Lactic Acid 2.2 mmol/L (0.5-2.2) 09/06/24 17:10 Lactic Acid (Sepsis) 2.1 mmol/L (0.5-2.2) 09/06/24 19:35 Calcium 7.8 mg/dL (8.5-10.5) L 09/09/24 05:27 Phosphorus 2.9 mg/dL (2.5-4.5) 09/09/24 05:27 Magnesium 1.6 mg/dL (1.7-2.3) L 09/09/24 05:27 Total Bilirubin 1.9 mg/dL (0.15-1.2) H 09/09/24 05:27 AST 29 U/L (0-32) 09/09/24 05:27 ALT 33 U/L (0-33) 09/09/24 05:27 Alkaline Phosphatase 77 U/L (35-105) 09/09/24 05:27 Troponin T Baseline 75 ng/L (0-10) H 09/06/24 17:10 Troponin T 120 Minute 78.85 ng/L (0-10) H 09/06/24 18:41 Delta Troponin T 3.85 ABS# (0-10) 09/06/24 18:41 C-Reactive Protein 155.0 mg/L (0.0-4.9) H 09/09/24 05:27 NT-Pro-B Natriuret Pep 76667 pg/mL (0-125) H 09/07/24 04:08 Total Protein 5.1 g/dL (6.6-8.7) L 09/09/24 05:27 Albumin 2.4 g/dL (3.5-5.2) L 09/09/24 05:27 Globulin 2.7 g/dL (1.3-4.6) 09/09/24 05:27 Procalcitonin 0.54 ng/mL (0-0.5) H 09/06/24 17:10 TSH 8.52 uIU/mL (0.27-4.20) H 09/06/24 17:10 Free T4 1.02 ng/dL (0.82-1.77) 09/09/24 05:27 Free T3 1.4 PG/ML (2.0-4.4) L 09/09/24 05:27 Urine Color Yellow (Yellow) 09/06/24 23:50 Urine Appearance Clear (CLEAR) 09/06/24 23:50 Urine pH 5.5 (5-7) 09/06/24 23:50 Ur Specific [place] 1.024 (1.005-1.030) 09/06/24 23:50 Urine Protein Negative (Negative) 09/06/24 23:50 Urine Glucose (UA) Negative (Normal) 09/06/24 23:50 Urine Ketones Negative (Negative) 09/06/24 23:50 Urine Blood Negative (Negative) 09/06/24 23:50 Urine Nitrate Negative (Negative) 09/06/24 23:50 Urine Bilirubin Negative (Negative) 09/06/24 23:50 Urine Urobilinogen 1.0 mg/dL (Negative) 09/06/24 23:50 Ur Leukocyte Esterase Negative (Negative) 09/06/24 23:50 Urine RBC 0-2 /hpf (0-2) 09/06/24 23:50 Urine WBC 0-5 /hpf (0-5) 09/06/24 23:50 Ur Squamous Epith Cells 0-5 /hpf (0-5) 09/06/24 23:50 Amorphous Sediment Not Reportable 09/06/24 23:50 Urine Bacteria None seen /hpf (NONE) 09/06/24 23:50 Hyaline Casts 2.46 /lpf 09/06/24 23:50 Urine Yeast 1+ /hpf H 09/06/24 23:50 Vancomycin Trough 24.4 ug/mL (10-15) H 09/09/24 05:27 Adenovirus (PCR) Not detected (NOT DETECT) 09/06/24 17:48 C. pneumoniae DNA (PCR) Not detected (NOT DETECT) 09/06/24 17:48 Coronavirus 229E (PCR) Not detected (NOT DETECT) 09/06/24 17:48 Human Metapneumovir PCR Not detected (NOT DETECT) 09/06/24 17:48 Influenza A (H1) PCR Not detected (NOT DETECT) 09/06/24 17:48 Influ A (H1/09) PCR Not detected (NOT DETECT) 09/06/24 17:48 Influenza A (H3) PCR Not detected (NOT DETECT) 09/06/24 17:48 Influenza Type A (PCR) Not detected (NOT DETECT) 09/06/24 17:48 Influenza Type B (PCR) Not detected (NOT DETECT) 09/06/24 17:48 M. pneumoniae (PCR) Not detected (NOT DETECT) 09/06/24 17:48 Parainfluenza 1 (PCR) Not detected (NOT DETECT) 09/06/24 17:48 Parainfluenza 2 (PCR) Not detected (NOT DETECT) 09/06/24 17:48 Parainfluenza 3 (PCR) Not detected (NOT DETECT) 09/06/24 17:48 Parainfluenza 4 (PCR) Not detected (NOT DETECT) 09/06/24 17:48 RSV Type A (PCR) Not detected (NOT DETECT) 09/06/24 17:48 RSV Type B (PCR) Not detected (NOT DETECT) 09/06/24 17:48 Entero/Rhino (PCR) Not detected (NOT DETECT) 09/06/24 17:48 SARS-CoV-2 (PCR) Not detected (NOT DETECT) 09/06/24 17:48 Micro: Microbiology 09/06/24 23:50 Urine Culture - Final Urine,Clean Catch A&P Assessment and plan (1) Atherosclerosis of coronary artery of [place] heart without angina pectoris: Patient's status post PCI of the right coronary artery in June of this year. Currently seems to be stable. May continue on the current medications. Possible GI bleed, it was decided just to keep her on Plavix alone without any aspirin. Patient seems to be doing okay with no chest pain or any specific cardiac symptoms. May continue on the current management for the time being. Qualifiers: Coronary Disease-Associated Artery/Lesion type: [place] artery Qualified Code(s): I25.10 - Atherosclerotic heart disease of [place] coronary artery without angina pectoris (2) Congestive heart failure: Patient is known to have severe LV systolic dysfunction. LV ejection fraction was 24% by echocardiogram in June. Will do a repeat echocardiogram to follow-up on the LV ejection fraction. Started on Entresto yesterday seems to be tolerating so far well Qualifiers: Heart failure type: other Qualified Code(s): I50.9 - Heart failure, unspecified (3) Hypertension: Currently normotensive. May continue on the current medications Qualifiers: Hypertension type: primary hypertension Qualified Code(s): I10 - Essential (primary) hypertension (4) Left ventricular systolic dysfunction (LVSD): Will try to uptitrate the Entresto based on the GDMT. Apparently the patient did not want to undergo any ICD implantation for primary prophylaxis. (5) Aortic valve stenosis: The patient seems to have severe low gradient aortic valve stenosis. Qualifiers: Cardiac valve disease etiology: nonrheumatic Qualified Code(s): I35.0 - Nonrheumatic aortic (valve) stenosis (6) Intra-abdominal hematoma: No evidence of any active bleed at this time. This need to be closely monitored. (7) Edema, peripheral: Patient may be carefully treated with IV diuretics. Plan Continue on the current medications. Slowly uptitrate the Entresto I will be discussing with the patient's family regarding prophylactic defibrillator May continue on the current management for the time being PDMP PDMP Reviewed: Not Reviewed Attestations 2 Medical Necessity Statement*: Deferred to the primary Coding Level of Care Code 37507 Diagnoses Atherosclerosis of [place] coronary artery of [place] heart without angina pectoris I25.10 Coronary Disease-Associated Artery/Lesion type: [place] artery Other congestive heart failure I50.9 Heart failure type: other Primary hypertension I10 Hypertension type: primary hypertension Left ventricular systolic dysfunction (LVSD) I51.89 Nonrheumatic aortic valve stenosis I35.0 Cardiac valve disease etiology: nonrheumatic Intra-abdominal hematoma Edema, peripheral R60.0
[2024-09-09] MEDS: atorvastatin 40 mg Tablet PO (20:47)
[2024-09-09] MEDS: pantoprazole 40 mg SDV IVP (23:56)
[2024-09-10] VITALS (27 sets, daily range): BP systolic 105–136; BP diastolic 51–67; PULSE 60–82; RESP 17–31; TEMP 36.4–36.6; O2SAT 92–100
[2024-09-10] MEDS: FUROsemide 10 mg/mL SDV 4mL 40 MG IVP ×2 (03:24→17:40)
[2024-09-10 05:08] LABS: Basophils % 0.2 %; Hematocrit 25.9 % (36-47); Lymphocytes # 0.9 10^3/uL (0.8-4.8); Lymphocytes % 7.4 %; Mean Corpuscular HGB Conc 30.9 g/dL (30-55); Mean Corpuscular Volume 100.4 fl (85-98); Mean Platelet Volume 10.3 fL (7.4-10.4); Monocytes # 0.9 10^3/uL (0.2-0.9); Monocytes % 7.2 %; Neutrophils # 10.65 10^3/uL (1.8-7.7); Neutrophils % 84.5 %; Nucleated Red Blood Cells % 0.2 %; Platelet Count 176 10^3/cmm (157-399); Red Blood Count 2.58 10^6/uL (3.85-5.65); Red Cell Distribution Width 22.3 % (12.1-15.1); White Blood Count 12.61 10^3/uL (3.29-11.43)
[2024-09-10 05:46] LABS: Anion Gap 11.4 (5-19); Blood Urea Nitrogen 32 mg/dL (8-23); Calcium 7.8 mg/dL (8.5-10.5); Carbon Dioxide 28 mmol/L (22-29); Chloride 100 mmol/L (98-107); Glucose 100 mg/dL (65-115); Magnesium 1.6 mg/dL (1.7-2.3); Osmolality Calculated 289 mOsm/kg (285-295); Potassium 3.4 mmol/L (3.5-5.1); Sodium 136 mmol/L (136-145)
[2024-09-10] MEDS: piperacillin-tazobactam 3.375 GM in sodium chloride 0.9% (plus) 50 ML IV ×3 (05:55→21:15)
[2024-09-10] MEDS: VANCOMYCIN ADD-Vantage 1,000 MG in 0.9% NaCl ADD-Vantage 250 ML 250 MG IV (05:55)
[2024-09-10] MEDS: ipratropium-albuterol 3 mL Neb INHALATION ×4 (07:48→19:29)
[2024-09-10] MEDS: lactobacillus 1 Tablet 1 TAB PO ×2 (08:20→17:40)
[2024-09-10] MEDS: clopidogrel 75 mg Tablet PO (08:20)
[2024-09-10] MEDS: carvedilol 3.125 mg Tablet PO ×2 (08:20→17:40)
[2024-09-10] MEDS: sacubitril/valsartan 24-26 mg Tablet 1 EACH PO ×2 (08:20→17:40)
[2024-09-10] MEDS: spironolactone 25 mg Tablet PO (08:20)
[2024-09-10] MEDS: potassium chloride ER 20 mEq Tablet PO ×2 (08:20→14:22)
--- NOTE | 2024-09-10 09:01 | P.PN_ITS ---
Subjective 2 Subjective: Patient denies any chest pain. Remains afebrile. Vital signs are stable. No arrhythmias on the monitor. Medications: Medication Review Details: Current Medications Acetaminophen (Acetaminophen 325 Mg Tablet) 650 mg PO Q6H PRN PRN Reason: Mild/Mod Pain Or Temp >/= 101 Last Admin: 09/08/24 08:05 Dose: 650 mg Albuterol/Ipratropium (Ipratropium-Albuterol 3 Ml Neb) 3 ml INHALATION QID.RESPIRATORY VETO Last Admin: 09/10/24 07:48 Dose: 3 ml Atorvastatin Calcium (Atorvastatin 40 Mg Tablet) 40 mg PO BEDTIME VETO Last Admin: 09/09/24 20:47 Dose: 40 mg Carvedilol (Carvedilol 3.125 Mg Tablet) 3.125 mg PO BID VETO Last Admin: 09/10/24 08:20 Dose: 3.125 mg Clopidogrel Bisulfate (Clopidogrel 75 Mg Tablet) 75 mg PO DAILY [facility] Last Admin: 09/10/24 08:20 Dose: 75 mg Furosemide (Furosemide 10 Mg/Ml Sdv 4ml) 40 mg IVP Q12H VETO Last Admin: 09/10/24 03:24 Dose: 40 mg Piperacillin Sod/Tazobactam (Sod 3.375 gm/ Sodium Chloride) 50 mls @ 12.5 mls/hr IV Q8H VETO Last Admin: 09/10/24 05:55 Dose: 12.5 mls/hr Vancomycin HCl 1,000 mg/ (Sodium Chloride) 250 mls @ 250 mls/hr IV Q18H VETO Last Admin: 09/10/24 05:55 Dose: 250 mls/hr Lactobacillus Acidophilus (Lactobacillus 1 Tablet) 1 tab PO BID VETO Last Admin: 09/10/24 08:20 Dose: 1 tab Lanolin (Lanolin Oint 7 Gm) 1 applic TOPICAL PRN PRN PRN Reason: DRYNESS Last Admin: 09/08/24 18:43 Dose: 1 applic Morphine Sulfate (Morphine 4 Mg/Ml Sdv 1 Ml) 2 mg IVP Q4H PRN PRN Reason: SEVERE PAIN Last Admin: 09/07/24 00:05 Dose: 2 mg Ondansetron HCl (Ondansetron 2 Mg/Ml Sdv 2 Ml) 4 mg IVP Q8H PRN PRN Reason: vomiting, or N/V if npo Pantoprazole Sodium (Pantoprazole 40 Mg Sdv) 40 mg IVP Q24H [facility] Last Admin: 09/09/24 23:56 Dose: 40 mg Potassium Chloride (Potassium Chloride Er 20 Meq Tablet) 20 meq PO DAILY [facility] Last Admin: 09/10/24 08:20 Dose: 20 meq Sacubitril/Valsartan (Sacubitril/Valsartan 24-26 Mg Tablet) 1 each PO BID [facility] Last Admin: 09/10/24 08:20 Dose: 1 each Spironolactone (Spironolactone 25 Mg Tablet) 25 mg PO DAILY [facility] Last Admin: 09/10/24 08:20 Dose: 25 mg Vitals/I&O/Wt Last Vital Signs Temp 97.8 F 09/10/24 08:54 Pulse 82 09/10/24 08:54 Resp 29 H 09/10/24 08:54 BP 136/60 09/10/24 08:54 Pulse Ox 93 09/10/24 08:54 O2 Del Method Nasal Cannula 09/10/24 07:48 O2 Flow Rate 4 09/10/24 07:48 FiO2 30 09/09/24 23:12 09/09/24 09/10/24 09/10/24 22:59 06:59 14:59 Intake Total 170 / 470 290 / 760 Output Total 500 / 500 350 / 850 Balance -330 / -30 -60 / -90 Weight last 48 hrs Weight 267 lb 13.786 oz Weight 264 lb 8.875 oz Physical Exam 2 Narrative: GENERAL: The patient is alert and oriented times three. Not in any acute distress. HEENT: No significant pallor, icterus or lymphadenopathy.Oral cavity: There are no mucous membrane lesions. NECK: Trachea appears to be central. No masses noted. No JVD or thyromegaly appreciated. RESPIRATORY: Chest is symmetrical. No intercostals muscle retraction or any accessory muscle activation. There is no chest wall tenderness. Breath sounds are heard bilaterally. No rales or rhonchi heard. No evidence of any consolidation. BREASTS: Deferred. HEART: The heart sounds are normal. No S3 or S4. No significant murmurs. No pericardial rub ABDOMEN: Slightly distended. Some tenderness in the right lower quadrant. : Deferred. RECTAL: Deferred. LYMPHATIC: No lymphadenopathy noted in the neck or groin. EXTREMITIES: 2+ edema both lower extremities. Features of chronic venous stasis MUSCULOSKELETAL: No acute joint deformities or swelling SKIN: There are no significant scars or skin rash noted. NEUROPSYCHIATRIC: The patient is alert and oriented x3. Appears to be in a good mood. No tremors or rigidity noted. Urinary Catheter Management: Agrawal Latex: Cath Placed During This Visit: yes Reason for Continuing Indwelling Catheter: Accurate Measurement of Urinary Output in Critically Ill Patients Urinary Catheter Date of Insertion: 09/06/24 Urinary Catheter Time of Insertion: 23:30 Data 09/10/24 04:05 09/10/24 04:05 Other Labs: Laboratory Last Values WBC 12.61 10^3/uL (3.29-11.43) H 09/10/24 04:05 RBC 2.58 10^6/uL (3.85-5.65) L 09/10/24 04:05 Hgb 8.00 g/dL (11.27-16.99) L 09/10/24 04:05 Hct 25.9 % (36-47) L 09/10/24 04:05 MCV 100.4 fl (85-98) H 09/10/24 04:05 MCH 31.0 pg (27-33) 09/10/24 04:05 MCHC 30.9 g/dL (30-55) D 09/10/24 04:05 RDW 22.3 % (12.1-15.1) H 09/10/24 04:05 Plt Count 176 10^3/cmm (157-399) 09/10/24 04:05 MPV 10.3 fL (7.4-10.4) 09/10/24 04:05 Neut % (Auto) 84.5 % 09/10/24 04:05 Lymph % (Auto) 7.4 % 09/10/24 04:05 [place] % (Auto) 7.2 % 09/10/24 04:05 Eos % (Auto) 0.0 % 09/10/24 04:05 Baso % (Auto) 0.2 % 09/10/24 04:05 Neut # (Auto) 10.65 10^3/uL (1.8-7.7) H 09/10/24 04:05 Lymph # (Auto) 0.9 10^3/uL (0.8-4.8) 09/10/24 04:05 [place] # (Auto) 0.9 10^3/uL (0.2-0.9) 09/10/24 04:05 Eos # (Auto) 0.0 10^3/uL (0.0-0.8) 09/10/24 04:05 Baso # (Auto) 0.0 10^3/uL (0.0-0.1) 09/10/24 04:05 Nucleated RBC % (auto) 0.2 % 09/10/24 04:05 Nucleated RBCs # 0.0 /100WBC 09/10/24 04:05 ESR 32 mm/hr (0-15) H 09/06/24 17:10 PT 15.90 SECONDS (12.1-14.9) H 09/09/24 05:27 INR 1.19 (0.8-1.2) 09/09/24 05:27 Specimen Type Arterial 09/09/24 03:20 Sample Site Radial, left 09/09/24 03:20 ABG pH 7.47 (7.35-7.45) H 09/09/24 03:20 ABG pCO2 40.4 mmHg (35-45) 09/09/24 03:20 ABG pO2 58.8 mmHg (80.0-100.0) L 09/09/24 03:20 ABG PO2/FiO2 Ratio 196 09/09/24 03:20 ABG HCO3 29.4 mmol/L (22-26) H 09/09/24 03:20 ABG Base Excess 5.3 mmol/L (-2.0-2.0) H 09/09/24 03:20 Wm Test Pos 09/09/24 03:20 Hematocrit 25.1 % (37-47) L 09/09/24 03:20 O2 Delivery Device Bipap 09/09/24 03:20 O2 Liters/Min 4.0 % 09/06/24 17:12 FiO2 30.0 % 09/09/24 03:20 Pony Trimmer ID Ed 09/09/24 03:20 Sodium 136 mmol/L (136-145) 09/10/24 04:05 Potassium 3.4 mmol/L (3.5-5.1) L 09/10/24 04:05 Chloride 100 mmol/L (98-107) 09/10/24 04:05 Carbon Dioxide 28 mmol/L (22-29) 09/10/24 04:05 Anion Gap 11.4 (5-19) 09/10/24 04:05 BUN 32 mg/dL (8-23) H 09/10/24 04:05 Creatinine 1.2 mg/dL (0.5-0.9) H 09/10/24 04:05 GFR Calculation Not Reportable 09/10/24 04:05 Glucose 100 mg/dL (65-115) 09/10/24 04:05 Calculated Osmolality 289 mOsm/kg (285-295) 09/10/24 04:05 Lactic Acid 2.2 mmol/L (0.5-2.2) 09/06/24 17:10 Lactic Acid (Sepsis) 2.1 mmol/L (0.5-2.2) 09/06/24 19:35 Calcium 7.8 mg/dL (8.5-10.5) L 09/10/24 04:05 Phosphorus 2.9 mg/dL (2.5-4.5) 09/09/24 05:27 Magnesium 1.6 mg/dL (1.7-2.3) L 09/10/24 04:05 Total Bilirubin 1.9 mg/dL (0.15-1.2) H 09/09/24 05:27 AST 29 U/L (0-32) 09/09/24 05:27 ALT 33 U/L (0-33) 09/09/24 05:27 Alkaline Phosphatase 77 U/L (35-105) 09/09/24 05:27 Troponin T Baseline 75 ng/L (0-10) H 09/06/24 17:10 Troponin T 120 Minute 78.85 ng/L (0-10) H 09/06/24 18:41 Delta Troponin T 3.85 ABS# (0-10) 09/06/24 18:41 C-Reactive Protein 155.0 mg/L (0.0-4.9) H 09/09/24 05:27 NT-Pro-B Natriuret Pep 07652 pg/mL (0-125) H 09/07/24 04:08 Total Protein 5.1 g/dL (6.6-8.7) L 09/09/24 05:27 Albumin 2.4 g/dL (3.5-5.2) L 09/09/24 05:27 Globulin 2.7 g/dL (1.3-4.6) 09/09/24 05:27 Procalcitonin 0.54 ng/mL (0-0.5) H 09/06/24 17:10 TSH 8.52 uIU/mL (0.27-4.20) H 09/06/24 17:10 Free T4 1.02 ng/dL (0.82-1.77) 09/09/24 05:27 Free T3 1.4 PG/ML (2.0-4.4) L 09/09/24 05:27 Urine Color Yellow (Yellow) 09/06/24 23:50 Urine Appearance Clear (CLEAR) 09/06/24 23:50 Urine pH 5.5 (5-7) 09/06/24 23:50 Ur Specific [place] 1.024 (1.005-1.030) 09/06/24 23:50 Urine Protein Negative (Negative) 09/06/24 23:50 Urine Glucose (UA) Negative (Normal) 09/06/24 23:50 Urine Ketones Negative (Negative) 09/06/24 23:50 Urine Blood Negative (Negative) 09/06/24 23:50 Urine Nitrate Negative (Negative) 09/06/24 23:50 Urine Bilirubin Negative (Negative) 09/06/24 23:50 Urine Urobilinogen 1.0 mg/dL (Negative) 09/06/24 23:50 Ur Leukocyte Esterase Negative (Negative) 09/06/24 23:50 Urine RBC 0-2 /hpf (0-2) 09/06/24 23:50 Urine WBC 0-5 /hpf (0-5) 09/06/24 23:50 Ur Squamous Epith Cells 0-5 /hpf (0-5) 09/06/24 23:50 Amorphous Sediment Not Reportable 09/06/24 23:50 Urine Bacteria None seen /hpf (NONE) 09/06/24 23:50 Hyaline Casts 2.46 /lpf 09/06/24 23:50 Urine Yeast 1+ /hpf H 09/06/24 23:50 Vancomycin Trough 24.4 ug/mL (10-15) H 09/09/24 05:27 Adenovirus (PCR) Not detected (NOT DETECT) 09/06/24 17:48 C. pneumoniae DNA (PCR) Not detected (NOT DETECT) 09/06/24 17:48 Coronavirus 229E (PCR) Not detected (NOT DETECT) 09/06/24 17:48 Human Metapneumovir PCR Not detected (NOT DETECT) 09/06/24 17:48 Influenza A (H1) PCR Not detected (NOT DETECT) 09/06/24 17:48 Influ A (H1/09) PCR Not detected (NOT DETECT) 09/06/24 17:48 Influenza A (H3) PCR Not detected (NOT DETECT) 09/06/24 17:48 Influenza Type A (PCR) Not detected (NOT DETECT) 09/06/24 17:48 Influenza Type B (PCR) Not detected (NOT DETECT) 09/06/24 17:48 M. pneumoniae (PCR) Not detected (NOT DETECT) 09/06/24 17:48 Parainfluenza 1 (PCR) Not detected (NOT DETECT) 09/06/24 17:48 Parainfluenza 2 (PCR) Not detected (NOT DETECT) 09/06/24 17:48 Parainfluenza 3 (PCR) Not detected (NOT DETECT) 09/06/24 17:48 Parainfluenza 4 (PCR) Not detected (NOT DETECT) 09/06/24 17:48 RSV Type A (PCR) Not detected (NOT DETECT) 09/06/24 17:48 RSV Type B (PCR) Not detected (NOT DETECT) 09/06/24 17:48 Entero/Rhino (PCR) Not detected (NOT DETECT) 09/06/24 17:48 SARS-CoV-2 (PCR) Not detected (NOT DETECT) 09/06/24 17:48 Micro: Microbiology 09/06/24 23:50 Urine Culture - Final Urine,Clean Catch Other data: Echocardiogram from 09/08/2024 Dilated left ventricle with diffuse hypokinesia, arauz of the septum and the LV apex. LV ejection fraction of 30 to 35%. Mildly dilated left ventricle. Mildly increased right ventricular size. Slightly diminished ejection fraction. Mild biatrial enlargement. Trivial pericardial effusion. Compared to the study from 06/28/2024, there is some improvement in the LV ejection fraction from 24% to 30 - 35% A&P Assessment and plan (1) Atherosclerosis of coronary artery of [place] heart without angina pectoris: Patient's status post PCI of the right coronary artery in June of this year. Currently seems to be stable. May continue on the current medications. Possible GI bleed, it was decided just to keep her on Plavix alone without any aspirin. Patient seems to be doing okay with no chest pain or any specific cardiac symptoms. May continue on the current management for the time being. Qualifiers: Coronary Disease-Associated Artery/Lesion type: [place] artery Qualified Code(s): I25.10 - Atherosclerotic heart disease of [place] coronary artery without angina pectoris (2) Congestive heart failure: Patient was started on Entresto but because of the low blood pressure, it had to be held. LV ejection fraction improved to 30 to 35%. May continue on the current medications. Will try to restart the medication, once the blood pressure gets more stable Qualifiers: Heart failure type: other Qualified Code(s): I50.9 - Heart failure, unspecified (3) Left ventricular systolic dysfunction (LVSD): Will try to uptitrate the Entresto based on the GDMT. Apparently the patient did not want to undergo any ICD implantation for primary prophylaxis. (4) Aortic valve stenosis: The patient seems to have severe low gradient aortic valve stenosis. At this point, I should not occluding specific intervention. Qualifiers: Cardiac valve disease etiology: nonrheumatic Qualified Code(s): I35.0 - Nonrheumatic aortic (valve) stenosis (5) Intra-abdominal hematoma: No evidence of any active bleed at this time. This need to be closely monitored. (6) Edema, peripheral: This could be multifactorial patient may be carefully treated with IV diuretics. Plan Spironolactone 25 mg p.o. daily Patient is undecided about the defibrillator. Will continue on the current measures. Encourage ambulation Based on the clinical progress, further management decisions will be made PDMP PDMP Reviewed: Not Reviewed Attestations 2 Medical Necessity Statement*: Deferred to the primary Coding Level of Care Code Acute Code for [facility] Fwd Diagnoses Atherosclerosis of [place] coronary artery of [place] heart without angina pectoris I25.10 Coronary Disease-Associated Artery/Lesion type: [place] artery Other congestive heart failure I50.9 Heart failure type: other Left ventricular systolic dysfunction (LVSD) I51.89 Nonrheumatic aortic valve stenosis I35.0 Cardiac valve disease etiology: nonrheumatic Intra-abdominal hematoma Edema, peripheral R60.0
--- NOTE | 2024-09-10 09:34 | P.PN_ITS ---
Subjective 2 Subjective: Seen this morning. Family present at bedside. Patient more awake alert today. Will plan to work with physical therapy today. Hemoglobin is stable. Vitals/I&O/Wt Last Vital Signs Temp 97.6 F 09/10/24 20:00 Pulse 68 09/11/24 11:04 Resp 16 09/11/24 11:04 BP 105/77 09/11/24 10:30 Pulse Ox 96 09/11/24 11:04 O2 Del Method Nasal Cannula 09/11/24 11:04 O2 Flow Rate 3 09/11/24 11:04 FiO2 30 09/11/24 07:40 09/10/24 09/11/24 09/11/24 22:59 06:59 14:59 Intake Total 150 / 450 410 / 860 250 / 250 Output Total 650 / 950 Balance 150 / 150 -240 / -90 250 / 250 Weight last 48 hrs Weight 122.593 kg Weight 121.5 kg Physical Exam 2 Narrative: General: No acute distress, AO x3 on nasal cannula today. HEENT: PERRLA, pupils bilaterally equal and reactive, pallors not present Chest: Normal vesicular breath sounds, no added sounds, equal good air entry bilaterally CVS: S1-S2 regular, no murmurs, no tachycardia, no gallops, no rubs Abdomen: Soft, nontender, bowel sounds present Neuro: No focal deficits, no facial deformity, AO x3, Extremities: Generalized anasarca, Urinary Catheter Management: Agrawal Latex: Cath Placed During This Visit: yes Reason for Continuing Indwelling Catheter: Accurate Measurement of Urinary Output in Critically Ill Patients Urinary Catheter Date of Insertion: 09/06/24 Urinary Catheter Time of Insertion: 23:30 Data 09/11/24 04:50 09/11/24 04:50 A&P Assessment and plan (1) Acute exacerbation of CHF (congestive heart failure): Primary diagnosis at presentation contributing to acute hypoxic respiratory failure from fluid overload and anasarca. On IV Lasix. Ejection fraction 24% on echocardiogram within the last couple of months. Qualifiers: Heart failure type: combined systolic and diastolic Qualified Code(s): I50.43 - Acute on chronic combined systolic (congestive) and diastolic (congestive) heart failure (2) Pneumonia: Suspected diagnosis at the time of admission, on empiric coverage for healthcare associated infection. Qualifiers: Pneumonia type: due to unspecified organism Laterality: left Lung location: upper lobe of lung Qualified Code(s): J18.9 - Pneumonia, unspecified organism (3) Acute hypoxic respiratory failure: Related to above (4) CAD S/P percutaneous coronary angioplasty: RCA stent placement in June 2024. Had been discharged on aspirin and Plavix but these were ultimately stopped at the time of significant hemoperitoneum earlier this month. Has been restarted on Plavix. Tolerating thus far. (5) Acute anemia: Acute blood loss anemia from prior event with hemoglobin stable this hospital stay. Recent significant bleeding. (6) Intra-abdominal hematoma: Recently, transferred to [facility], received blood transfusions, at risk of re-bleed but must maintain antiplatelet therapy with recent stent. Dr Winkler discussed with patient and family. Reviewed again on 09/08 and patient understands, no new questions. (7) Aortic valve stenosis: Aware, [place] 0.83 cm2, mean gradient 5.2 mmHg Qualifiers: Cardiac valve disease etiology: nonrheumatic Qualified Code(s): I35.0 - Nonrheumatic aortic (valve) stenosis (8) CKD (chronic kidney disease): Stage 2, stable Qualifiers: Chronic kidney disease stage: stage 2 (GFR 60-89) Qualified Code(s): N 18.2 - Chronic kidney disease, stage 2 (mild) (9) Neuropathy: Elevated TSH without a history of hypothyroidism, will need recheck of labs in outpt setting. (10) PICC (peripherally inserted central catheter) in place: placed 09/08 (11) Anasarca: (12) KELVIN (acute kidney injury): Plan Elevated bilirubin and transaminiase, monitoring Elevated TSH without a history of hypothyroidism On IV diuresis currently Resume home potassium On Plavix at home dosing Off of home aspirin therapy currently due to recent bleeding and informed decision making On carvedilol at home dosing Entresto has been initiated along with spironolactone Will resume home statin therapy On PPI VTE prophylaxis: SCDs, recent significant bleeding so no pharmacological prophylaxis GI Prophylaxis: PPI Antibiotics: On Zosyn and vancomycin for health care associated pneumonia coverage and cellulitis coverage. Acute infectious etiology seems less likely but continues to have leukocytosis with left shift. Had been on cefdinir and doxycycline in the outpatient setting. Pending studies: Blood and urine cultures from admission, morning labs which will include electrolytes, CMP, free T3 and free T4 and a repeat CRP for comparison to prior value Telemetry: Ordered secondary to recent cardiac history Agrawal: In place due to IV diuresis Line(s): PICC line placed 09/08 Disposition plan: Disposition will depend on clinical course. Had previously been discharged to [facility] but would like to look at [place] or [facility] as options Code Status: Allow natural September 07, 2024: Recent HPI as noted above. Discussed with patient the diffuclt situation that she is currently facing. On one hand, she underwent PCI 2 months ago with placement of stent to the RCA. Therefore it is important to continue antiplatelet therapy as her stent is at high risk of stensis off A/c. cardiology service was consulted and recommends starting Plavix 75mg po daily. ASA to remain on hold. On the other hand, with resumption of antiplatelet agents, she remains at high risk of worsening bleeding/worsening hematoma and any bleeding may potentially be fatal for her. She understands that neither is a good situation however after weighing all risks and benefits, she has decided to resume Plavix at this time with close Hb monitoring. Should she develop recurrent or worsening bleeding at that time which cannot be managed with transfusions alone, she will like to transition to comfort care measures only. Additionally she reiteriates her decision to not have CPR or be on a ventilator. She would not want any life prolonging measures. Her brother Mckay, son alondra are at bedside. Patient appoints her older brother Mckay to be her surrogate decison maker should she be in a place of being unable to make decisions. She is currently awake alert and oriented x 4. COnversation witnessed by lola's RN in ICU. Resume Plavix 75mg daily H&H check q12h continue Abx for now due to suspicion for cellulitis, however favor RLE erythema to be changes of stasis dermatitis, will likely d/c abx if infectious evaluation remains negative at 48 hrs continue diuresis with iv lasix 40mg q12h Bipap at night time and prn during day 09/08/24 Hemoglobin has remained stable. No gross bleeding noted. Not feeling great but breathing is better than when she came in and not having as much pain. Understands the conversation that was had with her yesterday and the poor prognosis, difficult management currently. Remains on antibiotics that were started for empiric coverage of pneumonia plus or minus cellulitis. Does have leukocytosis with left shift. Had also been on antibiotics in the outpatient setting so is at increased risk for C. difficile colitis. Will add probiotics. Remains on oxygen with BiPAP if needed. Will repeat laboratory studies tomorrow and continue close monitoring in the ICU setting. 09/09/2024 hb dropped to 7.8, will check cbc at 6 pm, if significant downward trend, may consider repeat imaging discussed with family regarding bleeding risk with plavix and the need for it since recent stents continue to monitor hb family would [place] go [place], discussed with case management no gross bleeding noted continue empiric abx coverage continue close icu monitoring 09/10/2024 Hemoglobin stable at this time. Do not believe patient has bleeding. Start physical therapy today. Still has generalized anasarca. Continue IV Lasix. If unresponsive may need to consider nephrology consult. EF is improved compared to prior. Patient may need a defibrillator going forward and LifeVest at time of discharge. She is bedbound at baseline and is post to go to a nursing facility at time of discharge. Continue BiPAP Continue Plavix. Family patient well aware that patient may have spontaneous bleed being on Plavix going forward. However benefits outweigh the risk at this time. Recheck labs in AM. PDMP PDMP Reviewed: Not Reviewed Attestations 2 Medical Necessity Statement*: Possible discharge on Lasix 48 to 72 hours. Patient will need to be optimized prior to discharge. Diagnoses Acute on chronic combined systolic and diastolic congestive heart failure I50.43 Heart failure type: combined systolic and diastolic Pneumonia of left upper lobe due to infectious organism J18.9 Pneumonia type: due to unspecified organism Laterality: left Lung location: upper lobe of lung Acute hypoxic respiratory failure J96.01 CAD S/P percutaneous coronary angioplasty I25.10; Z98.61 Acute anemia D64.9 Intra-abdominal hematoma Nonrheumatic aortic valve stenosis I35.0 Cardiac valve disease etiology: nonrheumatic Stage 2 chronic kidney disease N18.2 Chronic kidney disease stage: stage 2 (GFR 60-89) Neuropathy G62.9 PICC (peripherally inserted central catheter) in place Z45.2 Anasarca R60.1 KELVIN (acute kidney injury) N17.9
--- NOTE | 2024-09-10 13:15 | PC.SOCIAL ---
IMM Updated Updated pt on IMM. No questions voiced. Provided pt a copy. Initialed, dated, & timed copy in chart.
[2024-09-10] MEDS: magnesium sulfate premix 1 GM/100 ML PIGGYBACK IV (14:22)
[2024-09-10] MEDS: atorvastatin 40 mg Tablet PO (21:15)
[2024-09-11] VITALS (73 sets, daily range): BP systolic 74–132; BP diastolic 36–77; PULSE 60–79; RESP 15–36; O2SAT 90–100
[2024-09-11] MEDS: pantoprazole 40 mg SDV IVP (00:26)
[2024-09-11] MEDS: VANCOMYCIN ADD-Vantage 1,000 MG in 0.9% NaCl ADD-Vantage 250 ML 250 MG IV (00:27)
[2024-09-11] MEDS: FUROsemide 10 mg/mL SDV 4mL 40 MG IVP (05:05)
[2024-09-11] MEDS: acetaminophen 325 mg Tablet 650 MG PO ×2 (05:05→15:36)
[2024-09-11] MEDS: piperacillin-tazobactam 3.375 GM in sodium chloride 0.9% (plus) 50 ML IV ×3 (05:06→23:30)
[2024-09-11 05:25] LABS: Basophils % 0.2 %; Hematocrit 27.4 % (36-47); Lymphocytes % 7.9 %; Mean Corpuscular HGB Conc 30.3 g/dL (30-55); Mean Corpuscular Hemoglobin 30.3 pg (27-33); Mean Platelet Volume 10.3 fL (7.4-10.4); Monocytes # 0.9 10^3/uL (0.2-0.9); Monocytes % 6.9 %; Neutrophils # 10.56 10^3/uL (1.8-7.7); Neutrophils % 84.4 %; Nucleated Red Blood Cells % 0 %; Platelet Count 181 10^3/cmm (157-399); Red Blood Count 2.74 10^6/uL (3.85-5.65); Red Cell Distribution Width 23.4 % (12.1-15.1); White Blood Count 12.52 10^3/uL (3.29-11.43)
--- NOTE | 2024-09-11 05:31 | PC.NURSE ---
Pt MAP decreased, during med pass pt was grimacing and holding right lower quadrant, stating she had sharp pain. Color pale, slightly lethargic, activity tolerance more poor than yesterday. Spoke with Dr. Hanson and made aware, awaiting morning labs for further orders.
--- NOTE | 2024-09-11 05:40 | PC.NURSE ---
AM CBC resulted, Hgb 8.3 (8.0 yesterday). Reported to Dr. Hanson, no new orders at this time.
[2024-09-11 05:48] LABS: Blood Urea Nitrogen 34 mg/dL (8-23); Calcium 7.7 mg/dL (8.5-10.5); Carbon Dioxide 26 mmol/L (22-29); Chloride 99 mmol/L (98-107); Creatinine Clr Calc Pharmacy 46.2477; Glucose 94 mg/dL (65-115); Magnesium 1.7 mg/dL (1.7-2.3); Osmolality Calculated 285 mOsm/kg (285-295); Sodium 134 mmol/L (136-145)
[2024-09-11 05:49] LABS: Anion Gap 13.2 (5-19); Potassium 4.2 mmol/L (3.5-5.1)
[2024-09-11] MEDS: albumin 12.5 GM/50 ML VIAL IV (06:24)
[2024-09-11] MEDS: ipratropium-albuterol 3 mL Neb INHALATION ×4 (07:37→20:22)
--- NOTE | 2024-09-11 08:20 | CT_ITS ---
WS: [id number] CT CHEST, ABDOMEN, AND PELVIS TECHNIQUE: Noncontrast CT of the chest, abdomen, and pelvis with coronal and sagittal reformatted images. CLINICAL INFORMATION: hypotension, hx of hemoperitoneum COMPARISON: 09/06/2024 DLP: 1268.[address] scans at [facility] use at least one of these dose optimization techniques: automated exposure control; mA and/or kV adjustment per patient size (includes targeted exams where dose is matched to clinical indication); or iterative reconstruction. CT CHEST: Small RIGHT greater than LEFT pleural effusions. Bibasilar atelectasis. Dense coronary calcification. Shallow inspiration. Diffuse body wall anasarca. CT ABDOMEN AND PELVIS: Cirrhotic liver. Previously described hematoma within the abdomen and pelvis demonstrates typical evolution compared to 09/06/2024. No evidence of recurrent hemorrhage. This measures slightly smaller today but with typical evolution. Diffuse body wall anasarca. Free fluid and hemoperitoneum in the pelvis. Agrawal catheter. Cirrhotic liver. No other significant interval changes CT/[place] [id number] IMPRESSION: 1. Previously described intraperitoneal hematoma abdomen and pelvis decreased in size slightly compared to previous. No evidence of new or progressive hemorr sharad. 2. Evolving free fluid and hemoperitoneum in the abdomen and pelvis. 3. Diffuse body wall anasarca. 4. Small RIGHT greater than the LEFT pleural effusions
[2024-09-11] MEDS: clopidogrel 75 mg Tablet PO (08:25)
[2024-09-11] MEDS: lactobacillus 1 Tablet 1 TAB PO ×2 (08:25→17:45)
[2024-09-11] MEDS: potassium chloride ER 20 mEq Tablet PO (08:25)
--- NOTE | 2024-09-11 08:47 | P.PN_ITS ---
Subjective 2 Subjective: Patient seems to be feeling better. She is sitting up in the recliner. No fever or chills. Still has abdominal discomfort and significant dependent edema around the lower abdomen and in the buttock Medications: Medication Review Details: Current Medications Acetaminophen (Acetaminophen 325 Mg Tablet) 650 mg PO Q6H PRN PRN Reason: Mild/Mod Pain Or Temp >/= 101 Last Admin: 09/11/24 05:05 Dose: 650 mg Albuterol/Ipratropium (Ipratropium-Albuterol 3 Ml Neb) 3 ml INHALATION QID.RESPIRATORY VETO Last Admin: 09/11/24 07:37 Dose: 3 ml Atorvastatin Calcium (Atorvastatin 40 Mg Tablet) 40 mg PO BEDTIME VETO Last Admin: 09/10/24 21:15 Dose: 40 mg Carvedilol (Carvedilol 3.125 Mg Tablet) 3.125 mg PO BID [facility] Last Admin: 09/10/24 17:40 Dose: 3.125 mg Clopidogrel Bisulfate (Clopidogrel 75 Mg Tablet) 75 mg PO DAILY [facility] Last Admin: 09/11/24 08:25 Dose: 75 mg Furosemide (Furosemide 10 Mg/Ml Sdv 4ml) 40 mg IVP Q12H [facility] Last Admin: 09/11/24 05:05 Dose: 40 mg Piperacillin Sod/Tazobactam (Sod 3.375 gm/ Sodium Chloride) 50 mls @ 12.5 mls/hr IV Q8H [facility] Last Admin: 09/11/24 05:06 Dose: 12.5 mls/hr Vancomycin HCl 1,000 mg/ (Sodium Chloride) 250 mls @ 250 mls/hr IV Q18H [facility] Last Infusion: 09/11/24 08:26 Dose: Infused Lactobacillus Acidophilus (Lactobacillus 1 Tablet) 1 tab PO BID [facility] Last Admin: 09/11/24 08:25 Dose: 1 tab Lanolin (Lanolin Oint 7 Gm) 1 applic TOPICAL PRN PRN PRN Reason: DRYNESS Last Admin: 09/08/24 18:43 Dose: 1 applic Ondansetron HCl (Ondansetron 2 Mg/Ml Sdv 2 Ml) 4 mg IVP Q8H PRN PRN Reason: vomiting, or N/V if npo Pantoprazole Sodium (Pantoprazole 40 Mg Sdv) 40 mg IVP Q24H [facility] Last Admin: 09/11/24 00:26 Dose: 40 mg Potassium Chloride (Potassium Chloride Er 20 Meq Tablet) 20 meq PO DAILY [facility] Last Admin: 09/11/24 08:25 Dose: 20 meq Sacubitril/Valsartan (Sacubitril/Valsartan 24-26 Mg Tablet) 1 each PO BID [facility] Last Admin: 09/10/24 17:40 Dose: 1 each Spironolactone (Spironolactone 25 Mg Tablet) 25 mg PO DAILY [facility] Last Admin: 09/10/24 08:20 Dose: 25 mg Vitals/I&O/Wt Last Vital Signs Temp 97.6 F 09/10/24 20:00 Pulse 73 09/11/24 07:40 Resp 17 09/11/24 07:39 BP 96/44 09/11/24 05:30 Pulse Ox 100 09/11/24 07:40 O2 Del Method BiPAP 09/11/24 07:39 O2 Flow Rate 4 09/10/24 11:23 FiO2 30 09/11/24 07:40 09/10/24 09/11/24 09/11/24 22:59 06:59 14:59 Intake Total 150 / 450 410 / 860 250 / 250 Output Total 650 / 950 Balance 150 / 150 -240 / -90 250 / 250 Weight last 48 hrs Weight 270 lb 4.334 oz Weight 267 lb 13.786 oz Physical Exam 2 Narrative: GENERAL: The patient is alert and oriented times three. Not in any acute distress. HEENT: No significant pallor, icterus or lymphadenopathy.Oral cavity: There are no mucous membrane lesions. NECK: Trachea appears to be central. No masses noted. No JVD or thyromegaly appreciated. RESPIRATORY: Chest is symmetrical. No intercostals muscle retraction or any accessory muscle activation. There is no chest wall tenderness. Breath sounds are heard bilaterally. No rales or rhonchi heard. No evidence of any consolidation. BREASTS: Deferred. HEART: The heart sounds are normal. No S3 or S4. No significant murmurs. No pericardial rub ABDOMEN: Slightly distended. Some tenderness in the right lower quadrant. Dependent edema in the lower back/gluteal region : Deferred. RECTAL: Deferred. LYMPHATIC: No lymphadenopathy noted in the neck or groin. EXTREMITIES: 2+ edema both lower extremities. Features of chronic venous stasis MUSCULOSKELETAL: No acute joint deformities or swelling SKIN: There are no significant scars or skin rash noted. NEUROPSYCHIATRIC: The patient is alert and oriented x3. Appears to be in a good mood. No tremors or rigidity noted. Urinary Catheter Management: Agrawal Latex: Cath Placed During This Visit: yes Reason for Continuing Indwelling Catheter: Accurate Measurement of Urinary Output in Critically Ill Patients Urinary Catheter Date of Insertion: 09/06/24 Urinary Catheter Time of Insertion: 23:30 Data 09/11/24 04:50 09/11/24 04:50 Other Labs: Laboratory Last Values WBC 12.52 10^3/uL (3.29-11.43) H 09/11/24 04:50 RBC 2.74 10^6/uL (3.85-5.65) L 09/11/24 04:50 Hgb 8.30 g/dL (11.27-16.99) L 09/11/24 04:50 Hct 27.4 % (36-47) L 09/11/24 04:50 MCV 100.0 fl (85-98) H 09/11/24 04:50 MCH 30.3 pg (27-33) 09/11/24 04:50 MCHC 30.3 g/dL (30-55) 09/11/24 04:50 RDW 23.4 % (12.1-15.1) H 09/11/24 04:50 Plt Count 181 10^3/cmm (157-399) 09/11/24 04:50 MPV 10.3 fL (7.4-10.4) 09/11/24 04:50 Neut % (Auto) 84.4 % 09/11/24 04:50 Lymph % (Auto) 7.9 % 09/11/24 04:50 [place] % (Auto) 6.9 % 09/11/24 04:50 Eos % (Auto) 0.0 % 09/11/24 04:50 Baso % (Auto) 0.2 % 09/11/24 04:50 Neut # (Auto) 10.56 10^3/uL (1.8-7.7) H 09/11/24 04:50 Lymph # (Auto) 1.0 10^3/uL (0.8-4.8) 09/11/24 04:50 [place] # (Auto) 0.9 10^3/uL (0.2-0.9) 09/11/24 04:50 Eos # (Auto) 0.0 10^3/uL (0.0-0.8) 09/11/24 04:50 Baso # (Auto) 0.0 10^3/uL (0.0-0.1) 09/11/24 04:50 Nucleated RBC % (auto) 0 % 09/11/24 04:50 Nucleated RBCs # 0.0 /100WBC 09/11/24 04:50 ESR 32 mm/hr (0-15) H 09/06/24 17:10 PT 15.90 SECONDS (12.1-14.9) H 09/09/24 05:27 INR 1.19 (0.8-1.2) 09/09/24 05:27 Specimen Type Arterial 09/09/24 03:20 Sample Site Radial, left 09/09/24 03:20 ABG pH 7.47 (7.35-7.45) H 09/09/24 03:20 ABG pCO2 40.4 mmHg (35-45) 09/09/24 03:20 ABG pO2 58.8 mmHg (80.0-100.0) L 09/09/24 03:20 ABG PO2/FiO2 Ratio 196 09/09/24 03:20 ABG HCO3 29.4 mmol/L (22-26) H 09/09/24 03:20 ABG Base Excess 5.3 mmol/L (-2.0-2.0) H 09/09/24 03:20 Wm Test Pos 09/09/24 03:20 Hematocrit 25.1 % (37-47) L 09/09/24 03:20 O2 Delivery Device Bipap 09/09/24 03:20 O2 Liters/Min 4.0 % 09/06/24 17:12 FiO2 30.0 % 09/09/24 03:20 On Site Soil Evaluator ID Ed 09/09/24 03:20 Sodium 134 mmol/L (136-145) L 09/11/24 04:50 Potassium 4.2 mmol/L (3.5-5.1) 09/11/24 04:50 Chloride 99 mmol/L (98-107) 09/11/24 04:50 Carbon Dioxide 26 mmol/L (22-29) 09/11/24 04:50 Anion Gap 13.2 (5-19) 09/11/24 04:50 BUN 34 mg/dL (8-23) H 09/11/24 04:50 Creatinine 1.4 mg/dL (0.5-0.9) H 09/11/24 04:50 GFR Calculation Not Reportable 09/11/24 04:50 Glucose 94 mg/dL (65-115) 09/11/24 04:50 Calculated Osmolality 285 mOsm/kg (285-295) 09/11/24 04:50 Lactic Acid 2.2 mmol/L (0.5-2.2) 09/06/24 17:10 Lactic Acid (Sepsis) 2.1 mmol/L (0.5-2.2) 09/06/24 19:35 Calcium 7.7 mg/dL (8.5-10.5) L 09/11/24 04:50 Phosphorus 2.9 mg/dL (2.5-4.5) 09/09/24 05:27 Magnesium 1.7 mg/dL (1.7-2.3) 09/11/24 04:50 Total Bilirubin 1.9 mg/dL (0.15-1.2) H 09/09/24 05:27 AST 29 U/L (0-32) 09/09/24 05:27 ALT 33 U/L (0-33) 09/09/24 05:27 Alkaline Phosphatase 77 U/L (35-105) 09/09/24 05:27 Troponin T Baseline 75 ng/L (0-10) H 09/06/24 17:10 Troponin T 120 Minute 78.85 ng/L (0-10) H 09/06/24 18:41 Delta Troponin T 3.85 ABS# (0-10) 09/06/24 18:41 C-Reactive Protein 155.0 mg/L (0.0-4.9) H 09/09/24 05:27 NT-Pro-B Natriuret Pep 18806 pg/mL (0-125) H 09/07/24 04:08 Total Protein 5.1 g/dL (6.6-8.7) L 09/09/24 05:27 Albumin 2.4 g/dL (3.5-5.2) L 09/09/24 05:27 Globulin 2.7 g/dL (1.3-4.6) 09/09/24 05:27 Procalcitonin 0.54 ng/mL (0-0.5) H 09/06/24 17:10 TSH 8.52 uIU/mL (0.27-4.20) H 09/06/24 17:10 Free T4 1.02 ng/dL (0.82-1.77) 09/09/24 05:27 Free T3 1.4 PG/ML (2.0-4.4) L 09/09/24 05:27 Urine Color Yellow (Yellow) 09/06/24 23:50 Urine Appearance Clear (CLEAR) 09/06/24 23:50 Urine pH 5.5 (5-7) 09/06/24 23:50 Ur Specific [place] 1.024 (1.005-1.030) 09/06/24 23:50 Urine Protein Negative (Negative) 09/06/24 23:50 Urine Glucose (UA) Negative (Normal) 09/06/24 23:50 Urine Ketones Negative (Negative) 09/06/24 23:50 Urine Blood Negative (Negative) 09/06/24 23:50 Urine Nitrate Negative (Negative) 09/06/24 23:50 Urine Bilirubin Negative (Negative) 09/06/24 23:50 Urine Urobilinogen 1.0 mg/dL (Negative) 09/06/24 23:50 Ur Leukocyte Esterase Negative (Negative) 09/06/24 23:50 Urine RBC 0-2 /hpf (0-2) 09/06/24 23:50 Urine WBC 0-5 /hpf (0-5) 09/06/24 23:50 Ur Squamous Epith Cells 0-5 /hpf (0-5) 09/06/24 23:50 Amorphous Sediment Not Reportable 09/06/24 23:50 Urine Bacteria None seen /hpf (NONE) 09/06/24 23:50 Hyaline Casts 2.46 /lpf 09/06/24 23:50 Urine Yeast 1+ /hpf H 09/06/24 23:50 Vancomycin Trough 24.4 ug/mL (10-15) H 09/09/24 05:27 Adenovirus (PCR) Not detected (NOT DETECT) 09/06/24 17:48 C. pneumoniae DNA (PCR) Not detected (NOT DETECT) 09/06/24 17:48 Coronavirus 229E (PCR) Not detected (NOT DETECT) 09/06/24 17:48 Human Metapneumovir PCR Not detected (NOT DETECT) 09/06/24 17:48 Influenza A (H1) PCR Not detected (NOT DETECT) 09/06/24 17:48 Influ A (H1/09) PCR Not detected (NOT DETECT) 09/06/24 17:48 Influenza A (H3) PCR Not detected (NOT DETECT) 09/06/24 17:48 Influenza Type A (PCR) Not detected (NOT DETECT) 09/06/24 17:48 Influenza Type B (PCR) Not detected (NOT DETECT) 09/06/24 17:48 M. pneumoniae (PCR) Not detected (NOT DETECT) 09/06/24 17:48 Parainfluenza 1 (PCR) Not detected (NOT DETECT) 09/06/24 17:48 Parainfluenza 2 (PCR) Not detected (NOT DETECT) 09/06/24 17:48 Parainfluenza 3 (PCR) Not detected (NOT DETECT) 09/06/24 17:48 Parainfluenza 4 (PCR) Not detected (NOT DETECT) 09/06/24 17:48 RSV Type A (PCR) Not detected (NOT DETECT) 09/06/24 17:48 RSV Type B (PCR) Not detected (NOT DETECT) 09/06/24 17:48 Entero/Rhino (PCR) Not detected (NOT DETECT) 09/06/24 17:48 SARS-CoV-2 (PCR) Not detected (NOT DETECT) 09/06/24 17:48 A&P Assessment and plan (1) Atherosclerosis of coronary artery of [place] heart without angina pectoris: May continue on the Plavix. Cardiac kaur seems to be stable. Qualifiers: Coronary Disease-Associated Artery/Lesion type: [place] artery Qualified Code(s): I25.10 - Atherosclerotic heart disease of [place] coronary artery without angina pectoris (2) Congestive heart failure: Patient was started on Entresto but because of the low blood pressure, it had to be held. LV ejection fraction improved to 30 to 35%. May continue on the current medications. Will try to restart the medication, once the blood pressure gets more stable Blood pressure still seems to be soft Qualifiers: Heart failure type: other Qualified Code(s): I50.9 - Heart failure, unspecified (3) Left ventricular systolic dysfunction (LVSD): Will try to uptitrate the Entresto based on the GDMT. May continue on the current medications for the time (4) Aortic valve stenosis: The patient seems to have severe low gradient aortic valve stenosis. At this point, patient may not require any specific intervention. Patient and the family are not interested in any invasive procedures. Qualifiers: Cardiac valve disease etiology: nonrheumatic Qualified Code(s): I35.0 - Nonrheumatic aortic (valve) stenosis (5) Intra-abdominal hematoma: No evidence of any active bleed at this time. This need to be closely monitored. (6) Edema, peripheral: This could be multifactorial patient may be carefully treated with IV diuretics. Plan I discussed the patient's brother who has the power of assistant county attorney. Patient has a DNR status and the family wants to continue this. They definitely do not want her to have any internal defibrillator or further invasive cardiac workup. Will continue on the current conservative management PDMP PDMP Reviewed: Not Reviewed Attestations 2 Medical Necessity Statement*: Deferred to the primary Coding Level of Care Code 57322 Diagnoses Atherosclerosis of [place] coronary artery of [place] heart without angina pectoris I25.10 Coronary Disease-Associated Artery/Lesion type: [place] artery Other congestive heart failure I50.9 Heart failure type: other Left ventricular systolic dysfunction (LVSD) I51.89 Nonrheumatic aortic valve stenosis I35.0 Cardiac valve disease etiology: nonrheumatic Intra-abdominal hematoma Edema, peripheral R60.0
--- NOTE | 2024-09-11 11:28 | P.PN_ITS ---
Subjective 2 Subjective: Hypotensive overnight. Lasix Aldactone and Coreg held this morning. 1 unit of albumin given this morning. Patient does have worsening anasarca Creatinine increased to 1.4 today. Patient appears to be deconditioned and lethargic. Vitals/I&O/Wt Last Vital Signs Temp 97.6 F 09/10/24 20:00 Pulse 68 09/11/24 11:04 Resp 16 09/11/24 11:04 BP 105/77 09/11/24 10:30 Pulse Ox 96 09/11/24 11:04 O2 Del Method Nasal Cannula 09/11/24 11:04 O2 Flow Rate 3 09/11/24 11:04 FiO2 30 09/11/24 07:40 09/10/24 09/11/24 09/11/24 22:59 06:59 14:59 Intake Total 150 / 450 410 / 860 250 / 250 Output Total 650 / 950 Balance 150 / 150 -240 / -90 250 / 250 Weight last 48 hrs Weight 122.593 kg Weight 121.5 kg Physical Exam 2 Narrative: General: No acute distress, AO x3,on bipap at this time, appears tired and lethargic. HEENT: PERRLA, pupils bilaterally equal and reactive, pallors not present Chest: Normal vesicular breath sounds, no added sounds, equal good air entry bilaterally CVS: S1-S2 regular, no murmurs, no tachycardia, no gallops, no rubs Abdomen: Soft, nontender, bowel sounds present Neuro: No focal deficits, no facial deformity, AO x3, Extremities: Generalized anasarca, worsening, 2-3+ pitting edema bilateral upper and lower extremities. Urinary Catheter Management: Agrawal Latex: Cath Placed During This Visit: yes Reason for Continuing Indwelling Catheter: Accurate Measurement of Urinary Output in Critically Ill Patients Urinary Catheter Date of Insertion: 09/06/24 Urinary Catheter Time of Insertion: 23:30 Data 09/11/24 04:50 09/11/24 04:50 A&P Assessment and plan (1) Acute exacerbation of CHF (congestive heart failure): Primary diagnosis at presentation contributing to acute hypoxic respiratory failure from fluid overload and anasarca. On IV Lasix. Ejection fraction 24% on echocardiogram within the last couple of months. Qualifiers: Heart failure type: combined systolic and diastolic Qualified Code(s): I50.43 - Acute on chronic combined systolic (congestive) and diastolic (congestive) heart failure (2) Pneumonia: Suspected diagnosis at the time of admission, on empiric coverage for healthcare associated infection. Qualifiers: Pneumonia type: due to unspecified organism Laterality: left Lung location: upper lobe of lung Qualified Code(s): J18.9 - Pneumonia, unspecified organism (3) Acute hypoxic respiratory failure: Related to above (4) CAD S/P percutaneous coronary angioplasty: RCA stent placement in June 2024. Had been discharged on aspirin and Plavix but these were ultimately stopped at the time of significant hemoperitoneum earlier this month. Has been restarted on Plavix. Tolerating thus far. (5) Acute anemia: Acute blood loss anemia from prior event with hemoglobin stable this hospital stay. Recent significant bleeding. (6) Intra-abdominal hematoma: Recently, transferred to [facility], received blood transfusions, at risk of re-bleed but must maintain antiplatelet therapy with recent stent. Dr Winkler discussed with patient and family. Reviewed again on 09/08 and patient understands, no new questions. (7) Aortic valve stenosis: Aware, [place] 0.83 cm2, mean gradient 5.2 mmHg Qualifiers: Cardiac valve disease etiology: nonrheumatic Qualified Code(s): I35.0 - Nonrheumatic aortic (valve) stenosis (8) CKD (chronic kidney disease): Stage 2, stable Qualifiers: Chronic kidney disease stage: stage 2 (GFR 60-89) Qualified Code(s): N 18.2 - Chronic kidney disease, stage 2 (mild) (9) Neuropathy: Elevated TSH without a history of hypothyroidism, will need recheck of labs in outpt setting. (10) PICC (peripherally inserted central catheter) in place: placed 09/08 (11) Anasarca: (12) KELVIN (acute kidney injury): Plan Elevated bilirubin and transaminiase, monitoring Elevated TSH without a history of hypothyroidism On IV diuresis currently Resume home potassium On Plavix at home dosing Off of home aspirin therapy currently due to recent bleeding and informed decision making On carvedilol at home dosing Entresto has been initiated along with spironolactone Will resume home statin therapy On PPI VTE prophylaxis: SCDs, recent significant bleeding so no pharmacological prophylaxis GI Prophylaxis: PPI Antibiotics: On Zosyn and vancomycin for health care associated pneumonia coverage and cellulitis coverage. Acute infectious etiology seems less likely but continues to have leukocytosis with left shift. Had been on cefdinir and doxycycline in the outpatient setting. Pending studies: Blood and urine cultures from admission, morning labs which will include electrolytes, CMP, free T3 and free T4 and a repeat CRP for comparison to prior value Telemetry: Ordered secondary to recent cardiac history Agrawal: In place due to IV diuresis Line(s): PICC line placed 09/08 Disposition plan: Disposition will depend on clinical course. Had previously been discharged to [facility] but would like to look at [place] or [facility] as options Code Status: Allow natural September 07, 2024: Recent HPI as noted above. Discussed with patient the diffuclt situation that she is currently facing. On one hand, she underwent PCI 2 months ago with placement of stent to the RCA. Therefore it is important to continue antiplatelet therapy as her stent is at high risk of stensis off A/c. cardiology service was consulted and recommends starting Plavix 75mg po daily. ASA to remain on hold. On the other hand, with resumption of antiplatelet agents, she remains at high risk of worsening bleeding/worsening hematoma and any bleeding may potentially be fatal for her. She understands that neither is a good situation however after weighing all risks and benefits, she has decided to resume Plavix at this time with close Hb monitoring. Should she develop recurrent or worsening bleeding at that time which cannot be managed with transfusions alone, she will like to transition to comfort care measures only. Additionally she reiteriates her decision to not have CPR or be on a ventilator. She would not want any life prolonging measures. Her brother Mckay, son alondra are at bedside. Patient appoints her older brother Mckay to be her surrogate decison maker should she be in a place of being unable to make decisions. She is currently awake alert and oriented x 4. COnversation witnessed by lloa's RN in ICU. Resume Plavix 75mg daily H&H check q12h continue Abx for now due to suspicion for cellulitis, however favor RLE erythema to be changes of stasis dermatitis, will likely d/c abx if infectious evaluation remains negative at 48 hrs continue diuresis with iv lasix 40mg q12h Bipap at night time and prn during day 09/08/24 Hemoglobin has remained stable. No gross bleeding noted. Not feeling great but breathing is better than when she came in and not having as much pain. Understands the conversation that was had with her yesterday and the poor prognosis, difficult management currently. Remains on antibiotics that were started for empiric coverage of pneumonia plus or minus cellulitis. Does have leukocytosis with left shift. Had also been on antibiotics in the outpatient setting so is at increased risk for C. difficile colitis. Will add probiotics. Remains on oxygen with BiPAP if needed. Will repeat laboratory studies tomorrow and continue close monitoring in the ICU setting. 09/09/2024 hb dropped to 7.8, will check cbc at 6 pm, if significant downward trend, may consider repeat imaging discussed with family regarding bleeding risk with plavix and the need for it since recent stents continue to monitor hb family would like to go to a different [place] at [place], discussed with case management no gross bleeding noted continue empiric abx coverage continue close icu monitoring 09/11/2024 Hemoglobin stable at 8.3. Slight decrease is secondary to dilution most likely secondary to worsening anasarca. Creatinine 1.4 today. Patient hypotensive overnight We will continue to hold Coreg at this time however will add albumin every 8 hours x 3 doses total and add Lasix 40 IV twice daily. Patient will need aggressive diuresis. Consult nephrology. If unresponsive to Lasix will most likely need dialysis for fluid removal No gross bleeding noted. CT abdomen pelvis obtained this morning shows reducing hematoma. Free fluid in pelvis most likely secondary to ascites secondary to CHF EF is improved slightly to 35% compared to prior. Patient will need a defibrillator going forward and a LifeVest at time of discharge. She is bedbound and was able to do some bed exercises yesterday. She will need to be optimized from fluid status standpoint prior to discharge. Continue to use BiPAP as needed Continue empiric antibiotic coverage. Will completed 7 days. Continue Plavix. PDMP PDMP Reviewed: Not Reviewed Attestations 2 Medical Necessity Statement*: Will require longer hospitalization for optimization of fluid status. She has worsening anasarca and worsening KELVIN. Diagnoses Acute on chronic combined systolic and diastolic congestive heart failure I50.43 Heart failure type: combined systolic and diastolic Pneumonia of left upper lobe due to infectious organism J18.9 Pneumonia type: due to unspecified organism Laterality: left Lung location: upper lobe of lung Acute hypoxic respiratory failure J96.01 CAD S/P percutaneous coronary angioplasty I25.10; Z98.61 Acute anemia D64.9 Intra-abdominal hematoma Nonrheumatic aortic valve stenosis I35.0 Cardiac valve disease etiology: nonrheumatic Stage 2 chronic kidney disease N18.2 Chronic kidney disease stage: stage 2 (GFR 60-89) Neuropathy G62.9 PICC (peripherally inserted central catheter) in place Z45.2 Anasarca R60.1 KELVIN (acute kidney injury) N17.9
[2024-09-11] MEDS: albumin 25 G/100 ML BAG 60 G IV ×2 (11:59→19:32)
--- NOTE | 2024-09-11 14:43 | PM.CONSULT ---
Providers/Reason For Consult Consulting Physician/Specialty*: kommana/Nephrology Reason for Consult*: valencia WARREN Attending Physician: Bhumika Donato MD Primary Care Provider: Param Dobson MD History of Present Illness History of Present Illness Kaylee Kay is a 73 year old female patient is a 73-year-old female with past medical history of ischemic cardiomyopathy with prior stents, coronary artery disease chronic kidney disease with a baseline creatinine in the 1.0-1.5 range, hypertension was sent from care home facility due to shortness of breath and progressively worsening bilateral lower extremity edema. She was thought to be in acute CHF exacerbation on presentation and was started on IV diuresis with no significant response. CT scan also was concerning for pneumonia. Patient also followed by cardiology, recommended defibrillator. Her ejection fraction was 25%. She recently had intra-abdominal hematoma that was managed conservatively at [facility]. Review of Systems Narrative: negative Medications/Allergies Home Medications ?Medication ?Instructions ?Recorded ?Confirmed ?Last Taken ?Type aspirin 81 mg tablet,delayed 81 mg PO DAILY #30 tabs 07/05/24 09/07/24 08/25/24 Rx release pantoprazole 40 mg tablet,delayed 40 mg PO DAILY #30 tabs 07/05/24 09/07/24 08/25/24 Rx release atorvastatin 40 mg tablet 40 mg PO BEDTIME #90 tabs 07/23/24 09/07/24 08/24/24 Rx carvedilol 3.125 mg tablet 3.125 mg PO BID #180 tabs 07/23/24 09/07/24 08/25/24 Rx clopidogrel 75 mg tablet 75 mg PO DAILY #90 tabs 07/23/24 09/07/24 08/25/24 Rx potassium chloride 10 mEq 10 meq PO DAILY #90 caps 07/23/24 09/07/24 08/25/24 Rx capsule,extended release amitriptyline 100 mg tablet 100 mg PO BEDTIME 08/26/24 09/07/24 08/24/24 History cefdinir 300 mg capsule 300 mg PO BID 10 days #20 caps 08/30/24 09/07/24 Unknown Rx doxycycline monohydrate 100 mg 100 mg PO BID 10 days #20 tabs 08/30/24 09/07/24 Unknown Rx tablet furosemide 40 mg tablet (Lasix) 40 mg PO BIDAC 30 days #60 tabs 08/30/24 09/07/24 08/25/24 Rx ipratropium 0.5 mg-albuterol 3 mg 3 ml inhalation Q6H.RESP 30 days 08/30/24 09/07/24 Unknown Rx (2.5 mg base)/3 mL nebulization #540 mL soln sennosides 8.6 mg-docusate sodium 1 tab PO DAILY #30 tabs 08/30/24 09/07/24 Unknown Rx 50 mg tablet (Stool Softener-Laxative) Allergies Allergy/AdvReac Type Severity Reaction Status Date / Time ciprofloxacin (From Cipro) Allergy ALGY-Hives Verified 07/23/24 15:55 coconut Allergy ALGY-Hives Verified 07/23/24 15:55 pregabalin (From Lyrica) Allergy ALGY-Hives Verified 07/23/24 15:55 Current Medications Generic Name Dose Route Start Last Admin Trade Name Freq PRN Reason Stop Dose Admin Acetaminophen 650 mg 09/06/24 23:27 09/11/24 05:05 Acetaminophen 325 Mg Tablet PO 650 mg Q6H PRN Administration Mild/Mod Pain Or Temp >/= 101 Albuterol/Ipratropium 3 ml 09/07/24 08:00 09/11/24 11:02 Ipratropium-Albuterol 3 Ml Neb INHALATION 3 ml QID.RESPIRATORY VETO Administration Atorvastatin Calcium 40 mg 09/08/24 21:30 09/10/24 21:15 Atorvastatin 40 Mg Tablet PO 40 mg BEDTIME VETO Administration Carvedilol 3.125 mg 09/07/24 09:00 09/10/24 17:40 Carvedilol 3.125 Mg Tablet PO 3.125 mg BID VETO Administration Clopidogrel Bisulfate 75 mg 09/07/24 19:10 09/11/24 08:25 Clopidogrel 75 Mg Tablet PO 75 mg DAILY VETO Administration Furosemide 40 mg 09/07/24 04:00 09/11/24 05:05 Furosemide 10 Mg/Ml Sdv 4ml IVP 40 mg Q12H VETO Administration Piperacillin Sod/Tazobactam 50 mls @ 12.5 mls/hr 09/08/24 06:00 09/11/24 14:07 Sod 3.375 gm/ Sodium Chloride IV 12.5 mls/hr Q8H VETO Administration Vancomycin HCl 1,000 mg/ 250 mls @ 250 mls/hr 09/09/24 12:00 09/11/24 08:26 Sodium Chloride IV Infused Q18H VETO Infusion Albumin Human 25 g in 100 mls @ 60 mls/hr 09/11/24 11:30 09/11/24 13:46 Albumin IV 09/12/24 05:09 Infused Q8H VETO Infusion Lactobacillus Acidophilus 1 tab 09/09/24 09:00 09/11/24 08:25 Lactobacillus 1 Tablet PO 1 tab BID EVTO Administration Lanolin 1 applic 09/08/24 17:02 09/08/24 18:43 Lanolin Oint 7 Gm TOPICAL 1 applic PRN PRN Administration DRYNESS Pantoprazole Sodium 40 mg 09/06/24 23:27 09/11/24 00:26 Pantoprazole 40 Mg Sdv IVP 40 mg Q24H VETO Administration Potassium Chloride 20 meq 09/09/24 09:00 09/11/24 08:25 Potassium Chloride Er 20 Meq Tablet PO 20 meq DAILY VETO Administration Sacubitril/Valsartan 1 each 09/08/24 18:00 09/10/24 17:40 Sacubitril/Valsartan 24-26 Mg Tablet PO 1 each BID VETO Administration Spironolactone 25 mg 09/08/24 09:45 09/10/24 08:20 Spironolactone 25 Mg Tablet PO 25 mg DAILY VETO Administration PFSH Acute PFSH: Medical History (Updated 09/11/24 @ 11:33 by Bhumika Donato MD) Presence of drug-eluting stent in right coronary artery Atherosclerosis of coronary artery of [place] heart without angina pectoris CAD S/P percutaneous coronary angioplasty Tricuspid valve regurgitation Mitral valve regurgitation Aortic valve stenosis Hypertension Congestive heart failure CKD (chronic kidney disease) Social History Smoking and tobacco/nicotine status: former use of tobacco/nicotine Vitals/I&O/Wt Last Vital Signs Temp 97.6 F 09/10/24 20:00 Pulse 74 09/11/24 13:15 Resp 25 H 09/11/24 13:15 BP 131/64 09/11/24 13:15 Pulse Ox 94 09/11/24 13:15 O2 Del Method Nasal Cannula 09/11/24 13:15 O2 Flow Rate 3 09/11/24 13:15 FiO2 30 09/11/24 07:40 09/10/24 09/11/24 09/11/24 22:59 06:59 14:59 Intake Total 150 / 450 410 / 860 450 / 450 Output Total 650 / 950 Balance 150 / 150 -240 / -90 450 / 450 Weight last 48 hrs Weight 122.593 kg Weight 121.5 kg Physical Exam Narrative: awake , alert , no ditress . on 3l NC PEERLA S1S2 RRR per report Lungs clear per report Abd soft , non tender per report + LE edema Urinary Catheter Management: Agrawal Latex: Cath Placed During This Visit: yes Reason for Continuing Indwelling Catheter: Accurate Measurement of Urinary Output in Critically Ill Patients Urinary Catheter Date of Insertion: 09/06/24 Urinary Catheter Time of Insertion: 23:30 Data 09/12/24 04:08 09/11/24 04:50 A&P Assessment and plan (1) Anasarca: (2) KELVIN (acute kidney injury): 1. Acute on chronic kidney disease stage III: Patient now with pulmonary edema and anasarca. Likely cardiorenal. Poor response to spot doses of IV Lasix so far. Will start patient on IV Lasix 25 g every 8 hours and placed on Lasix drip, blood pressures borderline low, so we will start Lasix at 10 mg/h and increase as blood pressure tolerates. If no response to diuretics, will discuss temporary dialysis., 2 g sodium restriction and 1500 mL fluid restriction. 2. Cardiomyopathy: Ejection fraction 25%, diuretics as above, cardiology recommending defibrillator 3. Anemia, monitor , tranfuse if hb < 7 4. Acute on chronic respiratory failure,on O2 , multifactirial , due to CHF and Pneumonia 5. h/o CAD with stents PDMP PDMP Reviewed: Not Reviewed Consult Attestations Medical Necessity Statement: per tamy Coding Level of Care Code Acute Code for Chg Fwd Diagnoses Anasarca R60.1 KELVIN (acute kidney injury) N17.9
--- NOTE | 2024-09-11 15:13 | PC.NURSE ---
Dr. Humphries ordered to start a lasix drip and to hold off on the lasix IVP.
[2024-09-11] MEDS: FUROsemide 100 MG in sodium chloride 0.9% 40 ML IV (15:39)
[2024-09-11] MEDS: morphine 4 mg/mL SDV 1 mL 2 MG IVP (16:49)
[2024-09-11] MEDS: norepinephrine 4 MG/250 ML BAG 7.5 MG IV (16:51)
[2024-09-11 17:38] LABS: Vancomycin Trough 30.9 ug/mL (10-15)
[2024-09-11] MEDS: FUROsemide 100 MG in sodium chloride 0.9% 40 ML 10 MG IV (20:37)
[2024-09-11] MEDS: atorvastatin 40 mg Tablet PO (20:39)
[2024-09-12] VITALS (54 sets, daily range): BP systolic 107–164; BP diastolic 45–89; PULSE 64–85; RESP 18–33; TEMP 36.3–36.8; O2SAT 90–97
[2024-09-12] MEDS: pantoprazole 40 mg SDV IVP ×2 (00:31→22:58)
--- NOTE | 2024-09-12 01:19 | PC.NURSE ---
Lasix Patient currently on furosemide drip at 20 mg/hr per Dr Humphries's order. Contacted shift engineer hospitalist Dr Hanson regarding patient also having an order for IVP furosemide 40 mg. Received order to hold IVP dose and continue with drip.
[2024-09-12] MEDS: FUROsemide 100 MG in sodium chloride 0.9% 40 ML 10 MG IV (02:04)
[2024-09-12] MEDS: acetaminophen 325 mg Tablet 650 MG PO ×2 (02:52→18:24)
[2024-09-12] MEDS: albumin 25 G/100 ML BAG 60 G IV ×3 (04:02→20:11)
[2024-09-12 05:19] LABS: Basophils % 0.4 %; Hematocrit 25.7 % (36-47); Lymphocytes # 0.7 10^3/uL (0.8-4.8); Lymphocytes % 7.7 %; Mean Corpuscular HGB Conc 29.6 g/dL (30-55); Mean Corpuscular Hemoglobin 29.8 pg (27-33); Mean Corpuscular Volume 100.8 fl (85-98); Mean Platelet Volume 10.5 fL (7.4-10.4); Monocytes # 0.7 10^3/uL (0.2-0.9); Monocytes % 6.8 %; Neutrophils # 8.03 10^3/uL (1.8-7.7); Neutrophils % 84.6 %; Nucleated Red Blood Cells % 0 %; Platelet Count 158 10^3/cmm (157-399); Red Blood Count 2.55 10^6/uL (3.85-5.65); Red Cell Distribution Width 23.2 % (12.1-15.1)
[2024-09-12] MEDS: piperacillin-tazobactam 3.375 GM in sodium chloride 0.9% (plus) 50 ML IV ×3 (05:58→22:58)
--- NOTE | 2024-09-12 07:18 | P.PN_ITS ---
Subjective 2 Subjective: Patient is feeling okay. No chest pain or shortness of breath. Vitals are stable. Medications: Medication Review Details: Current Medications Acetaminophen (Acetaminophen 325 Mg Tablet) 650 mg PO Q6H PRN PRN Reason: Mild/Mod Pain Or Temp >/= 101 Last Admin: 09/12/24 02:52 Dose: 650 mg Albuterol/Ipratropium (Ipratropium-Albuterol 3 Ml Neb) 3 ml INHALATION QID.RESPIRATORY VETO Last Admin: 09/11/24 20:22 Dose: 3 ml Atorvastatin Calcium (Atorvastatin 40 Mg Tablet) 40 mg PO BEDTIME VETO Last Admin: 09/11/24 20:39 Dose: 40 mg Carvedilol (Carvedilol 3.125 Mg Tablet) 3.125 mg PO BID VETO Last Admin: 09/10/24 17:40 Dose: 3.125 mg Clopidogrel Bisulfate (Clopidogrel 75 Mg Tablet) 75 mg PO DAILY [facility] Last Admin: 09/11/24 08:25 Dose: 75 mg Furosemide (Furosemide 10 Mg/Ml Sdv 4ml) 40 mg IVP Q12H VETO Last Admin: 09/12/24 01:21 Dose: Not Given Piperacillin Sod/Tazobactam (Sod 3.375 gm/ Sodium Chloride) 50 mls @ 12.5 mls/hr IV Q8H [facility] Last Admin: 09/12/24 05:58 Dose: 12.5 mls/hr Vancomycin HCl 1,000 mg/ (Sodium Chloride) 250 mls @ 250 mls/hr IV Q18H [facility] Last Infusion: 09/11/24 08:26 Dose: Infused Albumin Human (Albumin) 25 g in 100 mls @ 60 mls/hr IV Q8H [facility] Stop: 09/13/24 11:29 Last Infusion: 09/12/24 06:03 Dose: Infused Furosemide 100 mg/ Sodium (Chloride) 50 mls @ 0 mls/hr IV .Q0M [facility]; Protocol Last Admin: 09/12/24 02:04 Dose: 20 mg/hr, 10 mls/hr Norepinephrine Bitartrate (Levophed) 4 mg in 250 mls @ 0 mls/hr IV .Q0M [facility]; Protocol Last Titration: 09/11/24 16:52 Dose: 0 mcg/min, 0 mls/hr Furosemide 200 mg/ Sodium (Chloride) 100 mls @ 0 mls/hr IV .Q0M VETO; Protocol Lactobacillus Acidophilus (Lactobacillus 1 Tablet) 1 tab PO BID [facility] Last Admin: 09/11/24 17:45 Dose: 1 tab Lanolin (Lanolin Oint 7 Gm) 1 applic TOPICAL PRN PRN PRN Reason: DRYNESS Last Admin: 09/08/24 18:43 Dose: 1 applic Ondansetron HCl (Ondansetron 2 Mg/Ml Sdv 2 Ml) 4 mg IVP Q8H PRN PRN Reason: vomiting, or N/V if npo Pantoprazole Sodium (Pantoprazole 40 Mg Sdv) 40 mg IVP Q24H [facility] Last Admin: 09/12/24 00:31 Dose: 40 mg Potassium Chloride (Potassium Chloride Er 20 Meq Tablet) 20 meq PO DAILY [facility] Last Admin: 09/11/24 08:25 Dose: 20 meq Sacubitril/Valsartan (Sacubitril/Valsartan 24-26 Mg Tablet) 1 each PO BID [facility] Last Admin: 09/10/24 17:40 Dose: 1 each Spironolactone (Spironolactone 25 Mg Tablet) 25 mg PO DAILY [facility] Last Admin: 09/10/24 08:20 Dose: 25 mg Vitals/I&O/Wt Last Vital Signs Temp 97.8 F 09/12/24 06:04 Pulse 75 09/12/24 05:17 Resp 19 H 09/12/24 04:00 BP 119/53 09/12/24 04:00 Pulse Ox 93 09/12/24 04:00 O2 Del Method Nasal Cannula 09/11/24 20:00 O2 Flow Rate 3 09/11/24 20:00 FiO2 30 09/11/24 17:15 09/11/24 09/12/24 09/12/24 22:59 06:59 14:59 Intake Total 912.708 / 1362.708 200 / 1562.708 Output Total 65 / 390 650 / 1040 Balance 847.708 / 972.708 -450 / 522.708 Weight last 48 hrs Weight 275 lb 9.245 oz Weight 270 lb 4.334 oz Physical Exam 2 Narrative: GENERAL: The patient is alert and oriented times three. Not in any acute distress. HEENT: No significant pallor, icterus or lymphadenopathy.Oral cavity: There are no mucous membrane lesions. NECK: Trachea appears to be central. No masses noted. No JVD or thyromegaly appreciated. RESPIRATORY: Chest is symmetrical. No intercostals muscle retraction or any accessory muscle activation. There is no chest wall tenderness. Breath sounds are heard bilaterally. No rales or rhonchi heard. No evidence of any consolidation. BREASTS: Deferred. HEART: The heart sounds are normal. No S3 or S4. No significant murmurs. No pericardial rub ABDOMEN: Slightly distended. Some tenderness in the right lower quadrant. Dependent edema in the lower back/gluteal region : Deferred. RECTAL: Deferred. LYMPHATIC: No lymphadenopathy noted in the neck or groin. EXTREMITIES: 2+ edema both lower extremities. Features of chronic venous stasis MUSCULOSKELETAL: No acute joint deformities or swelling SKIN: There are no significant scars or skin rash noted. NEUROPSYCHIATRIC: The patient is alert and oriented x3. Appears to be in a good mood. No tremors or rigidity noted. Urinary Catheter Management: Agrawal Latex: Cath Placed During This Visit: yes Reason for Continuing Indwelling Catheter: Accurate Measurement of Urinary Output in Critically Ill Patients Urinary Catheter Date of Insertion: 09/06/24 Urinary Catheter Time of Insertion: 23:30 Data 09/12/24 04:08 09/12/24 07:25 Other Labs: Laboratory Last Values WBC 9.50 10^3/uL (3.29-11.43) 09/12/24 04:08 RBC 2.55 10^6/uL (3.85-5.65) L 09/12/24 04:08 Hgb 7.60 g/dL (11.27-16.99) L 09/12/24 04:08 Hct 25.7 % (36-47) L 09/12/24 04:08 MCV 100.8 fl (85-98) H 09/12/24 04:08 MCH 29.8 pg (27-33) 09/12/24 04:08 MCHC 29.6 g/dL (30-55) L 09/12/24 04:08 RDW 23.2 % (12.1-15.1) H 09/12/24 04:08 Plt Count 158 10^3/cmm (157-399) 09/12/24 04:08 MPV 10.5 fL (7.4-10.4) H 09/12/24 04:08 Neut % (Auto) 84.6 % 09/12/24 04:08 Lymph % (Auto) 7.7 % 09/12/24 04:08 Kerr % (Auto) 6.8 % 09/12/24 04:08 Eos % (Auto) 0.0 % 09/12/24 04:08 Baso % (Auto) 0.4 % 09/12/24 04:08 Neut # (Auto) 8.03 10^3/uL (1.8-7.7) H 09/12/24 04:08 Lymph # (Auto) 0.7 10^3/uL (0.8-4.8) L 09/12/24 04:08 Kerr # (Auto) 0.7 10^3/uL (0.2-0.9) 09/12/24 04:08 Eos # (Auto) 0.0 10^3/uL (0.0-0.8) 09/12/24 04:08 Baso # (Auto) 0.0 10^3/uL (0.0-0.1) 09/12/24 04:08 Nucleated RBC % (auto) 0 % 09/12/24 04:08 Nucleated RBCs # 0.0 /100WBC 09/12/24 04:08 ESR 32 mm/hr (0-15) H 09/06/24 17:10 PT 15.90 SECONDS (12.1-14.9) H 09/09/24 05:27 INR 1.19 (0.8-1.2) 09/09/24 05:27 Specimen Type Arterial 09/09/24 03:20 Sample Site Radial, left 09/09/24 03:20 ABG pH 7.47 (7.35-7.45) H 09/09/24 03:20 ABG pCO2 40.4 mmHg (35-45) 09/09/24 03:20 ABG pO2 58.8 mmHg (80.0-100.0) L 09/09/24 03:20 ABG PO2/FiO2 Ratio 196 09/09/24 03:20 ABG HCO3 29.4 mmol/L (22-26) H 09/09/24 03:20 ABG Base Excess 5.3 mmol/L (-2.0-2.0) H 09/09/24 03:20 Wm Test Pos 09/09/24 03:20 Hematocrit 25.1 % (37-47) L 09/09/24 03:20 O2 Delivery Device Bipap 09/09/24 03:20 O2 Liters/Min 4.0 % 09/06/24 17:12 FiO2 30.0 % 09/09/24 03:20 Aircraft Cylinder Mechanic ID Ed 09/09/24 03:20 Sodium Cancelled 09/12/24 04:08 Potassium Cancelled 09/12/24 04:08 Chloride Cancelled 09/12/24 04:08 Carbon Dioxide Cancelled 09/12/24 04:08 Anion Gap Cancelled 09/12/24 04:08 BUN Cancelled 09/12/24 04:08 Creatinine Cancelled 09/12/24 04:08 GFR Calculation Cancelled 09/12/24 04:08 Glucose Cancelled 09/12/24 04:08 Calculated Osmolality Cancelled 09/12/24 04:08 Lactic Acid 2.2 mmol/L (0.5-2.2) 09/06/24 17:10 Lactic Acid (Sepsis) 2.1 mmol/L (0.5-2.2) 09/06/24 19:35 Calcium Cancelled 09/12/24 04:08 Phosphorus 2.9 mg/dL (2.5-4.5) 09/09/24 05:27 Magnesium Cancelled 09/12/24 04:08 Total Bilirubin 1.9 mg/dL (0.15-1.2) H 09/09/24 05:27 AST 29 U/L (0-32) 09/09/24 05:27 ALT 33 U/L (0-33) 09/09/24 05:27 Alkaline Phosphatase 77 U/L (35-105) 09/09/24 05:27 Troponin T Baseline 75 ng/L (0-10) H 09/06/24 17:10 Troponin T 120 Minute 78.85 ng/L (0-10) H 09/06/24 18:41 Delta Troponin T 3.85 ABS# (0-10) 09/06/24 18:41 C-Reactive Protein 155.0 mg/L (0.0-4.9) H 09/09/24 05:27 NT-Pro-B Natriuret Pep 92015 pg/mL (0-125) H 09/07/24 04:08 Total Protein 5.1 g/dL (6.6-8.7) L 09/09/24 05:27 Albumin 2.4 g/dL (3.5-5.2) L 09/09/24 05:27 Globulin 2.7 g/dL (1.3-4.6) 09/09/24 05:27 Procalcitonin 0.54 ng/mL (0-0.5) H 09/06/24 17:10 TSH 8.52 uIU/mL (0.27-4.20) H 09/06/24 17:10 Free T4 1.02 ng/dL (0.82-1.77) 09/09/24 05:27 Free T3 1.4 PG/ML (2.0-4.4) L 09/09/24 05:27 Urine Color Yellow (Yellow) 09/06/24 23:50 Urine Appearance Clear (CLEAR) 09/06/24 23:50 Urine pH 5.5 (5-7) 09/06/24 23:50 Ur Specific [place] 1.024 (1.005-1.030) 09/06/24 23:50 Urine Protein Negative (Negative) 09/06/24 23:50 Urine Glucose (UA) Negative (Normal) 09/06/24 23:50 Urine Ketones Negative (Negative) 09/06/24 23:50 Urine Blood Negative (Negative) 09/06/24 23:50 Urine Nitrate Negative (Negative) 09/06/24 23:50 Urine Bilirubin Negative (Negative) 09/06/24 23:50 Urine Urobilinogen 1.0 mg/dL (Negative) 09/06/24 23:50 Ur Leukocyte Esterase Negative (Negative) 09/06/24 23:50 Urine RBC 0-2 /hpf (0-2) 09/06/24 23:50 Urine WBC 0-5 /hpf (0-5) 09/06/24 23:50 Ur Squamous Epith Cells 0-5 /hpf (0-5) 09/06/24 23:50 Amorphous Sediment Not Reportable 09/06/24 23:50 Urine Bacteria None seen /hpf (NONE) 09/06/24 23:50 Hyaline Casts 2.46 /lpf 09/06/24 23:50 Urine Yeast 1+ /hpf H 09/06/24 23:50 Vancomycin Trough 30.9 ug/mL (10-15) H* 09/11/24 16:47 Adenovirus (PCR) Not detected (NOT DETECT) 09/06/24 17:48 C. pneumoniae DNA (PCR) Not detected (NOT DETECT) 09/06/24 17:48 Coronavirus 229E (PCR) Not detected (NOT DETECT) 09/06/24 17:48 Human Metapneumovir PCR Not detected (NOT DETECT) 09/06/24 17:48 Influenza A (H1) PCR Not detected (NOT DETECT) 09/06/24 17:48 Influ A (H1/09) PCR Not detected (NOT DETECT) 09/06/24 17:48 Influenza A (H3) PCR Not detected (NOT DETECT) 09/06/24 17:48 Influenza Type A (PCR) Not detected (NOT DETECT) 09/06/24 17:48 Influenza Type B (PCR) Not detected (NOT DETECT) 09/06/24 17:48 M. pneumoniae (PCR) Not detected (NOT DETECT) 09/06/24 17:48 Parainfluenza 1 (PCR) Not detected (NOT DETECT) 09/06/24 17:48 Parainfluenza 2 (PCR) Not detected (NOT DETECT) 09/06/24 17:48 Parainfluenza 3 (PCR) Not detected (NOT DETECT) 09/06/24 17:48 Parainfluenza 4 (PCR) Not detected (NOT DETECT) 09/06/24 17:48 RSV Type A (PCR) Not detected (NOT DETECT) 09/06/24 17:48 RSV Type B (PCR) Not detected (NOT DETECT) 09/06/24 17:48 Entero/Rhino (PCR) Not detected (NOT DETECT) 09/06/24 17:48 SARS-CoV-2 (PCR) Not detected (NOT DETECT) 09/06/24 17:48 Micro: Microbiology 09/06/24 23:47 Blood Culture - Final Blood NO GROWTH AFTER 5 DAYS 09/06/24 17:10 Blood Culture - Final Blood NO GROWTH AFTER 5 DAYS A&P Assessment and plan (1) Atherosclerosis of coronary artery of [place] heart without angina pectoris: May continue on the Plavix. Cardiac kaur seems to be stable. Qualifiers: Coronary Disease-Associated Artery/Lesion type: [place] artery Qualified Code(s): I25.10 - Atherosclerotic heart disease of [place] coronary artery without angina pectoris (2) Congestive heart failure: Continue the IV Lasix on a as needed basis. Also need to restart the GDMT Qualifiers: Heart failure type: other Qualified Code(s): I50.9 - Heart failure, unspecified (3) Left ventricular systolic dysfunction (LVSD): Entresto 1 tablet p.o. twice daily. Dose may be gradually uptitrated (4) Aortic valve stenosis: The patient seems to have severe low gradient aortic valve stenosis. At this point, patient may not require any specific intervention. Patient and the family are not interested in any invasive procedures. Qualifiers: Cardiac valve disease etiology: nonrheumatic Qualified Code(s): I35.0 - Nonrheumatic aortic (valve) stenosis (5) Intra-abdominal hematoma: No evidence of any active bleed at this time. This need to be closely monitored. (6) Edema, peripheral: This could be multifactorial patient may be carefully treated with IV diuretics. Plan I discussed the patient's brother who has the power of commercial litigation attorney. Patient has a DNR status and the family wants to continue this. They definitely do not want her to have any internal defibrillator or further invasive cardiac workup. Will continue on the current conservative management Medications as mentioned above PDMP PDMP Reviewed: Not Reviewed Attestations 2 Medical Necessity Statement*: Deferred to the primary Coding Level of Care Code 73759 Diagnoses Atherosclerosis of [place] coronary artery of [place] heart without angina pectoris I25.10 Coronary Disease-Associated Artery/Lesion type: [place] artery Other congestive heart failure I50.9 Heart failure type: other Left ventricular systolic dysfunction (LVSD) I51.89 Nonrheumatic aortic valve stenosis I35.0 Cardiac valve disease etiology: nonrheumatic Intra-abdominal hematoma Edema, peripheral R60.0
[2024-09-12] MEDS: ipratropium-albuterol 3 mL Neb INHALATION ×4 (07:47→20:30)
[2024-09-12 07:55] LABS: Blood Urea Nitrogen 35 mg/dL (8-23); Calcium 8.4 mg/dL (8.5-10.5); Carbon Dioxide 25 mmol/L (22-29); Chloride 98 mmol/L (98-107); Creatinine Clr Calc Pharmacy 46.7917; Glucose 87 mg/dL (65-115); Magnesium 1.8 mg/dL (1.7-2.3); Osmolality Calculated 287 mOsm/kg (285-295); Sodium 135 mmol/L (136-145)
[2024-09-12 08:04] LABS: Anion Gap 16.6 (5-19); Potassium 4.6 mmol/L (3.5-5.1)
[2024-09-12] MEDS: potassium chloride ER 20 mEq Tablet PO (08:35)
[2024-09-12] MEDS: clopidogrel 75 mg Tablet PO (08:35)
[2024-09-12] MEDS: lactobacillus 1 Tablet 1 TAB PO ×2 (08:35→18:24)
[2024-09-12] MEDS: FUROsemide 200 MG in sodium chloride 0.9% (100 ml) 80 ML 10 MG IV ×2 (08:40→18:30)
--- NOTE | 2024-09-12 10:15 | PC.SOCIAL ---
IMM Update Updated pt on IMM. No questions voiced. Provided pt a copy. Initialed, dated, & timed copy in chart.
[2024-09-12 11:03] LABS: ABG PCO2 44.8 mmHg (35-45); ABG PH Result 7.39 (7.35-7.45); Arterial Blood Gas Hematocrit 25.7 % (37-47); Base Excess ABG 1.8 mmol/L (-2.0-2.0); Blood Gas Allen Test Pos; Blood Gas Operator Identificat CAK; Blood Gas Sample Site Radial, left; Blood Gas Sample Type Arterial; Oxygen Device NC; PO2 ABG 60.3 mmHg (80.0-100.0); PO2 FiO2 Ratio Arterial Blood 188
--- NOTE | 2024-09-12 11:39 | P.PN_ITS ---
Subjective 2 Subjective: events noted Medications: Reviewed: Yes Vitals/I&O/Wt Last Vital Signs Temp 97.3 F L 09/12/24 07:15 Pulse 71 09/12/24 11:19 Resp 18 09/12/24 11:19 BP 146/69 09/12/24 08:30 Pulse Ox 96 09/12/24 11:19 O2 Del Method BiPAP 09/12/24 11:19 O2 Flow Rate 3 09/12/24 08:30 FiO2 30 09/12/24 11:19 09/11/24 09/12/24 09/12/24 22:59 06:59 14:59 Intake Total 912.708 / 1362.708 200 / 1562.708 100 / 100 Output Total 65 / 390 650 / 1040 400 / 400 Balance 847.708 / 972.708 -450 / 522.708 -300 / -300 Weight last 48 hrs Weight 125 kg Weight 122.593 kg Physical Exam 2 Narrative: awake , alert , no ditress . on 3l NC PEERLA S1S2 RRR per report Lungs clear per report Abd soft , non tender per report + LE edema Urinary Catheter Management: Agrawal Latex: Cath Placed During This Visit: yes Reason for Continuing Indwelling Catheter: Accurate Measurement of Urinary Output in Critically Ill Patients Urinary Catheter Date of Insertion: 09/06/24 Urinary Catheter Time of Insertion: 23:30 Data 09/12/24 04:08 09/12/24 07:25 Micro: Microbiology 09/06/24 23:47 Blood Culture - Final Blood NO GROWTH AFTER 5 DAYS 09/06/24 17:10 Blood Culture - Final Blood NO GROWTH AFTER 5 DAYS A&P Assessment and plan (1) Anasarca: (2) KELVIN (acute kidney injury): 1. Acute on chronic kidney disease stage III: Patient now with pulmonary edema and anasarca. Likely cardiorenal. Poor response to spot doses of IV Lasix so far. Will start patient on IV Lasix 25 g every 8 hours and placed on Lasix drip, blood pressures borderline low, started Lasix at 10 mg/h and increase as blood pressure tolerates. If no response to diuretics, will discuss temporary dialysis., 2 g sodium restriction and 1500 mL fluid restriction. added Metolazone today 2. Cardiomyopathy: Ejection fraction 25%, diuretics as above, cardiology recommending defibrillator 3. Anemia, monitor , tranfuse if hb < 7 4. Acute on chronic respiratory failure,on O2 , multifactirial , due to CHF and Pneumonia 5. h/o CAD with stents PDMP PDMP Reviewed: Not Reviewed Attestations 2 Medical Necessity Statement*: per [facility] Coding Level of Care Code Acute Code for Chg Fwd Diagnoses Anasarca R60.1 KELVIN (acute kidney injury) N17.9
[2024-09-12] MEDS: metOLazone 5 MG Tablet 2.5 MG PO (12:12)
--- NOTE | 2024-09-12 13:10 | P.PN_ITS ---
Subjective 2 Subjective: seen this am pt able to have breakfast however now sleeping appears lethargic blood gas ordered, no CO2 retention pt severely deconditioned has significantly worsening anasarca negative 700 cc balance Vitals/I&O/Wt Last Vital Signs Temp 97.3 F L 09/12/24 07:15 Pulse 82 09/12/24 12:30 Resp 32 H 09/12/24 12:30 BP 131/56 09/12/24 12:30 Pulse Ox 92 09/12/24 12:30 O2 Del Method Nasal Cannula 09/12/24 12:30 O2 Flow Rate 3 09/12/24 12:30 FiO2 30 09/12/24 11:19 09/11/24 09/12/24 09/12/24 22:59 06:59 14:59 Intake Total 912.708 / 1362.708 200 / 1562.708 100 / 100 Output Total 65 / 390 650 / 1040 400 / 400 Balance 847.708 / 972.708 -450 / 522.708 -300 / -300 Weight last 48 hrs Weight 125 kg Weight 122.593 kg Physical Exam 2 Narrative: General: No acute distress, AO x3 on nasal cannula today. HEENT: PERRLA, pupils bilaterally equal and reactive, pallors not present Chest: Normal vesicular breath sounds, no added sounds, equal good air entry bilaterally CVS: S1-S2 regular, no murmurs, no tachycardia, no gallops, no rubs Abdomen: Soft, nontender, bowel sounds present Neuro: No focal deficits, no facial deformity, AO x3, Extremities: Generalized anasarca, worsening Urinary Catheter Management: Agrawal Latex: Cath Placed During This Visit: yes Reason for Continuing Indwelling Catheter: Accurate Measurement of Urinary Output in Critically Ill Patients Urinary Catheter Date of Insertion: 09/06/24 Urinary Catheter Time of Insertion: 23:30 Data 09/12/24 04:08 09/12/24 07:25 Micro: Microbiology 09/06/24 23:47 Blood Culture - Final Blood NO GROWTH AFTER 5 DAYS 09/06/24 17:10 Blood Culture - Final Blood NO GROWTH AFTER 5 DAYS A&P Assessment and plan (1) Acute exacerbation of CHF (congestive heart failure): Primary diagnosis at presentation contributing to acute hypoxic respiratory failure from fluid overload and anasarca. On IV Lasix. Ejection fraction 24% on echocardiogram within the last couple of months. Qualifiers: Heart failure type: combined systolic and diastolic Qualified Code(s): I50.43 - Acute on chronic combined systolic (congestive) and diastolic (congestive) heart failure (2) Pneumonia: Suspected diagnosis at the time of admission, on empiric coverage for healthcare associated infection. Qualifiers: Pneumonia type: due to unspecified organism Laterality: left Lung location: upper lobe of lung Qualified Code(s): J18.9 - Pneumonia, unspecified organism (3) Acute hypoxic respiratory failure: Related to above (4) CAD S/P percutaneous coronary angioplasty: RCA stent placement in June 2024. Had been discharged on aspirin and Plavix but these were ultimately stopped at the time of significant hemoperitoneum earlier this month. Has been restarted on Plavix. Tolerating thus far. (5) Acute anemia: Acute blood loss anemia from prior event with hemoglobin stable this hospital stay. Recent significant bleeding. (6) Intra-abdominal hematoma: Recently, transferred to [facility], received blood transfusions, at risk of re-bleed but must maintain antiplatelet therapy with recent stent. Dr Winkler discussed with patient and family. Reviewed again on 09/08 and patient understands, no new questions. (7) Aortic valve stenosis: Aware, NICOLÁS 0.83 cm2, mean gradient 5.2 mmHg Qualifiers: Cardiac valve disease etiology: nonrheumatic Qualified Code(s): I35.0 - Nonrheumatic aortic (valve) stenosis (8) CKD (chronic kidney disease): Stage 2, stable Qualifiers: Chronic kidney disease stage: stage 2 (GFR 60-89) Qualified Code(s): N 18.2 - Chronic kidney disease, stage 2 (mild) (9) Neuropathy: Elevated TSH without a history of hypothyroidism, will need recheck of labs in outpt setting. (10) PICC (peripherally inserted central catheter) in place: placed 09/08 (11) Anasarca: (12) KELVIN (acute kidney injury): Plan Elevated bilirubin and transaminiase, monitoring Elevated TSH without a history of hypothyroidism On IV diuresis currently Resume home potassium On Plavix at home dosing Off of home aspirin therapy currently due to recent bleeding and informed decision making On carvedilol at home dosing Entresto has been initiated along with spironolactone Will resume home statin therapy On PPI VTE prophylaxis: SCDs, recent significant bleeding so no pharmacological prophylaxis GI Prophylaxis: PPI Antibiotics: On Zosyn and vancomycin for health care associated pneumonia coverage and cellulitis coverage. Acute infectious etiology seems less likely but continues to have leukocytosis with left shift. Had been on cefdinir and doxycycline in the outpatient setting. Pending studies: Blood and urine cultures from admission, morning labs which will include electrolytes, CMP, free T3 and free T4 and a repeat CRP for comparison to prior value Telemetry: Ordered secondary to recent cardiac history Agrawal: In place due to IV diuresis Line(s): PICC line placed 09/08 Disposition plan: Disposition will depend on clinical course. Had previously been discharged to [facility] but would like to look at [place] or [facility] as options Code Status: Allow natural September 07, 2024: Recent HPI as noted above. Discussed with patient the diffuclt situation that she is currently facing. On one hand, she underwent PCI 2 months ago with placement of stent to the RCA. Therefore it is important to continue antiplatelet therapy as her stent is at high risk of stensis off A/c. cardiology service was consulted and recommends starting Plavix 75mg po daily. ASA to remain on hold. On the other hand, with resumption of antiplatelet agents, she remains at high risk of worsening bleeding/worsening hematoma and any bleeding may potentially be fatal for her. She understands that neither is a good situation however after weighing all risks and benefits, she has decided to resume Plavix at this time with close Hb monitoring. Should she develop recurrent or worsening bleeding at that time which cannot be managed with transfusions alone, she will like to transition to comfort care measures only. Additionally she reiteriates her decision to not have CPR or be on a ventilator. She would not want any life prolonging measures. Her brother Mckay, son alondra are at bedside. Patient appoints her older brother Mckay to be her surrogate decison maker should she be in a place of being unable to make decisions. She is currently awake alert and oriented x 4. COnversation witnessed by lola's RN in ICU. Resume Plavix 75mg daily H&H check q12h continue Abx for now due to suspicion for cellulitis, however favor RLE erythema to be changes of stasis dermatitis, will likely d/c abx if infectious evaluation remains negative at 48 hrs continue diuresis with iv lasix 40mg q12h Bipap at night time and prn during day 09/08/24 Hemoglobin has remained stable. No gross bleeding noted. Not feeling great but breathing is better than when she came in and not having as much pain. Understands the conversation that was had with her yesterday and the poor prognosis, difficult management currently. Remains on antibiotics that were started for empiric coverage of pneumonia plus or minus cellulitis. Does have leukocytosis with left shift. Had also been on antibiotics in the outpatient setting so is at increased risk for C. difficile colitis. Will add probiotics. Remains on oxygen with BiPAP if needed. Will repeat laboratory studies tomorrow and continue close monitoring in the ICU setting. 09/09/2024 hb dropped to 7.8, will check cbc at 6 pm, if significant downward trend, may consider repeat imaging discussed with family regarding bleeding risk with plavix and the need for it since recent stents continue to monitor hb family would like to go to a different [place] at in, discussed with case management no gross bleeding noted continue empiric abx coverage continue close icu monitoring 09/10/2024 Hemoglobin stable at this time. Do not believe patient has bleeding. Start physical therapy today. Still has generalized anasarca. Continue IV Lasix. If unresponsive may need to consider nephrology consult. EF is improved compared to prior. Patient may need a defibrillator going forward and LifeVest at time of discharge. She is bedbound at baseline and is post to go to a nursing facility at time of discharge. Continue BiPAP Continue Plavix. Family patient well aware that patient may have spontaneous bleed being on Plavix going forward. However benefits outweigh the risk at this time. Recheck labs in AM. 09/11/2024 Hemoglobin stable at 8.3. Slight decrease is secondary to dilution most likely secondary to worsening anasarca. Creatinine 1.4 today. Patient hypotensive overnight We will continue to hold Coreg at this time however will add albumin every 8 hours x 3 doses total and add Lasix 40 IV twice daily. Patient will need aggressive diuresis. Consult nephrology. If unresponsive to Lasix will most likely need dialysis for fluid removal No gross bleeding noted. CT abdomen pelvis obtained this morning shows reducing hematoma. Free fluid in pelvis most likely secondary to ascites secondary to CHF EF is improved slightly to 35% compared to prior. Patient will need a defibrillator going forward and a LifeVest at time of discharge. She is bedbound and was able to do some bed exercises yesterday. She will need to be optimized from fluid status standpoint prior to discharge. Continue to use BiPAP as needed Continue empiric antibiotic coverage. Will completed 7 days. Continue Plavix. 09/12/2024 Urine output 1100 cc overnight. -700 mL on since admission. Patient currently on albumin and Lasix. Does have worsening anasarca. She may need dialysis going forward. Discussed with her son regarding patient's overall status with severe deconditioning, heart failure, recent bleeding, being bedbound and Jeferson lift discussed quality of life and recovery from her current conditions. Discussed possibility of palliative care versus hospice going forward if patient does not start to improve. Also asked son if they would be interested in dialysis if needed. He stated he will talk to his other brother and they will think about it. At this time patient is sleeping. She is very weak deconditioned and not able to engage in a meaningful conversation. I will talk to patient when she is more awake. Blood gas reviewed, discussed with respiratory therapy to place patient on BiPAP for respiratory support. Patient will need aggressive inpatient rehab however I am unsure if she will be able to participate We will transfer to [facility] today. PDMP PDMP Reviewed: Not Reviewed Attestations 2 Medical Necessity Statement*: CHF, worsening anasarca, KELVIN Diagnoses Acute on chronic combined systolic and diastolic congestive heart failure I50.43 Heart failure type: combined systolic and diastolic Pneumonia of left upper lobe due to infectious organism J18.9 Pneumonia type: due to unspecified organism Laterality: left Lung location: upper lobe of lung Acute hypoxic respiratory failure J96.01 CAD S/P percutaneous coronary angioplasty I25.10; Z98.61 Acute anemia D64.9 Intra-abdominal hematoma Nonrheumatic aortic valve stenosis I35.0 Cardiac valve disease etiology: nonrheumatic Stage 2 chronic kidney disease N18.2 Chronic kidney disease stage: stage 2 (GFR 60-89) Neuropathy G62.9 PICC (peripherally inserted central catheter) in place Z45.2 Anasarca R60.1 KELVIN (acute kidney injury) N17.9
[2024-09-12 16:32] LABS: Vancomycin Trough 26.4 ug/mL (10-15)
[2024-09-12] MEDS: atorvastatin 40 mg Tablet PO (20:11)
[2024-09-12] MEDS: temazepam 15 mg Capsule PO (23:13)
[2024-09-13] VITALS (40 sets, daily range): BP systolic 121–179; BP diastolic 43–93; PULSE 76–94; RESP 21–222; TEMP 36.6–36.8; O2SAT 89–97
[2024-09-13] MEDS: acetaminophen 325 mg Tablet 650 MG PO ×3 (02:43→15:12)
[2024-09-13] MEDS: albumin 25 G/100 ML BAG 60 G IV (02:44)
[2024-09-13 04:27] LABS: Basophils % 0.2 %; Hematocrit 25.4 % (36-47); Lymphocytes # 0.7 10^3/uL (0.8-4.8); Mean Corpuscular HGB Conc 29.9 g/dL (30-55); Mean Corpuscular Hemoglobin 30.8 pg (27-33); Mean Corpuscular Volume 102.8 fl (85-98); Mean Platelet Volume 10.2 fL (7.4-10.4); Monocytes # 0.6 10^3/uL (0.2-0.9); Monocytes % 7.5 %; Neutrophils # 7.09 10^3/uL (1.8-7.7); Neutrophils % 83.7 %; Nucleated Red Blood Cells % 0 %; Platelet Count 149 10^3/cmm (157-399); Red Blood Count 2.47 10^6/uL (3.85-5.65); Red Cell Distribution Width 23.9 % (12.1-15.1); White Blood Count 8.48 10^3/uL (3.29-11.43)
[2024-09-13 04:53] LABS: Blood Urea Nitrogen 39 mg/dL (8-23); Calcium 9.2 mg/dL (8.5-10.5); Carbon Dioxide 23 mmol/L (22-29); Chloride 97 mmol/L (98-107); Creatinine Clr Calc Pharmacy 40.9427; Glucose 98 mg/dL (65-115); Magnesium 1.8 mg/dL (1.7-2.3); Osmolality Calculated 289 mOsm/kg (285-295); Sodium 135 mmol/L (136-145)
[2024-09-13 04:54] LABS: Anion Gap 19.1 (5-19); Potassium 4.1 mmol/L (3.5-5.1)
[2024-09-13] MEDS: FUROsemide 200 MG in sodium chloride 0.9% (100 ml) 80 ML 10 MG IV ×2 (05:24→16:31)
[2024-09-13] MEDS: piperacillin-tazobactam 3.375 GM in sodium chloride 0.9% (plus) 50 ML IV (06:13)
--- NOTE | 2024-09-13 07:09 | PM.PN ---
Subjective Subjective: seen this am 2L UOP overnight. fatigued and not lethargic deconditioned slightly improving anasarca denies pain except for chronic abd pain Medications: Reviewed: Yes Vitals/I&O/Wt Last Vital Signs Temp 98.2 F 09/13/24 04:00 Pulse 81 09/13/24 06:00 Resp 27 H 09/13/24 06:00 BP 154/55 09/13/24 06:00 Pulse Ox 94 09/13/24 06:00 O2 Del Method Nasal Cannula 09/13/24 06:00 O2 Flow Rate 3 09/13/24 06:00 FiO2 30 09/12/24 11:19 09/12/24 09/13/24 09/13/24 22:59 06:59 14:59 Intake Total 488.333 / 688.333 250 / 938.333 Output Total 1800 / 2200 700 / 2900 Balance -1311.667 / -1511.667 -450 / -1961.667 Weight last 48 hrs Weight 266 lb 12.149 oz Weight 275 lb 9.245 oz Physical Exam Narrative: General: AOx3, slightly lethargic, gryeness of face psych: appropriate mood and affect. good judgment and insight. No suicidal or homicidal ideation. Head: atraumatic, normocephalic, no mass/lesions Eyes: conjunctiva clear w/o exudate or hemorrhage. non-icteric, EOM intact, PERRLA. no signs of nystagmus Nose: nasal mucosa pink, septum midline Oropharynx: good dentition Neck: FROM, no lymphadenopathy Chest: atraumatic, symmetrical CVD: RRR, normal S1 and S2, no M/R/G. 2+ pulse x 4 extremities, JVD present. 2+ edema bilat legs to waste, 1+ edema bilateral arms Lungs: clear lung sounds in all ahmadi, no rhonchi, wheezing, rales. Abdomen: RLQ ttp, ND, soft, NABS. No hepatosplenomegaly, : not done on todays examination. frazier in place Rectal: not done on todays examination Spine: no visible deformities Extremities: FROM and 5/5 strength in BUE and BLE. Neuro: CNII-XII grossly intact, no sensory abnormalities. Skin:? venous stasis dermatitis bilateral legs Urinary Catheter Management: Frazier Latex: Cath Placed During This Visit: yes Reason for Continuing Indwelling Catheter: Accurate Measurement of Urinary Output in Critically Ill Patients Urinary Catheter Date of Insertion: 09/06/24 Urinary Catheter Time of Insertion: 23:30 Data 09/13/24 03:53 09/13/24 03:53 A&P Assessment and plan (1) Acute exacerbation of CHF (congestive heart failure): Primary diagnosis at presentation contributing to acute hypoxic respiratory failure from fluid overload and anasarca. LVEF 24% IV lasix, metolazone possible levophed. on PRN Qualifiers: Heart failure type: combined systolic and diastolic Qualified Code(s): I50.43 - Acute on chronic combined systolic (congestive) and diastolic (congestive) heart failure (2) Pneumonia: Suspected diagnosis at the time of admission. Cx negative will discontinue Vanc, Zosyn Qualifiers: Laterality: left Lung location: upper lobe of lung Pneumonia type: due to unspecified organism Qualified Code(s): J18.9 - Pneumonia, unspecified organism (3) Acute hypoxic respiratory failure: Related to above currently on 3L NC (4) CAD S/P percutaneous coronary angioplasty: RCA stent placement in June 2024. Had been discharged on aspirin and Plavix but these were ultimately stopped at the time of significant hemoperitoneum earlier this month. Has been restarted on Plavix. Tolerating thus far. (5) Acute anemia: Acute blood loss anemia from prior event with hemoglobin stable this hospital stay. Recent significant bleeding. (6) Intra-abdominal hematoma: Recently, transferred to [facility], received blood transfusions, at risk of re-bleed but must maintain antiplatelet therapy with recent stent. Dr Winkler discussed with patient and family. Reviewed again on 09/08 and patient understands, no new questions. (7) Aortic valve stenosis: Aware, INCOLÁS 0.83 cm2, mean gradient 5.2 mmHg Qualifiers: Cardiac valve disease etiology: nonrheumatic Qualified Code(s): I35.0 - Nonrheumatic aortic (valve) stenosis (8) CKD (chronic kidney disease): Stage 2, stable Qualifiers: Chronic kidney disease stage: stage 2 (GFR 60-89) Qualified Code(s): N18.2 - Chronic kidney disease, stage 2 (mild) (9) Neuropathy: Elevated TSH without a history of hypothyroidism, will need recheck of labs in outpt setting. (10) PICC (peripherally inserted central catheter) in place: placed 09/08/24 (11) Anasarca: started on IV lasix and metolazone yesterday. may required HD if anasarca refractory to diuresis; however, not a good candidate due to deterioration and overall health (12) KELVIN (acute kidney injury): slightly worsening, Cr 1.6 this AM Plan VTE prophylaxis: SCDs, recent significant bleeding so no pharmacological prophylaxis GI Prophylaxis: PPI Antibiotics:discontinue Abx Pending studies: Cx neg thus far. possibly stop Abx in 24hrs Telemetry: Ordered secondary to recent cardiac history Frazier: In place due to IV diuresis Line(s): PICC line placed 09/08 Disposition plan: Disposition will depend on clinical course. Had previously been discharged to [facility] but would like to look at [place] or [facility] as options Code Status: Allow natural September 07, 2024: Recent HPI as noted above. Discussed with patient the diffuclt situation that she is currently facing. On one hand, she underwent PCI 2 months ago with placement of stent to the RCA. Therefore it is important to continue antiplatelet therapy as her stent is at high risk of stensis off A/c. cardiology service was consulted and recommends starting Plavix 75mg po daily. ASA to remain on hold. On the other hand, with resumption of antiplatelet agents, she remains at high risk of worsening bleeding/worsening hematoma and any bleeding may potentially be fatal for her. She understands that neither is a good situation however after weighing all risks and benefits, she has decided to resume Plavix at this time with close Hb monitoring. Should she develop recurrent or worsening bleeding at that time which cannot be managed with transfusions alone, she will like to transition to comfort care measures only. Additionally she reiteriates her decision to not have CPR or be on a ventilator. She would not want any life prolonging measures. Her brother Mckay, son alondra are at bedside. Patient appoints her older brother Mckay to be her surrogate decison maker should she be in a place of being unable to make decisions. She is currently awake alert and oriented x 4. COnversation witnessed by lola's RN in ICU. Resume Plavix 75mg daily H&H check q12h continue Abx for now due to suspicion for cellulitis, however favor RLE erythema to be changes of stasis dermatitis, will likely d/c abx if infectious evaluation remains negative at 48 hrs continue diuresis with iv lasix 40mg q12h Bipap at night time and prn during day 09/08/24 Hemoglobin has remained stable. No gross bleeding noted. Not feeling great but breathing is better than when she came in and not having as much pain. Understands the conversation that was had with her yesterday and the poor prognosis, difficult management currently. Remains on antibiotics that were started for empiric coverage of pneumonia plus or minus cellulitis. Does have leukocytosis with left shift. Had also been on antibiotics in the outpatient setting so is at increased risk for C. difficile colitis. Will add probiotics. Remains on oxygen with BiPAP if needed. Will repeat laboratory studies tomorrow and continue close monitoring in the ICU setting. 09/09/2024 hb dropped to 7.8, will check cbc at 6 pm, if significant downward trend, may consider repeat imaging discussed with family regarding bleeding risk with plavix and the need for it since recent stents continue to monitor hb family would like to go to a different [place] at [place], discussed with case management no gross bleeding noted continue empiric abx coverage continue close icu monitoring 09/10/2024 Hemoglobin stable at this time. Do not believe patient has bleeding. Start physical therapy today. Still has generalized anasarca. Continue IV Lasix. If unresponsive may need to consider nephrology consult. EF is improved compared to prior. Patient may need a defibrillator going forward and LifeVest at time of discharge. She is bedbound at baseline and is post to go to a nursing facility at time of discharge. Continue BiPAP Continue Plavix. Family patient well aware that patient may have spontaneous bleed being on Plavix going forward. However benefits outweigh the risk at this time. Recheck labs in AM. 09/11/2024 Hemoglobin stable at 8.3. Slight decrease is secondary to dilution most likely secondary to worsening anasarca. Creatinine 1.4 today. Patient hypotensive overnight We will continue to hold Coreg at this time however will add albumin every 8 hours x 3 doses total and add Lasix 40 IV twice daily. Patient will need aggressive diuresis. Consult nephrology. If unresponsive to Lasix will most likely need dialysis for fluid removal No gross bleeding noted. CT abdomen pelvis obtained this morning shows reducing hematoma. Free fluid in pelvis most likely secondary to ascites secondary to CHF EF is improved slightly to 35% compared to prior. Patient will need a defibrillator going forward and a LifeVest at time of discharge. She is bedbound and was able to do some bed exercises yesterday. She will need to be optimized from fluid status standpoint prior to discharge. Continue to use BiPAP as needed Continue empiric antibiotic coverage. Will completed 7 days. Continue Plavix. 09/12/2024 Urine output 1100 cc overnight. -700 mL on since admission. Patient currently on albumin and Lasix. Does have worsening anasarca. She may need dialysis going forward. Discussed with her son regarding patient's overall status with severe deconditioning, heart failure, recent bleeding, being bedbound and Jeferson lift discussed quality of life and recovery from her current conditions. Discussed possibility of palliative care versus hospice going forward if patient does not start to improve. Also asked son if they would be interested in dialysis if needed. He stated he will talk to his other brother and they will think about it. At this time patient is sleeping. She is very weak deconditioned and not able to engage in a meaningful conversation. I will talk to patient when she is more awake. Blood gas reviewed, discussed with respiratory therapy to place patient on BiPAP for respiratory support. Patient will need aggressive inpatient rehab however I am unsure if she will be able to participate We will transfer to [facility] today. 09/13/24 -UOP: 4.5L output in past 24hrs -placed on IV lasix drip and metolozone yesterday due to significant anasarca. showing signs of improvement -hospice vs palliative care discussed yesterday. no interest at this time. -nephrology on board. possible HD in future. not at this time given some improved response with lasix/metolazone. -discontinue vanc and zosyn due to negative Cx -OT and PT eval -SCD's -levophen PRN if BP drops PDMP PDMP Reviewed: Not Reviewed Attestations Medical Necessity Statement*: will require 2 overnight stays due to ICU critical illness Coding Level of Care Code 93797 Diagnoses Acute on chronic combined systolic and diastolic congestive heart failure I50.43 Heart failure type: combined systolic and diastolic Pneumonia of left upper lobe due to infectious organism J18.9 Laterality: left Lung location: upper lobe of lung Pneumonia type: due to unspecified organism Acute hypoxic respiratory failure J96.01 CAD S/P percutaneous coronary angioplasty I25.10; Z98.61 Acute anemia D64.9 Intra-abdominal hematoma Nonrheumatic aortic valve stenosis I35.0 Cardiac valve disease etiology: nonrheumatic Stage 2 chronic kidney disease N18.2 Chronic kidney disease stage: stage 2 (GFR 60-89) Neuropathy G62.9 PICC (peripherally inserted central catheter) in place Z45.2 Anasarca R60.1 KELVIN (acute kidney injury) N17.9
[2024-09-13] MEDS: ipratropium-albuterol 3 mL Neb INHALATION ×4 (08:08→20:07)
[2024-09-13] MEDS: potassium chloride ER 20 mEq Tablet PO (09:13)
[2024-09-13] MEDS: lactobacillus 1 Tablet 1 TAB PO ×2 (09:13→17:28)
[2024-09-13] MEDS: clopidogrel 75 mg Tablet PO (09:13)
--- NOTE | 2024-09-13 10:29 | PM.PN ---
Subjective Subjective: on 4L NC Medications: Reviewed: Yes Vitals/I&O/Wt Last Vital Signs Temp 98.2 F 09/13/24 04:00 Pulse 83 09/13/24 10:00 Resp 32 H 09/13/24 10:00 BP 157/71 09/13/24 10:00 Pulse Ox 92 09/13/24 10:00 O2 Del Method Nasal Cannula 09/13/24 08:08 O2 Flow Rate 3 09/13/24 08:08 FiO2 30 09/12/24 11:19 09/12/24 09/13/24 09/13/24 22:59 06:59 14:59 Intake Total 488.333 / 688.333 250 / 938.333 Output Total 1800 / 2200 700 / 2900 Balance -1311.667 / -1511.667 -450 / -1961.667 Weight last 48 hrs Weight 121 kg Weight 125 kg Physical Exam Narrative: awake , alert , no ditress . on 3l NC PEERLA S1S2 RRR per report Lungs clear per report Abd soft , non tender per report + LE edema Urinary Catheter Management: Agrawal Latex: Cath Placed During This Visit: yes Reason for Continuing Indwelling Catheter: Accurate Measurement of Urinary Output in Critically Ill Patients Urinary Catheter Date of Insertion: 09/06/24 Urinary Catheter Time of Insertion: 23:30 Data 09/13/24 03:53 09/13/24 03:53 A&P Assessment and plan (1) Anasarca: (2) KELVIN (acute kidney injury): 1. Acute on chronic kidney disease stage III: Patient now with pulmonary edema and anasarca. Likely cardiorenal. Poor response to spot doses of IV Lasix so far. Will start patient on IV Lasix 25 g every 8 hours and placed on Lasix drip, blood pressures borderline low, started Lasix at 10 mg/h and increase as blood pressure tolerates. If no response to diuretics, will discuss temporary dialysis., 2 g sodium restriction and 1500 mL fluid restriction. will give metolazone 2. Cardiomyopathy: Ejection fraction 25%, diuretics as above, cardiology recommending defibrillator 3. Anemia, monitor , tranfuse if hb < 7 4. Acute on chronic respiratory failure,on O2 , multifactirial , due to CHF and Pneumonia 5. h/o CAD with stents PDMP PDMP Reviewed: Not Reviewed Attestations Medical Necessity Statement*: [facility] Coding Level of Care Code Acute Code for Chg Fwd Diagnoses Anasarca R60.1 KELVIN (acute kidney injury) N17.9
[2024-09-13] MEDS: FUROsemide 10 mg/mL SDV 4mL 40 MG IVP (10:46)
--- NOTE | 2024-09-13 11:16 | PC.NURSE ---
nephrology called monitor urine output one time dose of 40 lasix in addition to lasix gtt , urine emptied and lasix given
--- NOTE | 2024-09-13 13:00 | PC.NURSE ---
brother here long discussion about overall prognosis ect, are considering hospice
--- NOTE | 2024-09-13 13:50 | PM.PN ---
Subjective Subjective: Patient sleeping in the bed comfortable appeared to be stable vital kaur Medications: Reviewed: Yes Medication Review Details: Current Medications Acetaminophen (Acetaminophen 325 Mg Tablet) 650 mg PO Q6H PRN PRN Reason: Mild/Mod Pain Or Temp >/= 101 Last Admin: 09/12/24 02:52 Dose: 650 mg Albuterol/Ipratropium (Ipratropium-Albuterol 3 Ml Neb) 3 ml INHALATION QID.RESPIRATORY VETO Last Admin: 09/11/24 20:22 Dose: 3 ml Atorvastatin Calcium (Atorvastatin 40 Mg Tablet) 40 mg PO BEDTIME VETO Last Admin: 09/11/24 20:39 Dose: 40 mg Carvedilol (Carvedilol 3.125 Mg Tablet) 3.125 mg PO BID VETO Last Admin: 09/10/24 17:40 Dose: 3.125 mg Clopidogrel Bisulfate (Clopidogrel 75 Mg Tablet) 75 mg PO DAILY VETO Last Admin: 09/11/24 08:25 Dose: 75 mg Furosemide (Furosemide 10 Mg/Ml Sdv 4ml) 40 mg IVP Q12H [facility] Last Admin: 09/12/24 01:21 Dose: Not Given Piperacillin Sod/Tazobactam (Sod 3.375 gm/ Sodium Chloride) 50 mls @ 12.5 mls/hr IV Q8H [facility] Last Admin: 09/12/24 05:58 Dose: 12.5 mls/hr Vancomycin HCl 1,000 mg/ (Sodium Chloride) 250 mls @ 250 mls/hr IV Q18H [facility] Last Infusion: 09/11/24 08:26 Dose: Infused Albumin Human (Albumin) 25 g in 100 mls @ 60 mls/hr IV Q8H [facility] Stop: 09/13/24 11:29 Last Infusion: 09/12/24 06:03 Dose: Infused Furosemide 100 mg/ Sodium (Chloride) 50 mls @ 0 mls/hr IV .Q0M VETO; Protocol Last Admin: 09/12/24 02:04 Dose: 20 mg/hr, 10 mls/hr Norepinephrine Bitartrate (Levophed) 4 mg in 250 mls @ 0 mls/hr IV .Q0M [facility]; Protocol Last Titration: 09/11/24 16:52 Dose: 0 mcg/min, 0 mls/hr Furosemide 200 mg/ Sodium (Chloride) 100 mls @ 0 mls/hr IV .Q0M [facility]; Protocol Lactobacillus Acidophilus (Lactobacillus 1 Tablet) 1 tab PO BID [facility] Last Admin: 09/11/24 17:45 Dose: 1 tab Lanolin (Lanolin Oint 7 Gm) 1 applic TOPICAL PRN PRN PRN Reason: DRYNESS Last Admin: 09/08/24 18:43 Dose: 1 applic Ondansetron HCl (Ondansetron 2 Mg/Ml Sdv 2 Ml) 4 mg IVP Q8H PRN PRN Reason: vomiting, or N/V if npo Pantoprazole Sodium (Pantoprazole 40 Mg Sdv) 40 mg IVP Q24H [facility] Last Admin: 09/12/24 00:31 Dose: 40 mg Potassium Chloride (Potassium Chloride Er 20 Meq Tablet) 20 meq PO DAILY [facility] Last Admin: 09/11/24 08:25 Dose: 20 meq Sacubitril/Valsartan (Sacubitril/Valsartan 24-26 Mg Tablet) 1 each PO BID [facility] Last Admin: 09/10/24 17:40 Dose: 1 each Spironolactone (Spironolactone 25 Mg Tablet) 25 mg PO DAILY [facility] Last Admin: 09/10/24 08:20 Dose: 25 mg Vitals/I&O/Wt Last Vital Signs Temp 98.2 F 09/13/24 04:00 Pulse 80 09/13/24 12:00 Resp 25 H 09/13/24 12:00 BP 172/79 09/13/24 12:00 Pulse Ox 93 09/13/24 12:00 O2 Del Method Nasal Cannula 09/13/24 08:08 O2 Flow Rate 4 09/13/24 11:25 FiO2 30 09/12/24 11:19 09/12/24 09/13/24 09/13/24 22:59 06:59 14:59 Intake Total 488.333 / 688.333 250 / 938.333 170 / 170 Output Total 1800 / 2200 700 / 2900 2500 / 2500 Balance -1311.667 / -1511.667 -450 / -1961.667 -2330 / -2330 Weight last 48 hrs Weight 266 lb 12.149 oz Weight 275 lb 9.245 oz Physical Exam Const: OTHER: GENERAL: Patient is sleeping and does not want to follow-up the eyes however appear to be stable. HEART: Regular S1 and S2. No murmur, rub or gallop. LUNGS: Clear to auscultate bilaterally. CENTRAL NERVOUS SYSTEM: Grossly nonfocal. EXTREMITIES: Lower extremities with bilateral 1+ edema, dry skin. Urinary Catheter Management: Agrawal Latex: Cath Placed During This Visit: yes Reason for Continuing Indwelling Catheter: Accurate Measurement of Urinary Output in Critically Ill Patients Urinary Catheter Date of Insertion: 09/06/24 Urinary Catheter Time of Insertion: 23:30 Data 09/13/24 03:53 09/13/24 03:53 A&P Assessment and plan (1) Atherosclerosis of coronary artery of [place] heart without angina pectoris: May continue on the Plavix. Cardiac kaur seems to be stable. Qualifiers: Coronary Disease-Associated Artery/Lesion type: [place] artery Qualified Code(s): I25.10 - Atherosclerotic heart disease of [place] coronary artery without angina pectoris (2) Congestive heart failure: Qualifiers: Heart failure type: other Qualified Code(s): I50.9 - Heart failure, unspecified (3) Left ventricular systolic dysfunction (LVSD): (4) Aortic valve stenosis: No specific intervention needed at this point Qualifiers: Cardiac valve disease etiology: nonrheumatic Qualified Code(s): I35.0 - Nonrheumatic aortic (valve) stenosis (5) Intra-abdominal hematoma: No evidence of any active bleed at this time. This need to be closely monitored. (6) Edema, peripheral: Plan Continue IV Lasix as per nephrology Continue Entresto and appetite according to renal function and potassium Appear to be improving PDMP PDMP Reviewed: Not Reviewed Attestations Medical Necessity Statement*: Continue medical management.Patient require continuation hospitalization for above defined care Coding Level of Care Code Acute Code for Chg Fwd Diagnoses Atherosclerosis of [place] coronary artery of [place] heart without angina pectoris I25.10 Coronary Disease-Associated Artery/Lesion type: [place] artery Other congestive heart failure I50.9 Heart failure type: other Left ventricular systolic dysfunction (LVSD) I51.89 Nonrheumatic aortic valve stenosis I35.0 Cardiac valve disease etiology: nonrheumatic Intra-abdominal hematoma Edema, peripheral R60.0
[2024-09-13 16:40] LABS: Vancomycin Trough 20.8 ug/mL (10-15)
[2024-09-13] MEDS: atorvastatin 40 mg Tablet PO (21:34)
--- NOTE | 2024-09-13 22:27 | PC.NURSE ---
Swelling of complete right arm noted, good blood return on picc line just above ac. Pulses palpable but right radial diminished compared to left radial. New order given for Venous ultrasound of right arm.
[2024-09-13] MEDS: pantoprazole 40 mg SDV IVP (23:05)
[2024-09-14] VITALS (35 sets, daily range): BP systolic 117–179; BP diastolic 46–93; PULSE 78–104; RESP 18–35; TEMP 36.3–37.7; O2SAT 89–96
[2024-09-14] MEDS: acetaminophen 325 mg Tablet 650 MG PO ×2 (02:42→22:30)
[2024-09-14] MEDS: FUROsemide 200 MG in sodium chloride 0.9% (100 ml) 80 ML 10 MG IV ×3 (02:49→23:34)
[2024-09-14 04:15] LABS: Basophils % 0.2 %; Hematocrit 26.2 % (36-47); Lymphocytes # 0.7 10^3/uL (0.8-4.8); Lymphocytes % 7.3 %; Mean Corpuscular HGB Conc 30.5 g/dL (30-55); Mean Corpuscular Hemoglobin 30.5 pg (27-33); Mean Platelet Volume 10.3 fL (7.4-10.4); Monocytes # 0.6 10^3/uL (0.2-0.9); Monocytes % 6.8 %; Neutrophils # 7.88 10^3/uL (1.8-7.7); Neutrophils % 84.9 %; Nucleated Red Blood Cells % 0 %; Platelet Count 163 10^3/cmm (157-399); Red Blood Count 2.62 10^6/uL (3.85-5.65); Red Cell Distribution Width 24.1 % (12.1-15.1); White Blood Count 9.28 10^3/uL (3.29-11.43)
[2024-09-14 04:37] LABS: Alanine Aminotransferase 16 U/L (0-33); Albumin Level 3.7 g/dL (3.5-5.2); Alkaline Phosphatase 62 U/L (35-105); Aspartate Amino Transferase 22 U/L (0-32); Blood Urea Nitrogen 37 mg/dL (8-23); Calcium 9.7 mg/dL (8.5-10.5); Carbon Dioxide 26 mmol/L (22-29); Chloride 95 mmol/L (98-107); Creatinine Clr Calc Pharmacy 45.8877; Glucose 100 mg/dL (65-115); Osmolality Calculated 291 mOsm/kg (285-295); Sodium 136 mmol/L (136-145); Total Bilirubin 2.3 mg/dL (0.15-1.2); Total Protein 6.7 g/dL (6.6-8.7)
[2024-09-14 04:40] LABS: Anion Gap 18.8 (5-19); Potassium 3.8 mmol/L (3.5-5.1)
--- NOTE | 2024-09-14 07:17 | P.PN_ITS ---
Subjective 2 Subjective: seen this am receiving bedside US. 4hrs later was verbal 6L UOP overnight. 5L yesterday fatigued and not lethargic deconditioned slightly improving anasarca this AM in upper extremities but still present in lower extremities denies pain except for chronic abd pain Discussed at length prognosis, outcomes, hospice and palliative care. I discussed that i felt hospice was a valid and valuable option at this time if she does not show improvement. pt showed understanding and would consider hospice. to talk about with son Tawanda and brother Mckay. Medications: Reviewed: Yes Vitals/I&O/Wt Last Vital Signs Temp 99 F 09/14/24 03:00 Pulse 79 09/14/24 06:00 Resp 24 H 09/14/24 06:00 BP 140/51 09/14/24 06:00 Pulse Ox 96 09/14/24 06:00 O2 Del Method Nasal Cannula 09/14/24 06:00 O2 Flow Rate 4 09/14/24 06:00 FiO2 30 09/12/24 11:19 09/13/24 09/14/24 09/14/24 22:59 06:59 14:59 Intake Total 220 / 390 200 / 590 Output Total 5500 / 8000 3600 / 56619 Balance -5280 / -7610 -3400 / -21920 Weight last 48 hrs Weight 248 lb 9.6 oz Weight 266 lb 12.149 oz Physical Exam 2 Narrative: General: AOx3, improved color from yesterday psych: appropriate mood and affect. good judgment and insight. No suicidal or homicidal ideation. Head: atraumatic, normocephalic, no mass/lesions Eyes: conjunctiva clear w/o exudate or hemorrhage. non-icteric, EOM intact, PERRLA. no signs of nystagmus Nose: nasal mucosa pink, septum midline Oropharynx: good dentition Neck: FROM, no lymphadenopathy Chest: atraumatic, symmetrical CVD: RRR, normal S1 and S2, no M/R/G. 2+ pulse x 4 extremities, JVD present. 2+ edema bilat legs to waste, 1+ edema bilateral arms Lungs: clear lung sounds in all ahmadi, no rhonchi, wheezing, rales. Abdomen: RLQ ttp, ND, soft, NABS. No hepatosplenomegaly, : not done on todays examination. frazier in place Rectal: not done on todays examination Spine: no visible deformities Extremities: FROM and 5/5 strength in BUE and BLE. Neuro: CNII-XII grossly intact, no sensory abnormalities. Skin:? venous stasis dermatitis bilateral legs Urinary Catheter Management: Frazier Latex: Cath Placed During This Visit: yes Reason for Continuing Indwelling Catheter: Accurate Measurement of Urinary Output in Critically Ill Patients Urinary Catheter Date of Insertion: 09/06/24 Urinary Catheter Time of Insertion: 23:30 Data 09/14/24 03:20 09/14/24 03:20 A&P Assessment and plan (1) Acute exacerbation of CHF (congestive heart failure): Primary diagnosis at presentation contributing to acute hypoxic respiratory failure from fluid overload and anasarca. LVEF 24% IV lasix, metolazone possible levophed. on PRN Qualifiers: Heart failure type: combined systolic and diastolic Qualified Code(s): I50.43 - Acute on chronic combined systolic (congestive) and diastolic (congestive) heart failure (2) Pneumonia: Suspected diagnosis at the time of admission. Cx negative Qualifiers: Laterality: left Lung location: upper lobe of lung Pneumonia type: due to unspecified organism Qualified Code(s): J18.9 - Pneumonia, unspecified organism (3) Acute hypoxic respiratory failure: Related to above currently on 4L NC (4) CAD S/P percutaneous coronary angioplasty: RCA stent placement in June 2024. Had been discharged on aspirin and Plavix but these were ultimately stopped at the time of significant hemoperitoneum earlier this month. Has been restarted on Plavix. Tolerating thus far. (5) Acute anemia: Acute blood loss anemia from prior event with hemoglobin stable this hospital stay. Recent significant bleeding. (6) Intra-abdominal hematoma: Recently, transferred to [facility], received blood transfusions, at risk of re-bleed but must maintain antiplatelet therapy with recent stent. Dr Winkler discussed with patient and family. Reviewed again on 09/08 and patient understands, no new questions. (7) Aortic valve stenosis: Aware, NICOLÁS 0.83 cm2, mean gradient 5.2 mmHg Qualifiers: Cardiac valve disease etiology: nonrheumatic Qualified Code(s): I35.0 - Nonrheumatic aortic (valve) stenosis (8) CKD (chronic kidney disease): Stage 2, stable Qualifiers: Chronic kidney disease stage: stage 2 (GFR 60-89) Qualified Code(s): N 18.2 - Chronic kidney disease, stage 2 (mild) (9) Neuropathy: Elevated TSH without a history of hypothyroidism, will need recheck of labs in outpt setting. (10) PICC (peripherally inserted central catheter) in place: placed 09/08/24 (11) Anasarca: started on IV lasix and metolazone yesterday. may required HD if anasarca refractory to diuresis; however, not a good candidate due to deterioration and overall health 5L 09/13/24 and 6L overnight. total 11L in past 24hrs (12) KELVIN (acute kidney injury): slightly worsening, Cr 1.4 this AM Plan VTE prophylaxis: SCDs, recent significant bleeding so no pharmacological prophylaxis GI Prophylaxis: PPI Antibiotics:discontinue Abx Pending studies: Cx neg thus far. possibly stop Abx in 24hrs Telemetry: Ordered secondary to recent cardiac history Frazier: In place due to IV diuresis Line(s): PICC line placed 09/08 Disposition plan: Disposition will depend on clinical course. Had previously been discharged to formerly [facility] but would like to look at [place] or [facility] as options Code Status: Allow natural September 07, 2024: Recent HPI as noted above. Discussed with patient the diffuclt situation that she is currently facing. On one hand, she underwent PCI 2 months ago with placement of stent to the RCA. Therefore it is important to continue antiplatelet therapy as her stent is at high risk of stensis off A/c. cardiology service was consulted and recommends starting Plavix 75mg po daily. ASA to remain on hold. On the other hand, with resumption of antiplatelet agents, she remains at high risk of worsening bleeding/worsening hematoma and any bleeding may potentially be fatal for her. She understands that neither is a good situation however after weighing all risks and benefits, she has decided to resume Plavix at this time with close Hb monitoring. Should she develop recurrent or worsening bleeding at that time which cannot be managed with transfusions alone, she will like to transition to comfort care measures only. Additionally she reiteriates her decision to not have CPR or be on a ventilator. She would not want any life prolonging measures. Her brother Mckay, son tawanda are at bedside. Patient appoints her older brother Mckay to be her surrogate decison maker should she be in a place of being unable to make decisions. She is currently awake alert and oriented x 4. COnversation witnessed by lola's RN in ICU. Resume Plavix 75mg daily H&H check q12h continue Abx for now due to suspicion for cellulitis, however favor RLE erythema to be changes of stasis dermatitis, will likely d/c abx if infectious evaluation remains negative at 48 hrs continue diuresis with iv lasix 40mg q12h Bipap at night time and prn during day 09/08/24 Hemoglobin has remained stable. No gross bleeding noted. Not feeling great but breathing is better than when she came in and not having as much pain. Understands the conversation that was had with her yesterday and the poor prognosis, difficult management currently. Remains on antibiotics that were started for empiric coverage of pneumonia plus or minus cellulitis. Does have leukocytosis with left shift. Had also been on antibiotics in the outpatient setting so is at increased risk for C. difficile colitis. Will add probiotics. Remains on oxygen with BiPAP if needed. Will repeat laboratory studies tomorrow and continue close monitoring in the ICU setting. 09/09/2024 hb dropped to 7.8, will check cbc at 6 pm, if significant downward trend, may consider repeat imaging discussed with family regarding bleeding risk with plavix and the need for it since recent stents continue to monitor hb family would like to go to a different [place], discussed with case management no gross bleeding noted continue empiric abx coverage continue close icu monitoring 09/10/2024 Hemoglobin stable at this time. Do not believe patient has bleeding. Start physical therapy today. Still has generalized anasarca. Continue IV Lasix. If unresponsive may need to consider nephrology consult. EF is improved compared to prior. Patient may need a defibrillator going forward and LifeVest at time of discharge. She is bedbound at baseline and is post to go to a nursing facility at time of discharge. Continue BiPAP Continue Plavix. Family patient well aware that patient may have spontaneous bleed being on Plavix going forward. However benefits outweigh the risk at this time. Recheck labs in AM. 09/11/2024 Hemoglobin stable at 8.3. Slight decrease is secondary to dilution most likely secondary to worsening anasarca. Creatinine 1.4 today. Patient hypotensive overnight We will continue to hold Coreg at this time however will add albumin every 8 hours x 3 doses total and add Lasix 40 IV twice daily. Patient will need aggressive diuresis. Consult nephrology. If unresponsive to Lasix will most likely need dialysis for fluid removal No gross bleeding noted. CT abdomen pelvis obtained this morning shows reducing hematoma. Free fluid in pelvis most likely secondary to ascites secondary to CHF EF is improved slightly to 35% compared to prior. Patient will need a defibrillator going forward and a LifeVest at time of discharge. She is bedbound and was able to do some bed exercises yesterday. She will need to be optimized from fluid status standpoint prior to discharge. Continue to use BiPAP as needed Continue empiric antibiotic coverage. Will completed 7 days. Continue Plavix. 09/12/2024 Urine output 1100 cc overnight. -700 mL on since admission. Patient currently on albumin and Lasix. Does have worsening anasarca. She may need dialysis going forward. Discussed with her son regarding patient's overall status with severe deconditioning, heart failure, recent bleeding, being bedbound and Jeferson lift discussed quality of life and recovery from her current conditions. Discussed possibility of palliative care versus hospice going forward if patient does not start to improve. Also asked son if they would be interested in dialysis if needed. He stated he will talk to his other brother and they will think about it. At this time patient is sleeping. She is very weak deconditioned and not able to engage in a meaningful conversation. I will talk to patient when she is more awake. Blood gas reviewed, discussed with respiratory therapy to place patient on BiPAP for respiratory support. Patient will need aggressive inpatient rehab however I am unsure if she will be able to participate We will transfer to [facility] today. 09/13/24 -UOP: 4.5L output in past 24hrs -placed on IV lasix drip and metolozone yesterday due to significant anasarca. showing signs of improvement -hospice vs palliative care discussed yesterday. no interest at this time. -nephrology on board. possible HD in future. not at this time given some improved response with lasix/metolazone. -discontinue vanc and zosyn due to negative Cx -OT and PT eval -SCD's -levophen PRN if BP drops 09/14/24 -UOP 6L overnight, 11L in past 24hrs -Lasix drip, metolazone 2.5mg qd -discussed at lengthy yday with brother (DESIRE) who agrees with likely hospice care. discsused at length with patient today. she will consider hospice care pending response to medication over next 1-2 days. -nephrology on board. possible HD if not responsive to lasix therapy. pt likely poor candidate given overall condition -ECHO 30-35% -OT/PT -SCD's -levophed PRN PDMP PDMP Reviewed: Not Reviewed Attestations 2 Medical Necessity Statement*: will require 2 overnight stays due to ICU critical illness Coding Level of Care Code 71474 Diagnoses Acute on chronic combined systolic and diastolic congestive heart failure I50.43 Heart failure type: combined systolic and diastolic Pneumonia of left upper lobe due to infectious organism J18.9 Laterality: left Lung location: upper lobe of lung Pneumonia type: due to unspecified organism Acute hypoxic respiratory failure J96.01 CAD S/P percutaneous coronary angioplasty I25.10; Z98.61 Acute anemia D64.9 Intra-abdominal hematoma Nonrheumatic aortic valve stenosis I35.0 Cardiac valve disease etiology: nonrheumatic Stage 2 chronic kidney disease N18.2 Chronic kidney disease stage: stage 2 (GFR 60-89) Neuropathy G62.9 PICC (peripherally inserted central catheter) in place Z45.2 Anasarca R60.1 KELVIN (acute kidney injury) N17.9
--- NOTE | 2024-09-14 07:26 | P.PN_ITS ---
Subjective 2 Subjective: UOP improved Medications: Reviewed: Yes Vitals/I&O/Wt Last Vital Signs Temp 99 F 09/14/24 03:00 Pulse 79 09/14/24 06:00 Resp 24 H 09/14/24 06:00 BP 140/51 09/14/24 06:00 Pulse Ox 96 09/14/24 06:00 O2 Del Method Nasal Cannula 09/14/24 06:00 O2 Flow Rate 4 09/14/24 06:00 FiO2 30 09/12/24 11:19 09/13/24 09/14/24 09/14/24 22:59 06:59 14:59 Intake Total 220 / 390 200 / 590 Output Total 5500 / 8000 3600 / 71224 Balance -5280 / -7610 -3400 / -22153 Weight last 48 hrs Weight 112.763 kg Weight 121 kg Physical Exam 2 Narrative: awake , alert , no ditress . on 3l NC PEERLA S1S2 RRR per report Lungs clear per report Abd soft , non tender per report + LE edema Urinary Catheter Management: Agrawal Latex: Cath Placed During This Visit: yes Reason for Continuing Indwelling Catheter: Accurate Measurement of Urinary Output in Critically Ill Patients Urinary Catheter Date of Insertion: 09/06/24 Urinary Catheter Time of Insertion: 23:30 Data 09/14/24 03:20 09/14/24 03:20 A&P Assessment and plan (1) Anasarca: (2) KELVIN (acute kidney injury): 1. Acute on chronic kidney disease stage III: Patient now with pulmonary edema and anasarca. Likely cardiorenal. Poor response to spot doses of IV Lasix so far. on Lasix drip with good response so far , blood pressures borderline low, 2 g sodium restriction and 1500 mL fluid restriction. s/p metolazone 2. Cardiomyopathy: Ejection fraction 25%, diuretics as above, cardiology recommending defibrillator 3. Anemia, monitor , tranfuse if hb < 7 4. Acute on chronic respiratory failure,on O2 , multifactirial , due to CHF and Pneumonia 5. h/o CAD with stents PDMP PDMP Reviewed: Not Reviewed Attestations 2 Medical Necessity Statement*: per tamy Coding Level of Care Code Acute Code for Chg Fwd Diagnoses Anasarca R60.1 KELVIN (acute kidney injury) N17.9
[2024-09-14] MEDS: clopidogrel 75 mg Tablet PO (08:49)
[2024-09-14] MEDS: lactobacillus 1 Tablet 1 TAB PO ×2 (08:49→17:21)
[2024-09-14] MEDS: potassium chloride ER 20 mEq Tablet PO (08:49)
[2024-09-14] MEDS: metOLazone 5 MG Tablet 2.5 MG PO ×2 (08:49→08:54)
[2024-09-14] MEDS: ipratropium-albuterol 3 mL Neb INHALATION ×4 (09:03→20:13)
--- NOTE | 2024-09-14 15:24 | P.PN_ITS ---
Subjective 2 Subjective: Volume status is improved when I talked to her she appeared to me she is more alert today. Medications: Reviewed: Yes Medication Review Details: Current Medications Acetaminophen (Acetaminophen 325 Mg Tablet) 650 mg PO Q6H PRN PRN Reason: Mild/Mod Pain Or Temp >/= 101 Last Admin: 09/12/24 02:52 Dose: 650 mg Albuterol/Ipratropium (Ipratropium-Albuterol 3 Ml Neb) 3 ml INHALATION QID.RESPIRATORY VETO Last Admin: 09/11/24 20:22 Dose: 3 ml Atorvastatin Calcium (Atorvastatin 40 Mg Tablet) 40 mg PO BEDTIME VETO Last Admin: 09/11/24 20:39 Dose: 40 mg Carvedilol (Carvedilol 3.125 Mg Tablet) 3.125 mg PO BID VETO Last Admin: 09/10/24 17:40 Dose: 3.125 mg Clopidogrel Bisulfate (Clopidogrel 75 Mg Tablet) 75 mg PO DAILY VETO Last Admin: 09/11/24 08:25 Dose: 75 mg Furosemide (Furosemide 10 Mg/Ml Sdv 4ml) 40 mg IVP Q12H [facility] Last Admin: 09/12/24 01:21 Dose: Not Given Piperacillin Sod/Tazobactam (Sod 3.375 gm/ Sodium Chloride) 50 mls @ 12.5 mls/hr IV Q8H [facility] Last Admin: 09/12/24 05:58 Dose: 12.5 mls/hr Vancomycin HCl 1,000 mg/ (Sodium Chloride) 250 mls @ 250 mls/hr IV Q18H [facility] Last Infusion: 09/11/24 08:26 Dose: Infused Albumin Human (Albumin) 25 g in 100 mls @ 60 mls/hr IV Q8H [facility] Stop: 09/13/24 11:29 Last Infusion: 09/12/24 06:03 Dose: Infused Furosemide 100 mg/ Sodium (Chloride) 50 mls @ 0 mls/hr IV .Q0M [facility]; Protocol Last Admin: 09/12/24 02:04 Dose: 20 mg/hr, 10 mls/hr Norepinephrine Bitartrate (Levophed) 4 mg in 250 mls @ 0 mls/hr IV .Q0M [facility]; Protocol Last Titration: 09/11/24 16:52 Dose: 0 mcg/min, 0 mls/hr Furosemide 200 mg/ Sodium (Chloride) 100 mls @ 0 mls/hr IV .Q0M [facility]; Protocol Lactobacillus Acidophilus (Lactobacillus 1 Tablet) 1 tab PO BID [facility] Last Admin: 09/11/24 17:45 Dose: 1 tab Lanolin (Lanolin Oint 7 Gm) 1 applic TOPICAL PRN PRN PRN Reason: DRYNESS Last Admin: 09/08/24 18:43 Dose: 1 applic Ondansetron HCl (Ondansetron 2 Mg/Ml Sdv 2 Ml) 4 mg IVP Q8H PRN PRN Reason: vomiting, or N/V if npo Pantoprazole Sodium (Pantoprazole 40 Mg Sdv) 40 mg IVP Q24H [facility] Last Admin: 09/12/24 00:31 Dose: 40 mg Potassium Chloride (Potassium Chloride Er 20 Meq Tablet) 20 meq PO DAILY [facility] Last Admin: 09/11/24 08:25 Dose: 20 meq Sacubitril/Valsartan (Sacubitril/Valsartan 24-26 Mg Tablet) 1 each PO BID [facility] Last Admin: 09/10/24 17:40 Dose: 1 each Spironolactone (Spironolactone 25 Mg Tablet) 25 mg PO DAILY [facility] Last Admin: 09/10/24 08:20 Dose: 25 mg Vitals/I&O/Wt Last Vital Signs Temp 97.4 F L 09/14/24 08:00 Pulse 78 09/14/24 15:21 Resp 32 H 09/14/24 14:00 BP 147/58 09/14/24 14:00 Pulse Ox 93 09/14/24 14:00 O2 Del Method Nasal Cannula 09/14/24 09:03 O2 Flow Rate 3 09/14/24 11:20 FiO2 30 09/12/24 11:19 09/14/24 09/14/24 09/14/24 06:59 14:59 22:59 Intake Total 200 / 590 198.333 / 198.333 Output Total 3600 / 21607 2500 / 2500 Balance -3400 / -87944 -2301.667 / -2301.667 Weight last 48 hrs Weight 248 lb 9.6 oz Weight 266 lb 12.149 oz Physical Exam 2 Const: OTHER: GENERAL: Patient is opening eyes and trying to follow commands. HEART: Regular S1 and S2. No murmur, rub or gallop. LUNGS: Clear to auscultate bilaterally. CENTRAL NERVOUS SYSTEM: Grossly nonfocal. EXTREMITIES: Lower extremities with bilateral trace edema, dry skin. Urinary Catheter Management: Agrawal Latex: Cath Placed During This Visit: yes Reason for Continuing Indwelling Catheter: Accurate Measurement of Urinary Output in Critically Ill Patients Urinary Catheter Date of Insertion: 09/06/24 Urinary Catheter Time of Insertion: 23:30 Data 09/14/24 03:20 09/14/24 03:20 A&P Assessment and plan (1) Atherosclerosis of coronary artery of [place] heart without angina pectoris: May continue on the Plavix. Cardiac kaur seems to be stable. Qualifiers: Coronary Disease-Associated Artery/Lesion type: [place] artery Qualified Code(s): I25.10 - Atherosclerotic heart disease of [place] coronary artery without angina pectoris (2) Congestive heart failure: Qualifiers: Heart failure type: other Qualified Code(s): I50.9 - Heart failure, unspecified (3) Left ventricular systolic dysfunction (LVSD): (4) Aortic valve stenosis: No specific intervention needed at this point Qualifiers: Cardiac valve disease etiology: nonrheumatic Qualified Code(s): I35.0 - Nonrheumatic aortic (valve) stenosis (5) Intra-abdominal hematoma: No evidence of any active bleed at this time. This need to be closely monitored. (6) Edema, peripheral: Plan Continue IV Lasix as per nephrology appear to be stable at the moment Continue rest of medications PDMP PDMP Reviewed: Not Reviewed Attestations 2 Medical Necessity Statement*: As per medicine Coding Level of Care Code Acute Code for g Fwd Diagnoses Atherosclerosis of [place] coronary artery of [place] heart without angina pectoris I25.10 Coronary Disease-Associated Artery/Lesion type: [place] artery Other congestive heart failure I50.9 Heart failure type: other Left ventricular systolic dysfunction (LVSD) I51.89 Nonrheumatic aortic valve stenosis I35.0 Cardiac valve disease etiology: nonrheumatic Intra-abdominal hematoma Edema, peripheral R60.0
--- NOTE | 2024-09-14 15:37 | PC.NURSE ---
brother and sister here visit with pt at length doctor had talked with client this am about status and on going care . aware of prognosis
[2024-09-14] MEDS: atorvastatin 40 mg Tablet PO (20:04)
--- NOTE | 2024-09-14 21:27 | USR_ITS ---
PROCEDURE INFORMATION: Exam: US Duplex Right Upper Extremity Veins, Limited Exam date and time: 09/14/2024 7:43 AM Age: 73 years old Clinical indication: Edema, localized; Upper extremity, right; Additional info: Arm swelling, evaluate for clot. TECHNIQUE: Imaging protocol: Real-time duplex ultrasound of the right Upper Extremity with 2-D cavanaugh scale, color Doppler flow and spectral waveform analysis with image documentation. Limited exam focused on the right upper extremity veins. COMPARISON: [place] [id number] 09/11/2024 9:25 AM FINDINGS: Right deep veins: Unremarkable. Axillary and brachial veins are patent throughout without thrombus. Normal Doppler waveforms. Normal compressibility and/or augmentation response. Visualized internal jugular and subclavian veins are patent. Superficial veins: Thrombosed right cephalic and right basilic veins with complete occlusion at the level of the forearm in the cephalic vein and at the level of the upper arm in the basilic vein. Soft tissues: There is a small fluid collection in the right upper arm at the level of the redness and bruise measuring 0.9 x 0.7 x 0.6 cm. US/[place] [id number] IMPRESSION: 1. No DVT. 2. Thrombophlebitis of the cephalic and basilic veins. 3. Subcutaneous collection in the right upper arm at the level of the bruise measuring 9 mm suggestive of hematoma. Superimposed infection is not excluded.
[2024-09-14] MEDS: pantoprazole 40 mg SDV IVP (23:13)
[2024-09-14] MEDS: temazepam 15 mg Capsule PO (23:13)
[2024-09-15] VITALS (39 sets, daily range): BP systolic 124–172; BP diastolic 48–93; PULSE 85–100; RESP 16–31; TEMP 36.2–37.2; O2SAT 89–99
--- NOTE | 2024-09-15 03:23 | PC.NURSE ---
Hold 0400 dose of IVP lasix per Dr. Hanson.
--- NOTE | 2024-09-15 04:08 | PC.NURSE ---
Picc line: Pt pulled out picc line while sleeping. No bleeding at site, gauze and coban dressing applied. Dr. Hanson notified. New peripheral IV started in left forearm.
--- NOTE | 2024-09-15 04:37 | PM.PN ---
Subjective Subjective: Chart reviewed . T max 99F today no leukocytosis Picc line pulled out overnight on lasix drip 20 mg/hr cr stable 1.4 hb stable 8.7 Patient is very lethargic and obtunded on examination today. She wakes up to calling her name. States that her name is Kaylee. However she is overall extremely lethargic and deconditioned. She thinks that the year is 2023. She cannot tell me that she is in a hospital. When reminded that she is in a hospital she says oh yeah but cannot remember why she is here. This is a significant difference compared to 1 week ago when she was alert awake oriented and able to have a full conversation Reviewed physical therapy notes which note that patient is currently a 3 person assist. Jeferson lift is being used for mobilization. She is net negative by over 11 L now. Medications: Reviewed: Yes Medication Review Details: Current Medications Acetaminophen (Acetaminophen 325 Mg Tablet) 650 mg PO Q6H PRN PRN Reason: Mild/Mod Pain Or Temp >/= 101 Last Admin: 09/12/24 02:52 Dose: 650 mg Albuterol/Ipratropium (Ipratropium-Albuterol 3 Ml Neb) 3 ml INHALATION QID.RESPIRATORY VETO Last Admin: 09/11/24 20:22 Dose: 3 ml Atorvastatin Calcium (Atorvastatin 40 Mg Tablet) 40 mg PO BEDTIME [facility]O Last Admin: 09/11/24 20:39 Dose: 40 mg Carvedilol (Carvedilol 3.125 Mg Tablet) 3.125 mg PO BID [facility] Last Admin: 09/10/24 17:40 Dose: 3.125 mg Clopidogrel Bisulfate (Clopidogrel 75 Mg Tablet) 75 mg PO DAILY [facility] Last Admin: 09/11/24 08:25 Dose: 75 mg Furosemide (Furosemide 10 Mg/Ml Sdv 4ml) 40 mg IVP Q12H [facility] Last Admin: 09/12/24 01:21 Dose: Not Given Piperacillin Sod/Tazobactam (Sod 3.375 gm/ Sodium Chloride) 50 mls @ 12.5 mls/hr IV Q8H [facility] Last Admin: 09/12/24 05:58 Dose: 12.5 mls/hr Vancomycin HCl 1,000 mg/ (Sodium Chloride) 250 mls @ 250 mls/hr IV Q18H [facility] Last Infusion: 09/11/24 08:26 Dose: Infused Albumin Human (Albumin) 25 g in 100 mls @ 60 mls/hr IV Q8H [facility] Stop: 09/13/24 11:29 Last Infusion: 09/12/24 06:03 Dose: Infused Furosemide 100 mg/ Sodium (Chloride) 50 mls @ 0 mls/hr IV .Q0M [facility]; Protocol Last Admin: 09/12/24 02:04 Dose: 20 mg/hr, 10 mls/hr Norepinephrine Bitartrate (Levophed) 4 mg in 250 mls @ 0 mls/hr IV .Q0M [facility]; Protocol Last Titration: 09/11/24 16:52 Dose: 0 mcg/min, 0 mls/hr Furosemide 200 mg/ Sodium (Chloride) 100 mls @ 0 mls/hr IV .Q0M [facility]; Protocol Lactobacillus Acidophilus (Lactobacillus 1 Tablet) 1 tab PO BID [facility] Last Admin: 09/11/24 17:45 Dose: 1 tab Lanolin (Lanolin Oint 7 Gm) 1 applic TOPICAL PRN PRN PRN Reason: DRYNESS Last Admin: 09/08/24 18:43 Dose: 1 applic Ondansetron HCl (Ondansetron 2 Mg/Ml Sdv 2 Ml) 4 mg IVP Q8H PRN PRN Reason: vomiting, or N/V if npo Pantoprazole Sodium (Pantoprazole 40 Mg Sdv) 40 mg IVP Q24H [facility] Last Admin: 09/12/24 00:31 Dose: 40 mg Potassium Chloride (Potassium Chloride Er 20 Meq Tablet) 20 meq PO DAILY [facility] Last Admin: 09/11/24 08:25 Dose: 20 meq Sacubitril/Valsartan (Sacubitril/Valsartan 24-26 Mg Tablet) 1 each PO BID [facility] Last Admin: 09/10/24 17:40 Dose: 1 each Spironolactone (Spironolactone 25 Mg Tablet) 25 mg PO DAILY [facility] Last Admin: 09/10/24 08:20 Dose: 25 mg Vitals/I&O/Wt Last Vital Signs Temp 99.0 F 09/15/24 04:00 Pulse 89 09/15/24 04:00 Resp 28 H 09/15/24 04:00 BP 172/75 09/15/24 04:00 Pulse Ox 92 09/15/24 04:00 O2 Del Method Nasal Cannula 09/15/24 04:00 O2 Flow Rate 5 09/15/24 04:00 FiO2 3 09/14/24 23:45 09/14/24 09/14/24 09/15/24 14:59 22:59 06:59 Intake Total 198.333 / 198.333 550 / 748.333 200 / 948.333 Output Total 2500 / 2500 3850 / 6350 1750 / 8100 Balance -2301.667 / -2301.667 -3300 / -5601.667 -1550 / -7151.667 Weight last 48 hrs Weight 112.763 kg Weight 121 kg Physical Exam Narrative: General: No acute distress, AO x1 HEENT: PERRLA, pupils bilaterally equal and reactive, pallors not present Chest: Normal vesicular breath sounds, no added sounds, equal good air entry bilaterally CVS: S1-S2 regular, no murmurs, no tachycardia, no gallops, no rubs Abdomen: Soft, nontender, no organomegaly, bowel sounds present Neuro: No focal deficits, no facial deformity, AO x3, power 5/5 in all limbs Extremities: Healthy surgical dressing present on the right hip, mild tenderness, soft no erythema. Urinary Catheter Management: Agrawal Latex: Cath Placed During This Visit: yes Reason for Continuing Indwelling Catheter: Accurate Measurement of Urinary Output in Critically Ill Patients Urinary Catheter Date of Insertion: 09/06/24 Urinary Catheter Time of Insertion: 23:30 Data 09/15/24 03:55 09/15/24 03:55 A&P Assessment and plan (1) Acute exacerbation of CHF (congestive heart failure): Qualifiers: Heart failure type: combined systolic and diastolic Qualified Code(s): I50.43 - Acute on chronic combined systolic (congestive) and diastolic (congestive) heart failure (2) Pneumonia: Qualifiers: Laterality: left Lung location: upper lobe of lung Pneumonia type: due to unspecified organism Qualified Code(s): J18.9 - Pneumonia, unspecified organism (3) Acute anemia: (4) Acute hypoxic respiratory failure: (5) Intra-abdominal hematoma: Plan Acute hypoxic respiratory failure - Secondary to systolic and diastolic CHF exacerbation - Fluid overload, anasarca -Component of pneumonia given CT chest findings, concern for healthcare associated pneumonia CT/CT angio chest PE protcl [id number] IMPRESSION: 1. No acute pulmonary embolism. 2. Moderate bilateral pleural effusions with loculation seen along the left fissure and extending through to the left lung apex. 3. Patchy multifocal ground-glass opacities are nonspecific but may represent infectious or inflammatory etiology. 4. Coronary artery calcifications. 5. Multiple prominent mediastinal lymph nodes may be reactive in etiology. 6. Cardiomegaly. Plan - Monitor in ICU - Lasix 40 IV twice daily - Monitor creatinine, monitor urine output - Place Agrawal catheter - Monitor respiratory status closely - Start vancomycin - Zosyn - Sputum cultures - Blood cultures - CRP, Pro-Andrei - Patient is a DNR, but is agreeable to elective intubation if required - SCDs for DVT prophylaxis, Lovenox relatively contraindicated given recent history of intra-abdominal hematoma Intra-abdominal hematoma - According to patient she was conservatively managed at [facility], no embolectomy required, no surgical intervention, no drainage, received blood transfusions - Will repeat CT scan abdomen pelvis Hyperbilirubinemia, transaminitis - Monitor Acute anemia - Hemoglobin improved 8.6 - Monitor hemoglobin closely CODE STATUS September 07, 2024: Recent HPI as noted above. Discussed with patient the diffuclt situation that she is currently facing. On one hand, she underwent PCI 2 months ago with placement of stent to the RCA. Therefore it is important to continue antiplatelet therapy as her stent is at high risk of stensis off A/c. cardiology service was consulted and recommends starting Plavix 75mg po daily. ASA to remain on hold. On the other hand, with resumption of antiplatelet agents, she remains at high risk of worsening bleeding/worsening hematoma and any bleeding may potentially be fatal for her. She understands that neither is a good situation however after weighing all risks and benefits, she has decided to resume Plavix at this time with close Hb monitoring. Should she develop recurrent or worsening bleeding at that time which cannot be managed with transfusions alone, she will like to transition to comfort care measures only. Additionally she reiteriates her decision to not have CPR or be on a ventilator. She would not want any life prolonging measures. Her brother Mckay, son alondra are at bedside. Patient appoints her older brother Mckay to be her surrogate decison maker should she be in a place of being unable to make decisions. She is currently awake alert and oriented x 4. COnversation witnessed by lola's RN in ICU. Resume Plavix 75mg daily H&H check q12h continue Abx for now due to suspicion for cellulitis, however favor RLE erythema to be changes of stasis dermatitis, will likely d/c abx if infectious evaluation remains negative at 48 hrs continue diuresis with iv lasix 40mg q12h Bipap at night time and prn during day 09/08/24 Hemoglobin has remained stable. No gross bleeding noted. Not feeling great but breathing is better than when she came in and not having as much pain. Understands the conversation that was had with her yesterday and the poor prognosis, difficult management currently. Remains on antibiotics that were started for empiric coverage of pneumonia plus or minus cellulitis. Does have leukocytosis with left shift. Had also been on antibiotics in the outpatient setting so is at increased risk for C. difficile colitis. Will add probiotics. Remains on oxygen with BiPAP if needed. Will repeat laboratory studies tomorrow and continue close monitoring in the ICU setting. 09/09/2024 hb dropped to 7.8, will check cbc at 6 pm, if significant downward trend, may consider repeat imaging discussed with family regarding bleeding risk with plavix and the need for it since recent stents continue to monitor hb family would like to go to a different [place], discussed with case management no gross bleeding noted continue empiric abx coverage continue close icu monitoring 09/10/2024 Hemoglobin stable at this time. Do not believe patient has bleeding. Start physical therapy today. Still has generalized anasarca. Continue IV Lasix. If unresponsive may need to consider nephrology consult. EF is improved compared to prior. Patient may need a defibrillator going forward and LifeVest at time of discharge. She is bedbound at baseline and is post to go to a nursing facility at time of discharge. Continue BiPAP Continue Plavix. Family patient well aware that patient may have spontaneous bleed being on Plavix going forward. However benefits outweigh the risk at this time. Recheck labs in AM. 09/11/2024 Hemoglobin stable at 8.3. Slight decrease is secondary to dilution most likely secondary to worsening anasarca. Creatinine 1.4 today. Patient hypotensive overnight We will continue to hold Coreg at this time however will add albumin every 8 hours x 3 doses total and add Lasix 40 IV twice daily. Patient will need aggressive diuresis. Consult nephrology. If unresponsive to Lasix will most likely need dialysis for fluid removal No gross bleeding noted. CT abdomen pelvis obtained this morning shows reducing hematoma. Free fluid in pelvis most likely secondary to ascites secondary to CHF EF is improved slightly to 35% compared to prior. Patient will need a defibrillator going forward and a LifeVest at time of discharge. She is bedbound and was able to do some bed exercises yesterday. She will need to be optimized from fluid status standpoint prior to discharge. Continue to use BiPAP as needed Continue empiric antibiotic coverage. Will completed 7 days. Continue Plavix. 09/12/2024 Urine output 1100 cc overnight. -700 mL on since admission. Patient currently on albumin and Lasix. Does have worsening anasarca. She may need dialysis going forward. Discussed with her son regarding patient's overall status with severe deconditioning, heart failure, recent bleeding, being bedbound and Jeferson lift discussed quality of life and recovery from her current conditions. Discussed possibility of palliative care versus hospice going forward if patient does not start to improve. Also asked son if they would be interested in dialysis if needed. He stated he will talk to his other brother and they will think about it. At this time patient is sleeping. She is very weak deconditioned and not able to engage in a meaningful conversation. I will talk to patient when she is more awake. Blood gas reviewed, discussed with respiratory therapy to place patient on BiPAP for respiratory support. Patient will need aggressive inpatient rehab however I am unsure if she will be able to participate We will transfer to [facility] today. 09/13/24 -UOP: 4.5L output in past 24hrs -placed on IV lasix drip and metolozone yesterday due to significant anasarca. showing signs of improvement -hospice vs palliative care discussed yesterday. no interest at this time. -nephrology on board. possible HD in future. not at this time given some improved response with lasix/metolazone. -discontinue vanc and zosyn due to negative Cx -OT and PT eval -SCD's -levophen PRN if BP drops 09/14/24 -UOP 6L overnight, 11L in past 24hrs -Lasix drip, metolazone 2.5mg qd -discussed at lengthy yday with brother (POA) who agrees with likely hospice care. discsused at length with patient today. she will consider hospice care pending response to medication over next 1-2 days. -nephrology on board. possible HD if not responsive to lasix therapy. pt likely poor candidate given overall condition -ECHO 30-35% -OT/PT -SCD's -levophed PRN 09/15/24 On lasix drip and metolazone 2.5 mg po daily as as was previously not responsive to spot doses of lasix. net negative 20L so far. Cr stable , hb stable. Reviwed PT notes, currently 3 person max assist. Jeferson lift is being needed. Patient is lethargic, unable to hold a conversation which is a significant change compared to last week. She is currently only able to state her name, thinks that the year is 2023. I had an extensive discussion with patient's DPOA Mckay. In my conversation with patient last week she had elected Mckay to be her surrogate decision maker. Overall patient is extremely deconditioned, lethargic. In spite of improved numbers, she has had no global improvement overall. As compared to 1 week ago, patient is lethargic, unable to hold a conversation with me today. Mckay states that over the past week she has deteriorated in his opinion. Kaylee has herself made her wishes clear in the past that should she fail to improve to the point of being functional and mobile, she would wish to transition to comfort care as she would not want a poor quality of life for herself. Her brother Mckay indicates that Kaylee has previously had this conversation with him and would not have wanted to live in a state where she is dependent for her ADLs. In spite of improving ejection fraction of 30 to 35%, now diuresing with IV Lasix, remaining on a long-term IV Lasix drip is not a feasible solution. Will discontinue Lasix drip today and transition her to Bumex 1 mg p.o. twice daily. In keeping with the above, goals of care have been transitioned to hospice care at this time. No further escalation of care from here point on. If patient continues to deteriorate during the day plan to transition to comfort care management. Discussed with family regarding home hospice versus hospice at [facility] facility. Patient's brother indicates that he does not feel they would be in adequate position to take care of patient at home as him and his are elderly, over 80 years old and would likely not be able to assist the patient to the extent she needs. Will discuss needs with case management and disposition accordingly. PDMP PDMP Reviewed: Not Reviewed Attestations Medical Necessity Statement*: Goals of care transition to hospice today. Coding Level of Care Code Acute Code for Chg Fwd Diagnoses Acute on chronic combined systolic and diastolic congestive heart failure I50.43 Heart failure type: combined systolic and diastolic Pneumonia of left upper lobe due to infectious organism J18.9 Laterality: left Lung location: upper lobe of lung Pneumonia type: due to unspecified organism Acute anemia D64.9 Acute hypoxic respiratory failure J96.01 Intra-abdominal hematoma
[2024-09-15 04:38] LABS: Basophils % 0.3 %; Hematocrit 28.3 % (36-47); Lymphocytes # 1.2 10^3/uL (0.8-4.8); Mean Corpuscular HGB Conc 30.7 g/dL (30-55); Mean Corpuscular Hemoglobin 30.4 pg (27-33); Mean Platelet Volume 10.2 fL (7.4-10.4); Monocytes # 0.9 10^3/uL (0.2-0.9); Monocytes % 9.1 %; Neutrophils # 7.79 10^3/uL (1.8-7.7); Neutrophils % 78.2 %; Nucleated Red Blood Cells % 0 %; Platelet Count 198 10^3/cmm (157-399); Red Blood Count 2.86 10^6/uL (3.85-5.65); Red Cell Distribution Width 24.2 % (12.1-15.1); White Blood Count 9.97 10^3/uL (3.29-11.43)
[2024-09-15 05:00] LABS: Alanine Aminotransferase 16 U/L (0-33); Albumin Level 3.7 g/dL (3.5-5.2); Alkaline Phosphatase 70 U/L (35-105); Anion Gap 17.5 (5-19); Aspartate Amino Transferase 21 U/L (0-32); Blood Urea Nitrogen 35 mg/dL (8-23); Carbon Dioxide 31 mmol/L (22-29); Chloride 93 mmol/L (98-107); Creatinine Clr Calc Pharmacy 47.4128; Globulin 3.4 g/dL (1.3-4.6); Glucose 103 mg/dL (65-115); Osmolality Calculated 294 mOsm/kg (285-295); Potassium 3.5 mmol/L (3.5-5.1); Sodium 138 mmol/L (136-145); Total Bilirubin 2.6 mg/dL (0.15-1.2); Total Protein 7.1 g/dL (6.6-8.7)
--- NOTE | 2024-09-15 08:08 | P.PN_ITS ---
Subjective 2 Subjective: pt transitioned to hospice Medications: Reviewed: Yes Vitals/I&O/Wt Last Vital Signs Temp 98.3 F 09/15/24 07:30 Pulse 85 09/15/24 06:00 Resp 24 H 09/15/24 06:00 BP 157/85 09/15/24 06:00 Pulse Ox 97 09/15/24 06:00 O2 Del Method Nasal Cannula 09/15/24 06:00 O2 Flow Rate 4 09/15/24 06:00 FiO2 3 09/14/24 23:45 09/14/24 09/15/24 09/15/24 22:59 06:59 14:59 Intake Total 550 / 748.333 200 / 948.333 Output Total 3850 / 6350 3750 / 06887 Balance -3300 / -5601.667 -3550 / -9151.667 Weight last 48 hrs Weight 103.5 kg Weight 112.763 kg Physical Exam 2 Narrative: sleeping Urinary Catheter Management: Agrawal Latex: Cath Placed During This Visit: yes Reason for Continuing Indwelling Catheter: Accurate Measurement of Urinary Output in Critically Ill Patients Urinary Catheter Date of Insertion: 09/06/24 Urinary Catheter Time of Insertion: 23:30 Data 09/15/24 03:55 09/15/24 03:55 A&P Assessment and plan (1) Anasarca: (2) KELVIN (acute kidney injury): 1. Acute on chronic kidney disease stage III: Patient now with pulmonary edema and anasarca. Likely cardiorenal. Poor response to spot doses of IV Lasix so far. Was on Lasix drip , now switched to po bumex 2. Cardiomyopathy: Ejection fraction 25%, 3. Anemia, 4. Acute on chronic respiratory failure,on O2 , multifactirial , due to CHF and Pneumonia 5. h/o CAD with stents 6.Met alkalosis , pt is hospice care will ign off PDMP PDMP Reviewed: Not Reviewed Attestations 2 Medical Necessity Statement*: per medicne Coding Level of Care Code Acute Code for Chg Fwd Diagnoses Anasarca R60.1 KELVIN (acute kidney injury) N17.9
[2024-09-15] MEDS: ipratropium-albuterol 3 mL Neb INHALATION (09:02)
[2024-09-15] MEDS: clopidogrel 75 mg Tablet PO (09:21)
--- NOTE | 2024-09-15 12:09 | PC.NURSE ---
Addendum entered by Golden Johnson RN 09/15/24 12:11: This nurse witnessed the patient's brother receiving the stated items. Original Note: All patient belongings including wallet, purse, and medications in the pyxis released to Brother Tawanda Villarreal [phone]. Witnessed by Roldan PÉREZ
[2024-09-15 12:25] LABS: Glucose Point of Care 109 mg/dL (70-110)
--- NOTE | 2024-09-15 14:21 | PC.SOCIAL ---
IMM Update pg 2 of IMM Updated and reviewed w/ patients brother. Copy provided and copy dated, initialed and placed in chart.
--- NOTE | 2024-09-15 15:12 | PC.NURSE ---
Patient trasnmferred to [facility] room 250. Report given to mahesh. Nurse called the patient's brother, Mckay Villrareal, let him know about room change.
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
--- NOTE | 2024-09-15 15:34 | P.PN_ITS ---
<Statement entered by Juan Peck MD - 09/15/24 20:02> Patient was evaluated and cared for in conjunction with an advanced practice practitioner. I personally examined the patient and reviewed the chart and all pertinent data including imaging, telemetry, and laboratory results. I discussed the patient in detail with the advanced practice practitioner. Please see their note for complete H&P testing result and agreed upon plan of care for the patient. Subjective 2 Subjective: Patient appears to be euvolemic at this time. She is lethargic and difficult to arouse at times. Overall she looks okay. Vitals/I&O/Wt Last Vital Signs Temp 97.1 F L 09/15/24 13:00 Pulse 94 09/15/24 14:30 Resp 25 H 09/15/24 14:30 BP 137/63 09/15/24 15:00 Pulse Ox 94 09/15/24 14:30 O2 Del Method Nasal Cannula 09/15/24 13:00 O2 Flow Rate 3 09/15/24 15:11 FiO2 3 09/14/24 23:45 09/15/24 09/15/24 09/15/24 06:59 14:59 22:59 Intake Total 200 / 948.333 0 / 0 Output Total 3750 / 55369 3700 / 3700 Balance -3550 / -9151.667 -3700 / -3700 0 / -3700 Weight last 48 hrs Weight 228 lb 2.855 oz Weight 248 lb 9.6 oz Physical Exam 2 Narrative: General: No apparent distress, healthy appearing, well nourished HENMT: normoceophalic Respiratory: Normal respiratory effort, clear to auscultation bilaterally throughout all lung ahmadi, no use of accessory muscles Cardio: No JVD, regular rate, regular rhythm, S1 S2 normal, no murmurs, peripheral pulses 2+ radial palpated bilaterally Extremities: Full ROM, normal, normal capillary refill, no cyanosis or edema Skin: No rashes or lesions noted, no wounds Urinary Catheter Management: Agrawal Latex: Cath Placed During This Visit: yes Reason for Continuing Indwelling Catheter: Accurate Measurement of Urinary Output in Critically Ill Patients Urinary Catheter Date of Insertion: 09/06/24 Urinary Catheter Time of Insertion: 23:30 Data 09/15/24 03:55 09/15/24 03:55 A&P Assessment and plan (1) Atherosclerosis of coronary artery of [place] heart without angina pectoris: Qualifiers: Coronary Disease-Associated Artery/Lesion type: [place] artery Qualified Code(s): I25.10 - Atherosclerotic heart disease of [place] coronary artery without angina pectoris (2) Congestive heart failure: Qualifiers: Heart failure type: other Qualified Code(s): I50.9 - Heart failure, unspecified (3) Left ventricular systolic dysfunction (LVSD): (4) Aortic valve stenosis: Qualifiers: Cardiac valve disease etiology: nonrheumatic Qualified Code(s): I35.0 - Nonrheumatic aortic (valve) stenosis (5) Intra-abdominal hematoma: (6) Edema, peripheral: Plan I reviewed patient's plan with Dr. Winkler. Patient has decided to go on hospice. She is stopping Bumex drip and putting patient on 1 mg p.o. daily. I would agree with this as patient appears euvolemic at this time. PDMP PDMP Reviewed: Not Reviewed Attestations 2 Medical Necessity Statement*: Deferred to primary Coding Level of Care Code Acute Code for g Fwd Diagnoses Atherosclerosis of [place] coronary artery of [place] heart without angina pectoris I25.10 Coronary Disease-Associated Artery/Lesion type: [place] artery Other congestive heart failure I50.9 Heart failure type: other Left ventricular systolic dysfunction (LVSD) I51.89 Nonrheumatic aortic valve stenosis I35.0 Cardiac valve disease etiology: nonrheumatic Intra-abdominal hematoma Edema, peripheral R60.0
--- NOTE | 2024-09-15 16:02 | PC.OT ---
Pt and family have decided to go on Hospice services. Skilled OT services will be discontinued at this time.
[2024-09-15] MEDS: morphine 4 mg/mL SDV 1 mL 2 MG IVP (17:45)
[2024-09-15] MEDS: amitriptyline 25 mg Tablet 100 MG PO (21:00)
[2024-09-15] MEDS: oxyCODONE 5 mg IR Tab/Cap PO (21:00)
[2024-09-16] VITALS (11 sets, daily range): BP systolic 89–135; BP diastolic 59–70; PULSE 87–122; RESP 16–22; TEMP 36.5–36.8; O2SAT 90–96
[2024-09-16] MEDS: clopidogrel 75 mg Tablet PO (09:02)
[2024-09-16] MEDS: bumetanide 1 mg Tablet PO (09:02)
--- NOTE | 2024-09-16 10:02 | PC.CHAP ---
Pastoral Care Encounter/Spiritual Assessment Type of Contact [] Declined compensation and benefits advisor visit [] Patient/Family/Request visit [] Outpatient visit [] Follow-up visit [] Physician referral [] Code/Alert [x] Routine visit [] Staff referral [] Actively dying [] Patient sleeping [] Family support [] [] Out of room [] Palliative care [] [] Receiving care in room [] Pre-surgical visit [] Trauma [] Long length of stay [] ICU visit [] Other: Relational/Emotional Strength [x] Patient feels connected with others/family/visitors/staff [] Distress [] Loneliness/isolation [] Abandonment Spirituality of Patient [x] Person of [place] [] Attends Zoroastrian of their Rosa Elena [x] Believes in Prayer [] Reads Bible or Temple materials [] There are Spiritual issues to be addressed Interior Assemblies Installer Interventions [x] Prayer [x] Active listening [x] Non-anxious presence [x] Spiritual/emotional support [] Crisis/trauma care [] Spiritual counseling [] Bereavement support [] Provided bereavement packet [] Provided Bible/devotional materials [] Provided toy/stuffed animal, coloring book to patient or family member [] Provided Communion [] Anointing/[facility] [] Salvation [x] Completed spiritual assessment [] Other: Impact on Illness or Injury [] Angry [] Fearful [] Anxious [] Often cries [] Exhaustion [] Unable to work [] Unable to attend nondenominational [] Unable to walk/stand [] Unable to read [] Unable to drive [] Unable to eat/drink [] Unable to sleep [] Unable to be with family [] Patient intubated [] Other: Summary Time spent with patient 5 min
[2024-09-16] MEDS: acetaminophen 1,000 MG/100 ML PIGGYBACK 400 MG IV (13:59)
[2024-09-16] MEDS: ketorolac 30 mg/mL INJ 15 MG IVP (14:14)
--- NOTE | 2024-09-16 14:27 | P.PN_ITS ---
<Statement entered by Juan Peck MD - 09/21/24 11:28> Patient was evaluated and cared for in conjunction with an advanced practice practitioner. I personally examined the patient and reviewed the chart and all pertinent data including imaging, telemetry, and laboratory results. I discussed the patient in detail with the advanced practice practitioner. Please see their note for complete H&P testing result and agreed upon plan of care for the patient. Subjective 2 Subjective: Patient doing well. No major complaints. She was negative 4600 over 24 hours Vitals/I&O/Wt Last Vital Signs Temp 98.1 F 09/16/24 11:15 Pulse 100 09/16/24 11:15 Resp 17 09/16/24 11:15 BP 135/61 09/16/24 11:15 Pulse Ox 93 09/16/24 11:15 O2 Del Method Nasal Cannula 09/16/24 11:15 O2 Flow Rate 4 09/16/24 11:15 FiO2 30 09/16/24 03:50 09/15/24 09/16/24 09/16/24 22:59 06:59 14:59 Intake Total 0 / 0 220 / 220 Output Total 900 / 4600 Balance -900 / -4600 220 / 220 Weight last 48 hrs Weight 228 lb 3 oz Weight 228 lb 2.855 oz Physical Exam 2 Narrative: General: No apparent distress, healthy appearing, well nourished HENMT: normoceophalic Respiratory: Normal respiratory effort, clear to auscultation bilaterally throughout all lung ahmadi, no use of accessory muscles Cardio: No JVD, regular rate, regular rhythm, S1 S2 normal, no murmurs, peripheral pulses 2+ radial palpated bilaterally Extremities: Full ROM, normal, normal capillary refill, no cyanosis or edema Skin: No rashes or lesions noted, no wounds Urinary Catheter Management: Agrawal Latex: Cath Placed During This Visit: yes Reason for Continuing Indwelling Catheter: Hospice/Comfort/Palliative Care Urinary Catheter Date of Insertion: 09/06/24 Urinary Catheter Time of Insertion: 23:30 Data 09/15/24 03:55 09/15/24 03:55 A&P Assessment and plan (1) Atherosclerosis of coronary artery of [place] heart without angina pectoris: Qualifiers: Coronary Disease-Associated Artery/Lesion type: [place] artery Qualified Code(s): I25.10 - Atherosclerotic heart disease of [place] coronary artery without angina pectoris (2) Congestive heart failure: Qualifiers: Heart failure type: other Qualified Code(s): I50.9 - Heart failure, unspecified (3) Left ventricular systolic dysfunction (LVSD): (4) Aortic valve stenosis: Qualifiers: Cardiac valve disease etiology: nonrheumatic Qualified Code(s): I35.0 - Nonrheumatic aortic (valve) stenosis (5) Intra-abdominal hematoma: (6) Edema, peripheral: Plan At this time, cardiology will sign off of this patient. As always, if our assistance is needed in the future, please consult us. Thank you for allowing us to take care of this very pleasant patient. PDMP PDMP Reviewed: Not Reviewed Attestations 2 Medical Necessity Statement*: Deferred to primary Coding Level of Care Code Acute Code for [facility] Fwd Diagnoses Atherosclerosis of [place] coronary artery of [place] heart without angina pectoris I25.10 Coronary Disease-Associated Artery/Lesion type: [place] artery Other congestive heart failure I50.9 Heart failure type: other Left ventricular systolic dysfunction (LVSD) I51.89 Nonrheumatic aortic valve stenosis I35.0 Cardiac valve disease etiology: nonrheumatic Intra-abdominal hematoma Edema, peripheral R60.0
--- NOTE | 2024-09-16 15:59 | PM.PN ---
Subjective Subjective: Patient is more alert and awake today. She is able to answer all orientation questions correctly. Tells me her correct name, age, date of . Recognizes her brother Mckay at bedside. She remembers she is in the hospital. Recognizes me from over a week ago. Overall she is very deconditioned and lethargic. Complaining of pain in the right lower quadrant today. Medications: Reviewed: Yes Medication Review Details: Current Medications Acetaminophen (Acetaminophen 325 Mg Tablet) 650 mg PO Q6H PRN PRN Reason: Mild/Mod Pain Or Temp >/= 101 Last Admin: 09/12/24 02:52 Dose: 650 mg Albuterol/Ipratropium (Ipratropium-Albuterol 3 Ml Neb) 3 ml INHALATION QID.RESPIRATORY [facility] Last Admin: 09/11/24 20:22 Dose: 3 ml Atorvastatin Calcium (Atorvastatin 40 Mg Tablet) 40 mg PO BEDTIME [facility] Last Admin: 09/11/24 20:39 Dose: 40 mg Carvedilol (Carvedilol 3.125 Mg Tablet) 3.125 mg PO BID [facility] Last Admin: 09/10/24 17:40 Dose: 3.125 mg Clopidogrel Bisulfate (Clopidogrel 75 Mg Tablet) 75 mg PO DAILY [facility] Last Admin: 09/11/24 08:25 Dose: 75 mg Furosemide (Furosemide 10 Mg/Ml Sdv 4ml) 40 mg IVP Q12H [facility] Last Admin: 09/12/24 01:21 Dose: Not Given Piperacillin Sod/Tazobactam (Sod 3.375 gm/ Sodium Chloride) 50 mls @ 12.5 mls/hr IV Q8H [facility] Last Admin: 09/12/24 05:58 Dose: 12.5 mls/hr Vancomycin HCl 1,000 mg/ (Sodium Chloride) 250 mls @ 250 mls/hr IV Q18H [facility] Last Infusion: 09/11/24 08:26 Dose: Infused Albumin Human (Albumin) 25 g in 100 mls @ 60 mls/hr IV Q8H [facility] Stop: 09/13/24 11:29 Last Infusion: 09/12/24 06:03 Dose: Infused Furosemide 100 mg/ Sodium (Chloride) 50 mls @ 0 mls/hr IV .Q0M [facility]; Protocol Last Admin: 09/12/24 02:04 Dose: 20 mg/hr, 10 mls/hr Norepinephrine Bitartrate (Levophed) 4 mg in 250 mls @ 0 mls/hr IV .Q0M [facility]; Protocol Last Titration: 09/11/24 16:52 Dose: 0 mcg/min, 0 mls/hr Furosemide 200 mg/ Sodium (Chloride) 100 mls @ 0 mls/hr IV .Q0M [facility]; Protocol Lactobacillus Acidophilus (Lactobacillus 1 Tablet) 1 tab PO BID [facility] Last Admin: 09/11/24 17:45 Dose: 1 tab Lanolin (Lanolin Oint 7 Gm) 1 applic TOPICAL PRN PRN PRN Reason: DRYNESS Last Admin: 09/08/24 18:43 Dose: 1 applic Ondansetron HCl (Ondansetron 2 Mg/Ml Sdv 2 Ml) 4 mg IVP Q8H PRN PRN Reason: vomiting, or N/V if npo Pantoprazole Sodium (Pantoprazole 40 Mg Sdv) 40 mg IVP Q24H [facility] Last Admin: 09/12/24 00:31 Dose: 40 mg Potassium Chloride (Potassium Chloride Er 20 Meq Tablet) 20 meq PO DAILY [facility] Last Admin: 09/11/24 08:25 Dose: 20 meq Sacubitril/Valsartan (Sacubitril/Valsartan 24-26 Mg Tablet) 1 each PO BID [facility] Last Admin: 09/10/24 17:40 Dose: 1 each Spironolactone (Spironolactone 25 Mg Tablet) 25 mg PO DAILY [facility] Last Admin: 09/10/24 08:20 Dose: 25 mg Vitals/I&O/Wt Last Vital Signs Temp 98.1 F 09/16/24 11:15 Pulse 100 09/16/24 11:15 Resp 17 09/16/24 11:15 BP 135/61 09/16/24 11:15 Pulse Ox 93 09/16/24 11:15 O2 Del Method Nasal Cannula 09/16/24 11:15 O2 Flow Rate 4 09/16/24 11:15 FiO2 30 09/16/24 03:50 09/16/24 09/16/24 09/16/24 06:59 14:59 22:59 Intake Total 220 / 220 Balance 220 / 220 Weight last 48 hrs Weight 103.504 kg Weight 103.5 kg Physical Exam Narrative: General: Globally deconditioned, ill-appearing AO x3, able to have a conversation HEENT: PERRLA, pupils bilaterally equal and reactive, pallors not present Chest: Normal vesicular breath sounds, no added sounds, equal good air entry bilaterally CVS: S1-S2 regular, no murmurs, no tachycardia, no gallops, no rubs Abdomen: Soft, TTP over the RLQ. Neuro: No focal deficits, she is moving her bilateral upper extremities while laying in bed, cooperates with dressing change etc, however is globally weak and deconditioned. Urinary Catheter Management: Agrawal Latex: Cath Placed During This Visit: yes Reason for Continuing Indwelling Catheter: Hospice/Comfort/Palliative Care Urinary Catheter Date of Insertion: 09/06/24 Urinary Catheter Time of Insertion: 23:30 Data 09/15/24 03:55 09/15/24 03:55 A&P Assessment and plan (1) Acute exacerbation of CHF (congestive heart failure): Qualifiers: Heart failure type: combined systolic and diastolic Qualified Code(s): I50.43 - Acute on chronic combined systolic (congestive) and diastolic (congestive) heart failure (2) Pneumonia: Qualifiers: Pneumonia type: due to unspecified organism Laterality: left Lung location: upper lobe of lung Qualified Code(s): J18.9 - Pneumonia, unspecified organism (3) Acute anemia: (4) Acute hypoxic respiratory failure: (5) Intra-abdominal hematoma: Plan Acute hypoxic respiratory failure - Secondary to systolic and diastolic CHF exacerbation - Fluid overload, anasarca -Component of pneumonia given CT chest findings, concern for healthcare associated pneumonia CT/CT angio chest PE protcl [id number] IMPRESSION: 1. No acute pulmonary embolism. 2. Moderate bilateral pleural effusions with loculation seen along the left fissure and extending through to the left lung apex. 3. Patchy multifocal ground-glass opacities are nonspecific but may represent infectious or inflammatory etiology. 4. Coronary artery calcifications. 5. Multiple prominent mediastinal lymph nodes may be reactive in etiology. 6. Cardiomegaly. Plan - Monitor in ICU - Lasix 40 IV twice daily - Monitor creatinine, monitor urine output - Place Agrawal catheter - Monitor respiratory status closely - Start vancomycin - Zosyn - Sputum cultures - Blood cultures - CRP, Pro-Andrei - Patient is a DNR, but is agreeable to elective intubation if required - SCDs for DVT prophylaxis, Lovenox relatively contraindicated given recent history of intra-abdominal hematoma Intra-abdominal hematoma - According to patient she was conservatively managed at [facility], no embolectomy required, no surgical intervention, no drainage, received blood transfusions - Will repeat CT scan abdomen pelvis Hyperbilirubinemia, transaminitis - Monitor Acute anemia - Hemoglobin improved 8.6 - Monitor hemoglobin closely CODE STATUS September 07, 2024: Recent HPI as noted above. Discussed with patient the diffuclt situation that she is currently facing. On one hand, she underwent PCI 2 months ago with placement of stent to the RCA. Therefore it is important to continue antiplatelet therapy as her stent is at high risk of stensis off A/c. cardiology service was consulted and recommends starting Plavix 75mg po daily. ASA to remain on hold. On the other hand, with resumption of antiplatelet agents, she remains at high risk of worsening bleeding/worsening hematoma and any bleeding may potentially be fatal for her. She understands that neither is a good situation however after weighing all risks and benefits, she has decided to resume Plavix at this time with close Hb monitoring. Should she develop recurrent or worsening bleeding at that time which cannot be managed with transfusions alone, she will like to transition to comfort care measures only. Additionally she reiteriates her decision to not have CPR or be on a ventilator. She would not want any life prolonging measures. Her brother Mckay, son alondra are at bedside. Patient appoints her older brother Mckay to be her surrogate decison maker should she be in a place of being unable to make decisions. She is currently awake alert and oriented x 4. COnversation witnessed by lola's RN in ICU. Resume Plavix 75mg daily H&H check q12h continue Abx for now due to suspicion for cellulitis, however favor RLE erythema to be changes of stasis dermatitis, will likely d/c abx if infectious evaluation remains negative at 48 hrs continue diuresis with iv lasix 40mg q12h Bipap at night time and prn during day 09/08/24 Hemoglobin has remained stable. No gross bleeding noted. Not feeling great but breathing is better than when she came in and not having as much pain. Understands the conversation that was had with her yesterday and the poor prognosis, difficult management currently. Remains on antibiotics that were started for empiric coverage of pneumonia plus or minus cellulitis. Does have leukocytosis with left shift. Had also been on antibiotics in the outpatient setting so is at increased risk for C. difficile colitis. Will add probiotics. Remains on oxygen with BiPAP if needed. Will repeat laboratory studies tomorrow and continue close monitoring in the ICU setting. 09/09/2024 hb dropped to 7.8, will check cbc at 6 pm, if significant downward trend, may consider repeat imaging discussed with family regarding bleeding risk with plavix and the need for it since recent stents continue to monitor hb family would like to go to a different [place] [facility], discussed with case management no gross bleeding noted continue empiric abx coverage continue close icu monitoring 09/10/2024 Hemoglobin stable at this time. Do not believe patient has bleeding. Start physical therapy today. Still has generalized anasarca. Continue IV Lasix. If unresponsive may need to consider nephrology consult. EF is improved compared to prior. Patient may need a defibrillator going forward and LifeVest at time of discharge. She is bedbound at baseline and is post to go to a nursing facility at time of discharge. Continue BiPAP Continue Plavix. Family patient well aware that patient may have spontaneous bleed being on Plavix going forward. However benefits outweigh the risk at this time. Recheck labs in AM. 09/11/2024 Hemoglobin stable at 8.3. Slight decrease is secondary to dilution most likely secondary to worsening anasarca. Creatinine 1.4 today. Patient hypotensive overnight We will continue to hold Coreg at this time however will add albumin every 8 hours x 3 doses total and add Lasix 40 IV twice daily. Patient will need aggressive diuresis. Consult nephrology. If unresponsive to Lasix will most likely need dialysis for fluid removal No gross bleeding noted. CT abdomen pelvis obtained this morning shows reducing hematoma. Free fluid in pelvis most likely secondary to ascites secondary to CHF EF is improved slightly to 35% compared to prior. Patient will need a defibrillator going forward and a LifeVest at time of discharge. She is bedbound and was able to do some bed exercises yesterday. She will need to be optimized from fluid status standpoint prior to discharge. Continue to use BiPAP as needed Continue empiric antibiotic coverage. Will completed 7 days. Continue Plavix. 09/12/2024 Urine output 1100 cc overnight. -700 mL on since admission. Patient currently on albumin and Lasix. Does have worsening anasarca. She may need dialysis going forward. Discussed with her son regarding patient's overall status with severe deconditioning, heart failure, recent bleeding, being bedbound and Jeferson lift discussed quality of life and recovery from her current conditions. Discussed possibility of palliative care versus hospice going forward if patient does not start to improve. Also asked son if they would be interested in dialysis if needed. He stated he will talk to his other brother and they will think about it. At this time patient is sleeping. She is very weak deconditioned and not able to engage in a meaningful conversation. I will talk to patient when she is more awake. Blood gas reviewed, discussed with respiratory therapy to place patient on BiPAP for respiratory support. Patient will need aggressive inpatient rehab however I am unsure if she will be able to participate We will transfer to [facility] today. 09/13/24 -UOP: 4.5L output in past 24hrs -placed on IV lasix drip and metolozone yesterday due to significant anasarca. showing signs of improvement -hospice vs palliative care discussed yesterday. no interest at this time. -nephrology on board. possible HD in future. not at this time given some improved response with lasix/metolazone. -discontinue vanc and zosyn due to negative Cx -OT and PT eval -SCD's -levophen PRN if BP drops 09/14/24 -UOP 6L overnight, 11L in past 24hrs -Lasix drip, metolazone 2.5mg qd -discussed at lengthy yday with brother (DESIRE) who agrees with likely hospice care. discsused at length with patient today. she will consider hospice care pending response to medication over next 1-2 days. -nephrology on board. possible HD if not responsive to lasix therapy. pt likely poor candidate given overall condition -ECHO 30-35% -OT/PT -SCD's -levophed PRN 09/15/24 On lasix drip and metolazone 2.5 mg po daily as as was previously not responsive to spot doses of lasix. net negative 20L so far. Cr stable , hb stable. Reviwed PT notes, currently 3 person max assist. Jeferson lift is being needed. Patient is lethargic, unable to hold a conversation which is a significant change compared to last week. She is currently only able to state her name, thinks that the year is 2023. I had an extensive discussion with patient's DPOA Mckay. In my conversation with patient last week she had elected Mckay to be her surrogate decision maker. Overall patient is extremely deconditioned, lethargic. In spite of improved numbers, she has had no global improvement overall. As compared to 1 week ago, patient is lethargic, unable to hold a conversation with me today. Mckay states that over the past week she has deteriorated in his opinion. Kaylee has herself made her wishes clear in the past that should she fail to improve to the point of being functional and mobile, she would wish to transition to comfort care as she would not want a poor quality of life for herself. Her brother Mckay indicates that Kaylee has previously had this conversation with him and would not have wanted to live in a state where she is dependent for her ADLs. In spite of improving ejection fraction of 30 to 35%, now diuresing with IV Lasix, remaining on a long-term IV Lasix drip is not a feasible solution. Will discontinue Lasix drip today and transition her to Bumex 1 mg p.o. twice daily. In keeping with the above, goals of care have been transitioned to hospice care at this time. No further escalation of care from here point on. If patient continues to deteriorate during the day plan to transition to comfort care management. Discussed with family regarding home hospice versus hospice at [facility] facility. Patient's brother indicates that he does not feel they would be in adequate position to take care of patient at home as him and his are elderly, over 80 years old and would likely not be able to assist the patient to the extent she needs. Will discuss needs with case management and disposition accordingly. September 16, 2024 Patient is more alert today. She is able to participate in conversation. Complains of pain in the right lower quadrant with tenderness to palpation. This is likely the site of her known hematoma. She wants to hold off on getting morphine right now as she is in discussion with her brother regarding her financials and would like to sign some paperwork for him. Will order Tylenol IV and Toradol in addition to morphine for when patient wishes for nonsedating pain management. Repeated a goals of care discussion with patient herself today as she is more alert. She understands that patient has continued to have a global decline during the course of this admission and is severely deconditioned. She again expresses her wishes to discontinue all aggressive management and proceed with comfort care/palliative measures only. Her brother Mckay is currently at bedside at time of this conversation. She confirms Mckay to be her decision maker for when she is unable to state her wishes. PDMP PDMP Reviewed: Not Reviewed Attestations Medical Necessity Statement*: comfort care management/palliative measures Coding Level of Care Code Acute Code for Chg Fwd High MDM includes number and complexity of problems actively addressed during encounter, amount and/or complexity of data reviewed/ordered and described risk of complication, morbidity or mortality of management as documented Diagnoses Acute on chronic combined systolic and diastolic congestive heart failure I50.43 Heart failure type: combined systolic and diastolic Pneumonia of left upper lobe due to infectious organism J18.9 Pneumonia type: due to unspecified organism Laterality: left Lung location: upper lobe of lung Acute anemia D64.9 Acute hypoxic respiratory failure J96.01 Intra-abdominal hematoma
[2024-09-16] MEDS: morphine 4 mg/mL SDV 1 mL IVP (18:06)
[2024-09-16] MEDS: sennosides-docusate Tablet 1 TAB PO (18:07)
[2024-09-16] MEDS: amitriptyline 25 mg Tablet 100 MG PO (20:32)
[2024-09-17 05:39] VITALS: BP 92/64; PULSE 94; RESP 17; TEMP 37.1; O2SAT 92
[2024-09-17 08:00] VITALS: BP 117/85; PULSE 100; RESP 17; TEMP 36.7; O2SAT 94
[2024-09-17 08:26] VITALS: PULSE 97; RESP 20; O2SAT 96
[2024-09-17] MEDS: clopidogrel 75 mg Tablet PO (08:57)
[2024-09-17] MEDS: sennosides-docusate Tablet 1 TAB PO (08:57)
[2024-09-17] MEDS: bumetanide 1 mg Tablet PO (08:57)
[2024-09-17 09:45] VITALS: RESP 18
[2024-09-17] MEDS: oxyCODONE 5 mg IR Tab/Cap PO (09:45)
--- NOTE | 2024-09-17 10:15 | PC.SOCIAL ---
IMM Update Updated pt & family on IMM. No questions voiced. Provided pt a copy. Initialed, dated, & timed copy in chart.
[2024-09-17 11:53] VITALS: BP 91/62; PULSE 101; RESP 16; TEMP 36.8; O2SAT 95
--- NOTE | 2024-09-17 13:14 | P.DS_ITS ---
Discharge Providers Date of Admission: 09/06/24 21:12 Date of Discharge: September 17, 2024 Attending Provider at Admission: Asher Mathis MD Attending Provider at Discharge: Kenzie Winkler MD Primary Care Provider: Param Dobson MD Diagnoses at Discharge Discharge Diagnosis (1) Acute exacerbation of CHF (congestive heart failure): Status: Acute Qualifiers: Heart failure type: combined systolic and diastolic Qualified Code(s): I50.43 - Acute on chronic combined systolic (congestive) and diastolic (congestive) heart failure (2) Pneumonia: Status: Acute Qualifiers: Pneumonia type: due to unspecified organism Laterality: left Lung location: upper lobe of lung Qualified Code(s): J18.9 - Pneumonia, unspecified organism (3) Acute anemia: Status: Acute (4) Acute hypoxic respiratory failure: Status: Acute (5) Intra-abdominal hematoma: Status: Acute Reason for Visit Reason for Visit: shortness of breath Hospital Course Hospital Course 73-year-old lady who first presented to medical attention in June 2024 with chief complaints of increasing dyspnea and lower extremity swelling. She was found to have ischemic cardiomyopathy with an ejection fraction of only 24%. She was diagnosed with acute systolic heart failure as there was no prior history of the same. She underwent coronary angiogram and received a stent into the right RCA at that time. Thereafter medications were optimized, LifeVest was arranged and patient was discharged to home. She was on dual antiplatelet therapy as appropriate with aspirin and Plavix. She is typically on 4 L/min supplemental O2 since then. She was readmitted to the hospital on August 25, 2024 she was admitted here for acute on chronic hypoxic respiratory failure and treated for acute on chronic systolic heart failure exacerbation and right lower extremity cellulitis. Then she discharged to [facility] on August 30, 2024. On August 31, 2024 she presented to the emergency room with hemorrhagic shock. Her hemoglobin was noted to be only at 5.6. CT of the abdomen and pelvis showed a large volume hemoperitoneum measuring 20.7 x 18 x 11 cm consistent with a large extraperitoneal hematoma. She was transferred via air ambulance urgently to [facility] in view of ongoing bleeding. CT of the abdomen and pelvis also noted hepatic cirrhosis, which has been presumed to be a result of CHF. There was a question if the bleeding may be ovarian in origin as heterogeneous mass was noted originating from the right adnexa into the upper abdomen concerning for an ovarian neoplasm, however this was never able to be confirmed. Eventually patient did not undergo any intervention as she was not considered to be a good candidate to undergo major surgery given her major heart failure. She did not undergo any IR embolization as IR felt the location of bleed was not accessible via IR. Per review of notes from [facility], her aspirin and Plavix were discontinued in view of the large bleed. She was off DAPT between 08/31-09/05. She was discharged back to [facility] however returned here to the ER a day later due to shortnress of breath. CTA of the chest was negative for PE. Noted predominant emphysema. Bilateral pleural effusions with loculation along the left fissure and extending through to the left apex. This was present on CAT scans from early on in August as well. She was admitted for systolic CHF exacerbation. She received treatment with IV Lasix every 12 hours initially, however this was transitioned to Lasix drip and metolazone as urine output was unresponsive despite doses of Lasix. She needed BiPAP support for her poor respiratory status intermittently. She required intermittent Levophed due to drops in blood pressure with initiation of Lasix drip. Patient's mental status last week was waxing and waning, however she is now alert awake and oriented. During the course of this admission patient has had significant deconditioning. Patient is currently at 3% max assist. She is using Jeferson lift. In view of her severe deconditioning, multiple recurrent hospital admissions, heart failure, bedbound status, chronic oxygen dependence, and her stated wishes of being made comfortable if she is unable to have an independent life, possibility of hospice care was discussed with patient and her primary decision maker which is her brother Mckay. Patient stated multiple times during her hospital admission that she would like her older brother Mckay to be the decision-maker should she be unable to make decisions for herself. In keeping with patient's and family's wishes, patient was transitioned to hospice care and is being discharged home to live with her brother with home hospice. Physical Exam Narrative: General: No acute distress, AO x3, significantly deconditioned HEENT: PERRLA, pupils bilaterally equal and reactive, pallors not present Chest: Normal vesicular breath sounds, no added sounds, equal good air entry bilaterally CVS: S1-S2 regular, no murmurs, no tachycardia, no gallops, no rubs Abdomen: Soft, nontender, no organomegaly, bowel sounds present Neuro: No focal deficits, no facial deformity, AO x3, power 5/5 in all limbs Urinary Catheter Management: Agrawal Latex: Cath Placed During This Visit: yes Reason for Continuing Indwelling Catheter: Chronic Indwelling Urinary Catheter on Admission Urinary Catheter Date of Insertion: 09/06/24 Urinary Catheter Time of Insertion: 23:30 Discharge Data Studies Completed and Pending Completed Studies During Hospitalization Category Date Time Status CT abdomen pelvis w con* [id number] Stat Cat Scan 09/06/24 20:[address] chest abdomen pelvis [[place] [id number] Cat Scan 09/11/24 08:20 Completed ] Urgent CTA chest [CT angio chest PE protcl [id number]] Stat Cat Scan 09/06/24 18:37 Completed CXRP [XR chest 1V portable [id number]] Routine Exams 09/08/24 08:34 Completed XR chest 1V portable [id number] Stat Exams 09/06/24 17:12 [place] [id number] Routine Ultrasound 09/14/24 21:27 Completed CV. echo limited [id number] Routine Ultrasound 09/08/24 09:34 Completed Radiology Impressions Chest CTA 09/06/24 18:37 IMPRESSION: 1. No acute pulmonary embolism. 2. Moderate bilateral pleural effusions with loculation seen along the left fissure and extending through to the left lung apex. 3. Patchy multifocal ground-glass opacities are nonspecific but may represent infectious or inflammatory etiology. 4. Coronary artery calcifications. 5. Multiple prominent mediastinal lymph nodes may be reactive in etiology. 6. Cardiomegaly. COMMENTS: The presence of pulmonary emphysema on CT is an independent risk factor for lung cancer. In the absence of a history or active diagnosis of lung cancer, it is recommended that this patient with emphysema be evaluated for enrollment in a low dose CT lung cancer screening program. Abdomen/Pelvis CT 09/06/24 20:51 IMPRESSION: 1. Known right lateral abdominal hematoma slightly decreased in size when compared to reference study. There is a [id number] amount of hemoperitoneum within the abdomen and pelvis that is likely stable. 2. Hepatic cirrhosis. 3. Severe atherosclerosis. 4. Diffuse anasarca. 5. Mild bilateral pleural effusions. 6. Moderate fecal stasis. Chest X-Ray 09/08/24 08:34 IMPRESSION: 1. Right-sided PICC line ending at the expected region of the cavoatrial junction in satisfactory position. 2. Cardiac enlargement and findings that would suggest CHF. Chest/Abdomen/Pelvis CT 09/11/24 08:20 IMPRESSION: 1. Previously described intraperitoneal hematoma abdomen and pelvis decreased in size slightly compared to previous. No evidence of new or progressive hemorrhage. 2. Evolving free fluid and hemoperitoneum in the abdomen and pelvis. 3. Diffuse body wall anasarca. 4. Small RIGHT greater than the LEFT pleural effusions Venous Duplex 09/14/24 21:27 IMPRESSION: 1. No DVT. 2. Thrombophlebitis of the cephalic and basilic veins. 3. Subcutaneous collection in the right upper arm at the level of the bruise measuring 9 mm suggestive of hematoma. Superimposed infection is not excluded. Laboratory Results WBC 9.97 10^3/uL (3.29-11.43) 09/15/24 03:55 RBC 2.86 10^6/uL (3.85-5.65) L 09/15/24 03:55 Hgb 8.70 g/dL (11.27-16.99) L 09/15/24 03:55 Hct 28.3 % (36-47) L 09/15/24 03:55 MCV 99.0 fl (85-98) H 09/15/24 03:55 MCH 30.4 pg (27-33) 09/15/24 03:55 MCHC 30.7 g/dL (30-55) 09/15/24 03:55 RDW 24.2 % (12.1-15.1) H 09/15/24 03:55 Plt Count 198 10^3/cmm (157-399) 09/15/24 03:55 MPV 10.2 fL (7.4-10.4) 09/15/24 03:55 Neut % (Auto) 78.2 % 09/15/24 03:55 Lymph % (Auto) 12.0 % 09/15/24 03:55 Hand % (Auto) 9.1 % 09/15/24 03:55 Eos % (Auto) 0.0 % 09/15/24 03:55 Baso % (Auto) 0.3 % 09/15/24 03:55 Neut # (Auto) 7.79 10^3/uL (1.8-7.7) H 09/15/24 03:55 Lymph # (Auto) 1.2 10^3/uL (0.8-4.8) 09/15/24 03:55 Hand # (Auto) 0.9 10^3/uL (0.2-0.9) 09/15/24 03:55 Eos # (Auto) 0.0 10^3/uL (0.0-0.8) 09/15/24 03:55 Baso # (Auto) 0.0 10^3/uL (0.0-0.1) 09/15/24 03:55 Nucleated RBC % (auto) 0 % 09/15/24 03:55 Nucleated RBCs # 0.0 /100WBC 09/15/24 03:55 ESR 32 mm/hr (0-15) H 09/06/24 17:10 PT 15.90 SECONDS (12.1-14.9) H 09/09/24 05:27 INR 1.19 (0.8-1.2) 09/09/24 05:27 Specimen Type Arterial 09/12/24 10:52 Sample Site Radial, left 09/12/24 10:52 ABG pH 7.39 (7.35-7.45) 09/12/24 10:52 ABG pCO2 44.8 mmHg (35-45) 09/12/24 10:52 ABG pO2 60.3 mmHg (80.0-100.0) L 09/12/24 10:52 ABG PO2/FiO2 Ratio 188 09/12/24 10:52 ABG HCO3 27.0 mmol/L (22-26) H 09/12/24 10:52 ABG Base Excess 1.8 mmol/L (-2.0-2.0) 09/12/24 10:52 Wm Test Pos 09/12/24 10:52 Hematocrit 25.7 % (37-47) L 09/12/24 10:52 O2 Delivery Device Nc 09/12/24 10:52 O2 Liters/Min 3.0 % 09/12/24 10:52 FiO2 32.0 % 09/12/24 10:52 Director Global Intelligence ID Cak 09/12/24 10:52 Sodium 138 mmol/L (136-145) 09/15/24 03:55 Potassium 3.5 mmol/L (3.5-5.1) 09/15/24 03:55 Chloride 93 mmol/L (98-107) L 09/15/24 03:55 Carbon Dioxide 31 mmol/L (22-29) H 09/15/24 03:55 Anion Gap 17.5 (5-19) 09/15/24 03:55 BUN 35 mg/dL (8-23) H 09/15/24 03:55 Creatinine 1.3 mg/dL (0.5-0.9) H 09/15/24 03:55 GFR Calculation Not Reportable 09/15/24 03:55 Glucose 103 mg/dL (65-115) 09/15/24 03:55 POC Glucose 109 mg/dL (70-110) 09/15/24 11:50 Calculated Osmolality 294 mOsm/kg (285-295) 09/15/24 03:55 Lactic Acid 2.2 mmol/L (0.5-2.2) 09/06/24 17:10 Lactic Acid (Sepsis) 2.1 mmol/L (0.5-2.2) 09/06/24 19:35 Calcium 10.0 mg/dL (8.5-10.5) 09/15/24 03:55 Phosphorus 2.9 mg/dL (2.5-4.5) 09/09/24 05:27 Magnesium 1.8 mg/dL (1.7-2.3) 09/13/24 03:53 Total Bilirubin 2.6 mg/dL (0.15-1.2) H 09/15/24 03:55 AST 21 U/L (0-32) 09/15/24 03:55 ALT 16 U/L (0-33) 09/15/24 03:55 Alkaline Phosphatase 70 U/L (35-105) 09/15/24 03:55 Troponin T Baseline 75 ng/L (0-10) H 09/06/24 17:10 Troponin T 120 Minute 78.85 ng/L (0-10) H 09/06/24 18:41 Delta Troponin T 3.85 ABS# (0-10) 09/06/24 18:41 C-Reactive Protein 155.0 mg/L (0.0-4.9) H 09/09/24 05:27 NT-Pro-B Natriuret Pep 71851 pg/mL (0-125) H 09/07/24 04:08 Total Protein 7.1 g/dL (6.6-8.7) 09/15/24 03:55 Albumin 3.7 g/dL (3.5-5.2) 09/15/24 03:55 Globulin 3.4 g/dL (1.3-4.6) 09/15/24 03:55 Procalcitonin 0.54 ng/mL (0-0.5) H 09/06/24 17:10 TSH 8.52 uIU/mL (0.27-4.20) H 09/06/24 17:10 Free T4 1.02 ng/dL (0.82-1.77) 09/09/24 05:27 Free T3 1.4 PG/ML (2.0-4.4) L 09/09/24 05:27 Urine Color Yellow (Yellow) 09/06/24 23:50 Urine Appearance Clear (CLEAR) 09/06/24 23:50 Urine pH 5.5 (5-7) 09/06/24 23:50 Ur Specific Melba 1.024 (1.005-1.030) 09/06/24 23:50 Urine Protein Negative (Negative) 09/06/24 23:50 Urine Glucose (UA) Negative (Normal) 09/06/24 23:50 Urine Ketones Negative (Negative) 09/06/24 23:50 Urine Blood Negative (Negative) 09/06/24 23:50 Urine Nitrate Negative (Negative) 09/06/24 23:50 Urine Bilirubin Negative (Negative) 09/06/24 23:50 Urine Urobilinogen 1.0 mg/dL (Negative) 09/06/24 23:50 Ur Leukocyte Esterase Negative (Negative) 09/06/24 23:50 Urine RBC 0-2 /hpf (0-2) 09/06/24 23:50 Urine WBC 0-5 /hpf (0-5) 09/06/24 23:50 Ur Squamous Epith Cells 0-5 /hpf (0-5) 09/06/24 23:50 Amorphous Sediment Not Reportable 09/06/24 23:50 Urine Bacteria None seen /hpf (NONE) 09/06/24 23:50 Hyaline Casts 2.46 /lpf 09/06/24 23:50 Urine Yeast 1+ /hpf H 09/06/24 23:50 Vancomycin Trough 20.8 ug/mL (10-15) H 09/13/24 15:57 Adenovirus (PCR) Not detected (NOT DETECT) 09/06/24 17:48 C. pneumoniae DNA (PCR) Not detected (NOT DETECT) 09/06/24 17:48 Coronavirus 229E (PCR) Not detected (NOT DETECT) 09/06/24 17:48 Human Metapneumovir PCR Not detected (NOT DETECT) 09/06/24 17:48 Influenza A (H1) PCR Not detected (NOT DETECT) 09/06/24 17:48 Influ A (H1/09) PCR Not detected (NOT DETECT) 09/06/24 17:48 Influenza A (H3) PCR Not detected (NOT DETECT) 09/06/24 17:48 Influenza Type A (PCR) Not detected (NOT DETECT) 09/06/24 17:48 Influenza Type B (PCR) Not detected (NOT DETECT) 09/06/24 17:48 M. pneumoniae (PCR) Not detected (NOT DETECT) 09/06/24 17:48 Parainfluenza 1 (PCR) Not detected (NOT DETECT) 09/06/24 17:48 Parainfluenza 2 (PCR) Not detected (NOT DETECT) 09/06/24 17:48 Parainfluenza 3 (PCR) Not detected (NOT DETECT) 09/06/24 17:48 Parainfluenza 4 (PCR) Not detected (NOT DETECT) 09/06/24 17:48 RSV Type A (PCR) Not detected (NOT DETECT) 09/06/24 17:48 RSV Type B (PCR) Not detected (NOT DETECT) 09/06/24 17:48 Entero/Rhino (PCR) Not detected (NOT DETECT) 09/06/24 17:48 SARS-CoV-2 (PCR) Not detected (NOT DETECT) 09/06/24 17:48 Vitals Last Vital Signs Temp 98.2 F 09/17/24 11:53 Pulse 101 H 09/17/24 11:53 Resp 16 09/17/24 11:53 BP 91/62 09/17/24 11:53 Pulse Ox 95 09/17/24 11:53 O2 Del Method Nasal Cannula 09/17/24 11:53 O2 Flow Rate 4 09/17/24 08:26 FiO2 30 09/16/24 03:50 Discharge Plan Discharge Patient Disposition: Hospice - Home Condition: Stable Prescriptions: Continued clopidogrel 75 mg tablet 75 mg PO DAILY Qty: 90 3RF pantoprazole 40 mg Tablet,Delayed Release (Dr/Ec) 40 mg PO DAILY Qty: 30 0RF amitriptyline 100 mg tablet 100 mg PO BEDTIME ipratropium-albuterol 0.5 mg-3 mg(2.5 mg base)/3 mL Solution For Nebulization 3 ml inhalation Q6H.RESP 30 Days Qty: 540 0RF sennosides-docusate sodium [Stool Softener-Laxative] 8.6-50 mg Tablet 1 tab PO DAILY Qty: 30 0RF furosemide [Lasix] 40 mg tablet 40 mg PO BIDAC 30 Days Qty: 60 0RF Discontinued potassium chloride 10 mEq capsule, extended release 10 meq PO DAILY Qty: 90 0RF carvedilol 3.125 mg tablet 3.125 mg PO BID Qty: 180 0RF atorvastatin 40 mg tablet 40 mg PO BEDTIME Qty: 90 0RF aspirin 81 mg Tablet,Delayed Release (Dr/Ec) 81 mg PO DAILY Qty: 30 0RF doxycycline monohydrate 100 mg Tablet 100 mg PO BID 10 Days Qty: 20 0RF cefdinir 300 mg capsule 300 mg PO BID 10 Days Qty: 20 0RF No Action morphine concentrate 100 mg/5 mL (20 mg/mL) solution 20 mg sublingual DIRECTED PRN (Reason: Pain/SOB) 14 Days Qty: 30 0RF Rx Instructions: 0.25ml-1ml q1H PRN may increase to 0.5ml-1ml Q1H PRN bisacodyl 10 mg suppository 10 mg AK DAILY PRN (Reason: constipation) Qty: 5 0RF Rx Instructions: 1 suppository per rectum every day PRN for constipation. diphenhydramine HCl 25 mg tablet 25 mg PO Q4H Qty: 5 0RF Rx Instructions: Take one tablet by mouth every 4 hours as needed for allergic reaction including: Rash and/or Itching hydroxyzine HCl 25 mg tablet 25 mg PO TID PRN (Reason: Itching) Qty: 5 0RF Rx Instructions: Take 1 table by mouth as needed three times a day for itching atropine 1 % drops 4 drp sublingual Q4H PRN (Reason: secretions) Qty: 5 0RF Rx Instructions: 4 drops SL q 4 hours PRN for terminal congestion/excessive secretions. ondansetron 4 mg tablet,disintegrating 4 mg translingual Q4H PRN (Reason: nausea) Qty: 5 0RF Rx Instructions: Dissolve 1 tablet under tongue every 4 hours PRN for nausea lorazepam 2 mg/mL concentrate 2 mg sublingual Q4H PRN (Reason: Anxiety/Seizure) Qty: 30 0RF Rx Instructions: 0.25ml-1ml q4H PRN Anxiety/Seizure Start 0.25ml may increase to 0.5ml-1ml q4H Discharge Orders: Discharge Order (Routine); Ordered 09/17/24 Ordered By: Kenzie Winkler Referrals: [facility]) [Outside] Param Dobson MD [Primary Care Provider, [facility]] - 09/24/24 1:30 pm Discharge Diet: Usual diet Discharge Activity: Increase activity as tolerated Patient Instructions: Hospice Care (GEN) Discharge Attestations Time Spent in Discharge Care*: greater than 30 min Quality Metrics Clinical Quality Measures [ No reported AMI, CVA or VTE this stay] Coding Level of Care Code Acute Code for Chg Fwd Diagnoses Acute on chronic combined systolic and diastolic congestive heart failure I50.43 Heart failure type: combined systolic and diastolic Pneumonia of left upper lobe due to infectious organism J18.9 Pneumonia type: due to unspecified organism Laterality: left Lung location: upper lobe of lung Acute anemia D64.9 Acute hypoxic respiratory failure J96.01 Intra-abdominal hematoma
== END 2024-09-17 12:15 | disposition hospice, home (50) | DRG 291 ==
LOC: ER 21:17 → ICU 21:38 → MEDSURG 09-15 14:51
PROVIDERS: Family Medicine; Hospitalist; Internal Medicine; Admitting Provider Family Medicine; Emergency Provider Emergency Medicine; PCP Family Medicine; Visit Provider Student in an Organized Health Care Education/Training Program
DX: I13.0 Hypertensive heart and chronic kidney disease with heart failure and stage 1 through stage 4 chronic kidney disease, or unspecified chronic kidney disease (principal); I50.43 Acute on chronic combined systolic (congestive) and diastolic (congestive) heart failure; J96.21 Acute and chronic respiratory failure with hypoxia; J18.9 Pneumonia, unspecified organism; N17.9 Acute kidney failure, unspecified; E87.3 Alkalosis; D62 Acute posthemorrhagic anemia; L03.115 Cellulitis of right lower limb; I25.10 Atherosclerotic heart disease of native coronary artery without angina pectoris; I25.5 Ischemic cardiomyopathy; J63 Pneumoconiosis due to other inorganic dusts; E80.6 Other disorders of bilirubin metabolism; I95.9 Hypotension, unspecified; I35.0 Nonrheumatic aortic (valve) stenosis; Z79.899 Other long term (current) drug therapy; Z79.82 Long term (current) use of aspirin; Z88.1 Allergy status to other antibiotic agents; Z88.8 Allergy status to other drugs, medicaments and biological substances; Z91.018 Allergy to other foods; Z87.891 Personal history of nicotine dependence; Z95.5 Presence of coronary angioplasty implant and graft; N18.30 Chronic kidney disease, stage 3 unspecified; I42.9 Cardiomyopathy, unspecified; G62.9 Polyneuropathy, unspecified; Z66 Do not resuscitate; J43.9 Emphysema, unspecified
CPT/HCPCS: 36415; 36416; 36573; 36592; 36600; 51702; 71045; 71250; 71275; 74176; 74177; 80048; 80053; 80202; 81001; 82803; 82962; 83605; 83735; 83880; 84100; 84145; 84439; 84443; 84481; 84484; 85025; 85610; 85651; 86140; 87040; 87086; 87486; 87581; 87633; 92507; 92523; 92526; 92610; 93005; 93308; 93971; 94640; 94660; 94664; 96374; 96376; 97110; 97162; 97167; 97530; 97535; 99285; J0131; J1885; J1938; J1940; J2270; J2470; J2543; J3370; J3372; J3475; J7050; J9999; P9046; P9047; Q3014